=== PATIENT | female | born 1940 | race Caucasian/White ===

== ENCOUNTER → 2017-10-23 08:40 | Outpatient (CLI) | payer MEDICARE, MEDICAID, SELFPAY ==
--- NOTE | 2017-10-23 08:45 | XR_ITS ---
XR acute abdomen series Ordering Physician: AFTAB Montez Patient Age: 77 years: Female HISTORY: ITS.REASON: abdominal pain Patient is concern that a portion of the suppository device may be remaining within her TECHNIQUE: Upright chest with flat and upright views of abdomen as well as a lateral view of pelvis/rectum COMPARISON :CXR 2 view 01/31/2017 FINDINGS CHEST : the lungs are clear with no active disease. Mild hyperexpansion. Heart, thania and mediastinal structures appear satisfactory and unchanged since January 2017.. Mild levoscoliosis lower T-spine. Mildly ectatic ascending aorta. Incidental noted moderate Arthritic changes both shoulders specifically noted narrowing subacromial space which could reflect underlying rotator cuff demise with tear. ABDOMEN. No free air. No bowel dilatation or obstruction. Minimal stool seen throughout colon. 2-3 very small air-fluid levels RLQ on the upright image of either within distal small bowel are within the cecum.-Unimpressive but could reflect some developing liquids stool conceivably.If significant localized right lower quadrant pain should develop consider CT. . no bowel dilatation or obstruction. No significant constipation evident. No radiopaque foreign bodies. There is clip right upper quadrant from previous cholecystectomy. AP view the pelvis, no significant findings on plain film. No organomegaly small phleboliths pelvic basin the left no significant calcifications at kidneys evident. Mild dextroscoliosis lumbar spine with multilevel degenerative disc changes IMPRESSION: 1. Nonspecific bowel gas pattern. No significant acute findings No bowel dilatation or obstruction. Minimal stool throughout the colon no significant constipation evident radiographically. 2. Only note 2 or 3 small air-fluid levels RLQ either related liquid stool developed in the cecum or possibly small air-fluid levels nondilated distal small bowel loops... Unimpressive but noted. 3. No organomegaly.. Cholecystectomy noted. 4. Stable chest no active disease
[2017-10-23 09:39] LABS: Alanine Aminotransferase 32 U/L (12-78); Albumin Level 3.9 gm/dL (3.4-5.0); Albumin/Globulin Ratio 1.1 (1.1-1.8); Alkaline Phosphatase 176 U/L (46-116); Anion Gap 13.9 mEq/L (5-15); Aspartate Amino Transferase 34 U/L (15-37); Bilirubin,Total 0.8 mg/dL (0.2-1.0); Blood Urea Nitrogen 11 mg/dL (7-18); Calcium 9.1 mg/dL (8.5-10.1); Carbon Dioxide 26 mmol/L (21.0-32.0); Chloride 106 mmol/L (98-107); Creatinine,Serum 1.06 mg/dL (0.55-1.02); Estimated Glomerular Filt Rate 51 ml/min (>60); GFR (African American) 61 ML/MIN (>60); Globulin 3.5 gm/dl (1.3-3.2); Glucose 104 mg/dL (74-106); Potassium 3.9 mmoL/L (3.5-5.1); Sodium 142 mmol/L (136-145); Total Protein,Serum 7.4 gm/dL (6.4-8.2)
[2017-10-23 09:57] LABS: Appearance,Urine Slightly Cloudy (Clear); Color,Urine Yellow (Yellow); Microscopic, Urine URINE MICROSCOPIC (MICROSCOPIC); PH,Urine 5.5 (5.0-8.5)
[2017-10-23 09:58] LABS: Blood, Urine Negative (Negative); Glucose,Urine (UA) Negative (Negative); Ketones,Urine Trace (Negative); Leukocyte Esterase,Urine Negative (Negative); Nitrate,Urine Negative (Negative); Protein,Urine Negative (Negative); Specific Gravity, Urine > 1.030 (1.005-1.030); Urobilinogen,Urine 0.2 EU/dl (0.2)
[2017-10-23 09:59] LABS: Bilirubin,Urine Negative (Negative)
[2017-10-23 10:00] LABS: Basophils # 0.1 K/mm3 (0-0.2); Basophils % 0.6 % (0.1-2.0); Eosinophils # 0.1 K/mm3 (0.0-0.4); Eosinophils % 0.7 % (0.1-12.0); Hematocrit 42.7 % (37.0-47.0); Lymphocytes # 7.1 K/mm3 (0.7-4.5); Lymphocytes % 64.4 K/mm3 (10-50); Mean Corpuscular HGB Conc 32.9 g/dL (31.8-35.4); Mean Corpuscular Hemoglobin 30.4 pg (27.0-31.2); Mean Corpuscular Volume 92.6 fl (81-99); Mean Platelet Volume 8.7 fl (7.4-10.4); Monocytes # 0.4 K/mm3 (0.1-1.0); Monocytes % 3.9 % (1.7-9.3); Neutrophils # 3.3 K/mm3 (1.8-7.8); Neutrophils % 30.4 % (37.0-80.0); Platelet Count 170 K/mm3 (142-424); Red Blood Count 4.62 M/mm3 (4.20-5.40); Red Cell Distribution Width 13.4 % (11.5-17.5)
[2017-10-23 10:06] LABS: Bacteria,Urine 1+ /lpf; Squamous Epithelial Cell,Urine Occasional #/hpf (0-5)
[2017-10-23 10:07] LABS: Mucus,Urine Trace /lpf
[2017-10-23 11:03] LABS: MANUAL DIFFERENTIAL MANUAL DIFFERENTIAL (MANUAL DIFF)
[2017-10-23 11:17] LABS: Lymphocytes % 58 % (10-50); Monocytes % 4 % (2-9); Neutrophils % 34 % (42-76); Total Cells Counted 100
[2017-10-23 11:18] LABS: Platelet Estimate Normal
== END ==
PROVIDERS: PCP Physician Assistant; Visit Provider Physician Assistant
DX: R10.9 Unspecified abdominal pain (principal)
CPT/HCPCS: 36415; 74021; 80053; 81001; 85007; 85025

== ENCOUNTER → 2017-11-27 13:40 | Outpatient (CLI) | payer MEDICARE, MEDICAID, SELFPAY | PROVIDERS: Visit Provider Physician Assistant | DX: L29.0 Pruritus ani (principal) ==

== ENCOUNTER → 2017-11-28 09:22 | Outpatient (REF) | payer MEDICARE, MEDICAID, SELFPAY | LOC: LAB 09:22 | PROVIDERS: Visit Provider Physician Assistant ==

== ENCOUNTER 2017-11-29 18:18 | Emergency (ER) | payer MEDICARE, MEDICAID, SELFPAY ==
[2017-11-29 18:30] VITALS: BP 173/100; PULSE 79; RESP 20; TEMP 36.7; O2SAT 95; BMI 25.9
--- NOTE | 2017-11-29 19:06 | XR_ITS ---
XR chest 2V HISTORY: Hypertension pain ITS.REASON: epigastic pain ORDERING PHYSICIAN: James Moran MD PATIENT AGE: 77 years COMPARISON: 01/31/2017 FINDINGS: The cardiomediastinal silhouette and pulmonary vascularity are within normal limits. The lungs are clear without infiltrates, suspicious nodules, or pleural effusions. Degenerative change thoracic spine with exaggerated upper thoracic kyphosis unchanged. IMPRESSION: No change with no acute finding
[2017-11-29 19:35] LABS: Basophils # 0.1 K/mm3 (0-0.2); Basophils % 0.5 % (0.1-2.0); Eosinophils # 0.1 K/mm3 (0.0-0.4); Eosinophils % 1.3 % (0.1-12.0); Hematocrit 39.8 % (37.0-47.0); Hemoglobin 12.9 g/dL (12.2-16.2); Lymphocytes # 7.5 K/mm3 (0.7-4.5); Lymphocytes % 72.4 K/mm3 (10-50); Mean Corpuscular HGB Conc 32.4 g/dL (31.8-35.4); Mean Corpuscular Hemoglobin 30.1 pg (27.0-31.2); Mean Platelet Volume 8.9 fl (7.4-10.4); Monocytes # 0.4 K/mm3 (0.1-1.0); Monocytes % 3.9 % (1.7-9.3); Neutrophils # 2.3 K/mm3 (1.8-7.8); Neutrophils % 21.9 % (37.0-80.0); Platelet Count 159 K/mm3 (142-424); Red Blood Count 4.28 M/mm3 (4.20-5.40); Red Cell Distribution Width 13.5 % (11.5-17.5); White Blood Count 10.3 K/mm3 (4.8-10.8)
[2017-11-29 19:37] LABS: MANUAL DIFFERENTIAL MANUAL DIFFERENTIAL (MANUAL DIFF)
[2017-11-29 19:48] LABS: Alanine Aminotransferase 29 U/L (12-78); Albumin Level 3.8 gm/dL (3.4-5.0); Alkaline Phosphatase 156 U/L (46-116); Anion Gap 13.7 mEq/L (5-15); Aspartate Amino Transferase 23 U/L (15-37); Bilirubin,Total 0.7 mg/dL (0.2-1.0); Blood Urea Nitrogen 12 mg/dL (7-18); Carbon Dioxide 25 mmol/L (21.0-32.0); Chloride 108 mmol/L (98-107); Creatinine Clearance Estimated 53 mL/min (0-300); Creatinine,Serum 0.87 mg/dL (0.55-1.02); Estimated Glomerular Filt Rate 63 ml/min (>60); GFR (African American) 77 ML/MIN (>60); Globulin 3.8 gm/dl (1.3-3.2); Glucose 78 mg/dL (74-106); Potassium 3.7 mmoL/L (3.5-5.1); Sodium 143 mmol/L (136-145); Total Protein,Serum 7.6 gm/dL (6.4-8.2)
[2017-11-29 20:01] LABS: Creatine Kinase 124 U/L (26-192); Eosinophils % 1 % (0-3); Lymphocytes % 47 % (10-50); Monocytes % 4 % (2-9); Neutrophils % 45 % (42-76); Platelet Estimate Normal; RBC Morphology Normal; Total Cells Counted 100; Troponin I < 0.02 ng/ml (0.00-0.06)
[2017-11-29 20:03] LABS: CKMB Relative Index 0.4 U/L (0-4.0); Creatine Kinase MB < 0.5 mg/ml (0.0-3.6)
[2017-11-29 20:22] VITALS: BP 149/87; PULSE 75; RESP 18; TEMP 36.8; O2SAT 96
[2017-11-29 21:17] LABS: Amylase 63 U/L (25-125); Lipase 87 u/L (73-393)
[2017-11-29 21:23] VITALS: BP 166/85; PULSE 87; RESP 18; TEMP 36.8; O2SAT 97
[2017-11-29 21:40] VITALS: BP 166/85; PULSE 87; RESP 18; TEMP 36.8; O2SAT 97
--- NOTE | 2017-11-29 21:47 | HMH.EDNVD ---
ED Disposition Clinical Impression: Gastritis Qualifiers: Gastritis type: unspecified gastritis Chronicity: unspecified Gastritis bleeding: without bleeding Qualified Code(s): K29.70 - Gastritis, unspecified, without bleeding Disposition: Home, Self-Care Condition on Discharge: Good Instructions: DI for Gastritis Additional Instructions: call pcp for follow up Referrals: Soumya Mcrae PA [Primary Care Provider] - - Critical Care Critical Care Time: No Attestation: On 11/29/17, the high probability of a clinically significant, sudden or life threatening deterioration of the following system(s) required my full and direct attention, intervention and personal management. The time I documented below is in addition to time spent performing reported procedures but includes the following listed in this critical care notation. Medical Decision Making - Medical Records Medical records reviewed: Yes: I reviewed the patient's medical records. Vital Signs: 11/29/17 18:30 11/29/17 20:22 11/29/17 21:23 Temperature 98.1 F 98.2 F 98.2 F Temperature Source Oral Oral Oral Pulse Rate [Left Brachial] 79 75 87 Respiratory Rate 20 18 18 Blood Pressure [Left Arm] 173/100 149/87 166/85 Blood Pressure Mean [Left Arm] 124 107 112 Blood Pressure Source [Left Arm] Automatic Cuff Automatic Cuff Blood Pressure Position [Left Arm] Sitting Sitting 02 Sat by Pulse Oximetry 95 96 97 Oxygen Delivery Method Room Air 11/29/17 21:40 Temperature 98.2 F Temperature Source Oral Pulse Rate [Left Brachial] 87 Respiratory Rate 18 Blood Pressure [Left Arm] 166/85 Blood Pressure Mean [Left Arm] 112 Blood Pressure Source [Left Arm] Automatic Cuff Blood Pressure Position [Left Arm] Sitting 02 Sat by Pulse Oximetry 97 Oxygen Delivery Method Room Air - Lab Data Lab results reviewed: Yes: I reviewed the patient's lab results. Lab Results 11/29/17 19:10: WBC 10.3, RBC 4.28, Hgb 12.9, Hct 39.8, MCV 93.0, MCH 30.1, MCHC 32.4, RDW 13.5, Plt Count 159, MPV 8.9, Neut % (Auto) 21.9 L, Lymph % (Auto) 72.4 H, [place] % (Auto) 3.9, Eos % (Auto) 1.3, Baso % (Auto) 0.5, Neut # (Auto) 2.3, Lymph # (Auto) 7.5 H, [place] # (Auto) 0.4, Eos # (Auto) 0.1, Baso # (Auto) 0.1, Total Counted 100, Neutrophils % (Manual) 45, Band Neutrophils % 2.0, Lymphocytes % (Manual) 47, Monocytes % (Manual) 4, Eosinophils % (Manual) 1, Basophils % (Manual) 1.0, Platelet Estimate Normal, RBC Morphology Normal 11/29/17 19:10: Sodium 143, Potassium 3.7, Chloride 108 H, Carbon Dioxide 25, Anion Gap 13.7, BUN 12, Creatinine 0.87, Estimated Creat Clear 53, Estimated GFR 63, Est GFR ( Amer) 77, Glucose 78, Calcium 9.0, Total Bilirubin 0.7, AST 23, ALT 29, Alkaline Phosphatase 156 H, Total Protein 7.6, Albumin 3.8, Globulin 3.8 H, Albumin/Globulin Ratio 1.0 L 11/29/17 19:10: Total Creatine Kinase 124, CK-MB (CK-2) < 0.5, CK-MB (CK-2) Rel Index 0.4, Troponin I < 0.02 11/29/17 19:10: Amylase 63, Lipase 87 Result diagrams: 11/29/17 19:10 11/29/17 19:10 Orders (Tests/Meds): ED MEDICATIONS Discontinued Medications Generic Name Dose Route Start Last Admin Trade Name Freq PRN Reason Stop Dose Admin Famotidine 20 mg 11/29/17 21:05 11/29/17 21:18 Pepcid 20mg/2ml Vial IV 11/29/17 21:06 20 mg ONCE ONE Administration Metoclopramide HCl 10 mg 11/29/17 21:05 11/29/17 21:18 Reglan 10mg/2ml Vial IVP 11/29/17 21:06 10 mg ONCE ONE Administration - Radiology Data #1 Image(s): Chest Image Reviewed: Yes I reviewed the patient's radiology image Preliminary Findings: Normal/NAD - ECG Data Tracing #1 I reviewed this ECG and interpreted as documented below: Normal Sinus Rhythm: Yes Ischemic changes: non-specific ST-T wave changes - Baudilio Inquiry Pt receiving controlled substance: No Nausea/Vomiting/Diarrhea HPI - General Chief complaint: Abdominal Pain Stated complaint: abd&Back pain,nausa Time Seen by Provider: 11/29/17 21
--- NOTE | 2017-11-29 21:50 | ED_ITS ---
ED Disposition Clinical Impression: Gastritis Qualifiers: Gastritis type: unspecified gastritis Chronicity: unspecified Gastritis bleeding: without bleeding Qualified Code(s): K29.70 - Gastritis, unspecified, without bleeding Disposition: Home, Self-Care Condition on Discharge: Good Instructions: DI for Gastritis Additional Instructions: call pcp for follow up Referrals: Soumya Mcrae PA [Primary Care Provider] - - Critical Care Critical Care Time: No Attestation: On 11/29/17, the high probability of a clinically significant, sudden or life threatening deterioration of the following system(s) required my full and direct attention, intervention and personal management. The time I documented below is in addition to time spent performing reported procedures but includes the following listed in this critical care notation. Medical Decision Making - Medical Records Medical records reviewed: Yes: I reviewed the patient's medical records. Vital Signs: 11/29/17 18:30 11/29/17 20:22 11/29/17 21:23 Temperature 98.1 F 98.2 F 98.2 F Temperature Source Oral Oral Oral Pulse Rate [Left Brachial] 79 75 87 Respiratory Rate 20 18 18 Blood Pressure [Left Arm] 173/100 149/87 166/85 Blood Pressure Mean [Left Arm] 124 107 112 Blood Pressure Source [Left Arm] Automatic Cuff Automatic Cuff Blood Pressure Position [Left Arm] Sitting Sitting 02 Sat by Pulse Oximetry 95 96 97 Oxygen Delivery Method Room Air 11/29/17 21:40 Temperature 98.2 F Temperature Source Oral Pulse Rate [Left Brachial] 87 Respiratory Rate 18 Blood Pressure [Left Arm] 166/85 Blood Pressure Mean [Left Arm] 112 Blood Pressure Source [Left Arm] Automatic Cuff Blood Pressure Position [Left Arm] Sitting 02 Sat by Pulse Oximetry 97 Oxygen Delivery Method Room Air - Lab Data Lab results reviewed: Yes: I reviewed the patient's lab results. Lab Results 11/29/17 19:10: WBC 10.3, RBC 4.28, Hgb 12.9, Hct 39.8, MCV 93.0, MCH 30.1, MCHC 32.4, RDW 13.5, Plt Count 159, MPV 8.9, Neut % (Auto) 21.9 L, Lymph % (Auto ) 72.4 H, [place] % (Auto) 3.9, Eos % (Auto) 1.3, Baso % (Auto) 0.5, Neut # (Auto) 2.3, Lymph # (Auto) 7.5 H, [place] # (Auto) 0.4, Eos # (Auto) 0.1, Baso # (Auto) 0.1, Total Counted 100, Neutrophils % (Manual) 45, Band Neutrophils % 2.0, Lymphocytes % (Manual) 47, Monocytes % (Manual) 4, Eosinophils % (Manual) 1, Basophils % (Manual) 1.0, Platelet Estimate Normal, RBC Morphology Normal 11/29/17 19:10: Sodium 143, Potassium 3.7, Chloride 108 H, Carbon Dioxide 25, Anion Gap 13.7, BUN 12, Creatinine 0.87, Estimated Creat Clear 53, Estimated GFR 63, Est GFR ( Amer) 77, Glucose 78, Calcium 9.0, Total Bilirubin 0.7 , AST 23, ALT 29, Alkaline Phosphatase 156 H, Total Protein 7.6, Albumin 3.8, Globulin 3.8 H, Albumin/Globulin Ratio 1.0 L 11/29/17 19:10: Total Creatine Kinase 124, CK-MB (CK-2) < 0.5, CK-MB (CK-2) Rel Index 0.4, Troponin I < 0.02 11/29/17 19:10: Amylase 63, Lipase 87 Result diagrams: 11/29/17 19:10 11/29/17 19:10 Orders (Tests/Meds): ED MEDICATIONS Discontinued Medications Generic Name Dose Route Start Last Admin Trade Name Freq PRN Reason Stop Dose Admin Famotidine 20 mg 11/29/17 21:05 11/29/17 21:18 Pepcid 20mg/2ml Vial IV 11/29/17 21:06 20 mg ONCE ONE Administration Metoclo
[2017-11-29 22:03] VITALS: BP 166/85; PULSE 87; RESP 18; TEMP 36.8; O2SAT 97
== END 2017-11-29 22:05 | disposition home or self-care (01) ==
PROVIDERS: Emergency Medicine; Emergency Provider Emergency Medicine; PCP Physician Assistant
DX: K29.70 Gastritis, unspecified, without bleeding (principal); Z79.82 Long term (current) use of aspirin; Z88.8 Allergy status to other drugs, medicaments and biological substances; Z87.891 Personal history of nicotine dependence
CPT/HCPCS: 71046; 80053; 82150; 82550; 82553; 83690; 84484; 85007; 85025; 93005; 93041; 96374; 96375; 99283

== ENCOUNTER 2017-12-01 08:14 | Emergency (ER) | payer MEDICARE, MEDICAID, SELFPAY ==
[2017-12-01 08:22] VITALS: BP 124/85; PULSE 105; RESP 20; TEMP 36.6; O2SAT 98; BMI 26.0
--- NOTE | 2017-12-01 08:30 | CT_ITS ---
CT abdomen pelvis wo con CLINICAL INDICATION: Right-sided abdominal pain ITS.REASON: ABD PAIN ORDERING PHYSICIAN: Lucy Oates MD PATIENT AGE: 77 years COMPARISON: 08/23/2014 TECHNIQUE: Axial images obtained with sagittal and coronal reformats. PROCEDURE: Oral Contrast: None IV Contrast: None . FINDINGS: There are atelectatic or fibrotic changes in the lung bases. Prior cholecystectomy. No ductal dilatation. The liver, spleen, adrenal glands, and pancreas have an unremarkable unenhanced CT appearance aside from some mild motion artifact. No obstructing renal or ureteral calculi. There is a 7 cm left renal cyst laterally somewhat displacing the left kidney medially. No intestinal obstruction or free air. Reported prior appendectomy. There is diverticulosis coli no evidence of diverticulitis. Prior hysterectomy. No pelvic mass or abnormal fluid collection or focal inflammatory change. Degenerative changes lumbar spine. There is a 12 mm lucent lesion of the right ilium inferiorly nonspecific not significant changed probably benign. IMPRESSION: 1. No acute abdominal or pelvic findings. 2. 7 cm left renal cyst. 3. Colonic diverticulosis. No evidence of diverticulitis. 4. Other nonacute findings as described above
--- NOTE | 2017-12-01 08:43 | HMH.EDABDPAI ---
ED Disposition Clinical Impression: Diverticulosis Disposition: Home, Self-Care Condition on Discharge: Good Instructions: DI for Acute Abdomen Additional Instructions: See Soumya in 2-3 days for follow-up. Rx Bentyl and Zofran. Clear liquids overnight, advance as tolerated. Prescriptions: Ondansetron [Zofran 4mg ODT] 4 mg PO Q8HP PRN #10 tab.rapdis PRN Reason: nausea/vomiting Dicyclomine HCl [Bentyl 10mg capsule] 10 mg PO TIDP PRN #10 cap PRN Reason: Cramping pain Referrals: Soumya Mcrae PA [Primary Care Provider] - Time of Disposition: 09:47 - Critical Care Critical Care Time: No Attestation: On 12/01/17, the high probability of a clinically significant, sudden or life threatening deterioration of the following system(s) required my full and direct attention, intervention and personal management. The time I documented below is in addition to time spent performing reported procedures but includes the following listed in this critical care notation. Medical Decision Making - Medical Records Medical records reviewed: Yes: I reviewed the patient's medical records. MR Comment: Seen in the ER 2 days ago for similar complaints. Vital Signs: 12/01/17 08:22 12/01/17 09:14 Temperature 97.9 F 98.0 F Temperature Source Oral Oral Pulse Rate [Right Radial] 105 H 86 Respiratory Rate 20 18 Blood Pressure [Right Arm] 124/85 116/75 Blood Pressure Mean [Right Arm] 98 88 Blood Pressure Source [Right Arm] Manual Cuff/ Doppler Blood Pressure Position [Right Arm] Sitting 02 Sat by Pulse Oximetry 98 97 Oxygen Delivery Method Room Air Room Air - Lab Data Lab results reviewed: Yes: I reviewed the patient's lab results. Lab Results 12/01/17 08:35: WBC 14.1 H D, RBC 4.46, Hgb 13.3, Hct 41.3, MCV 92.6, MCH 29.7, MCHC 32.1, RDW 13.6, Plt Count 187, MPV 9.4, Neut % (Auto) 32.1 L, Lymph % (Auto) 64.4 H, [place] % (Auto) 2.7, Eos % (Auto) 0.5, Baso % (Auto) 0.4, Neut # (Auto) 4.5, Lymph # (Auto) 9.1 H, [place] # (Auto) 0.4, Eos # (Auto) 0.1, Baso # (Auto) 0.1, Total Counted 100, Neutrophils % (Manual) 51, Lymphocytes % (Manual) 47, Monocytes % (Manual) 1 L, Eosinophils % (Manual) 1, Differential Comment , Platelet Estimate Normal, Poikilocytosis 2+, Hase[place] Cells 2+ 12/01/17 08:35: Sodium 140, Potassium 3.8, Chloride 104, Carbon Dioxide 24, Anion Gap 15.8 H, BUN 15, Creatinine 1.08 H D, Estimated Creat Clear 49, Estimated GFR 49 L, Est GFR ( Amer) 60 D, Glucose 91, Calcium 9.1, Total Bilirubin 1.0, AST 26, ALT 27, Alkaline Phosphatase 156 H, Total Protein 7.7, Albumin 3.9, Globulin 3.8 H, Albumin/Globulin Ratio 1.0 L, Amylase 75 12/01/17 08:35: Urine Color Yellow, Urine Appearance Clear, Urine pH 6.0, Ur Specific [place] >= 1.030, Urine Protein Negative, Urine Glucose (UA) Negative, Urine Ketones 3+, Urine Blood Trace-i, Urine Nitrate Negative, Urine Bilirubin Negative, Urine Urobilinogen 0.2, Ur Leukocyte Esterase Negative, Urine RBC Occasional, Urine WBC None, Ur Squamous Epith Cells 5-10, Urine Bacteria 1+, Urine Mucus 2+ 12/01/17 08:35: Lipase 89 Result diagrams: 12/01/17 08:35 12/01/17 08:35 Orders (Tests/Meds): ED MEDICATIONS Generic Name Dose Route Start Last Admin Trade Name Freq PRN Reason Stop Dose Admin Sodium Chloride 1,000 mls @ 999 mls/hr 12/01/17 08:45 12/01/17 08:41 Sod Chlor 0.9% 1000ml Bag IV 12/01/17 09:45 999 mls/hr .Q1H1M SARA Administration Discontinued Medications Generic Name Dose Route Start Last Admin Trade Name Freq PRN Reason Stop Dose Admin Dicyclomine HCl 10 mg 12/01/17 09:14 12/01/17 09:27 Bentyl 10mg Capsule PO 12/01/17 09:15 10 mg ONCE ONE Administration Ondansetron HCl 4 mg 12/01/17 08:31 12/01/17 08:40 Zofran 4mg/2ml Vial IV 12/01/17 08:32 4 mg ONCE ONE Administration - Radiology Data #1 Image(s): Abdomen, Pelvis Image Reviewed: Yes I reviewed the patient's radiology results Preliminary Findings: Abnormal (Diverticulo
[2017-12-01 08:54] LABS: Microscopic, Urine URINE MICROSCOPIC (MICROSCOPIC)
[2017-12-01 08:59] LABS: Basophils # 0.1 K/mm3 (0-0.2); Basophils % 0.4 % (0.1-2.0); Eosinophils # 0.1 K/mm3 (0.0-0.4); Eosinophils % 0.5 % (0.1-12.0); Hematocrit 41.3 % (37.0-47.0); Hemoglobin 13.3 g/dL (12.2-16.2); Lymphocytes # 9.1 K/mm3 (0.7-4.5); Lymphocytes % 64.4 K/mm3 (10-50); Mean Corpuscular HGB Conc 32.1 g/dL (31.8-35.4); Mean Corpuscular Hemoglobin 29.7 pg (27.0-31.2); Mean Corpuscular Volume 92.6 fl (81-99); Mean Platelet Volume 9.4 fl (7.4-10.4); Monocytes # 0.4 K/mm3 (0.1-1.0); Monocytes % 2.7 % (1.7-9.3); Neutrophils # 4.5 K/mm3 (1.8-7.8); Neutrophils % 32.1 % (37.0-80.0); Platelet Count 187 K/mm3 (142-424); Red Blood Count 4.46 M/mm3 (4.20-5.40); Red Cell Distribution Width 13.6 % (11.5-17.5); White Blood Count 14.1 K/mm3 (4.8-10.8)
[2017-12-01 09:01] LABS: MANUAL DIFFERENTIAL MANUAL DIFFERENTIAL (MANUAL DIFF)
[2017-12-01 09:03] LABS: Appearance,Urine CLEAR (Clear); Blood, Urine TRACE-I (Negative); Color,Urine YELLOW (Yellow); Glucose,Urine (UA) Negative (Negative); Ketones,Urine 3+ (Negative); Leukocyte Esterase,Urine Negative (Negative); Nitrate,Urine Negative (Negative); Protein,Urine Negative (Negative); Specific Gravity, Urine >= 1.030 (1.005-1.030); Urobilinogen,Urine 0.2 EU/dl (0.2)
[2017-12-01 09:05] LABS: Lipase 89 u/L (73-393)
[2017-12-01 09:07] LABS: Alanine Aminotransferase 27 U/L (12-78); Albumin Level 3.9 gm/dL (3.4-5.0); Alkaline Phosphatase 156 U/L (46-116); Amylase 75 U/L (25-125); Anion Gap 15.8 mEq/L (5-15); Aspartate Amino Transferase 26 U/L (15-37); Blood Urea Nitrogen 15 mg/dL (7-18); Calcium 9.1 mg/dL (8.5-10.1); Carbon Dioxide 24 mmol/L (21.0-32.0); Chloride 104 mmol/L (98-107); Creatinine Clearance Estimated 49 mL/min (0-300); Creatinine,Serum 1.08 mg/dL (0.55-1.02); Estimated Glomerular Filt Rate 49 ml/min (>60); GFR (African American) 60 ML/MIN (>60); Globulin 3.8 gm/dl (1.3-3.2); Glucose 91 mg/dL (74-106); Potassium 3.8 mmoL/L (3.5-5.1); Sodium 140 mmol/L (136-145); Total Protein,Serum 7.7 gm/dL (6.4-8.2)
[2017-12-01 09:14] VITALS: BP 116/75; PULSE 86; RESP 18; TEMP 36.7; O2SAT 97
[2017-12-01 09:16] LABS: Bilirubin,Urine Negative (Negative)
[2017-12-01 09:24] LABS: Eosinophils % 1 % (0-3); Lymphocytes % 47 % (10-50); Monocytes % 1 % (2-9); Neutrophils % 51 % (42-76); Total Cells Counted 100
[2017-12-01 09:26] LABS: Burr Cells 2+; Platelet Estimate Normal; Poikilocytosis 2+
[2017-12-01 09:31] LABS: Bacteria,Urine 1+ /lpf; Mucus,Urine 2+ /lpf; RBC,Urine Occasional #/hpf (0-3)
[2017-12-01 09:55] VITALS: BP 113/76; PULSE 110; RESP 20; TEMP 36.6; O2SAT 99
== END 2017-12-01 09:55 | disposition home or self-care (01) ==
PROVIDERS: Emergency Provider Emergency Medicine; PCP Physician Assistant
DX: R10.9 Unspecified abdominal pain (principal); K57.90 Diverticulosis of intestine, part unspecified, without perforation or abscess without bleeding; K59.00 Constipation, unspecified; R10.84 Generalized abdominal pain; Z79.82 Long term (current) use of aspirin; Z88.8 Allergy status to other drugs, medicaments and biological substances; Z87.891 Personal history of nicotine dependence; Z96.651 Presence of right artificial knee joint
CPT/HCPCS: 74176; 80053; 81001; 82150; 83690; 85007; 85025; 96365; 96374; 99283; J2405

== ENCOUNTER → 2018-02-21 13:08 | Outpatient (REF) | payer MEDICARE, MEDICAID, SELFPAY ==
[2018-02-21 17:41] LABS: Basophils % 0.4 % (0.1-2.0); Eosinophils # 0.1 K/mm3 (0.0-0.4); Eosinophils % 0.9 % (0.1-12.0); Hemoglobin 11.6 g/dL (12.2-16.2); Lymphocytes % 63.2 K/mm3 (10-50); Mean Corpuscular HGB Conc 32.2 g/dL (31.8-35.4); Mean Corpuscular Volume 93.2 fl (81-99); Mean Platelet Volume 10.1 fl (7.4-10.4); Monocytes # 0.3 K/mm3 (0.1-1.0); Monocytes % 3.8 % (1.7-9.3); Neutrophils # 2.5 K/mm3 (1.8-7.8); Neutrophils % 31.6 % (37.0-80.0); Platelet Count 145 K/mm3 (142-424); Red Blood Count 3.87 M/mm3 (4.20-5.40); Red Cell Distribution Width 13.2 % (11.5-17.5); White Blood Count 7.9 K/mm3 (4.8-10.8)
[2018-02-21 18:09] LABS: MANUAL DIFFERENTIAL MANUAL DIFFERENTIAL (MANUAL DIFF)
[2018-02-21 18:15] LABS: Alanine Aminotransferase 18 U/L (12-78); Albumin Level 3.3 gm/dL (3.4-5.0); Alkaline Phosphatase 129 U/L (46-116); Anion Gap 12.2 mEq/L (5-15); Aspartate Amino Transferase 15 U/L (15-37); Bilirubin,Total 0.4 mg/dL (0.2-1.0); Blood Urea Nitrogen 12 mg/dL (7-18); Calcium 8.8 mg/dL (8.5-10.1); Carbon Dioxide 28 mmol/L (21.0-32.0); Chloride 110 mmol/L (98-107); Chol/HDL Ratio 1.8 (1-3.5); Cholesterol 104 mg/dL (140-200); Creatinine,Serum 0.83 mg/dL (0.55-1.02); Estimated Glomerular Filt Rate 67 ml/min (>60); GFR (African American) 81 ML/MIN (>60); Globulin 3.2 gm/dl (1.3-3.2); Glucose 84 mg/dL (74-106); HDL Cholesterol 58 mg/dL (29-89); LDL Cholesterol 33 mg/dL (0-130); Potassium 4.2 mmoL/L (3.5-5.1); Sodium 146 mmol/L (136-145); T4 (Thyroxine) 12.1 ug/dl (4.7-13.3); Thyroid Stimulating Hormone 0.26 uIU/ml (0.358-3.740); Total Protein,Serum 6.5 gm/dL (6.4-8.2); Triglycerides 67 mg/dL (30-200); VLDL Cholesterol 13 mg/dL (0-40)
[2018-02-21 19:10] LABS: Eosinophils % 1 % (0-3); Lymphocytes % 51 % (10-50); Monocytes % 5 % (2-9); Neutrophils % 42 % (42-76); Platelet Estimate Normal; RBC Morphology Normal; Total Cells Counted 100
== END ==
LOC: LAB 13:08
PROVIDERS: Visit Provider Physician Assistant
DX: E03.9 Hypothyroidism, unspecified (principal)
CPT/HCPCS: 80053; 80061; 84436; 84443; 85007; 85025

== ENCOUNTER → 2018-03-21 12:56 | Outpatient (CLI) | payer MEDICARE, MEDICAID, SELFPAY ==
[2018-03-21 14:51] LABS: Thyroid Stimulating Hormone 0.26 uIU/ml (0.358-3.740)
[2018-03-21 15:09] LABS: Basophils % 0.4 % (0.1-2.0); Eosinophils # 0.1 K/mm3 (0.0-0.4); Eosinophils % 0.7 % (0.1-12.0); Hematocrit 41.5 % (37.0-47.0); Hemoglobin 12.4 g/dL (12.2-16.2); Lymphocytes # 6.6 K/mm3 (0.7-4.5); Mean Corpuscular Hemoglobin 28.3 pg (27.0-31.2); Mean Corpuscular Volume 94.3 fl (81-99); Mean Platelet Volume 9.2 fl (7.4-10.4); Monocytes # 0.3 K/mm3 (0.1-1.0); Monocytes % 2.8 % (1.7-9.3); Neutrophils % 30.2 % (37.0-80.0); Platelet Count 163 K/mm3 (142-424); Red Cell Distribution Width 14.3 % (11.5-17.5)
[2018-03-21 15:13] LABS: MANUAL DIFFERENTIAL MANUAL DIFFERENTIAL (MANUAL DIFF)
[2018-03-21 16:03] LABS: Lymphocytes % 68 % (10-50); Monocytes % 3 % (2-9); Neutrophils % 25 % (42-76); Total Cells Counted 100
[2018-03-21 16:04] LABS: Platelet Estimate Normal
[2018-03-21 16:05] LABS: Hypochromasia 1+
== END ==
PROVIDERS: Visit Provider Physician Assistant
DX: Z13.0 Encounter for screening for diseases of the blood and blood-forming organs and certain disorders involving the immune mechanism (principal); E03.9 Hypothyroidism, unspecified
CPT/HCPCS: 36415; 84443; 85007; 85025

== ENCOUNTER → 2018-04-24 14:27 | Outpatient (CLI) | payer MEDICARE, MEDICAID, SELFPAY ==
--- NOTE | 2018-04-24 14:30 | XR_ITS ---
XR chest 2V HISTORY: ITS.REASON: Hemoptysis ORDERING PHYSICIAN: AFTAB Montez PATIENT AGE: 77 years COMPARISON: PA and lateral chest 11/29/2017 FINDINGS: The lung kee are well expanded and appear clear of infiltrate. There is mild aortic tortuosity but no cardiomegaly. There is multilevel degenerative changes of the resting spine. There is lateral downsloping acromium of the right shoulder suggesting predisposition to impingement syndrome. IMPRESSION: Negative chest, no acute finding
== END ==
PROVIDERS: PCP Physician Assistant; Visit Provider Physician Assistant
DX: R04.2 Hemoptysis (principal)
CPT/HCPCS: 71046

== ENCOUNTER → 2018-05-23 13:06 | Outpatient (REF) | payer MEDICARE, MEDICAID, SELFPAY ==
[2018-05-23 19:29] LABS: Hematocrit 42.5 % (37.0-47.0); Hemoglobin 13.5 g/dL (12.2-16.2); White Blood Count 9.9 K/mm3 (4.8-10.8)
[2018-05-23 19:30] LABS: Basophils % 0.4 % (0.1-2.0); Eosinophils # 0.1 K/mm3 (0.0-0.4); Lymphocytes # 7.3 K/mm3 (0.7-4.5); Lymphocytes % 73.6 K/mm3 (10-50); Mean Corpuscular HGB Conc 31.7 g/dL (31.8-35.4); Mean Corpuscular Volume 94.6 fl (81-99); Mean Platelet Volume 9.4 fl (7.4-10.4); Monocytes # 0.3 K/mm3 (0.1-1.0); Monocytes % 2.9 % (1.7-9.3); Neutrophils # 2.2 K/mm3 (1.8-7.8); Neutrophils % 22.1 % (37.0-80.0); Platelet Count 161 K/mm3 (142-424); Red Cell Distribution Width 14.5 % (11.5-17.5)
[2018-05-23 19:38] LABS: MANUAL DIFFERENTIAL MANUAL DIFFERENTIAL (MANUAL DIFF)
[2018-05-23 20:17] LABS: Amphetamine/Metha Screen,Urine Negative ng/mL (<1000); Barbiturates Screen,Urine Negative ng/mL (<200); Benzodiazepines Screen,Urine Positive ng/mL (<200); Cannabinoid Screen,Urine Negative ng/mL (<50); Cocaine Screen,Urine Negative ng/mL (<300); Methadone Screen,Urine Negative ng/mL (<300); Opiate Screen,Urine Negative ng/mL (<300); Phencyclidine Screen,Urine Negative ng/mL (<25)
[2018-05-23 20:19] LABS: Alanine Aminotransferase 27 U/L (12-78); Albumin/Globulin Ratio 1.1 (1.1-1.8); Alkaline Phosphatase 134 U/L (46-116); Aspartate Amino Transferase 21 U/L (15-37); Bilirubin,Total 0.8 mg/dL (0.2-1.0); Blood Urea Nitrogen 10 mg/dL (7-18); Calcium 9.3 mg/dL (8.5-10.1); Carbon Dioxide 27 mmol/L (21.0-32.0); Chloride 107 mmol/L (98-107); Chol/HDL Ratio 1.6 (1-3.5); Cholesterol 111 mg/dL (140-200); Creatinine,Serum 1.03 mg/dL (0.55-1.02); Estimated Glomerular Filt Rate 52 ml/min (>60); GFR (African American) 63 ML/MIN (>60); Globulin 3.7 gm/dl (1.3-3.2); Glucose 77 mg/dL (74-106); HDL Cholesterol 68 mg/dL (29-89); LDL Cholesterol 28 mg/dL (0-130); Sodium 146 mmol/L (136-145); T4 (Thyroxine) 13.5 ug/dl (4.7-13.3); Thyroid Stimulating Hormone 0.31 uIU/ml (0.358-3.740); Total Protein,Serum 7.7 gm/dL (6.4-8.2); Triglycerides 75 mg/dL (30-200); VLDL Cholesterol 15 mg/dL (0-40)
[2018-05-23 20:55] LABS: Lymphocytes % 53 % (10-50); Monocytes % 4 % (2-9); Neutrophils % 39 % (42-76); Platelet Estimate Normal; RBC Morphology Normal; Total Cells Counted 100
== END ==
LOC: LAB 13:06
PROVIDERS: Visit Provider Physician Assistant
DX: Z79.899 Other long term (current) drug therapy (principal); R11.2 Nausea with vomiting, unspecified; R53.83 Other fatigue
CPT/HCPCS: 80053; 80061; 80305; 84436; 84443; 85007; 85025

== ENCOUNTER → 2018-05-31 08:31 | Outpatient (CLI) | payer MEDICARE, MEDICAID, SELFPAY ==
--- NOTE | 2018-05-31 08:33 | CI_ITS ---
Cerebrovascular Exam Indications: 780.4 Dizziness and giddiness. IMPRESSIONS 1. The bilateral vertebral arteries are patent with normal antegrade flow. 2. Study suggests less than 20% stenosis involving the right internal carotid artery and the left internal carotid artery. No change from the study of 07-Apr-2014. 3. Tortuous carotid arteries seen bilaterally. History: Transient ischemic attack. Risk factors: Hypertension. Hyperlipidemia. Carotid duplex study. Complete study and Doppler flow study including spectral analysis, color and [place] scale imaging. Height: Height: 162.6cm. Height: 64in. Weight: Weight: 61.2kg. Weight: 134.7lb. Body mass index: BMI: 23.2kg/m^2. Body surface area: BSA: 1.67m^2. Location: Vascular laboratory. Patient status: Outpatient. Tables: Arterial flow: + +--------+--------+ Location V sys V ed + +--------+--------+ Right CCA - proximal 60.5cm/s 22cm/s + +--------+--------+ Right CCA - distal 58.9cm/s 21.2cm/s + +--------+--------+ Right ECA 68.3cm/s -------- + +--------+--------+ Right ICA - proximal 52cm/s 22.6cm/s + +--------+--------+ Right ICA - mid 54.1cm/s 19.1cm/s + +--------+--------+ Right ICA - distal 68.2cm/s 28.7cm/s + +--------+--------+ Right vertebral 46.4cm/s -------- + +--------+--------+ Left CCA - proximal 65.2cm/s 20.4cm/s + +--------+--------+ Left CCA - distal 67.6cm/s 22.8cm/s + +--------+--------+ Left ECA 45.6cm/s -------- + +--------+--------+ Left ICA - proximal 52.6cm/s 19.6cm/s + +--------+--------+ Left ICA - mid 91.1cm/s 32.2cm/s + +--------+--------+ Left ICA - distal 86.8cm/s 31.3cm/s + +--------+--------+ Left vertebral 54.2cm/s -------- + +--------+--------+ Velocity ratios: + + + + + + Right, V sys Right, V ed Left, V sys Left, V ed + + + + + + Max ICA/dist CCA 1.16 1.35 1.35 1.41 + + + + + + (Report amended ) Electronically signed by: Preet Otto [id number]
== END ==
PROVIDERS: PCP Physician Assistant; Visit Provider Physician Assistant
DX: R42 Dizziness and giddiness (principal)
CPT/HCPCS: 93880

== ENCOUNTER → 2018-06-25 14:16 | Outpatient (POV) | payer MEDICARE, MEDICAID, SELFPAY | PROVIDERS: PCP Physician Assistant; Visit Provider Nurse Practitioner Acute Care | DX: Z00.00 Encounter for general adult medical examination without abnormal findings (principal) ==

== ENCOUNTER → 2018-07-10 10:32 | Outpatient (POV) | payer MEDICARE, MEDICAID, SELFPAY | PROVIDERS: PCP Physician Assistant; Visit Provider Dermatology | DX: Z00.00 Encounter for general adult medical examination without abnormal findings (principal) ==

== ENCOUNTER → 2018-07-10 14:41 | Outpatient (CLI) | payer MEDICARE, MEDICAID, SELFPAY ==
--- NOTE | 2018-07-10 14:42 | MM_ITS ---
MM Dig screening mamm BI w/CAD ORDERING PHYSICIAN : AFTAB Montez PATIENT AGE: 78 years GENDER: Female COMPARISON: December INDICATION: ITS.REASON:. Screening mammogram. No hormones no new complaints. HISTORY patient notes she is lost 21 pounds since previous mammogram Previous benign surgical excisional biopsy right breast lateral scar approximately 9:00. TECHNIQUE: Standard CC and MLO images were obtained. R2 CAD reviewed. Additional axillary cc views both breast FINDINGS: Mild to moderate residual fibroglandular elements. Stable architecture with no dominant mass nor suspicious calcifications. . Overall stable mammogram CAD highlights no new areas of concern versus last year . IMPRESSION: ------- Stable mammogram. No new areas of significant concern Bilateral follow-up one year BI-RADS Category: 1 Negative RECOMMENDED FOLLOW-UP: 1YR 1 YEAR FOLLOW-UP (A letter has been sent to the patient regarding results of the study.)
== END ==
PROVIDERS: PCP Physician Assistant; Visit Provider Physician Assistant
DX: Z12.31 Encounter for screening mammogram for malignant neoplasm of breast (principal)
CPT/HCPCS: 77067

== ENCOUNTER → 2018-07-16 15:06 | Outpatient (CLI) | payer MEDICARE, MEDICAID, SELFPAY ==
[2018-07-16 18:56] LABS: Thyroid Stimulating Hormone 1.21 uIU/ml (0.358-3.740)
== END ==
PROVIDERS: PCP Physician Assistant; Visit Provider Otolaryngology
DX: E07.9 Disorder of thyroid, unspecified (principal)
CPT/HCPCS: 36415; 84439; 84443

== ENCOUNTER → 2018-07-24 14:29 | Outpatient (CLI) | payer MEDICARE, MEDICAID, SELFPAY ==
--- NOTE | 2018-07-24 14:31 | US_ITS ---
US thyroid HISTORY: Follow-up thyroid nodule ITS.REASON: Thyroid condition ORDERING PHYSICIAN: Ryan Steel MD PATIENT AGE: 78 years Comparison: 09/07/2016 FINDINGS: Right lobe: Surgically removed Left lobe: 4.2 x 1.1 x 1.4 cm Isoechoic nodule mid polar region at 8 x 5 mm. Previously this was slightly hypoechoic probably not significant changed in size. IMPRESSION: 1. Interval right thyroidectomy. 2. 8 x 5 mm isoechoic nodule lower pole. This nodule was previously hypoechoic. This is low suspicion for malignancy. Consider 6 month follow-up.
== END ==
PROVIDERS: PCP Physician Assistant; Visit Provider Otolaryngology
DX: E07.9 Disorder of thyroid, unspecified (principal)
CPT/HCPCS: 76536

== ENCOUNTER → 2018-08-22 18:23 | Outpatient (CLI) | payer MEDICARE, MEDICAID, SELFPAY ==
[2018-08-22 22:12] LABS: Amphetamine/Metha Screen,Urine Negative ng/mL (<1000); Barbiturates Screen,Urine Negative ng/mL (<200); Benzodiazepines Screen,Urine Positive ng/mL (<200); Cannabinoid Screen,Urine Negative ng/mL (<50); Cocaine Screen,Urine Negative ng/mL (<300); Methadone Screen,Urine Negative ng/mL (<300); Opiate Screen,Urine Negative ng/mL (<300); Phencyclidine Screen,Urine Negative ng/mL (<25)
== END ==
PROVIDERS: Visit Provider Physician Assistant
DX: Z79.899 Other long term (current) drug therapy (principal)
CPT/HCPCS: 80305

== ENCOUNTER → 2018-11-20 19:28 | Outpatient (CLI) | payer MEDICARE, MEDICAID, SELFPAY ==
[2018-11-20 19:46] LABS: Basophils # 0.1 K/mm3 (0-0.2); Basophils % 0.5 % (0.1-2.0); Eosinophils # 0.2 K/mm3 (0.0-0.4); Eosinophils % 1.9 % (0.1-12.0); Hematocrit 38.1 % (37.0-47.0); Lymphocytes # 6.1 K/mm3 (0.7-4.5); Lymphocytes % 63.7 % (10-50); Mean Corpuscular HGB Conc 31.6 g/dL (31.8-35.4); Mean Corpuscular Volume 94.9 fl (81-99); Monocytes # 0.4 K/mm3 (0.1-1.0); Monocytes % 4.1 % (1.7-9.3); Neutrophils # 2.9 K/mm3 (1.8-7.8); Neutrophils % 29.8 % (37.0-80.0); Platelet Count 190 K/mm3 (142-424); Red Blood Count 4.01 M/mm3 (4.20-5.40); Red Cell Distribution Width 14.2 % (11.5-17.5); White Blood Count 9.6 K/mm3 (4.8-10.8)
[2018-11-20 19:47] LABS: MANUAL DIFFERENTIAL MANUAL DIFFERENTIAL (MANUAL DIFF)
[2018-11-20 20:12] LABS: Alanine Aminotransferase 17 U/L (12-78); Albumin Level 3.3 gm/dL (3.4-5.0); Albumin/Globulin Ratio 0.8 (1.1-1.8); Anion Gap 10.1 mEq/L (5-15); Aspartate Amino Transferase 14 U/L (15-37); Bilirubin,Total 0.5 mg/dL (0.2-1.0); Blood Urea Nitrogen 14 mg/dL (7-18); Calcium 8.7 mg/dL (8.5-10.1); Carbon Dioxide 31 mmol/L (21.0-32.0); Chloride 106 mmol/L (98-107); Estimated Glomerular Filt Rate 61 ml/min (>60); GFR (African American) 74 ML/MIN (>60); Globulin 4.2 gm/dl (1.3-3.2); Potassium 4.1 mmoL/L (3.5-5.1); Sodium 143 mmol/L (136-145); Total Protein,Serum 7.5 gm/dL (6.4-8.2)
[2018-11-20 20:13] LABS: Alkaline Phosphatase 122 U/L (46-116); Cholesterol 121 mg/dL (140-200); HDL Cholesterol 61 mg/dL (29-89); LDL Cholesterol 40 mg/dL (0-130); T4 (Thyroxine) 10.9 ug/dl (4.7-13.3); Thyroid Stimulating Hormone 0.78 uIU/ml (0.358-3.740); Triglycerides 100 mg/dL (30-200); VLDL Cholesterol 20 mg/dL (0-40)
[2018-11-20 20:18] LABS: Anisocytosis 1+; Lymphocytes % 58 % (10-50); Monocytes % 1 % (2-9); Neutrophils % 41 % (42-76); Platelet Estimate Normal; Total Cells Counted 100
[2018-11-20 20:20] LABS: Glucose 37 mg/dL (74-106)
== END ==
PROVIDERS: Visit Provider Physician Assistant
DX: E03.9 Hypothyroidism, unspecified (principal); F41.9 Anxiety disorder, unspecified; I25.10 Atherosclerotic heart disease of native coronary artery without angina pectoris
CPT/HCPCS: 80053; 80061; 84436; 84443; 85007; 85025

== ENCOUNTER → 2018-11-29 13:33 | Outpatient (CLI) | payer MEDICARE, MEDICAID, SELFPAY ==
--- NOTE | 2018-11-29 13:37 | CT_ITS ---
CT lung screening EXAM: CT LUNG LOW DOSE WO CONTRAST HISTORY: 40 pack-year smoking history asymptomatic for lung cancer ITS.REASON: Lung cancer screening ORDERING PHYSICIAN: AFTAB Montez PATIENT AGE: 78 years COMPARISON: None TECHNIQUE: The exam was performed on a GE Light Speed [address] scanner using 2.90 mGy CTDI. A low dose helical CT CHEST was performed on a multi-detector scanner. All CT scans at the facility use one or more dose reduction, viz: automated exposure control, ma/kV adjustment per patient size (including targeted exams where dose is matched to indication, i.e. head), or iterative reconstruction technique. The LDCT was performed in a facility that meets the criteria for the screening program. Data regarding this exam was submitted to ACR which is an approved registry. The order for this exam indicates that it came as a result of a lung cancer screening counseling shard decision-making visit that included all the elements required of such a visit including smoking cessation. The radiologist interpreting this exam meets the [facility] criteria for the LDCT lung cancer screening program. The exam is reported using the Lung-RADS classification scale and reported to the ACR registry. NOTE: This study was performed for the specific purposes of lung cancer screening and is not an alternative to diagnostic chest CT. RADIATION DOSE: CTDI vol(CT dose Index-volume) = 2.90mG DLP (Dose Length Product) = 109.04 mGcm FINDINGS: Centrilobular emphysema with scattered areas of scarring. There is a 4.5 x 3.8 x 4.8 cm mass in the superior segment of the right lower lobe in the paraspinal region posterior to the right hilum consistent with neoplasm. There is some minimal spiculation of the margins. The mass does not appear to be eroding the adjacent T8 vertebral body. A 5 mm noncalcified nodule present anterior to this mass at the azygos esophageal recess. A 4 mm noncalcified nodule is present in the right lower lobe laterally and inferiorly axial image #69. Fibrotic changes are present in the lung bases. IMPRESSION: 1. Lung RADS Category: 4X, suspicious for malignancy. 2. Other findings: Centrilobular emphysema RECOMMENDATIONS: Pulmonary consult with bronchoscopy. The lesion should be readily accessible for biopsy with bronchoscopy.
== END ==
PROVIDERS: PCP Physician Assistant; Visit Provider Physician Assistant
DX: Z12.2 Encounter for screening for malignant neoplasm of respiratory organs (principal); Z80.1 Family history of malignant neoplasm of trachea, bronchus and lung; Z87.891 Personal history of nicotine dependence

== ENCOUNTER → 2019-02-11 14:13 | Outpatient (CLI) | payer MEDICARE, MEDICAID, SELFPAY ==
--- NOTE | 2019-02-11 14:32 | XR_ITS ---
XR chest 2V HISTORY: Known lung cancer ITS.REASON: known lung cancer - needs clearance for surgery ORDERING PHYSICIAN: AFTAB Oliva PATIENT AGE: 78 years COMPARISON: 04/24/2018 FINDINGS: Normal heart size. There is increased density in the right infrahilar region consistent with pulmonary mass as previously noted on the CT scan of 11/29/2018. The remaining lungs are clear. COPD findings. Degenerative changes are present in the thoracic spine. IMPRESSION: Right infrahilar mass consistent with known lung cancer with COPD
[2019-02-11 15:31] LABS: Basophils # 0.1 K/mm3 (0-0.2); Basophils % 0.5 % (0.1-2.0); Eosinophils # 0.2 K/mm3 (0.0-0.4); Eosinophils % 2.6 % (0.1-12.0); Hematocrit 34.8 % (37.0-47.0); Hemoglobin 11.2 g/dL (12.2-16.2); Lymphocytes # 5.4 K/mm3 (0.7-4.5); Lymphocytes % 59.2 % (10-50); Mean Corpuscular HGB Conc 32.1 g/dL (31.8-35.4); Mean Corpuscular Hemoglobin 29.2 pg (27.0-31.2); Mean Platelet Volume 8.4 fl (7.4-10.4); Monocytes # 0.4 K/mm3 (0.1-1.0); Monocytes % 4.4 % (1.7-9.3); Neutrophils % 33.3 % (37.0-80.0); Platelet Count 193 K/mm3 (142-424); Red Blood Count 3.82 M/mm3 (4.20-5.40); Red Cell Distribution Width 13.6 % (11.5-17.5)
[2019-02-11 15:33] LABS: MANUAL DIFFERENTIAL MANUAL DIFFERENTIAL (MANUAL DIFF)
[2019-02-11 16:38] LABS: Eosinophils % 2 % (0-3); Lymphocytes % 57 % (10-50); Monocytes % 5 % (2-9); Neutrophils % 36 % (42-76); Total Cells Counted 100
[2019-02-11 16:39] LABS: Platelet Estimate Normal; RBC Morphology Normal
[2019-02-11 16:43] LABS: Alanine Aminotransferase 18 U/L (12-78); Albumin/Globulin Ratio 0.6 (1.1-1.8); Alkaline Phosphatase 150 U/L (46-116); Anion Gap 11.3 mEq/L (5-15); Aspartate Amino Transferase 16 U/L (15-37); Bilirubin,Total 0.4 mg/dL (0.2-1.0); Blood Urea Nitrogen 12 mg/dL (7-18); Calcium 8.2 mg/dL (8.5-10.1); Carbon Dioxide 29 mmol/L (21.0-32.0); Chloride 104 mmol/L (98-107); Creatinine,Serum 0.94 mg/dL (0.55-1.02); Estimated Glomerular Filt Rate 58 ml/min (>60); GFR (African American) 70 ML/MIN (>60); Globulin 4.9 gm/dl (1.3-3.2); Glucose 89 mg/dL (74-106); Potassium 4.3 mmoL/L (3.5-5.1); Sodium 140 mmol/L (136-145); Total Protein,Serum 7.9 gm/dL (6.4-8.2)
== END ==
PROVIDERS: PCP Physician Assistant; Visit Provider Physician Assistant
DX: C34.90 Malignant neoplasm of unspecified part of unspecified bronchus or lung (principal); R05 Cough; L65.9 Nonscarring hair loss, unspecified; M54.5 Low back pain
CPT/HCPCS: 36415; 71046; 80053; 84443; 85007; 85025

== ENCOUNTER → 2019-08-19 12:40 | Outpatient (CLI) | payer MEDICARE, OTHER, SELFPAY ==
[2019-08-19 13:21] LABS: Basophils % 0.1 % (0.1-2.0); Eosinophils % 0.3 % (0.1-12.0); Hemoglobin 8.4 g/dL (12.2-16.2); Lymphocytes % 11.2 % (10-50); Mean Corpuscular HGB Conc 28.8 g/dL (31.8-35.4); Mean Corpuscular Hemoglobin 25.5 pg (27.0-31.2); Mean Corpuscular Volume 88.4 fl (81-99); Mean Platelet Volume 8.8 fl (7.4-10.4); Monocytes # 0.3 K/mm3 (0.1-1.0); Monocytes % 3.2 % (1.7-9.3); Neutrophils # 7.9 K/mm3 (1.8-7.8); Neutrophils % 85.1 % (37.0-80.0); Platelet Count 229 K/mm3 (142-424); Red Blood Count 3.28 M/mm3 (4.20-5.40); White Blood Count 9.2 K/mm3 (4.8-10.8)
[2019-08-19 13:31] LABS: MANUAL DIFFERENTIAL MANUAL DIFFERENTIAL (MANUAL DIFF)
[2019-08-19 15:02] LABS: Anion Gap 10.5 mEq/L (5-15); Blood Urea Nitrogen 19 mg/dL (7-18); Calcium 7.6 mg/dL (8.5-10.1); Carbon Dioxide 27 mmol/L (21.0-32.0); Chloride 103 mmol/L (98-107); Creatinine,Serum 0.87 mg/dL (0.55-1.02); Estimated Glomerular Filt Rate 63 ml/min (>60); GFR (African American) 76 ML/MIN (>60); Glucose 96 mg/dL (74-106); Potassium 3.5 mmoL/L (3.5-5.1); Sodium 137 mmol/L (136-145)
[2019-08-19 17:59] LABS: Hypochromasia 3+; Lymphocytes % 6 % (10-50); Monocytes % 2 % (2-9); Neutrophils % 92 % (42-76); Platelet Estimate Normal; Total Cells Counted 100
== END ==
PROVIDERS: Visit Provider Internal Medicine
DX: D64.9 Anemia, unspecified (principal); E87.6 Hypokalemia
CPT/HCPCS: 36415; 80048; 85007; 85025

== ENCOUNTER 2020-03-08 18:23 | Emergency (ER) | payer MEDICARE, OTHER, SELFPAY ==
[2020-03-08 18:30] VITALS: BP 159/82; PULSE 97; RESP 18; TEMP 36.6; O2SAT 99; BMI 26.5
--- NOTE | 2020-03-08 18:34 | XR_ITS ---
PROCEDURE: XR CHEST PORTABLE CLINICAL HISTORY: Lung cancer, lightheadedness COMPARISON: CXR2V XR chest 2V from 11/29/2017 CXR2V XR chest 2V from 04/24/2018 CXR2V XR chest 2V from 02/11/2019 CT ANGIO CHEST from 08/20/2019 FINDINGS: There is cardiomegaly without failure with mild prominence of the mediastinum. There is some shift of the mediastinum toward the right. The left lung is clear. There is increased density in the right lung base with obliteration of the right hemidiaphragm. Degenerative changes are present in the shoulders. No acute bony abnormalities. IMPRESSION: Mild mediastinal shift to the right with increased density in the right lower lobe suggesting right lower lobe collapse/volume loss. The mediastinum is also somewhat prominent. Consider chest CT with contrast for further evaluation in this patient with history of lung cancer. Dictated by: Preet Otto MD 03/09/2020 06:06 Electronically signed by Preet Otto MD in [place] 03/09/2020 06:06
--- NOTE | 2020-03-08 18:52 | HMH.EDGENADL ---
ED Disposition Clinical Impression: Lightheaded, Thyroid function test abnormal Anemia Qualifiers: Anemia type: unspecified type Qualified Code(s): D64.9 - Anemia, unspecified Disposition: Home, Self-Care Condition on Discharge: Good Instructions: DI for Syncope in Adults (Fainting) Referrals: Soumya Mcrae PA [Primary Care Provider] - 3 days - Critical Care Critical Care Time: No Attestation: On 03/08/20, the high probability of a clinically significant, sudden or life threatening deterioration of the following system(s) required my full and direct attention, intervention and personal management. The time I documented below is in addition to time spent performing reported procedures but includes the following listed in this critical care notation. Medical Decision Making - Medical Records Medical records reviewed: Yes: I reviewed the patient's medical records. - Baudilio Inquiry Pt receiving controlled substance: No Vital Signs: 03/08/20 18:30 03/08/20 19:24 Temperature 97.8 F Temperature Source Oral Pulse Rate [Orthostatic Lying Left Radial] 86 Pulse Rate [Orthostatic Sitting Left Radial] 84 Pulse Rate [Orthostatic Standing Left Radial] 94 H Pulse Rate [Right Radial] 97 H Respiratory Rate 18 Blood Pressure [Orthostatic Lying Right Arm] 136/73 Blood Pressure [Orthostatic Sitting Right Arm] 138/79 Blood Pressure [Orthostatic Standing Right Arm] 135/90 Blood Pressure [Right Arm] 159/82 H Blood Pressure Mean [Right Arm] 107 Blood Pressure Source [Right Arm] Automatic Cuff Blood Pressure Position [Right Arm] Sitting 02 Sat by Pulse Oximetry 99 Oxygen Delivery Method Room Air - Lab Data Lab Results 03/08/20 18:45: WBC 2.9 L, RBC 3.61 L, Hgb 9.6 L, Hct 31.2 L, MCV 86.4, MCH 26.7 L, MCHC 30.9 L, RDW 17.6 H, Plt Count 199, MPV 8.8, Neut % (Auto) 53.8, Lymph % (Auto) 31.3, [place] % (Auto) 10.3 H, Eos % (Auto) 4.0, Baso % (Auto) 0.6, Neut # (Auto) 1.6 L, Lymph # (Auto) 0.9, Waller # (Auto) 0.3, Eos # (Auto) 0.1, Baso # (Auto) 0.0 03/08/20 18:45: Sodium 139, Potassium 3.8, Chloride 107, Carbon Dioxide 28, Anion Gap 7.8, BUN 16, Creatinine 0.90, Estimated Creat Clear 49, Estimated GFR 61, Est GFR ( Amer) 73, Glucose 98, Calcium 8.8, Total Bilirubin 0.2, AST 40 H, ALT 17, Alkaline Phosphatase 169 H, Troponin I < 0.01, Total Protein 8.1, Albumin 3.9, Globulin 4.2 H, Albumin/Globulin Ratio 0.9 L, TSH 2.13, Thyroxine (T4) 12.0 H 03/08/20 19:41: Urine Color Yellow, Urine Appearance Clear, Urine pH 6.0, Ur Specific [place] 1.025, Urine Protein Negative, Urine Glucose (UA) Negative, Urine Ketones Negative, Urine Blood 1+, Urine Nitrate Negative, Urine Bilirubin Negative, Urine Urobilinogen 0.2, Ur Leukocyte Esterase Negative, Urine RBC 5-10, Urine WBC Occasional, Ur Squamous Epith Cells 3-5, Amorphous Sediment Trace Result diagrams: 03/08/20 18:45 03/08/20 18:45 Orders (Tests/Meds): ORDERS Category Date Time Status Chest XR -- portable [XR chest portable] Stat Exams 03/08/20 18:34 Taken Troponin I Q3H Lab 03/08/20 21:45 Ordered Troponin I Q3H Lab 03/09/20 00:45 Ordered EKG Request [ECG Request by /Esthela] Stat Y 03/08/20 18:32 Ordered - Radiology Data #1 Image(s): Chest Image Reviewed: Yes I reviewed the patient's radiology image Preliminary Findings: Normal/NAD Medical Decision Narrative: Patient has a non-ataxic gait here and a nonfocal neurologic exam. She just had a CT scan last week for similar symptoms that was negative per her report. Her episodes she describes are more lightheadedness rather than vertigo, low suspicion for posterior circulation CVA. She has no associated chest pain or shortness of breath. Chest x-ray clear with no signs of pneumonia. Troponin negative. She has a slightly lower white count which is consistent with her current use of immunotherapy for cancer. There is no UTI. Her T4 is slightly elevated, TSH within normal limits. I advised fol
[2020-03-08 19:03] LABS: Basophils % 0.6 % (0.1-2.0); Eosinophils # 0.1 K/mm3 (0.0-0.4); Hematocrit 31.2 % (37.0-47.0); Hemoglobin 9.6 g/dL (12.2-16.2); Lymphocytes # 0.9 K/mm3 (0.7-4.5); Lymphocytes % 31.3 % (10-50); Mean Corpuscular HGB Conc 30.9 g/dL (31.8-35.4); Mean Corpuscular Hemoglobin 26.7 pg (27.0-31.2); Mean Corpuscular Volume 86.4 fl (81-99); Mean Platelet Volume 8.8 fl (7.4-10.4); Monocytes # 0.3 K/mm3 (0.1-1.0); Monocytes % 10.3 % (1.7-9.3); Neutrophils # 1.6 K/mm3 (1.8-7.8); Neutrophils % 53.8 % (37.0-80.0); Platelet Count 199 K/mm3 (142-424); Red Blood Count 3.61 M/mm3 (4.20-5.40); Red Cell Distribution Width 17.6 % (11.5-17.5); White Blood Count 2.9 K/mm3 (4.8-10.8)
[2020-03-08 19:12] LABS: Alanine Aminotransferase 17 U/L (12-78); Albumin Level 3.9 g/dl (3.5-5.0); Albumin/Globulin Ratio 0.9 (1.1-1.8); Alkaline Phosphatase 169 U/L (38-126); Anion Gap 7.8 mEq/L (5-15); Aspartate Amino Transferase 40 U/L (14-36); Bilirubin,Total 0.2 mg/dl (0.2-1.3); Blood Urea Nitrogen 16 mg/dl (7-17); Calcium 8.8 mg/dl (8.4-10.2); Carbon Dioxide 28 mmol/L (22.0-30.0); Chloride 107 mmol/L (98-107); Creatinine Clearance Estimated 49 mL/min (50-200); Estimated Glomerular Filt Rate 61 ml/min (>60); GFR (African American) 73 ML/MIN (>60); Globulin 4.2 g/dL (1.3-3.2); Glucose 98 mg/dl (74-100); Potassium 3.8 mmoL/L (3.5-5.1); Sodium 139 mmol/L (136-145); Total Protein,Serum 8.1 g/dl (6.3-8.2)
[2020-03-08 19:24] VITALS: BP 135/90; BP 136/73; BP 138/79; PULSE 84; PULSE 86; PULSE 94
[2020-03-08 19:32] LABS: Troponin I < 0.01 ng/ml (0.00-0.034)
[2020-03-08 19:43] LABS: Thyroid Stimulating Hormone 2.13 uIU/mL (0.465-4.68)
[2020-03-08 19:47] LABS: Microscopic, Urine URINE MICROSCOPIC (MICROSCOPIC)
[2020-03-08 20:13] LABS: Appearance,Urine CLEAR (Clear); Bilirubin,Urine Negative (Negative); Blood, Urine 1+ (Negative); Color,Urine YELLOW (Yellow); Glucose,Urine (UA) Negative (Negative); Ketones,Urine Negative (Negative); Leukocyte Esterase,Urine Negative (Negative); Nitrate,Urine Negative (Negative); Protein,Urine Negative (Negative); Specific Gravity, Urine 1.025 (1.005-1.030); Urobilinogen,Urine 0.2 EU/dl (0.2)
[2020-03-08 20:15] LABS: Amorphous Sediment,Urine Trace /lpf; WBC,Urine Occasional #/hpf (0-3)
[2020-03-08 20:45] VITALS: BP 134/72; PULSE 82; RESP 16; TEMP 36.6; O2SAT 97
== END 2020-03-08 20:47 | disposition home or self-care (01) ==
PROVIDERS: Emergency Medicine; Emergency Provider Emergency Medicine; PCP Physician Assistant
DX: R42 Dizziness and giddiness (principal); R94.6 Abnormal results of thyroid function studies; C34.90 Malignant neoplasm of unspecified part of unspecified bronchus or lung; D64.9 Anemia, unspecified; E03.9 Hypothyroidism, unspecified; I10 Essential (primary) hypertension; F41.9 Anxiety disorder, unspecified; E78.5 Hyperlipidemia, unspecified; Z90.49 Acquired absence of other specified parts of digestive tract; Z88.2 Allergy status to sulfonamides; Z88.8 Allergy status to other drugs, medicaments and biological substances; Z79.899 Other long term (current) drug therapy
CPT/HCPCS: 71045; 80053; 81001; 84436; 84443; 84484; 85025; 93005; 99283

== ENCOUNTER → 2020-06-04 14:14 | Outpatient (POV) | payer MEDICARE, OTHER, SELFPAY ==
[2020-06-04 14:25] VITALS: BP 132/85; PULSE 85; RESP 18; O2SAT 94; BMI 30.4
--- NOTE | 2020-06-04 15:02 | HMH.PMCON ---
Assessment and Plan (1) Degenerative joint disease of low back Current visit: Yes Status: Chronic Category: Medical Code(s): M47.9 - Spondylosis, unspecified (2) Radiculopathy Current visit: Yes Status: Chronic Category: Medical Code(s): M54.10 - Radiculopathy, site unspecified (3) Low Back Pain Current visit: No Status: Chronic Qualifiers: Chronicity: chronic Back pain laterality: bilateral Sciatica presence: without sciatica Qualified Code(s): M54.5 - Low back pain; G89.29 - Other chronic pain Category: Medical Code(s): M54.5 - Low back pain - Assessment and plan all Dx Assessment and Plan for all problems:: We will schedule the patient for an L4-L5 lumbar epidural steroid injection. We will see if the patient can come off of her Eliquis prior to this. I will follow-up with her after this reassess her symptoms at that time she has been instructed to call the office if she has any issues prior to her next appointment. Once we get her back pain managed we will move forward with a MRI and a work-up on her knee pain. Dr. Prado has reviewed this note and agrees with this plan of care. This note was dictated using voice recognition software and may contain errors or omissions HPI - Data of Consult Consult date: 06/04/20 Requesting Physician: Annamarie Corea APRN Primary Care Provider: AFT[facility] Oliva - Consult Narrative Reason for consult: Back pain, knee pain History of present illness: Ms. Shah is a 79 year old female presents today for consultation regards to her back pain and knee pain. Patient states that she has had pain for quite some years however it is worsened recently. She is undergoing chemo and radiation for cancer. Patient was interested in injective therapy and was told that they could send her to however we are more accessible for the patient. Patient is interested in injective therapy. She is on Eliquis due to blood clots in her legs. Patient has back pain radiating down into her leg. She does not have any updated imaging. I do believe given her history of cancer an MRI will be appropriate. We will move forward with ordering 1. Patient also has bilateral knee pain she is had a complete replacement of her right knee and an arthroscopy of her left knee. Patient has pain medication that she takes sparingly from her oncologist. CC: Annamarie Corea APRN [facility] History I have reviewed the patient's past medical history: Yes Medical History: Reports:: Anxiety, Cancer (LUNG), Hyperlipidemia, Hypertension, Lung Disease Denies:: Diabetes Mellitus Type 1, Diabetes Mellitus Type 2, Internal Pacemaker, MRSA, Seizures *Have you ever received a pneumonia vaccine?: Yes *Have you received a flu vaccine this season?: Yes Other Medical History: Reports: Arthritis, Hypothyroidism, Sinus Problems, Thyroid Disease. Denies: Blood Transfusion Reaction Laterality Cases: Bilateral: Tonsillectomy Other Surgeries: Yes: Appendectomy, Cardiac Catheterization, Cholecystectomy, Colonoscopy, EGD, Thyroidectomy. No: Pacemaker Amputation: No Fractures: No - *Social History Smoking Status: Former smoker Tobacco Type: cigarettes Alcohol Intake: never Substance Use Type: denies use *Occupational Status:: retired Housing: house Household Members: other *Travel in the last 8 weeks: None - Psychiatric History Pschychiatric History:: Reports:: Anxiety Family Hx:: Unable to obtain Review of Systems - Review of Systems ROS General: no recent weight change, no fever, no sleep disturbances Respiratory: no cough, no shortness of air, no recurring pulmonary infections Cardiovascular/Peripheral Vascular: No chest pain, No palpitations, no edema, no shortness of breath. Gastrointestinal: no new onset incontinence, normal bowel movements reported Genitourinary: no new onset incontinence Musculoskeletal: Back pain, leg pain, knee pain Psychiatric: normal mood/ affect Ne
== END ==
PROVIDERS: PCP Physician Assistant; Visit Provider Clinical Nurse Specialist Family Health
DX: M47.9 Spondylosis, unspecified (principal); M54.5 Low back pain; M54.10 Radiculopathy, site unspecified
CPT/HCPCS: 99202

== ENCOUNTER 2020-06-12 11:41 | Day surgery (SDC) | payer MEDICARE, OTHER, SELFPAY ==
[2020-06-12 11:59] VITALS: BP 151/79; PULSE 87; RESP 18; TEMP 36.4; O2SAT 97; BMI 28.3
[2020-06-12 12:44] VITALS: BP 135/88; PULSE 85; RESP 18
[2020-06-12 12:45] VITALS: BP 138/88; PULSE 85; RESP 18; O2SAT 99
--- NOTE | 2020-06-12 13:02 | P.PCN_ITS ---
- Procedure Date: 06/12/20 Time: 13:02 Anesthesiologist:: Lizandro Prado MD Complications:: None Pre-procedure Diagnosis:: Bilateral knee pain with degenerative osteoarthritis Post-procedure Diagnosis:: Same Indications for Procedure:: This patient is a pleasant 79-year-old white female who we are seeing for low back pain with lumbar radiculopathy symptoms. She is currently on Eliquis. She also complains of bilateral knee pain. 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 She is in need of a replacement of her left knee. We will do intra-articular injections today to both knees since she is having pain in both knees. Procedure Details:: Bilateral knee injections Informed consent was obtained the risk and benefits of the procedure were ex plained the patient. Patient was taken to the procedure room. Both knees were prepped using ChloraPrep. A 25-gauge needle was inserted and advanced first medially then laterally to inject 10 mL bupivacaine 0.25% and Depo-Medrol 40 mg into each knee. We used a total of 80 mg Depo-Medrol for both knees. Patient tolerated the procedure well with no complications. Plan and Disposition:: We will follow-up with her in 2 weeks. Will reevaluate symptoms at that time.
[2020-06-12 13:09] VITALS: BP 155/85; PULSE 87; RESP 18; O2SAT 98
== END 2020-06-12 13:10 | disposition home or self-care (01) ==
LOC: SC.PAINP 11:44
PROVIDERS: PCP Physician Assistant; Visit Provider Anesthesiology
DX: M17.0 Bilateral primary osteoarthritis of knee (principal); D64.9 Anemia, unspecified; E03.9 Hypothyroidism, unspecified; F41.9 Anxiety disorder, unspecified; Z87.19 Personal history of other diseases of the digestive system; Z88.2 Allergy status to sulfonamides; Z88.8 Allergy status to other drugs, medicaments and biological substances; Z79.899 Other long term (current) drug therapy
CPT/HCPCS: 20610; 77002; J1030

== ENCOUNTER → 2020-06-29 12:00 | Outpatient (CLI) | payer MEDICARE, OTHER, SELFPAY ==
[2020-06-29 12:19] LABS: Basophils % 0.4 % (0.1-2.0); Eosinophils # 0.1 K/mm3 (0.0-0.4); Eosinophils % 2.4 % (0.1-12.0); Hematocrit 29.7 % (37.0-47.0); Lymphocytes % 26.9 % (10-50); Mean Corpuscular HGB Conc 30.2 g/dL (31.8-35.4); Mean Corpuscular Volume 82.8 fl (81-99); Mean Platelet Volume 9.3 fl (7.4-10.4); Monocytes # 0.3 K/mm3 (0.1-1.0); Monocytes % 8.6 % (1.7-9.3); Neutrophils # 2.3 K/mm3 (1.8-7.8); Neutrophils % 61.6 % (37.0-80.0); Platelet Count 179 K/mm3 (142-424); Red Blood Count 3.59 M/mm3 (4.20-5.40); Red Cell Distribution Width 18.5 % (11.5-17.5); White Blood Count 3.8 K/mm3 (4.8-10.8)
== END ==
PROVIDERS: Visit Provider Internal Medicine Hematology & Oncology
DX: C34.90 Malignant neoplasm of unspecified part of unspecified bronchus or lung (principal)
CPT/HCPCS: 36415; 85025

== ENCOUNTER → 2020-07-02 13:13 | Outpatient (POV) | payer MEDICARE, OTHER, SELFPAY ==
--- NOTE | 2020-07-02 13:46 | HMH.PAINSOAP ---
[facility] Pain Management SOAP Note Subjective:: Patient is a 80-year-old white female who presents today for follow-up after a left knee injection. Patient has been treated for bilateral knee pain with degenerative osteoarthritis. Patient is currently undergoing chemotherapy treatment at [facility]. She says she undergoes chemotherapy treatments on Mondays weekly. Patient has had a total knee replacement to her right knee, however, she is unable to have any surgical intervention at this time to her left knee due to receiving chemotherapy. Patient says that she did get about 60% relief with the injection, however, her pain has returned to her left knee. She does rate her pain an 8 out of 10 today. She says it is worse with any type of movement with her knee. She also says that she is having worsening pain with walking. Does report intermittent edema to her left knee. Review of Systems General: No recent weight changes, no fever, no sleep disturbances Respiratory: No cough, no shortness of air, no recurring pulmonary infections Cardiovascular/peripheral vascular: No chest pain, no palpitations, no edema, no shortness of breath Gastrointestinal: No new onset incontinence, normal bowel movements reported Genitourinary: No new onset incontinence Musculoskeletal: Left knee pain Psychiatric: Normal mood/affect Neurological: [Denies weakness in extremities], [denies balance issues] Objective:: Physical exam General: Alert and oriented x3, no acute distress, pleasant and cooperative, [on room air] Lungs: Respirations even and unlabored, symmetrical chest expansion Eyes: PERRL Musculoskeletal: Flexion and extension of lumbar spine somewhat guarded secondary to pain, deep tendon reflexes normal, strength in upper and lower extremities [5/5], [abnormal gait noted] Neurological: Speech clear, clay thrower equal, no gross sensory deficit Assessment:: Bilateral knee pain Plan:: Patient's pain is worse to her left knee. She did undergo bilateral intra-articular knee injections. She did get more relief to the right knee. She would like to undergo treatment to the left knee again. We will schedule the patient for a geniculate block to her left knee. She is on Eliquis at this time. We will plan to see her back in the clinic after her block to reassess her symptoms. She has been instructed to contact the clinic if she has any concerns before next appointment. The patient and I specifically discussed risk factors for COVID19. These risks include, but are not limited to age greater than 60, heart or lung disease, diabetes, immunosuppression, and travel. We also discussed NSAIDs may worsen COVID19 infection or symptoms. Patient should not use NSAIDs to treat COVID19 signs or symptoms. Patient was also informed that any type of corticosteroid of any form (oral or injection) will decrease the patient's immune system response and may increase the likelihood of COVID19 infection [address] symptoms[address] Prado has reviewed this note and agrees with this plan of care. This note was dictated using voice recognition software and make contain errors or omissions. [facility] History I have reviewed the patient's past medical history: Yes Medical History: Reports:: Anxiety, Cancer (lung), Hyperlipidemia, Hypertension, Lung Disease Denies:: Diabetes Mellitus Type 1, Diabetes Mellitus Type 2, Internal Pacemaker, MRSA, Seizures *Have you ever received a pneumonia vaccine?: No *Have you received a flu vaccine this season?: No Other Medical History: Reports: Anemia, Arthritis, Hypothyroidism, Sinus Problems, Thyroid Disease. Denies: Blood Transfusion Reaction Laterality Cases: Bilateral: Tonsillectomy Other Surgeries: Yes: Appendectomy, Cardiac Catheterization, Cholecystectomy, Colonoscopy, EGD, Thyroidectomy. No: Pacemaker Amputation: No Fractures: No - *Social History Smoking Status: Former smoker Tobacco Type: cigarettes Alcohol Intake: never Substance Us
[2020-07-02 13:54] VITALS: BP 125/77; PULSE 62; RESP 18; O2SAT 98; BMI 28.0
== END ==
PROVIDERS: PCP Physician Assistant; Visit Provider Clinical Nurse Specialist Family Health
DX: M25.561 Pain in right knee (principal); M25.562 Pain in left knee
CPT/HCPCS: 99212

== ENCOUNTER 2020-07-10 11:21 | Day surgery (SDC) | payer MEDICARE, OTHER, SELFPAY ==
[2020-07-10 11:45] VITALS: BP 125/71; PULSE 104; RESP 18; TEMP 36.7; O2SAT 100; BMI 27.6
[2020-07-10 12:06] VITALS: BP 132/85; PULSE 85; RESP 18; O2SAT 98
[2020-07-10 12:07] VITALS: BP 142/74; PULSE 84; RESP 18; O2SAT 98
--- NOTE | 2020-07-10 12:11 | P.PCN_ITS ---
- Procedure Date: 07/10/20 Time: 12:11 Anesthesiologist:: Lizandro Prado MD Complications:: None Pre-procedure Diagnosis:: Left knee pain with degenerative osteoarthritis Post-procedure Diagnosis:: Same Indications for Procedure:: This patient is a pleasant 80-year-old white female who we are treating for left knee pain with degenerative osteoarthritis. She did have left knee intra-artic ular injections at her last visit this did help about 60%. This was not long- lasting. She presents for left knee genicular nerve block, superior medial, superior lateral, inferior medial genicular nerve block today. Procedure Details:: Left knee genicular block Informed consent was obtained and the risk and benefits of the procedure was explained to the patient. The patient was taken to the procedure room. The left knee was prepped using ChloraPrep. I placed 22-gauge needles into the area of the left superior medial genicular nerve, left superior lateral genicular nerve and left inferior medial genicular nerve. Needle placement was confirmed in AP and lateral views with dye. We then injected bupivacaine 0.25% 3 mL's and Depo-Medrol 25 mg into each area of the left superior medial genicular nerve, left superior lateral genicular nerve and left inferior medial genicular nerve. Patient tolerated the procedure well with no complications. Plan and Disposition:: We will follow-up with this patient in 2 weeks. Will reevaluate symptoms at that time. Again if this does give her significant relief however is not long- lasting she may be a candidate for RF ablation to the genicular nerves.
[2020-07-10 12:18] VITALS: BP 120/66; PULSE 99; RESP 18; O2SAT 100
== END 2020-07-10 12:19 | disposition home or self-care (01) ==
LOC: SC.PAINP 11:23
PROVIDERS: PCP Physician Assistant; Visit Provider Anesthesiology
DX: M17.12 Unilateral primary osteoarthritis, left knee (principal); I10 Essential (primary) hypertension; K21.9 Gastro-esophageal reflux disease without esophagitis; Z85.118 Personal history of other malignant neoplasm of bronchus and lung; Z88.1 Allergy status to other antibiotic agents; E78.5 Hyperlipidemia, unspecified; Z87.19 Personal history of other diseases of the digestive system; F41.9 Anxiety disorder, unspecified; F32.9 Major depressive disorder, single episode, unspecified; Z90.89 Acquired absence of other organs; Z88.2 Allergy status to sulfonamides; Z88.8 Allergy status to other drugs, medicaments and biological substances
CPT/HCPCS: 64454; J1040; Q9966

== ENCOUNTER → 2020-07-30 13:33 | Outpatient (POV) | payer MEDICARE, OTHER, SELFPAY ==
[2020-07-30 13:48] VITALS: BP 128/78; PULSE 74; RESP 18; O2SAT 98; BMI 28.0
--- NOTE | 2020-07-30 14:01 | HMH.PAINSOAP ---
[facility] Pain Management SOAP Note Subjective:: Patient is a 80-year-old white female who presents today for follow-up after a left knee genicular block. Patient has been treated for left knee pain with degenerative osteoarthritis left knee. Patient says that she did get approximately 70% relief with her injection. She got relief for up to 2 weeks. Her pain has returned. She rates her pain a 3 out of 10 at this time. She did discuss options with Dr. Stoddard at her last visit. He did recommend the patient undergo an RFA to her genicular nerves of left knee. The patient has tried oral medications along with anti-inflammatories and a continued home stretching program. The patient would like to proceed with the RFA to her left knee. Review of Systems General: No recent weight changes, no fever, no sleep disturbances Respiratory: No cough, no shortness of air, no recurring pulmonary infections Cardiovascular/peripheral vascular: No chest pain, no palpitations, no edema, no shortness of breath Gastrointestinal: No new onset incontinence, normal bowel movements reported Genitourinary: No new onset incontinence Musculoskeletal: Left knee pain Psychiatric: Normal mood/affect Neurological: [Denies weakness in extremities], [denies balance issues] Objective:: Physical exam General: Alert and oriented x3, no acute distress, pleasant and cooperative, [on room air] Lungs: Respirations even and unlabored, symmetrical chest expansion Eyes: PERRL Musculoskeletal: Flexion and extension of left knee guarded secondary to pain, deep tendon reflexes normal, strength in upper and lower extremities [5/4], lightly antalgic gait noted, generalized edema noted to left knee Neurological: Speech clear, window framer equal, no gross sensory deficit Assessment:: Left knee pain with degenerative osteoarthritis left knee Plan:: Patient has had left intra-articular knee injections along with left knee genicular block. She did get short-term relief. We will proceed with an RFA to her left knee. She has tried and failed conservative therapies of ice and heat therapies and a continued home stretching program. She has also tried anti-inflammatories. We will plan to see her back after her RFA to her left knee to reassess her symptoms. She has been instructed to contact clinic if she has any concerns before next appointment. The patient and I specifically discussed risk factors for COVID19. These risks include, but are not limited to age greater than 60, heart or lung disease, diabetes, immunosuppression, and travel. We also discussed NSAIDs may worsen COVID19 infection or symptoms. Patient should not use NSAIDs to treat COVID19 signs or symptoms. Patient was also informed that any type of corticosteroid of any form (oral or injection) will decrease the patient's immune system response and may increase the likelihood of COVID19 [address] Prado has reviewed this note and agrees with this plan of care. This note was dictated using voice recognition software and make contain errors or omissions. [facility] History I have reviewed the patient's past medical history: Yes Medical History: Reports:: Anxiety, Cancer, Hyperlipidemia, Hypertension, Lung Disease Denies:: Diabetes Mellitus Type 1, Diabetes Mellitus Type 2, Internal Pacemaker, MRSA, Seizures *Have you ever received a pneumonia vaccine?: Yes *Have you received a flu vaccine this season?: Yes Other Medical History: Reports: Anemia, Arthritis, Hypothyroidism, Sinus Problems, Thyroid Disease. Denies: Blood Transfusion Reaction Laterality Cases: Bilateral: Tonsillectomy Other Surgeries: Yes: Appendectomy, Cancer Surgery, Cardiac Catheterization, Cholecystectomy, Colonoscopy, EGD, Thyroidectomy. No: Pacemaker Amputation: No Fractures: No - *Social History Smoking Status: Former smoker Tobacco Type: cigarettes Alcohol Intake: never Substance Use Type: denies use *Occupational Status:: other Housing: a
== END ==
PROVIDERS: PCP Physician Assistant; Visit Provider Clinical Nurse Specialist Family Health
DX: M17.12 Unilateral primary osteoarthritis, left knee
CPT/HCPCS: 99212

== ENCOUNTER 2020-08-19 08:00 | Outpatient (CLI) | payer MEDICARE, OTHER, SELFPAY ==
[2020-08-19] VITALS (18 sets, daily range): BP systolic 102–139; BP diastolic 64–79; PULSE 77–86; RESP 18–20; TEMP 36.3–36.6; O2SAT 99; BMI 27.8
[2020-08-19 09:27] LABS: Hematocrit 25.5 % (37.0-47.0)
[2020-08-19 09:34] LABS: Hemoglobin 7.1 g/dL (12.2-16.2)
--- NOTE | 2020-08-19 10:39 | PC.NURSE ---
1030-BLOOD TRANSFUSION STARTED AT 100 ML/HR AT THIS TIME.
--- NOTE | 2020-08-19 11:45 | PC.NURSE ---
1100-TRANSFUSION INCREASED TO 150 ML/HR AT THIS TIME.
--- NOTE | 2020-08-19 11:52 | PC.NURSE ---
1130-INCREASED RATE TO 200 ML/HR AT THIS TIME.
--- NOTE | 2020-08-19 12:30 | PC.NURSE ---
INCREASED RATE TO 250 ML/HR AT 1205.
--- NOTE | 2020-08-19 12:56 | PC.NURSE ---
1252-TRANSFUSION STARTED AT 100 ML/HR AT THIS TIME.
--- NOTE | 2020-08-19 14:29 | PC.NURSE ---
1322-INCREASED RATE TO 150 ML/HR AT THIS TIME.
--- NOTE | 2020-08-19 14:32 | PC.NURSE ---
1352-INCREASED RATE TO 200ML/HR AT THIS TIME.
--- NOTE | 2020-08-19 14:45 | PC.NURSE ---
RATE INCREASED TO 250 ML/HR AT 1422.
[2020-08-19 16:19] LABS: Hematocrit 30.1 % (37.0-47.0)
[2020-08-19 16:27] LABS: Hemoglobin 8.8 g/dL (12.2-16.2)
== END 2020-08-19 15:55 | disposition home or self-care (01) ==
LOC: INF 08:08
PROVIDERS: Visit Provider Physician Assistant
DX: D64.9 Anemia, unspecified (principal)
CPT/HCPCS: 36430; 85014; 85018; 86850; P9016

== ENCOUNTER 2020-08-21 10:41 | Day surgery (SDC) | payer MEDICARE, OTHER, SELFPAY ==
[2020-08-21 11:29] VITALS: PULSE 93; RESP 18; TEMP 36.1; O2SAT 98; BMI 27.8
[2020-08-21 11:42] VITALS: BP 125/77; PULSE 79; RESP 18; O2SAT 98
[2020-08-21 11:43] VITALS: BP 128/85; PULSE 85; RESP 18; O2SAT 98
--- NOTE | 2020-08-21 11:58 | HMH.PMPROC ---
- Procedure Date: 08/21/20 Time: 11:58 Anesthesiologist:: Lizandro Prado MD Complications:: None Pre-procedure Diagnosis:: Degenerative osteoarthritis left knee Post-procedure Diagnosis:: Same Indications for Procedure:: Patient is a pleasant 80-year-old white female who we are treating for left knee pain with degenerative osteoarthritis. She was 70 to 80% better after left genicular nerve block for several weeks. Her pain is now returned. She presents for left knee genicular RFA of the genicular nerves, superior medial, superior lateral and inferior medial. Procedure Details:: Left genicular RFA Informed consent was obtained risk and benefits of the procedure were explained the patient. Patient was taken the procedure room. Left knee was prepped using ChloraPrep. The skin and subcutaneous tissues were anesthetized using lidocaine. I placed 20-gauge RF needles into the areas of the left genicular nerve, superior medial, superior lateral and inferior medial nerves. We underwent sensory stimulation. There is good sensory stimulation at 1 V. We underwent motor stimulation. There is no motor stimulation at 3 V. We then anesthetize all 3 nerves with bupivacaine 0.25% and Depo-Medrol 40 mg. We then burned each nerve at 80 ?C for 4 minutes. We burned each nerve left genicular superior medial left genicular superior lateral and left genicular inferior medial nerves. Tolerated the procedure well with no complications. Plan and Disposition:: Follow-up with this patient in 2 weeks. Will reevaluate symptoms at that time.
[2020-08-21 12:07] VITALS: BP 167/89; PULSE 86; RESP 18; O2SAT 98
== END 2020-08-21 12:08 | disposition home or self-care (01) ==
LOC: SC.PAINP 10:43
PROVIDERS: PCP Physician Assistant; Visit Provider Anesthesiology
DX: M17.12 Unilateral primary osteoarthritis, left knee (principal); I10 Essential (primary) hypertension; K21.9 Gastro-esophageal reflux disease without esophagitis; F41.9 Anxiety disorder, unspecified; E78.5 Hyperlipidemia, unspecified; E07.9 Disorder of thyroid, unspecified; Z90.49 Acquired absence of other specified parts of digestive tract; Z90.89 Acquired absence of other organs; Z88.2 Allergy status to sulfonamides; Z88.8 Allergy status to other drugs, medicaments and biological substances; Z79.899 Other long term (current) drug therapy
CPT/HCPCS: 64624; J1040

== ENCOUNTER 2020-08-27 08:00 | Outpatient (CLI) | payer MEDICARE, OTHER, SELFPAY ==
[2020-08-27 08:09] VITALS: BMI 27.8
[2020-08-27 08:32] LABS: Hematocrit 32.3 % (37.0-47.0); Hemoglobin 9.6 g/dL (12.2-16.2)
== END 2020-08-27 09:15 | disposition home or self-care (01) ==
LOC: INF 08:08
PROVIDERS: Visit Provider Physician Assistant
DX: D64.9 Anemia, unspecified (principal)
CPT/HCPCS: 85014; 85018

== ENCOUNTER → 2020-08-28 10:14 | Outpatient (CLI) | payer MEDICARE, OTHER, SELFPAY ==
--- NOTE | 2020-08-28 10:14 | MM_ITS ---
PROCEDURE: MM DIG SCREENING MAMM BI W/CAD Digital Breast Tomosynthesis Included CLINICAL INDICATION: breast cancer screening There is a history of breast cancer in the patient's paternal. There has been a previous biopsy right breast for benign disease. Patient has been diagnosed with lung cancer for which she has had previous radiotherapy. COMPARISON: [facility] DIG MAMM-SCREEN CATHY from 01/05/2015 MG D[facility]B DIG MAMM-SCREEN CATHY from 01/15/2016 [facility] MM Dig screening mamm BI w/CAD from 07/10/2018 TECHNIQUE: Standard CC and MLO images and 3D Tomosynthesis was obtained. R2 CAD reviewed. FINDINGS: Scattered fibroglandular densities are seen throughout both breast and the findings are fairly symmetrical bilaterally. A CAD marking right breast was reviewed and this has benign appearance especially on donita images. There is no suspicious lesion and no suspicious microcalcifications. IMPRESSION: Fibrofatty parenchyma with no suspicious lesions seen BI-RAD Category: 1 Negative FOLLOW-UP: 1YR 1 Year Follow-up (A letter has been sent to the patient regarding results of the study.) Dictated by: Dr. Zeeshan Isaac MD 09/04/2020 11:46 Dr. Zeeshan Isaac MD in [place] 09/04/2020 11:46
== END ==
PROVIDERS: PCP Physician Assistant; Visit Provider Physician Assistant
DX: Z12.31 Encounter for screening mammogram for malignant neoplasm of breast (principal)
CPT/HCPCS: 77063; 77067

== ENCOUNTER → 2020-09-10 15:34 | Outpatient (CLI) | payer MEDICARE, OTHER, SELFPAY ==
[2020-09-10 16:23] LABS: Basophils % 0.6 % (0.1-2.0); Eosinophils # 0.1 K/mm3 (0.0-0.4); Eosinophils % 1.7 % (0.1-12.0); Hematocrit 32.5 % (37.0-47.0); Hemoglobin 9.8 g/dL (12.2-16.2); Lymphocytes # 1.1 K/mm3 (0.7-4.5); Lymphocytes % 27.2 % (10-50); Mean Corpuscular HGB Conc 30.3 g/dL (31.8-35.4); Mean Corpuscular Hemoglobin 25.4 pg (27.0-31.2); Mean Platelet Volume 8.9 fl (7.4-10.4); Monocytes # 0.4 K/mm3 (0.1-1.0); Monocytes % 8.8 % (1.7-9.3); Neutrophils # 2.5 K/mm3 (1.8-7.8); Neutrophils % 61.8 % (37.0-80.0); Platelet Count 167 K/mm3 (142-424); Red Blood Count 3.87 M/mm3 (4.20-5.40); Red Cell Distribution Width 19.9 % (11.5-17.5); White Blood Count 4.1 K/mm3 (4.8-10.8)
== END ==
PROVIDERS: Visit Provider Physician Assistant
DX: K92.2 Gastrointestinal hemorrhage, unspecified (principal)
CPT/HCPCS: 85025

== ENCOUNTER → 2020-09-17 13:01 | Outpatient (POV) | payer MEDICARE, OTHER, SELFPAY ==
--- NOTE | 2020-09-17 13:19 | P.CONS_ITS ---
[facility] Pain Management SOAP Note Subjective:: She is a pleasant 80-year-old white female who we are treating for left knee pain. Patient recently had a left genicular RFA which has been beneficial she rates her pain a 7 out of 10. She is continuing chemotherapy. She is recently had an esophageal bleed she is following up with the automotive leasing sales representative to continue to monitor this. At this time the patient does not believe there is anything else we can provide her she is awaiting a total knee replacement. ROS General: no recent weight change, no fever, no sleep disturbances Respiratory: no cough, no shortness of air, no recurring pulmonary infections Cardiovascular/Peripheral Vascular: No chest pain, No palpitations, no edema, no shortness of breath. Gastrointestinal: no new onset incontinence, normal bowel movements reported Genitourinary: no new onset incontinence Musculoskeletal: Left knee pain Psychiatric: normal mood/ affect Neurological: [denies new onset weakness in extremities], [denies new onset balance issues] Objective:: Physical Exam General: Alert and oriented x3, no acute distress, pleasant and cooperative, [on room air] Lungs: Resps E/U, Symmetrical chest expansion, Eyes: PERRL Musculoskeletal: Flexion and extension of lumbar spine somewhat guarded secondary to pain, deep tendon reflexes normal, strength in upper and lower extremities [5/5], [abnormal gait noted] Neurological: speech clear, internet manager equal, no gross sensory deficits Assessment:: Left knee pain, osteoarthritis Plan:: We will see the patient back on an as-needed basis she has been instructed to call the office if she has any issues. Dr. Prado has reviewed this note and agrees with this plan of care. This note was dictated using voice recognition software and may contain errors or omissions [facility] History I have reviewed the patient's past medical history: Yes Medical History: Reports:: Anxiety, Hyperlipidemia, Hypertension, Lung Disease Denies:: Cancer, Diabetes Mellitus Type 1, Diabetes Mellitus Type 2, Internal Pacemaker, MRSA, Seizures *Have you ever received a pneumonia vaccine?: Yes *Have you received a flu vaccine this season?: Yes Other Medical History: Reports: Anemia, Arthritis, Chemotherapy, Hypothyroidism, Radiation Therapy, Sinus Problems, Thyroid Disease. Denies: Blood Transfusion Reaction Laterality Cases: Bilateral: Tonsillectomy Other Surgeries: Yes: Appendectomy, Cancer Surgery, Cardiac Catheterization, Cholecystectomy, Colonoscopy, EGD, Hysterectomy-Partial, Thyroidectomy (RIGHT). No: Pacemaker Amputation: No Fractures: No - *Social History Smoking Status: Former smoker Tobacco Type: cigarettes Alcohol Intake: never Substance Use Type: denies use *Occupational Status:: retired Housing: house Household Members: none *Travel in the last 8 weeks: None - Psychiatric History Pschychiatric History:: Reports:: Anxiety Family Hx:: Unable to obtain
[2020-09-17 13:41] VITALS: BP 135/88; PULSE 84; RESP 18; TEMP 36.8; O2SAT 98; BMI 39.9
== END ==
PROVIDERS: PCP Physician Assistant; Visit Provider Clinical Nurse Specialist Family Health
DX: M17.12 Unilateral primary osteoarthritis, left knee (principal)
CPT/HCPCS: 99212

== ENCOUNTER → 2020-09-26 11:25 | Outpatient (CLI) | payer MEDICARE, OTHER, SELFPAY ==
[2020-09-26 13:00] LABS: Coronavirus 19 IgG Antibody Negative (Negative); Coronavirus 19 IgM Antibody Negative (Negative)
== END ==
PROVIDERS: Visit Provider Internal Medicine Gastroenterology
DX: Z01.818 Encounter for other preprocedural examination (principal); Z03.818 Encounter for observation for suspected exposure to other biological agents ruled out; Z12.11 Encounter for screening for malignant neoplasm of colon; D64.9 Anemia, unspecified
CPT/HCPCS: 36415; 86328

== ENCOUNTER 2020-09-28 09:30 | Day surgery (SDC) | payer MEDICARE, OTHER, SELFPAY ==
[2020-09-23 11:23] VITALS: BMI 27.6
[2020-09-28] VITALS (7 sets, daily range): BP systolic 89–136; BP diastolic 53–87; PULSE 81–96; RESP 18; TEMP 36.2–36.7; O2SAT 89–100
--- NOTE | 2020-09-28 10:31 | HMH.ANESCL ---
[facility] Anesthesia Checklist - Patient Identification Patient Identification: Arm Band - Structural Data Admitted From: Home Planned Operative Procedure/s: egd/colonoscopy Consent for Planned Operative Procedure(s) Verified: Yes Verified Documents: Surgical Consent, History and Physical - NPO Status Verified Time NPO: 00:00 - Additional verifications Anesthesia Reactions: No Hx Blood Transfusions: No Blood Transfusion Reaction: No - Airway Assessment C-Spine Mobility Assessed: Yes (mp2) TMJ Mobility Assessed: Yes Dentition: Dentures-good fit - Neurological Assessment Level of Consciousness: Awake, Alert - Anesthesia Plan Anesthesia Risk discussed: Yes Anesthesia Plan: Verified ASA Class: III Anesthesia Type: MAC [facility] History I have reviewed the patient's past medical history: Yes Medical History: Reports:: Anxiety, Cancer (lung), Hyperlipidemia, Hypertension, Lung Disease Denies:: Diabetes Mellitus Type 1, Diabetes Mellitus Type 2, Internal Pacemaker, MRSA, Seizures *Have you ever received a pneumonia vaccine?: Yes *Have you received a flu vaccine this season?: Yes Other Medical History: Reports: Anemia, Arthritis, Chemotherapy, Hypothyroidism, Radiation Therapy, Sinus Problems, Thyroid Disease. Denies: Blood Transfusion Reaction Anesthesia experience/problems:: nac Laterality Cases: Right: Arthroscopy Knee, Bilateral: Tonsillectomy Other Surgeries: Yes: Appendectomy, Cancer Surgery, Cardiac Catheterization, Cholecystectomy, Colonoscopy, EGD, Hysterectomy-Partial, Thyroidectomy (RIGHT). No: Pacemaker Amputation: No Fractures: No - *Social History Last grade of school completed: 7th or 8th Smoking Status: Former smoker Tobacco Type: cigarettes Alcohol Intake: never Substance Use Type: denies use *Occupational Status:: retired Housing: house Household Members: none *Travel in the last 8 weeks: None - Psychiatric History Pschychiatric History:: Reports:: Anxiety Family Hx:: Cancer, Diabetes
--- NOTE | 2020-09-28 11:12 | HMH.PROC ---
[facility] Procedure Note Procedure Note:: Upper Endoscopy Procedure Report: Esophagogastroduodenoscopy with cold biopsies Endoscopost: Won Zuniga II, MD Referring Physician: Soumya Mcrae PA-C/Hadley Mendoza MD Date of Procedure: September 28, 2020 Equipment: Olympus GIF 180 standard upper endoscope Sedation: MAC sedation Indications: Mrs. Shah is a 80-year-old female who is here for diagnostic panendoscopy. The patient had seen [facility] for upper endoscopy in June 2018. At that time she was having some abdominal pain and discomfort with dyspepsia. Presently, she primarily has anemia and has had 2 bouts of hematemesis with bright red blood. At that time, she also had some melanotic stools. This occurred 3 to 4 weeks ago. Since her last endoscopy, she was diagnosed with stage III lung cancer and has undergone chemoradiation. She was told that she has some radiation changes within the esophagus. She was also told that she had some ulcers. [facility] She has had some dysphagia and regurgitation. She does have more regular bowel function (and uses MiraLAX plus Citrucel when necessary). She reports some right upper quadrant abdominal discomfort. She reports no significant bloating or gassiness. Procedure: Prior to the procedure, a history and physical exam was performed, and patient's medications and allergies were reviewed. The risks, benefits and alternatives of the sedation and procedure were discussed with the patient. All questions were answered and informed consent was obtained. The patient was brought to the procedure room. Patient identification and proposed procedure were verified by the physician and the nurse. The patient was placed in a left lateral decubitus position and the scope was passed under direct vision. Throughout the procedure, the patient's blood pressure, pulse, and oxygen saturations were monitored continuously. The upper GI endoscopy was accomplished without difficulty. The patient tolerated the procedure well. Findings: The scope was passed directly into the upper esophagus and advanced to the third portion of the duodenum. The post bulbar duodenum and duodenal bulb were normal with normal mucosa and conniventes. The scope was withdrawn through a normal duodenal bulb and pylorus into the stomach. There was some linear reactive gastropathy of the antrum with bile reflux. The remainder of the antrum, body and fundus of the stomach were grossly normal. Upon retroflexion there was no hiatal hernia. 2 biopsies were taken in the antrum and along the lesser curvature for histology to rule out gastritis and/or H pylori. The scope was then withdrawn into the esophagus. There was no evidence of reflux esophagitis or Man's. There was no evidence of a Schatzki's ring or candidal esophagitis. Within the mid esophagus from 34 cm from the incisors to 24 cm from the incisors (10 cm segment) of telangiectasias of the esophagus and radiation change. There was no evidence of ulceration. There was no significant stricturing. The remainder of the proximal esophagus was normal. Impression: 1. 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 Mild linear reactive gastropathy with bile reflux Plan: I do feel that the patient's hematemesis and melena are related to the radiation esophagitis with telangiectasias. I do feel that APC coagulation/ablation may increase risk of further injury. I would favor doing radiofrequency ablation that does have a more defined depth of coagulation. I will discuss this with the patient and family. I will follow-up the biopsies and proceed with colonoscopy.
--- NOTE | 2020-09-28 11:36 | HMH.PROC ---
[facility] Procedure Note Procedure Note:: Colonoscopy Procedure Report: Colonoscopy with cold snare polypectomy Endoscopist: Won Zuniga II, MD Referring physician: Soumya Mcrae PA-C/Hadley Mendoza MD Date of Procedure: September 28, 2020 Equipment: Olympus 180 variable stiffness pediatric colonoscope Sedation: MAC sedation Indication: Mrs. Shah is a 80-year-old female who is here for diagnostic panendoscopy secondary to anemia. Her recent hemoglobin on August 17, 2020 was 7.3. The patient had complained of some hematemesis and melena. She does have a history of stage III squamous cell carcinoma of the lung and has had chemoradiation. Her EGD showed moderate radiation esophagitis with a 10 cm segment of telangiectasias and chronic radiation changes. The patient's last colonoscopy was in April 2018. At that time she had left-sided diverticulosis but no polyps. She does have some right upper quadrant abdominal discomfort. She reports no bloating. Her bowel function is regular and she does use the combine fiber bowel regimen when necessary (MiraLAX plus Citrucel). She reports no family history of colon cancer or weight loss. Procedure: Prior to the procedure, a history and physical exam was performed, and patient's medications and allergies were reviewed. The risks, benefits and alternatives of the sedation and procedure were discussed with the patient. All questions were answered and informed consent was obtained. The patient was brought to the procedure room. Patient identification and proposed procedure were verified by the physician and the nurse. The patient was placed in a left lateral decubitus position and the scope was passed under direct vision. Throughout the procedure, the patient's blood pressure, pulse, and oxygen saturations were monitored continuously. The colonoscopy was accomplished without difficulty. The patient tolerated the procedure well. Findings: On digital rectal examination there was normal rectal tone. There were no external hemorrhoids. The colonoscope was introduced through the anal canal to the rectum and advanced to the cecum. The ileocecal valve and appendiceal orifice were identified. The scope was advanced a short distance into the ileum which appeared grossly normal. The scope was then withdrawn into the colon. The cecum and ascending colon were grossly normal. There were 2 polyps in the transverse colon (4 and 6 mm) which were both removed via cold snare polypectomy. There were scattered diverticuli throughout the descending and sigmoid colon (LEFT colon). The rectum itself was normal. Upon retroflexion within the rectum there were grade 1-2 internal hemorrhoids. The preparation was excellent throughout with [place] Preparation Score of 9. The cecal time was 12 minutes. Impression: 1. Colonic polyps x2 2. Left-sided diverticulosis 3. Grade 1-2 internal hemorrhoids Plan: There was no source of the patient's anemia and this is very likely to be from the telangiectasias and radiation esophagitis. We will address this today and I would recommend radiofrequency ablation. I will follow up the polyp histology. Based upon her age, she will not require further preventive colonoscopy. I would continue the fiber bowel regimen.
== END 2020-09-28 12:26 | disposition home or self-care (01) ==
LOC: OUTP 09:32
PROVIDERS: PCP Physician Assistant; Visit Provider Internal Medicine Gastroenterology
PROC: 0DJD8ZZ Inspection of Lower Intestinal Tract, Via Natural or Artificial Opening Endoscopic (ICD-10-PCS; CPT 45378; principal; 2020-09-28 10:30)
DX: K63.5 Polyp of colon (principal); K57.30 Diverticulosis of large intestine without perforation or abscess without bleeding; K64.0 First degree hemorrhoids; K20.80 Other esophagitis without bleeding; K31.9 Disease of stomach and duodenum, unspecified; Z77.123 Contact with and (suspected) exposure to radon and other naturally occurring radiation; Z85.118 Personal history of other malignant neoplasm of bronchus and lung; E78.5 Hyperlipidemia, unspecified; I10 Essential (primary) hypertension; F41.9 Anxiety disorder, unspecified; D64.9 Anemia, unspecified; M19.90 Unspecified osteoarthritis, unspecified site
CPT/HCPCS: 43239; 45385; 88305

== ENCOUNTER → 2020-10-29 11:21 | Outpatient (CLI) | payer MEDICARE, OTHER, SELFPAY | PROVIDERS: Visit Provider Physician Assistant | DX: D64.9 Anemia, unspecified (principal) | CPT/HCPCS: 36415; 86850 ==

== ENCOUNTER → 2020-10-30 09:24 | Outpatient (CLI) | payer MEDICARE, OTHER, SELFPAY ==
[2020-10-30] VITALS (18 sets, daily range): BP systolic 138–173; BP diastolic 68–96; PULSE 83–95; RESP 18; TEMP 36.2–36.6; BMI 28.3
[2020-10-30 09:57] LABS: Hematocrit 27.1 % (37.0-47.0); Hemoglobin 8.2 g/dL (12.2-16.2)
[2020-10-30 15:21] LABS: Basophils % 0.9 % (0.1-2.0); Eosinophils # 0.1 K/mm3 (0.0-0.4); Eosinophils % 2.9 % (0.1-12.0); Hematocrit 33.4 % (37.0-47.0); Hemoglobin 10.6 g/dL (12.2-16.2); Lymphocytes # 1.1 K/mm3 (0.7-4.5); Lymphocytes % 33.4 % (10-50); Mean Corpuscular HGB Conc 31.7 g/dL (31.8-35.4); Mean Corpuscular Hemoglobin 26.3 pg (27.0-31.2); Mean Platelet Volume 8.8 fl (7.4-10.4); Monocytes # 0.3 K/mm3 (0.1-1.0); Monocytes % 9.4 % (1.7-9.3); Neutrophils # 1.8 K/mm3 (1.8-7.8); Neutrophils % 53.4 % (37.0-80.0); Platelet Count 197 K/mm3 (142-424); Red Blood Count 4.02 M/mm3 (4.20-5.40); Red Cell Distribution Width 17.9 % (11.5-17.5); White Blood Count 3.4 K/mm3 (4.8-10.8)
== END ==
PROVIDERS: Visit Provider Physician Assistant
DX: D64.9 Anemia, unspecified (principal)
CPT/HCPCS: 36430; 85014; 85018; 85025; P9016

== ENCOUNTER 2020-12-02 12:45 | Outpatient (CLI) | payer MEDICARE, OTHER, SELFPAY ==
[2020-12-02 13:25] VITALS: BP 114/68; PULSE 91; RESP 18; TEMP 36.1; O2SAT 97
[2020-12-02 13:50] VITALS: BP 91/47; PULSE 87; RESP 18
== END 2020-12-02 14:10 | disposition home or self-care (01) ==
LOC: INF 12:58
PROVIDERS: Visit Provider Internal Medicine Gastroenterology
DX: D64.9 Anemia, unspecified (principal); D50.8 Other iron deficiency anemias; K20.81 Other esophagitis with bleeding; C34.90 Malignant neoplasm of unspecified part of unspecified bronchus or lung; Z87.891 Personal history of nicotine dependence
CPT/HCPCS: 96365; Q0138

== ENCOUNTER 2020-12-09 10:50 | Outpatient (CLI) | payer MEDICARE, OTHER, SELFPAY ==
[2020-12-09 11:15] VITALS: BP 148/78; PULSE 100; RESP 18; TEMP 36.7; O2SAT 98
[2020-12-09 11:40] VITALS: BP 143/87; PULSE 98; RESP 18; O2SAT 99
[2020-12-09 14:45] LABS: Coronavirus 19 IgG Antibody Negative (Negative); Coronavirus 19 IgM Antibody Negative (Negative)
== END 2020-12-09 11:45 | disposition home or self-care (01) ==
LOC: INF 10:51
PROVIDERS: Visit Provider Internal Medicine Gastroenterology
DX: D64.9 Anemia, unspecified (principal); Z20.822 Contact with and (suspected) exposure to COVID-19; Z01.812 Encounter for preprocedural laboratory examination; Z13.810 Encounter for screening for upper gastrointestinal disorder; K20.81 Other esophagitis with bleeding; D50.8 Other iron deficiency anemias; C34.90 Malignant neoplasm of unspecified part of unspecified bronchus or lung; Z87.891 Personal history of nicotine dependence
CPT/HCPCS: 36415; 86328; 96374; Q0138

== ENCOUNTER 2020-12-11 12:35 | Day surgery (SDC) | payer MEDICARE, OTHER, SELFPAY ==
[2020-12-03 12:06] VITALS: BMI 28.3
[2020-12-11 12:59] VITALS: BP 126/76; PULSE 94; RESP 18; TEMP 36.6; O2SAT 97
--- NOTE | 2020-12-11 13:46 | HMH.PROC ---
[facility] Procedure Note Procedure Note:: Upper Endoscopy Procedure Report: Esophagogastroduodenoscopy with radiofrequency ablation Endoscopost: Won Zuniga II, MD Referring Physician: Soumya Mcrae PA-C/Hadley Mendoza MD Date of Procedure: December 11, 2020 Equipment: Olympus GIF 180 standard upper endoscope Sedation: MAC sedation Indications: Mrs. Shah is a 80-year-old female with anemia. She has had some hematemesis and melena. She did have stage III squamous cell carcinoma of the lung and underwent chemoradiation. She does have moderate radiation esophagitis with a 10 cm segment of telangiectasias and chronic radiation changes. This was initially identified in April 2018. Her more recent EGD was September 28, 2020. Once again there were esophageal telangiectasias/AVMs encompassing 10 cm length of the esophagus. The patient presently reports no further melena or hematemesis. However, she has received 4 units of PRBCs and 2 parenteral iron infusions at [facility]. She has received another 6 to 8 units of PRBCs at the [facility]. Upper endoscopy was performed for potential radiofrequency ablation due to ongoing obscure and occasionally overt GI blood loss from radiation esophagitis. Procedure: Prior to the procedure, a history and physical exam was performed, and patient's medications and allergies were reviewed. The risks, benefits and alternatives of the sedation and procedure were discussed with the patient. All questions were answered and informed consent was obtained. The patient was brought to the procedure room. Patient identification and proposed procedure were verified by the physician and the nurse. The patient was placed in a left lateral decubitus position and the scope was passed under direct vision. Throughout the procedure, the patient's blood pressure, pulse, and oxygen saturations were monitored continuously. The upper GI endoscopy was accomplished without difficulty. The patient tolerated the procedure well. Findings: The scope was passed directly into the upper esophagus and advanced to the third portion of the duodenum. The post bulbar duodenum and duodenal bulb were normal with normal mucosa and conniventes. The scope was withdrawn through a normal duodenal bulb and pylorus into the stomach. There was very mild reactive gastropathy of the antrum. The remainder of the antrum, body and fundus of the stomach were grossly normal. Upon retroflexion there was no hiatal hernia. The scope was then withdrawn into the esophagus. Within the middle esophagus from 34 cm from the incisors to 24 cm from the incisors (10 cm segment) there were multiple telangiectasias circumferentially within the esophageal mucosa with friability and spontaneous heme identified. This was deemed to be the source of her chronic GI blood loss. Next, the [employer] radioablation catheter was attached to the endoscope (the ultra 40 mm length/13 mm width) and this was advanced directly into the esophagus. Under direct vision ablation was performed from distal to proximal around the circumference. A total of 10 ablations were performed to cover all of the identified areas of telangiectasias within the esophagus (the entire length of radiation esophagitis with AVMs). Coagulative debris was not removed and a second ablation was not performed because of the location. The procedure was then ended. Impression: 1. Radiation esophagitis with multiple AVM/telangiectasias status post radiofrequency ablation (RFA) Plan: I would consider repeating EGD with possible RFA in 3 to 6 months. I would continue to monitor hemogram, iron studies and Hemoccult for ongoing occult GI bleeding. If she were to remain iron deficient or Hemoccult positive, I would repeat RFA sooner.
--- NOTE | 2020-12-11 13:47 | P.PN_ITS ---
[facility] Anesthesia Checklist - Patient Identification Patient Identification: Verbal (Name & ) - Structural Data Admitted From: Home Planned Operative Procedure/s: egd/barrx Consent for Planned Operative Procedure(s) Verified: Yes Verified Documents: Surgical Consent - NPO Status Verified Time NPO: 00:00 - Additional verifications Anesthesia Reactions: No Hx Blood Transfusions: No Blood Transfusion Reaction: No - Cardiovascular Assessment Heart Sounds: S1 & S2 Pulse Rhythm: Regular - Airway Assessment C-Spine Mobility Assessed: Yes TMJ Mobility Assessed: Yes Dentition: Good Dentition - Neurological Assessment Level of Consciousness: Awake - Anesthesia Plan Anesthesia Risk discussed: Yes ASA Class: III Anesthesia Type: MAC [facility] History I have reviewed the patient's past medical history: Yes Medical History: Reports:: Anxiety, Cancer (lung), Hyperlipidemia, Hypertension, Lung Disease Denies:: Diabetes Mellitus Type 1, Diabetes Mellitus Type 2, Internal Pacemaker, MRSA, Seizures *Have you ever received a pneumonia vaccine?: Yes *Have you received a flu vaccine this season?: Yes Other Medical History: Reports: Anemia, Arthritis, Chemotherapy, Hypothyroidism, Radiation Therapy, Sinus Problems, Thyroid Disease. Denies: Blood Transfusion Reaction Anesthesia experience/problems:: none Laterality Cases: Right: Arthroscopy Knee, Breast Biopsy, Total Knee Replacement, Bilateral: Cataract, Tonsillectomy Other Surgeries: Yes: Appendectomy, Cancer Surgery, Cardiac Catheterization, Cholecystectomy, Colonoscopy, EGD, Hysterectomy-Partial, Thyroidectomy (RIGHT). No: Pacemaker Amputation: No Fractures: No - *Social History Last grade of school completed: 7th or 8th Smoking Status: Former smoker Tobacco Type: cigarettes #Yrs smoked (if former smoker): 30 Alcohol Intake: never Substance Use Type: denies use *Occupational Status:: retired Housing: house Household Members: none *Travel in the last 8 weeks: None - Psychiatric History Pschychiatric History:: Reports:: Anxiety Family Hx:: Cancer, Diabetes
[2020-12-11 13:54] VITALS: O2SAT 97
[2020-12-11 14:13] VITALS: BP 118/70; PULSE 91; RESP 18; TEMP 36.6; O2SAT 93
[2020-12-11 14:23] VITALS: BP 128/72; PULSE 86; RESP 18; O2SAT 96
[2020-12-11 14:33] VITALS: BP 152/88; PULSE 82; RESP 18; O2SAT 100
[2020-12-11 15:00] VITALS: BP 160/93; PULSE 85; RESP 18; O2SAT 97
--- NOTE | 2020-12-11 15:04 | SUR.PHASEII ---
DR CONNOLLY WANTS PT TO HOLD APIXIBAN FOR 2 DAYS AND ONLY TAKE HEART MEDICATION AND THYROID MEDICATION FOR NEXT 2 DAYS. PT VERBALIZED UNDERSTANDING, ABLE TO REPEAT BACK .
== END 2020-12-11 15:03 | disposition home or self-care (01) ==
LOC: OUTP 12:37
PROVIDERS: PCP Physician Assistant; Visit Provider Internal Medicine Gastroenterology
PROC: 0DJ08ZZ Inspection of Upper Intestinal Tract, Via Natural or Artificial Opening Endoscopic (ICD-10-PCS; CPT 43235; principal; 2020-12-11 13:30)
DX: K20.80 Other esophagitis without bleeding (principal); Z92.3 Personal history of irradiation; I78.1 Nevus, non-neoplastic; K55.20 Angiodysplasia of colon without hemorrhage; Z85.110 Personal history of malignant carcinoid tumor of bronchus and lung; Z87.19 Personal history of other diseases of the digestive system; I10 Essential (primary) hypertension; E78.5 Hyperlipidemia, unspecified; F41.9 Anxiety disorder, unspecified; M19.90 Unspecified osteoarthritis, unspecified site; E03.9 Hypothyroidism, unspecified; Z87.39 Personal history of other diseases of the musculoskeletal system and connective tissue
CPT/HCPCS: 43270

== ENCOUNTER → 2020-12-28 13:09 | Outpatient (CLI) | payer MEDICARE, OTHER, SELFPAY ==
[2020-12-28 14:29] LABS: Hematocrit 35.4 % (37.0-47.0)
[2020-12-28 15:05] LABS: Iron 100 ug/dL (37-170)
[2020-12-28 15:14] LABS: Total Iron Binding Capacity 298 ug/dL (265-497)
[2020-12-28 16:19] LABS: Hemoglobin 11.4 g/dL (12.2-16.2)
== END ==
PROVIDERS: Visit Provider Internal Medicine Gastroenterology
DX: D64.9 Anemia, unspecified (principal)
CPT/HCPCS: 36415; 83540; 83550; 85014; 85018

== ENCOUNTER → 2020-12-29 09:05 | Outpatient (CLI) | payer MEDICARE, OTHER, SELFPAY ==
[2020-12-31 09:23] LABS: Occult Blood,Stool Positive (Negative)
== END ==
PROVIDERS: Visit Provider Internal Medicine Gastroenterology
DX: D64.9 Anemia, unspecified (principal)
CPT/HCPCS: 82272; G0328

== ENCOUNTER → 2020-12-30 09:01 | Outpatient (CLI) | payer MEDICARE, OTHER, SELFPAY ==
[2020-12-31 09:23] LABS: Occult Blood,Stool Negative (Negative)
== END ==
PROVIDERS: Visit Provider Internal Medicine Gastroenterology
DX: D64.9 Anemia, unspecified (principal)
CPT/HCPCS: 82272; G0328

== ENCOUNTER → 2020-12-31 08:51 | Outpatient (CLI) | payer MEDICARE, OTHER, SELFPAY ==
[2020-12-31 09:23] LABS: Occult Blood,Stool Negative (Negative)
== END ==
PROVIDERS: Visit Provider Internal Medicine Gastroenterology
DX: D64.9 Anemia, unspecified (principal)
CPT/HCPCS: 82272; G0328

== ENCOUNTER → 2021-02-16 16:47 | Outpatient (CLI) | payer MEDICARE, OTHER, SELFPAY ==
[2021-02-16 17:00] LABS: Basophils % 0.6 % (0.1-2.0); Eosinophils # 0.1 K/mm3 (0.0-0.4); Eosinophils % 1.9 % (0.1-12.0); Hemoglobin 10.4 g/dL (12.2-16.2); Lymphocytes # 1.3 K/mm3 (0.7-4.5); Lymphocytes % 39.8 % (10-50); Mean Corpuscular HGB Conc 31.6 g/dL (31.8-35.4); Mean Corpuscular Hemoglobin 31.2 pg (27.0-31.2); Mean Corpuscular Volume 98.7 fl (81-99); Mean Platelet Volume 8.8 fl (7.4-10.4); Monocytes # 0.2 K/mm3 (0.1-1.0); Monocytes % 6.8 % (1.7-9.3); Neutrophils # 1.7 K/mm3 (1.8-7.8); Neutrophils % 50.9 % (37.0-80.0); Platelet Count 158 K/mm3 (142-424); Red Blood Count 3.34 M/mm3 (4.20-5.40); Red Cell Distribution Width 16.6 % (11.5-17.5); White Blood Count 3.3 K/mm3 (4.8-10.8)
[2021-02-16 17:19] LABS: Chloride 106 mmol/L (98-107); Sodium 139 mmol/L (136-145)
[2021-02-16 17:20] LABS: Potassium 4.2 mmoL/L (3.5-5.1)
[2021-02-16 17:22] LABS: Alanine Aminotransferase 11 U/L (12-78); Albumin Level 3.8 g/dl (3.5-5.0); Albumin/Globulin Ratio 0.9 (1.1-1.8); Alkaline Phosphatase 156 U/L (38-126); Anion Gap 9.2 mEq/L (5-15); Aspartate Amino Transferase 26 U/L (14-36); Bilirubin,Total 0.5 mg/dl (0.2-1.3); Blood Urea Nitrogen 14 mg/dl (7-17); Calcium 9.1 mg/dl (8.4-10.2); Carbon Dioxide 28 mmol/L (22.0-30.0); Chol/HDL Ratio 2.3 (1-3.5); Cholesterol 115 mg/dl (140-200); Estimated Glomerular Filt Rate 61 ml/min (>60); GFR (African American) 73 ML/MIN (>60); Globulin 4.3 g/dL (1.3-3.2); Glucose 91 mg/dl (74-100); HDL Cholesterol 49 mg/dl (40-60); Iron 64 ug/dL (37-170); Total Protein,Serum 8.1 g/dl (6.3-8.2); Triglycerides 96 mg/dl (30-150); VLDL Cholesterol 19 mg/dL (0-40)
[2021-02-16 17:33] LABS: Direct LDL Cholesterol 39.93 mg/dL (100-129); Total Iron Binding Capacity 298 ug/dL (265-497)
[2021-02-16 17:37] LABS: 25-OH Vitamin D, Total < 12.8 ng/mL (30-100)
[2021-02-16 17:38] LABS: Free T4 (Free Thyroxine) 1.34 ng/dl (0.78-2.19)
[2021-02-16 17:55] LABS: Thyroid Stimulating Hormone 1.79 uIU/mL (0.465-4.68)
[2021-02-16 17:59] LABS: Ferritin 43.3 ng/ml (11.1-264)
== END ==
PROVIDERS: Visit Provider Family Medicine
DX: D64.9 Anemia, unspecified (principal); E03.9 Hypothyroidism, unspecified; E55.9 Vitamin D deficiency, unspecified; F41.9 Anxiety disorder, unspecified
CPT/HCPCS: 80053; 80061; 82306; 82728; 83540; 83550; 84439; 84443; 85025

== ENCOUNTER → 2021-05-04 20:09 | Outpatient (CLI) | payer MEDICARE, OTHER, SELFPAY | PROVIDERS: PCP Physician Assistant; Visit Provider Nurse Practitioner Family | DX: G47.33 Obstructive sleep apnea (adult) (pediatric) (principal); G47.61 Periodic limb movement disorder; R40.0 Somnolence; R06.83 Snoring | CPT/HCPCS: 95810 ==

== ENCOUNTER → 2021-05-07 10:42 | Outpatient (CLI) | payer MEDICARE, OTHER, SELFPAY ==
[2021-05-07 12:11] LABS: Coronavirus 19 IgG Antibody Negative (Negative); Coronavirus 19 IgM Antibody Negative (Negative)
== END ==
PROVIDERS: PCP Physician Assistant; Visit Provider Physician Assistant
DX: Z20.822 Contact with and (suspected) exposure to COVID-19 (principal)
CPT/HCPCS: 86328

== ENCOUNTER → 2021-05-19 15:05 | Outpatient (CLI) | payer MEDICARE, OTHER, SELFPAY ==
--- NOTE | 2021-05-19 15:15 | XR_ITS ---
PROCEDURE: XR CHEST 2V CLINICAL HISTORY: LUNG CANCER COMPARISON: CR CXR2V XR chest 2V from 04/24/2018 CR CXR2V XR chest 2V from 02/11/[address] ANGIO CHEST from 08/20/2019 CR XR CHEST PORTABLE from 03/08/2020 FINDINGS: Normal heart size. Surgical clips are present in the right hilar region with radiating opacities extending from the right hilum superiorly and horizontally and could be related to post radiation fibrotic changes. There is mild right-sided lung volume loss with mild shift of the mediastinum toward the right. There are degenerative changes in the thoracic spine with mild thoracic kyphosis IMPRESSION: Right perihilar fibrotic changes which may be due to radiation fibrosis with postsurgical changes in the right hilum. Dictated by: Preet Otto MD 05/19/2021 16:03 Preet Otto MD in [place] 05/19/2021 16:03
== END ==
PROVIDERS: PCP Physician Assistant; Visit Provider Specialist
DX: C34.90 Malignant neoplasm of unspecified part of unspecified bronchus or lung (principal); G32.81 Cerebellar ataxia in diseases classified elsewhere
CPT/HCPCS: 71046

== ENCOUNTER → 2021-05-21 15:20 | Outpatient (CLI) | payer MEDICARE, OTHER, SELFPAY | PROVIDERS: PCP Physician Assistant; Visit Provider Physician Assistant | DX: Z20.822 Contact with and (suspected) exposure to COVID-19 (principal) | CPT/HCPCS: U0003 ==

== ENCOUNTER → 2021-06-07 12:51 | Outpatient (CLI) | payer MEDICARE, OTHER, SELFPAY | PROVIDERS: PCP Physician Assistant; Visit Provider Specialist | DX: R06.09 Other forms of dyspnea (principal) | CPT/HCPCS: 94762 ==

== ENCOUNTER → 2021-06-16 12:44 | Outpatient (CLI) | payer MEDICARE, OTHER, SELFPAY | PROVIDERS: Visit Provider Internal Medicine Gastroenterology | DX: Z01.812 Encounter for preprocedural laboratory examination (principal); Z20.822 Contact with and (suspected) exposure to COVID-19; Z13.810 Encounter for screening for upper gastrointestinal disorder | CPT/HCPCS: U0003 ==

== ENCOUNTER 2021-06-18 11:12 | Day surgery (SDC) | payer MEDICARE, OTHER, SELFPAY ==
[2021-06-10 10:20] VITALS: BMI 28.0
[2021-06-18 11:29] VITALS: BP 125/74; PULSE 81; RESP 18; TEMP 36.7; O2SAT 98
--- NOTE | 2021-06-18 12:12 | HMH.ANESCL ---
[facility] Anesthesia Checklist - Patient Identification Patient Identification: Arm Band - Structural Data Admitted From: Home Planned Operative Procedure/s: EGD with radiofrequency ablation Consent for Planned Operative Procedure(s) Verified: Yes - NPO Status Verified Time NPO: 00:00 - Additional verifications Anesthesia Reactions: No Hx Blood Transfusions: No Blood Transfusion Reaction: No - Airway Assessment C-Spine Mobility Assessed: Yes TMJ Mobility Assessed: Yes Dentition: Edentulous - Neurological Assessment Level of Consciousness: Awake Hx Seizures: No Numbness or tingling in extremities: No - Anesthesia Plan Anesthesia Risk discussed: Yes Anesthesia Plan: Verified ASA Class: III Anesthesia Type: MAC [facility] History I have reviewed the patient's past medical history: Yes Medical History: Reports:: Anxiety, Cancer, Depression, Gastroesophageal Reflux Disease(GERD), Gastrointestinal Bleed, Hyperlipidemia, Hypertension, Lung Disease, Transient Ischemic Attacks (TIA) Denies:: Diabetes Mellitus Type 1, Diabetes Mellitus Type 2, Internal Pacemaker, MRSA, Seizures *Have you ever received a pneumonia vaccine?: Yes *Have you received a flu vaccine this season?: Yes Other Medical History: Reports: Anemia, Arthritis, Chemotherapy, Hypothyroidism, Radiation Therapy, Sinus Problems, Thyroid Disease. Denies: Blood Transfusion Reaction Anesthesia experience/problems:: None Laterality Cases: Right: Arthroscopy Knee, Breast Biopsy, Total Knee Replacement, Bilateral: Tonsillectomy Other Surgeries: Yes: Appendectomy, Cancer Surgery, Cardiac Catheterization, Cholecystectomy, Colonoscopy, EGD, Hysterectomy-Partial, Thyroidectomy (RIGHT). No: Pacemaker Amputation: No Fractures: No - *Social History Last grade of school completed: 7th or 8th Smoking Status: Former smoker Tobacco Type: cigarettes #Yrs smoked (if former smoker): 30 Alcohol Intake: never Substance Use Type: denies use *Occupational Status:: retired Housing: house Household Members: none *Travel in the last 8 weeks: None - Psychiatric History Pschychiatric History:: Reports:: Anxiety, Depression Family Hx:: Cancer, Diabetes
[2021-06-18 12:28] VITALS: O2SAT 97
--- NOTE | 2021-06-18 12:29 | P.PCN_ITS ---
[facility] Procedure Note Procedure Note:: Upper Endoscopy Procedure Report: Esophagogastroduodenoscopy with RFA (radiofrequency ablation) ablation/coagulation Endoscopost: Won Zuniga II, MD Referring Physician: Soumya Mcrae PA-C/Hadley Mendoza MD Date of Procedure: June 18, 2021 Equipment: Olympus GIF 190 standard upper endoscope Sedation: MAC sedation Indications: Mrs. Shah is a 80-year-old female with iron deficiency anemia. The patient did have melena and hematemesis and some chronic GI blood loss from radiation esophagitis. The patient did have stage III squamous cell carcinoma of the lung and had chemoradiation. Her radiation esophagitis was identified initially in April 2018. The patient has had blood transfusions. She did have an EGD with radiofrequency ablation on December 11, 2020. She has had no recurrent melena or hematemesis. Her most recent hemoglobin and hematocrit were 10.4 and 33 in February 2021. Procedure: Prior to the procedure, a history and physical exam was performed, and patient's medications and allergies were reviewed. The risks, benefits and alternatives of the sedation and procedure were discussed with the patient. All questions were answered and informed consent was obtained. The patient was brought to the procedure room. Patient identification and proposed procedure were verified by the physician and the nurse. The patient was placed in a left lateral decubitus position and the scope was passed under direct vision. Throughout the procedure, the patient's blood pressure, pulse, and oxygen saturations were monitored continuously. The upper GI endoscopy was accomplished without difficulty. The patient tolerated the procedure well. Findings: The scope was passed directly into the upper esophagus and advanced to the third portion of the duodenum. The post bulbar duodenum and duodenal bulb were normal with normal mucosa and conniventes. The scope was withdrawn through a normal duodenal bulb and pylorus into the stomach. There was minimal reactive gastropathy. The remainder of the body and fundus of the stomach was normal. Upon retroflexion there was no hiatal hernia. The scope was then withdrawn into the esophagus. Once again, there were telangiectasias identified and a 8 to 10 cm segment within the middle esophagus. There was less friability this time. T he 90 degree RFA catheter was then placed on the endoscope and in a circumferential fashion, the areas of telangiectasias were ablated/coagulated in a distal to proximal fashion. Every segment was coagulated twice. The coagulative debris was not removed. The procedure was then ended. Impression: 1. Radiation esophagitis with scattered esophageal telangiectasias status post radiofrequency ablation Plan: I will discussed the findings with the patient and family. I would consider repeat RFA in 6 to 12 months.
[2021-06-18 12:32] VITALS: BP 126/75; PULSE 89; RESP 18; TEMP 36.1; O2SAT 93
[2021-06-18 12:42] VITALS: BP 126/73; PULSE 81; RESP 18; O2SAT 99
[2021-06-18 12:52] VITALS: BP 121/78; PULSE 84; RESP 18; O2SAT 98
== END 2021-06-18 13:00 | disposition home or self-care (01) ==
LOC: OUTP 11:14
PROVIDERS: PCP Physician Assistant; Visit Provider Internal Medicine Gastroenterology
PROC: 0DJ08ZZ Inspection of Upper Intestinal Tract, Via Natural or Artificial Opening Endoscopic (ICD-10-PCS; CPT 43235; principal; 2021-06-18 12:30)
DX: K20.80 Other esophagitis without bleeding (principal); K31.9 Disease of stomach and duodenum, unspecified; D50.9 Iron deficiency anemia, unspecified; Z85.110 Personal history of malignant carcinoid tumor of bronchus and lung; Z92.3 Personal history of irradiation
CPT/HCPCS: 43270

== ENCOUNTER → 2021-06-29 12:43 | Outpatient (CLI) | payer MEDICARE, OTHER, SELFPAY ==
[2021-06-29 13:40] VITALS: PULSE 78; PULSE 82
== END ==
PROVIDERS: PCP Physician Assistant; Visit Provider Internal Medicine Pulmonary Disease
DX: R06.09 Other forms of dyspnea (principal)
CPT/HCPCS: 94060; 94640; 94726; 94729

== ENCOUNTER 2021-07-19 13:09 | Emergency (ER) | payer MEDICARE, OTHER, SELFPAY ==
[2021-07-19] VITALS (16 sets, daily range): BP systolic 100–163; BP diastolic 63–79; PULSE 82–102; RESP 16–20; TEMP 36.6–36.9; O2SAT 95–99; BMI 28.3
--- NOTE | 2021-07-19 13:44 | CT_ITS ---
PROCEDURE: CT LUMBAR SPINE WO CON CLINICAL HISTORY: pain COMPARISON: CT CT ABDOMEN PELVIS W CON from 08/20/2019 TECHNIQUE: Axial images obtained with sagittal and coronal reformats. All CT scans at the facility use one or more dose reduction, viz: automated exposure control, ma/kV adjustment per patient size (including targeted exams where dose is matched to indication, i.e. head), or iterative reconstruction technique. FINDINGS: T11-T12: Degenerative disc disease with subchondral cystic changes along the inferior endplate of T11. T12-L1: Anterior osteophytes. L1-L2: Degenerative disc disease with bulging disc and small endplate osteophytes with chronic concave deformities along the inferior endplate of L1 and superior endplate of L2. Facet hypertrophic change on the left with left-sided lateral recess and foraminal narrowing. L2-L3: Degenerative disc disease with bulging disc eccentric toward the left and in the left foraminal and lateral region causing mild left-sided foraminal narrowing with endplate osteophytes on the left. Facet hypertrophic changes are present with bilateral lateral recess narrowing and left-sided foraminal narrowing. L3-L4: Degenerative disc disease with bulging disc with 2 mm retrolisthesis of L3 along with facet and ligamentum hypertrophic change. The bulging disc is eccentric toward the right with right lateral recess and foraminal narrowing. L4-5: Degenerative disc disease with concentric bulging disc along with facet and ligamentum hypertrophic change with bilateral lateral recess narrowing and foraminal narrowing and borderline canal stenosis. 2 mm anterolisthesis of L4. L5-S1: Degenerative disc disease with mild bulging disc. Diffuse osteopenia. Mild thoracolumbar scoliosis convex right. No fracture or dislocation. Incidental colonic diverticulosis. Left renal cyst at 6 cm. Loculated fluid in the right lung base along the hemidiaphragm. Prior cholecystectomy. IMPRESSION: Degenerative changes as described above. Please see above for detailed description at each level. Dictated by: Preet Otto MD 07/19/2021 15:02 Preet Otto MD in [place] 07/19/2021 15:02
[2021-07-19 13:48] LABS: Microscopic, Urine URINE MICROSCOPIC (MICROSCOPIC)
[2021-07-19 13:50] LABS: Appearance,Urine CLEAR (Clear); Bilirubin,Urine Negative (Negative); Blood, Urine TRACE-I (Negative); Color,Urine YELLOW (Yellow); Glucose,Urine (UA) Negative (Negative); Ketones,Urine TRACE (Negative); Leukocyte Esterase,Urine Negative (Negative); Nitrate,Urine Negative (Negative); Protein,Urine Negative (Negative); Specific Gravity, Urine >= 1.030 (1.005-1.030); Urobilinogen,Urine 0.2 EU/dl (0.2)
[2021-07-19 14:11] LABS: Basophils % 0.6 % (0.1-2.0); Eosinophils # 0.1 K/mm3 (0.0-0.4); Eosinophils % 2.5 % (0.1-12.0); Hematocrit 23.9 % (37.0-47.0); Hemoglobin 7.1 g/dL (12.2-16.2); Lymphocytes # 0.9 K/mm3 (0.7-4.5); Lymphocytes % 32.4 % (10-50); Mean Corpuscular HGB Conc 29.5 g/dL (31.8-35.4); Mean Corpuscular Hemoglobin 24.9 pg (27.0-31.2); Mean Corpuscular Volume 84.3 fl (81-99); Mean Platelet Volume 10.5 fl (7.4-10.4); Monocytes # 0.2 K/mm3 (0.1-1.0); Monocytes % 6.7 % (1.7-9.3); Neutrophils # 1.7 K/mm3 (1.8-7.8); Neutrophils % 57.7 % (37.0-80.0); Platelet Count 223 K/mm3 (142-424); Red Blood Count 2.83 M/mm3 (4.20-5.40); Red Cell Distribution Width 16.5 % (11.5-17.5); White Blood Count 2.9 K/mm3 (4.8-10.8)
[2021-07-19 14:20] LABS: Alanine Aminotransferase 11 U/L (12-78); Albumin Level 3.4 g/dl (3.5-5.0); Albumin/Globulin Ratio 0.7 (1.1-1.8); Alkaline Phosphatase 113 U/L (38-126); Anion Gap 11.3 mEq/L (5-15); Aspartate Amino Transferase 25 U/L (14-36); Bilirubin,Total 0.4 mg/dl (0.2-1.3); Blood Urea Nitrogen 13 mg/dl (7-17); Calcium 8.5 mg/dl (8.4-10.2); Carbon Dioxide 23 mmol/L (22.0-30.0); Chloride 110 mmol/L (98-107); Creatinine Clearance Estimated 44 mL/min (50-200); Estimated Glomerular Filt Rate 43 ml/min (>60); GFR (African American) 52 ML/MIN (>60); Globulin 4.8 g/dL (1.3-3.2); Glucose 98 mg/dl (74-100); Potassium 4.3 mmoL/L (3.5-5.1); Sodium 140 mmol/L (136-145); Total Protein,Serum 8.2 g/dl (6.3-8.2)
[2021-07-19 14:20] LABS: Bacteria,Urine 2+ /lpf; Mucus,Urine 2+ /lpf; RBC,Urine Occasional #/hpf (0-3); Squamous Epithelial Cell,Urine Occasional #/hpf (0-5)
--- NOTE | 2021-07-19 15:04 | HMH.EDGENADL ---
ED Disposition Clinical Impression: Acute on chronic anemia Lumbar strain Qualifiers: Encounter type: initial encounter Qualified Code(s): S39.012A - Strain of muscle, fascia and tendon of lower back, initial encounter Disposition: Home, Self-Care Condition on Discharge: Good Instructions: Iron-Deficiency Anemia Referrals: Soumya Mcrae PA [Primary Care Provider] - - Critical Care Critical Care Time: No Attestation: On 07/19/21, the high probability of a clinically significant, sudden or life threatening deterioration of the following system(s) required my full and direct attention, intervention and personal management. The time I documented below is in addition to time spent performing reported procedures but includes the following listed in this critical care notation. Medical Decision Making - Medical Records Medical records reviewed: Yes: I reviewed the patient's medical records. - Baudilio Inquiry Pt receiving controlled substance: No Vital Signs: 07/19/21 13:09 07/19/21 16:25 07/19/21 16:40 Temperature 98 F 97.9 F 97.9 F Temperature Source Oral Oral Pulse Rate 87 85 Pulse Rate [Radial] 102 H Respiratory Rate 16 19 16 TAR Vitals Timing Pre-Blood Vitals Start Vitals Blood Pressure 110/76 122/65 Blood Pressure [Right Arm] 100/63 L Blood Pressure Mean 87 84 Blood Pressure Mean [Right Arm] 75 Blood Pressure Source Blood Pressure Position Sitting Blood Pressure Position [Right Arm] Sitting 02 Sat by Pulse Oximetry 98 97 98 Oxygen Delivery Method Room Air 07/19/21 16:45 07/19/21 16:50 07/19/21 16:55 Temperature 98.0 F 98.0 F 97.9 F Temperature Source Oral Oral Pulse Rate 90 86 82 Pulse Rate [Radial] Respiratory Rate 18 20 19 TAR Vitals Timing 5 Minute 10 Minute 15 Minute Blood Pressure 131/70 135/70 135/70 Blood Pressure [Right Arm] Blood Pressure Mean 90 91 91 Blood Pressure Mean [Right Arm] Blood Pressure Source Automatic Cuff Blood Pressure Position Sitting Blood Pressure Position [Right Arm] 02 Sat by Pulse Oximetry 97 99 99 Oxygen Delivery Method 07/19/21 17:10 07/19/21 17:25 07/19/21 17:40 Temperature Temperature Source Pulse Rate 86 83 84 Pulse Rate [Radial] Respiratory Rate 18 18 20 TAR Vitals Timing 30 Minute 45 Minute 60 Minute Blood Pressure 110/76 122/65 131/70 Blood Pressure [Right Arm] Blood Pressure Mean 87 84 90 Blood Pressure Mean [Right Arm] Blood Pressure Source Blood Pressure Position Blood Pressure Position [Right Arm] 02 Sat by Pulse Oximetry 97 96 96 Oxygen Delivery Method 07/19/21 18:14 07/19/21 18:18 Temperature 98.4 F Temperature Source Oral Pulse Rate 84 83 Pulse Rate [Radial] Respiratory Rate 20 16 TAR Vitals Timing Completion Vitals Blood Pressure 135/70 136/73 Blood Pressure [Right Arm] Blood Pressure Mean 91 94 Blood Pressure Mean [Right Arm] Blood Pressure Source Blood Pressure Position Blood Pressure Position [Right Arm] 02 Sat by Pulse Oximetry 99 98 Oxygen Delivery Method - Lab Data Lab Results 07/19/21 13:20: Urine Color Yellow, Urine Appearance Clear, Urine pH 6.0, Ur Specific [place] >= 1.030, Urine Protein Negative, Urine Glucose (UA) Negative, Urine Ketones Trace, Urine Blood Trace-i, Urine Nitrate Negative, Urine Bilirubin Negative, Urine Urobilinogen 0.2, Ur Leukocyte Esterase Negative, Urine RBC Occasional, Urine WBC 3-5, Ur Squamous Epith Cells Occasional, Urine Bacteria 2+, Urine Mucus 2+ 07/19/21 14:03: WBC 2.9 L, RBC 2.83 L, Hgb 7.1 L, Hct 23.9 L, MCV 84.3, MCH 24.9 L, MCHC 29.5 L, RDW 16.5, Plt Count 223, MPV 10.5 H, Neut % (Auto) 57.7, Lymph % (Auto) 32.4, Carver % (Auto) 6.7, Eos % (Auto) 2.5, Baso % (Auto) 0.6, Neut # (Auto) 1.7 L, Lymph # (Auto) 0.9, Carver # (Auto) 0.2, Eos # (Auto) 0.1, Baso # (Auto) 0.0 07/19/21 14:03: Sodium 140, Potassium 4.3, Chloride 110 H, Carbon Dioxide 23, Anion Gap 11.3, BUN 13, Creatinine 1.20 H, Estimated
[2021-07-19 15:38] LABS: Coronavirus 19, PCR Not Detected (NotDetected); Influenza A, PCR Not Detected (NotDetected); Influenza B, PCR Not Detected (NotDetected)
--- NOTE | 2021-07-19 16:11 | PC.NURSE ---
Trent from lab called and stated 2 units of blood were ready.
--- NOTE | 2021-07-19 18:19 | PC.NURSE ---
Pt and MD agreed that one pint of blood was ok to be given and then she can fu with her doctor
== END 2021-07-19 18:37 | disposition home or self-care (01) ==
PROVIDERS: Emergency Provider Emergency Medicine; PCP Physician Assistant
DX: S39.012A Strain of muscle, fascia and tendon of lower back, initial encounter (principal); D64.9 Anemia, unspecified; Z85.118 Personal history of other malignant neoplasm of bronchus and lung; Z87.891 Personal history of nicotine dependence; F41.8 Other specified anxiety disorders; I10 Essential (primary) hypertension; E78.5 Hyperlipidemia, unspecified; K21.9 Gastro-esophageal reflux disease without esophagitis; Z79.899 Other long term (current) drug therapy
CPT/HCPCS: 36415; 36430; 72131; 80053; 81001; 85025; 86850; 87086; 96365; 96375; 99283; C9803; J2405; P9016; U0003; U0005

== ENCOUNTER 2021-07-27 12:01 | Outpatient (CLI) | payer MEDICARE, OTHER, SELFPAY ==
[2021-07-27 12:30] VITALS: BP 132/75; PULSE 86; RESP 18; TEMP 36.4
[2021-07-27 12:57] VITALS: BP 145/78; PULSE 90; RESP 18
== END 2021-07-27 12:57 | disposition home or self-care (01) ==
LOC: INF 12:04
PROVIDERS: PCP Family Medicine; Visit Provider Internal Medicine Gastroenterology
DX: D64.9 Anemia, unspecified (principal)
CPT/HCPCS: 96374; 96375; Q0138

== ENCOUNTER 2021-07-30 11:51 | Outpatient (CLI) | payer MEDICARE, OTHER, SELFPAY ==
[2021-07-30 12:22] VITALS: BP 146/82; PULSE 98; RESP 17; TEMP 36.6; O2SAT 99
[2021-07-30 12:41] VITALS: BP 114/68; PULSE 93; RESP 17; TEMP 36.7; O2SAT 99
== END 2021-07-30 13:00 | disposition home or self-care (01) ==
LOC: INF 11:52
PROVIDERS: PCP Family Medicine; Visit Provider Internal Medicine Gastroenterology
DX: D64.9 Anemia, unspecified (principal)
CPT/HCPCS: 96374; Q0138

== ENCOUNTER → 2021-09-01 13:46 | Outpatient (CLI) | payer MEDICARE, OTHER, SELFPAY ==
--- NOTE | 2021-09-01 13:54 | MM_ITS ---
PROCEDURE INFORMATION: Exam: MG Bilateral Screening 3D Mammography Exam date and time: 09/01/2021 1:54 PM Age: 81 years old Clinical indication: Screening mammogram TECHNIQUE: Imaging protocol: Bilateral screening tomosynthesis and 2D mammography including computer-aided detection (CAD) when performed. COMPARISON: 1. MG MM DIG SCREENING MAMM BI W/CAD 08/28/2020 10:19 AM 2. MG SCBI MM Dig screening mamm BI w/CAD 07/10/2018 2:58 PM 3. MG DMSB DIG MAMM-SCREEN CATHY 01/15/2016 3:56 PM 4. MG DMSB DIG MAMM-SCREEN CATHY 01/05/2015 1:10 PM FINDINGS: MAMMOGRAPHY: Breast composition: There are scattered areas of fibroglandular density. Mass: None. Architectural distortion: No new or suspicious architectural distortion. Calcifications: No new or suspicious calcifications are present Asymmetric density: No new or suspicious asymmetric density is present Skin thickening: None. Axillary adenopathy: None. IMPRESSION: No mammographic evidence of malignancy. Recommend annual screening mammography unless otherwise clinically indicated. ASSESSMENT: BI-RADS category 1: Negative
== END ==
PROVIDERS: PCP Family Medicine; Visit Provider Family Medicine
DX: Z12.31 Encounter for screening mammogram for malignant neoplasm of breast (principal)
CPT/HCPCS: 77063; 77067

== ENCOUNTER → 2021-10-28 09:17 | Outpatient (CLI) | payer MEDICARE, OTHER, SELFPAY ==
--- NOTE | 2021-10-28 09:26 | XR_ITS ---
FINAL REPORT CLINICAL HISTORY: left hip pain FINDINGS: 2 views of the left hip with an AP pelvis were obtained. There is no acute fracture or dislocation. There is mild degenerative change of both hips. There is moderate degenerative change in the lower lumbar spine. There are no soft tissue abnormalities. IMPRESSION: Mild degenerative changes of the bilateral hips. Reviewed, Interpreted and Dictated by Maicol Garcia III, MD Transcribed by Ramos Valentino Authenticated by Maicol Garcia III, MD on 10/28/2021 11:00:49 AM [facility]
--- NOTE | 2021-10-28 09:26 | XR_ITS ---
FINAL REPORT CLINICAL HISTORY: left knee pain FINDINGS: 4 views of the left knee were obtained. There is no acute fracture or dislocation. There are moderate and severe degenerative changes greatest in the medial compartment. The soft tissues are unremarkable. IMPRESSION: Moderate and severe degenerative change. Reviewed, Interpreted and Dictated by Maicol Garcia III, MD Transcribed by Ramos Valentino Authenticated by Maicol Garcia III, MD on 10/28/2021 11:00:43 AM [facility]
== END ==
PROVIDERS: PCP Family Medicine; Visit Provider Orthopaedic Surgery
DX: M25.562 Pain in left knee (principal); M25.552 Pain in left hip
CPT/HCPCS: 73502; 73564

== ENCOUNTER → 2021-11-18 13:35 | Outpatient (CLI) | payer MEDICARE, OTHER, SELFPAY ==
[2021-11-18 15:01] LABS: Basophils % 0.7 % (0.1-2.0); Eosinophils # 0.1 K/mm3 (0.0-0.4); Eosinophils % 3.2 % (0.1-12.0); Hematocrit 35.9 % (37.0-47.0); Hemoglobin 11.1 g/dL (12.2-16.2); Lymphocytes # 1.2 K/mm3 (0.7-4.5); Lymphocytes % 38.8 % (10-50); Mean Corpuscular Hemoglobin 32.2 pg (27.0-31.2); Mean Platelet Volume 8.8 fl (7.4-10.4); Monocytes # 0.3 K/mm3 (0.1-1.0); Monocytes % 7.9 % (1.7-9.3); Neutrophils # 1.6 K/mm3 (1.8-7.8); Neutrophils % 49.4 % (37.0-80.0); Platelet Count 177 K/mm3 (142-424); Red Blood Count 3.45 M/mm3 (4.20-5.40); White Blood Count 3.1 K/mm3 (4.8-10.8)
[2021-11-18 15:08] LABS: D-Dimer 0.85 ug/mL (0.0-0.5)
[2021-11-18 15:17] LABS: Alanine Aminotransferase 15 U/L (12-78); Albumin Level 4.1 g/dl (3.5-5.0); Alkaline Phosphatase 138 U/L (38-126); Aspartate Amino Transferase 32 U/L (14-36); Bilirubin,Total 0.6 mg/dl (0.2-1.3); Blood Urea Nitrogen 13 mg/dl (7-17); Calcium 9.1 mg/dl (8.4-10.2); Carbon Dioxide 27 mmol/L (22.0-30.0); Chloride 108 mmol/L (98-107); Estimated Glomerular Filt Rate 60 ml/min (>60); GFR (African American) 73 ML/MIN (>60); Globulin 4.2 g/dL (1.3-3.2); Glucose 81 mg/dl (74-100); Iron 79 ug/dL (37-170); Sodium 140 mmol/L (136-145); Total Protein,Serum 8.3 g/dl (6.3-8.2)
[2021-11-18 16:07] LABS: Vitamin B12 417 pg/mL (239-931)
[2021-11-18 22:09] LABS: Total Iron Binding Capacity 350 ug/dL (265-497)
[2021-11-18 22:24] LABS: Ferritin 21.9 ng/ml (11.1-264)
[2021-11-20 10:12] LABS: Haptoglobin 179 mg/dL (42-346)
== END ==
PROVIDERS: PCP Family Medicine; Visit Provider Internal Medicine Medical Oncology
DX: D50.9 Iron deficiency anemia, unspecified (principal)
CPT/HCPCS: 36415; 80053; 82607; 82728; 83010; 83540; 83550; 85025; 85378

== ENCOUNTER → 2021-11-24 12:46 | Outpatient (CLI) | payer MEDICARE, OTHER, SELFPAY ==
--- NOTE | 2021-11-24 | CA_ITS ---
FINAL REPORT CLINICAL HISTORY: .Bilateral knee pain, Hx DVT 2019 with lung CA FINDINGS: Color Doppler, duplex Doppler and compression sonography of the bilateral lower extremities was performed. There is no evidence of deep venous thrombosis from the level of the groin to the calf. The deep veins are patent and compressible. IMPRESSION: No evidence of deep venous thrombosis bilateral lower extremities. Reviewed, Interpreted and Dictated by Maicol Garcia III, MD Transcribed by Bria Delong Authenticated by Maicol Garcia III, MD on 11/24/2021 02:36:28 PM [facility]
== END ==
PROVIDERS: PCP Family Medicine; Visit Provider Internal Medicine Medical Oncology
DX: M79.605 Pain in left leg (principal); M79.604 Pain in right leg; R60.0 Localized edema; Z86.718 Personal history of other venous thrombosis and embolism
CPT/HCPCS: 93970

== ENCOUNTER → 2021-12-01 12:37 | Outpatient (CLI) | payer MEDICARE, OTHER, SELFPAY ==
[2021-12-01 13:13] LABS: Basophils % 0.8 % (0.1-2.0); Eosinophils # 0.1 K/mm3 (0.0-0.4); Eosinophils % 2.3 % (0.1-12.0); Hematocrit 33.5 % (37.0-47.0); Hemoglobin 10.6 g/dL (12.2-16.2); Lymphocytes # 1.5 K/mm3 (0.7-4.5); Lymphocytes % 35.1 % (10-50); Mean Corpuscular HGB Conc 31.5 g/dL (31.8-35.4); Mean Corpuscular Hemoglobin 32.5 pg (27.0-31.2); Mean Corpuscular Volume 103.3 fl (81-99); Mean Platelet Volume 9.4 fl (7.4-10.4); Monocytes # 0.3 K/mm3 (0.1-1.0); Monocytes % 6.3 % (1.7-9.3); Neutrophils # 2.3 K/mm3 (1.8-7.8); Neutrophils % 55.6 % (37.0-80.0); Platelet Count 192 K/mm3 (142-424); Red Blood Count 3.25 M/mm3 (4.20-5.40); Red Cell Distribution Width 14.7 % (11.5-17.5); White Blood Count 4.2 K/mm3 (4.8-10.8)
[2021-12-01 14:28] LABS: Alanine Aminotransferase 14 U/L (12-78); Albumin Level 4.2 g/dl (3.5-5.0); Alkaline Phosphatase 144 U/L (38-126); Anion Gap 8.1 mEq/L (5-15); Aspartate Amino Transferase 29 U/L (14-36); Bilirubin,Direct 0.1 mg/dl (0.0-0.4); Bilirubin,Indirect 0.4 mg/dL (0.0-0.9); Bilirubin,Total 0.5 mg/dl (0.2-1.3); Bilirubin,Unconjugated 0.3 mg/dL (0.0-1.1); Blood Urea Nitrogen 14 mg/dl (7-17); Calcium 9.1 mg/dl (8.4-10.2); Carbon Dioxide 28 mmol/L (22.0-30.0); Chloride 107 mmol/L (98-107); Chol/HDL Ratio 2.4 (1-3.5); Cholesterol 115 mg/dl (140-200); Estimated Glomerular Filt Rate 60 ml/min (>60); GFR (African American) 73 ML/MIN (>60); Glucose 88 mg/dl (74-100); HDL Cholesterol 48 mg/dl (40-60); Potassium 4.1 mmoL/L (3.5-5.1); Sodium 139 mmol/L (136-145); Triglycerides 203 mg/dl (30-150); VLDL Cholesterol 41 mg/dL (0-40)
[2021-12-01 14:35] LABS: Free T4 (Free Thyroxine) 1.25 ng/dl (0.78-2.19)
[2021-12-01 14:39] LABS: Direct LDL Cholesterol 36.95 mg/dL (100-129)
[2021-12-01 14:59] LABS: Thyroid Stimulating Hormone 2.32 uIU/mL (0.465-4.68)
[2021-12-01 15:34] LABS: Vitamin B12 418 pg/mL (239-931)
[2021-12-01 16:16] LABS: Folate > 20.00 ng/mL
== END ==
PROVIDERS: Visit Provider Internal Medicine
DX: R06.00 Dyspnea, unspecified (principal); R07.9 Chest pain, unspecified; R60.0 Localized edema; R20.0 Anesthesia of skin
CPT/HCPCS: 36415; 80048; 80061; 80076; 82607; 82746; 84439; 84443; 85025

== ENCOUNTER → 2021-12-02 12:13 | Outpatient (CLI) | payer MEDICARE, OTHER, SELFPAY ==
--- NOTE | 2021-12-02 | CA_ITS ---
APPROVED REPORT Exam: Pharmacologic Technologist: Sharri Gtz, Ht: 5 ft 3 in Wt: 159 lbs BSA: 1.75 m2 HR: 68 bpm BP: 140/66 mmHg Rhythm: NSR, NORMAL Indications: Dyspnea, CP Medical History Medical History: HTN, , Hyperlipidemia, Diabetes Medications: Levothyroxine,,,,, Diazepam,,,,, Pantoprazole,,,,, Atorvastatin,,,,, Albuterol,,,,, Famotidine,,,,, BisOPROLOL,,,,, Apixaban,,,,, CHOLECALCIFEROL,,,,, Multivitamin,,,,, Ergocalciferol,,,,, Coenzyme Q10,,,,, Allergies: METOCLOPRAMIDE, BARBITURATES, SULFAMETHOXAZOLE, TRIMETHOPRIM Cardiac Risk Factors: HTN, Hyperlipidemia, Smoking, Diabetes Stress Test Details Test: LEXISCAN HR Resting HR: 71 bpm Max Heart Rate (APMHR): 141.050476 bpm Max HR Achieved: 84 bpm Target HR (85% APMHR): 119.815055 bpm % of APMHR: 59.57 Recovery HR: 81 bpm BP Resting BP: 140/66 mmHg Max BP: 141/60 mmHg Recovery BP: 125.0/67.0 mmHg ECG Resting ECG: NSR, NORMAL Clinical Exercise duration: 04:05 min Highest Stage Achieved: Exercise capacity: 1.0 METs Stress ECG Conclusion PT HAD SOA, MILD STOCK. NO CP. NO SIGNIFICANT CHANGES. MYOVIEW IMAGES REPORTED SEPARATELY. Test Summary REST 04:38 . . 71 . 140/ 66 . . Stage 1 01:00 . . 82 . . . . Stage 2 01:00 . . 83 . 141/ 60 . . Stage 3 01:00 . . 82 . 123/ 64 . . Stage 4 01:00 . . 81 . 120/ 65 . . Stage 4 01:05 . . 82 . 120/ 65 . Stop exercise at 04:05 RECOVERY 01:00 . . 80 . . . . RECOVERY 02:00 . . 79 . 123/ 64 . . RECOVERY 03:00 . . 81 . 123/ 62 . . RECOVERY 04:00 . . 81 . 123/ 62 . . RECOVERY 04:41 . . 80 . 125/ 67 . . Electronically signed by : Milton Murphy MD 12/03/2021 09:43:53
--- NOTE | 2021-12-02 12:13 | NM_ITS ---
APPROVED REPORT Exam: Nuclear Stress Test Indication: Chest pain, SOB, Palpitations, HTN, High cholesterol, Former tobacco use Patient Location: Outpatient Stress Tech: Sharri Gtz [place] Tech:Demi Girard SHENACosme RT(R)(N) Ht: 5 ft 3 in Wt: 159 lbs Bra Size: 38C HR: 68 bpm BP: 140/66 mmHg BSA: 1.75 m2 BMI: 28.1 History: Chest pain, SOB, Palpitations, HTN, High cholesterol, Former tobacco use Procedure: Patient received a 0.4 mg of intravenous Lexiscan, resting heart rate 68 bpm, resting blood pressure 140/66 mmHg, with Lexiscan maximum heart rate achived was 83 bpm which is Less than 85 % of the maximum predicted heart rate and blood pressure was 141/60 mmHg. With Lexiscan, patient denied any complaint of chest pain. Electrocardiogram Resting electrocardiogram shows sinus rhythm, with Lexiscan there is less than 1.[address] segment depression noted from the baseline EKG. The EKG portion of the Lexiscan is nondiagnostic. Cardiac Stress and Resting SPECT Images: Cardiac Stress and Resting SPECT images were obtained using technetium 99m Myoview 32.0 mCi stress and 10.17 mCi at rest. Gated SPECT analysis of segmental wall motion and calculation of the ejection fraction also done. Cardiac stress and resting SPECT images show uniform myocardial activity without segmental perfusion abnormality, computer derived ejection fraction is 53% with no regional wall motion abnormality, right ventricle is normal size and contractility. Conclusion: 1. The EKG portion of the Lexiscan is nondiagnostic. 2. No scintigraphic evidence of reversible ischemia seen, compared to ejection fraction is 53% with no regional wall motion abnormality, right ventricle is normal size and contractility. 3. Normal Lexiscan Myoview study. Electronically signed by : Milton Murphy MD 12/03/2021 09:46:24
--- NOTE | 2021-12-02 12:52 | CA_ITS ---
APPROVED REPORT EXAM: Comprehensive 2D, Doppler, and color-flow Echocardiogram [employer]namental [employer] Installer: Tess José RVT Ht: 5 ft 3 in Wt: 154lbs BSA: 1.73 BP: 108/69 mmHg Indications: CP,EDEMA,FATIGUE,EX SMOKER,DM,HTN,HLD,HX LUNG CA 2D Dimensions LVOT 2.08 cm (M/F) 1.5-2.5 LA Volume 36.00 mL LA Volume Index 20.80 mL/m2 (M/F) 16-34 M-Mode Dimensions RVDd 2.17 cm (0.9-2.6) LA Diam 2.84 cm (1.9-4.0) LVDd 5.06 cm (3.5-5.7) Ao Diam 3.14 cm (2.0-3.7) LVDs 3.46 cm (3.5-5.7) IVSd 0.91 cm (0.6-1.1) PWd 0.61 cm (0.6-1.1) EF (Teich) 59.30% FS 31.60% EDV (Teich) 121.60 mL TAPSE 2.30 (<1.7) ESV (Teich) 49.50 mL LV Diastology E Decel Time 210.00 (160-240 msec) E/A Ratio 0.7 MED E' 9.60 (< 7 cm/sec) E'/MED E' Ratio 6.56 (>14) LAT E' 8.70 (<10 cm/sec) E/LAT E' Ratio 7.24 (>14) Aortic Valve AI PHT 1179.00 ms AO Peak GR. 7.70 mmHg Mitral Valve MV E Max Raj. 63.00 (40-130 cm/s) MV A Velocity 88.00 (40-130 cm/s) E/A Ratio 0.71 MV Decel. Time 210.00 (160-240 ms) MV PHT 62.00 ms Pulmonary Valve PV Peak Velocity 83.00 (50-150 cm/s) Tricuspid Valve TR P. Velocity 251.00 cm/s RAP Estimate 10.00 mmHg RVSP 35.20 mmHg Left Ventricle Left atrium is mildly enlarged, left ventricle is normal size, mild concentric left ventricular hypertrophy, visually estimated ejection fraction 50% with no regional wall motion abnormality, grade 1 diastolic dysfunction seen without tissue Doppler evidence of raise left atrial pressure. Right Ventricle Right atrium and right ventricle are normal size and contractility. Aortic Valve Aortic valve is minimally thickened and fibrosed, there is no aortic stenosis, there is mild aortic insufficiency. Mitral Valve Mitral valve is grossly normal, there is trace mitral regurgitation. Tricuspid Valve Tricuspid grossly normal, there is trace tricuspid regurgitation, calculated right ventricular systolic pressure 34 mmHg. Pulmonic Valve Pulmonic valve is poorly visualized. Great Vessels Aortic root is normal size. Inferior vena cava is normal size with normal inspiratory collapse. Pericardium Trivial pericardial effusion noted. Conclusion 1. Mildly enlarged left atrium, normal left ventricular size, mild concentric left ventricular hypertrophy, visually estimated ejection fraction 50% with no regional wall motion abnormality, grade 1 diastolic dysfunction seen without tissue Doppler evidence of raise left atrial pressure. 2. Thickened and calcified aortic valve without aortic stenosis, there is mild aortic insufficiency. 3. Trace mitral and tricuspid regurgitation, calculated right ventricular systolic pressure 34 mmHg. 4. Trivial pericardial effusion. 5. Inferior vena cava is normal size with normal inspiratory collapse. Electronically signed by : Milton Murphy MD 12/03/2021 15:15:23
--- NOTE | 2021-12-02 15:14 | HMH.ITSHM ---
Current Home Medications as stated by this patient Araceli Shah or administrative representative. []TIOTROPIUM PANTOPRAZOLE MULTVITAMIN LEVOTHYROXINE FAMOTIDINE VITAMIN D2 DIAZEPAM COQ10 VITAMIN D3 BISOPROLOL ATORVASTATIN APIXABAN ALBUTEROL
== END ==
PROVIDERS: PCP Family Medicine; Visit Provider Internal Medicine
DX: R06.00 Dyspnea, unspecified (principal); R07.9 Chest pain, unspecified; R60.0 Localized edema
CPT/HCPCS: 78452; 93017; 93306; A9502; J2785

== ENCOUNTER → 2021-12-09 09:52 | Outpatient (CLI) | payer MEDICARE, OTHER, SELFPAY ==
--- NOTE | 2021-12-09 09:52 | CA_ITS ---
FINAL REPORT TECHNIQUE: Color Doppler, duplex Doppler and angeles scale sonography of the bilateral neck arterial vasculature was performed. Velocities were measured in the carotid arteries. Stenosis evaluation based on the validated velocity criteria. CLINICAL HISTORY: SANDY,DIZZINESS,HTN,HX SMOKING,HX LUNG CA FINDINGS: The peak systolic velocity of the right common carotid artery is 95 cm/s. The peak systolic velocity of the right internal carotid artery is 83 cm/s and end diastolic velocity 23 cm/s. A small amount of plaque is present. The right external carotid artery is patent. The right vertebral artery is patent with antegrade flow. ICA/CCA ratio: 1.2 The peak systolic velocity of the left common carotid artery is 90 cm/s. The peak systolic velocity of the left internal carotid artery is 88 cm/s and end diastolic velocity 24 cm/s. A small amount of plaque is present. The left external carotid artery is patent.The left vertebral artery is patent with antegrade flow. ICA/CCA ratio: 1.3 IMPRESSION: Less than 50% bilateral carotid stenoses. Bilateral patent vertebral arteries with antegrade flow. If indicated, CTA or MRA could further evaluate. Reviewed, Interpreted and Dictated by Maicol Garcia III, MD Transcribed by Ramos Valentino Authenticated by Maicol Garcia III, MD on 12/09/2021 02:03:15 PM [facility]
== END ==
PROVIDERS: PCP Family Medicine; Visit Provider Internal Medicine
DX: R42 Dizziness and giddiness; I65.23 Occlusion and stenosis of bilateral carotid arteries
CPT/HCPCS: 93880

== ENCOUNTER → 2022-04-26 10:55 | Outpatient (CLI) | payer MEDICARE, OTHER, SELFPAY ==
--- NOTE | 2022-04-26 11:05 | XR_ITS ---
FINAL REPORT CLINICAL HISTORY: knee pain FINDINGS: LEFT KNEE 4 views of the left knee were obtained. There is no acute fracture or dislocation. Visualized joint spaces are normally aligned. There is moderate and severe degenerative change which is worse at the medial compartment. Soft tissues are unremarkable. IMPRESSION: Moderate and severe degenerative change, worst at the medial compartment. Reviewed, Interpreted and Dictated by Maicol Garcia III, MD Transcribed by Bria Delong Authenticated and [facility]
== END ==
PROVIDERS: PCP Family Medicine; Visit Provider Orthopaedic Surgery
DX: M25.562 Pain in left knee (principal)
CPT/HCPCS: 73564

== ENCOUNTER → 2022-05-09 14:38 | Outpatient (CLI) | payer MEDICARE, OTHER, SELFPAY ==
--- NOTE | 2022-05-09 14:43 | XR_ITS ---
FINAL REPORT CLINICAL HISTORY: pre op- // hx-right lung cancer 2019 no surgery but had radiation COMPARISON: 05/19/2021 FINDINGS: Two views of the chest were obtained. The heart size and pulmonary vascularity are within normal limits. The mediastinum is normal. No acute pulmonary abnormality is identified. There is presumed scarring in the right thorax which is visually stable. There is no pneumothorax. The bony thorax is intact. IMPRESSION: No active cardiopulmonary disease. Reviewed, Interpreted and Dictated by Maicol Garcia III, MD Transcribed by Abby Shen Authenticated and [facility]
[2022-05-09 15:09] LABS: Microscopic, Urine URINE MICROSCOPIC (MICROSCOPIC)
[2022-05-09 15:56] LABS: Appearance,Urine CLEAR (Clear); Bilirubin,Urine Negative (Negative); Blood, Urine TRACE-I (Negative); Color,Urine YELLOW (Yellow); Glucose,Urine (UA) Negative (Negative); Ketones,Urine Negative (Negative); Leukocyte Esterase,Urine Negative (Negative); Nitrate,Urine Negative (Negative); PH,Urine 6.5 (5.0-8.5); Protein,Urine Negative (Negative); Specific Gravity, Urine <= 1.005 (1.005-1.030); Urobilinogen,Urine 0.2 EU/dl (0.2)
[2022-05-09 15:58] LABS: Basophils % 0.9 % (0.1-2.0); Eosinophils # 0.4 K/mm3 (0.0-0.4); Eosinophils % 9.6 % (0.1-12.0); Hematocrit 34.1 % (37.0-47.0); Hemoglobin 10.8 g/dL (12.2-16.2); Lymphocytes # 1.5 K/mm3 (0.7-4.5); Lymphocytes % 37.9 % (10-50); Mean Corpuscular HGB Conc 31.7 g/dL (31.8-35.4); Mean Corpuscular Hemoglobin 31.8 pg (27.0-31.2); Mean Corpuscular Volume 100.3 fl (81-99); Mean Platelet Volume 8.9 fl (7.4-10.4); Monocytes # 0.3 K/mm3 (0.1-1.0); Monocytes % 7.3 % (1.7-9.3); Neutrophils # 1.7 K/mm3 (1.8-7.8); Neutrophils % 44.4 % (37.0-80.0); Platelet Count 156 K/mm3 (142-424); Red Cell Distribution Width 15.5 % (11.5-17.5); White Blood Count 3.9 K/mm3 (4.8-10.8)
[2022-05-09 17:23] LABS: Alanine Aminotransferase 16 U/L (12-78); Albumin Level 3.5 g/dl (3.5-5.0); Albumin/Globulin Ratio 0.9 (1.1-1.8); Alkaline Phosphatase 154 U/L (38-126); Anion Gap 8.8 mEq/L (5-15); Aspartate Amino Transferase 31 U/L (14-36); Bilirubin,Total 0.3 mg/dl (0.2-1.3); Blood Urea Nitrogen 14 mg/dl (7-17); Calcium 9.2 mg/dl (8.4-10.2); Carbon Dioxide 28 mmol/L (22.0-30.0); Chloride 107 mmol/L (98-107); Estimated Glomerular Filt Rate 60 ml/min (>60); GFR (African American) 73 ML/MIN (>60); Globulin 3.9 g/dL (1.3-3.2); Glucose 85 mg/dl (74-100); Potassium 3.8 mmoL/L (3.5-5.1); Sodium 140 mmol/L (136-145); Total Protein,Serum 7.4 g/dl (6.3-8.2)
[2022-05-09 19:13] LABS: Bacteria,Urine Trace /lpf; RBC,Urine Occasional #/hpf (0-3); WBC,Urine Occasional #/hpf (0-3)
== END ==
PROVIDERS: PCP Family Medicine; Visit Provider Orthopaedic Surgery
DX: M17.12 Unilateral primary osteoarthritis, left knee (principal); D64.9 Anemia, unspecified
CPT/HCPCS: 36415; 71046; 80053; 81001; 85025

== ENCOUNTER → 2022-05-13 14:26 | Outpatient (CLI) | payer MEDICARE, OTHER, SELFPAY | PROVIDERS: PCP Family Medicine; Visit Provider Orthopaedic Surgery | DX: M17.12 Unilateral primary osteoarthritis, left knee (principal); U07.1 COVID-19 | CPT/HCPCS: C9803; U0003; U0005 ==

== ENCOUNTER → 2022-06-20 12:44 | Outpatient (CLI) | payer MEDICARE, OTHER, SELFPAY ==
--- NOTE | 2022-06-20 12:48 | CT_ITS ---
FINAL REPORT TECHNIQUE: Axial imaging of the right wrist was obtained without contrast . Reformatted images were also obtained and reviewed. This study was performed with techniques to keep radiation doses as low as reasonably achievable (ALARA). Individualized dose reduction techniques using automated exposure control or adjustment of mA and/or kV according to the patient's size were employed. CLINICAL HISTORY: RT WRIST PAIN. Patient states she has had pain since she received and IV in the posterior portion of her wrist. Lateral side.. FINDINGS: No fracture is identified. There are mild degenerative changes of the wrist joint. Musculature is intact. There is no soft tissue mass. No fluid collection is seen to suggest abscess. IMPRESSION: No acute process Reviewed, Interpreted and Dictated by Maicol Garcia III, MD Transcribed by Tana Power Authenticated and [facility]
== END ==
PROVIDERS: PCP Family Medicine; Visit Provider Family Medicine
DX: M25.531 Pain in right wrist (principal)
CPT/HCPCS: 73200

== ENCOUNTER → 2022-08-31 12:50 | Outpatient (CLI) | payer MEDICARE, OTHER, SELFPAY ==
--- NOTE | 2022-08-31 12:53 | MM_ITS ---
PROCEDURE INFORMATION: Exam: MG Bilateral Screening 3D Mammography Exam date and time: 08/31/2022 12:54 PM Age: 82 years old Clinical indication: Screening examination TECHNIQUE: Imaging protocol: Bilateral Screening tomosynthesis and 2D mammography including computer-aided detection (CAD) when performed. COMPARISON: 1. MG MM DIG SCREENING MAMM BI W/CAD 09/01/2021 1:50 PM 2. MG MM DIG SCREENING MAMM BI W/CAD 08/28/2020 10:19 AM FINDINGS: MAMMOGRAPHY: Breast composition: There are scattered areas of fibroglandular density. Mass: None. Architectural distortion: None. Calcifications: No suspicious calcifications. Asymmetric density: None. Skin thickening: None. Axillary adenopathy: None. IMPRESSION: No mammographic evidence of malignancy. Annual screening is recommended unless otherwise clinically indicated. ASSESSMENT: BI-RADS Category 1: Negative
== END ==
PROVIDERS: PCP Family Medicine; Visit Provider Family Medicine
DX: Z12.31 Encounter for screening mammogram for malignant neoplasm of breast (principal)
CPT/HCPCS: 77063; 77067

== ENCOUNTER → 2022-09-20 13:48 | Outpatient (POV) | payer MEDICARE, OTHER, SELFPAY ==
[2022-09-20 14:03] VITALS: BP 118/68; PULSE 77; RESP 20; BMI 28.7
--- NOTE | 2022-09-20 15:58 | EXP.PAIN.OV ---
HPI Data of Consult Patient: known to practice within the last 3 years Consult date: 09/20/22 Requesting Physician: Morena Akins APRN Primary Care Provider: Nikki Brown MD Consult Narrative Reason for consult: Low back pain, left knee pain History of present illness: Ms. Shah is a 82 year old female who presents today as a new patient. She is a referral from Kalee Simpson's office. Today she rates her pain a 7 out of 10. Patient states she previously was a patient of ours and had multiple injections for her left knee pain. Patient does state that she continues to experience significant pain in this knee as well as her low back. Patient denies any new trauma or injury. Patient denies any change location or type of pain she experiences. Patient states her left knee she was scheduled to have a total knee replacement on May 16 of this year with Dr. Kent however it was canceled due to a positive COVID test. Patient states that she did end up going to her primary care doctor who swabbed her and stated her test was incorrect and that she was negative. Patient states that she never received additional phone calls from Dr. Kent's office to reschedule this procedure and now that he is no longer in office she has not been back. Patient states she does have a significant history of lung cancer where she was treated with chemo and radiation as well as surgery at . Patient states she has chronic issues now related to this and has had multiple blood infusions as well. Patient states that she has been to see a chiropractor in the past however they did not want to do anything to her back because she was so inflamed. Patient has been to massage therapy which provided some improvement however minimal. Patient does use [id number] Tylenol as needed along with heat and ice however this only provides minimal to no relief. Patient has tried IcyHot as well as lidocaine patches and positioning with multiple pillows however this frequently does not provide any additional improvement. Patient states that she did have multiple injections from Dr. Kent's office and our office for her left knee however these did not seem to help. Patient also states in the past that she has had an anesthesia related issue where she was given too much medication and had trouble waking up. Patient states that she was put on a Narcan drip and had to remain in ICU for 3 days following this procedure. Patient is currently prescribed diazepam 5 mg twice a day from Dr. Brown's office. Patient denies any side effects from this medication. Her Baudilio is [id number]. It is been reviewed and appropriate. CC: Morena Akins APRN [facility] Disclaimer: The information contained in this section may have been updated after the patient was seen, as this information can be updated by other users. Medical History (Updated 09/20/22 @ 16:05 by Morena Akins APRN) Anxiety Carotid artery stenosis Chest pain Dyspnea Edema of both lower extremities Fatigue Hx of deep venous thrombosis Hx-TIA (transient ischemic attack) Hyperlipidemia Hypertension Hypothyroidism Loss of hair Nausea and vomiting LURDES on CPAP Family History (Updated 09/20/22 @ 14:05 by Stephanie Centeno, RN) Other No significant family history Social History (Updated 09/20/22 @ 14:05 by Stephanie Centeno RN) Smoking Status: Former smoker pack-years: 30 second hand exposure: No alcohol intake: never substance use type: denies use current occupational status: other Travel in the last 8 weeks: None household members: none housing: house current occupational exposures/hazards: No caffeine: Yes Review of Systems Review of Systems Review of systems:: pertinent systems reviewed and negative unless documented below Review of systems (narrative): Review of Systems: General: No recent weight changes, no fever, no sleep disturbances Respiratory: No cough, no shortness of air, no recurring
== END | disposition home or self-care (01) ==
PROVIDERS: PCP Family Medicine; Visit Provider Nurse Practitioner Family
DX: M51.16 Intervertebral disc disorders with radiculopathy, lumbar region (principal); M47.26 Other spondylosis with radiculopathy, lumbar region; M25.562 Pain in left knee
CPT/HCPCS: 99202; G0463

== ENCOUNTER 2022-09-27 11:28 | Day surgery (SDC) | payer MEDICARE, OTHER, SELFPAY ==
[2022-09-27 11:47] VITALS: BP 137/72; PULSE 89; RESP 18; TEMP 36.6; O2SAT 96; BMI 28.3
[2022-09-27 11:51] VITALS: BP 117/70; PULSE 88; RESP 18; O2SAT 97
[2022-09-27 11:52] VITALS: BP 117/70; PULSE 88; RESP 18; O2SAT 97
[2022-09-27 11:57] VITALS: BP 117/58; PULSE 83; RESP 18; O2SAT 96
--- NOTE | 2022-09-27 12:54 | EXP.PAIN.PRO ---
Procedure Date: 09/27/22 Time: 12:15 Anesthesiologist:: Chris Andrade CRNA Complications:: None Pre-procedure Diagnosis:: Degenerative disease lumbar spine multilevels. Lumbar radiculopathy Post-procedure Diagnosis:: Same. Indications for Procedure:: This patient is a pleasant 82-year-old female comes our clinic today for her initial lumbar epidural steroid injection at L4-5 level. Patient describes low back pain as constant, dull, aching. Also bilateral hip and leg radicular symptoms. She rates her pain 8/10. Procedure Details:: Procedure: Lumbar epidural steroid injection under fluoroscopy Informed consent was obtained and the risks and benefits of the procedure were explained to the patient. The patient was taken to the procedure room and noninvasive monitors placed, including noninvasive blood pressure cuff and pulse oximeter. The back was viewed using C-arm Fluoroscopy and prepped using Chloraprep as a cleansing solution and the L3-4 interspace was palpated. Skin and subcutaneous tissues were anesthetized using lidocaine 1.5% and a 25-gauge needle. After this, an 18-gauge Touhy epidural needle was placed into the L3-4 interspace and advanced using fluoroscopic guidance and loss of resistance to air until the epidural space was encountered. After confirmation of needle placement in the epidural space, with dye, a solution containing normal saline, 3 mL and Depo-Medrol 80 mg were incrementally injected into the lumbar epidural space. The patient tolerated the procedure well with no complications. The patient was observed in the Pain Clinic and then discharged home neurologically intact. Plan and Disposition:: After further review under fluoroscopy L4-5 is not accessible with the Touhy needle. The injection was given at the L3-4 level without difficulty. Patient was discharged without incident.
== END 2022-09-27 11:57 | disposition home or self-care (01) ==
LOC: SC.PAINP 11:29
PROVIDERS: PCP Family Medicine; Visit Provider Nurse Anesthetist, Certified Registered
DX: M51.16 Intervertebral disc disorders with radiculopathy, lumbar region (principal)
CPT/HCPCS: 62323; J1040

== ENCOUNTER → 2022-10-12 14:09 | Outpatient (POV) | payer MEDICARE, OTHER, SELFPAY ==
[2022-10-12 15:36] VITALS: BP 105/68; PULSE 82; RESP 18; O2SAT 98; BMI 27.4
--- NOTE | 2022-10-12 15:53 | EXP.PAIN.SOA ---
[facility] Pain Management SOAP Note Subjective:: Patient is a pleasant 82-year-old female who presents today for follow-up of lumbar epidural steroid injection at L3-L4 on 09/27/2022. We are currently treating the patient for degenerative disc disease of lumbar and thoracic spine with lumbar radiculopathy symptoms, osteoarthritis left knee, low back pain, left knee pain, ligamentum flavum hypertrophy multilevel. Today the patient states that she only had a couple days worth of relief estimating it at around 40%. Patient states she does feel like she is back at her baseline during her visit and rates her pain an 8 out of 10. Patient denies any new trauma or injury. Patient is complaining of severe neck pain. Patient describes this as a aching, throbbing sensation that is worse with increased activity or range of motion. Patient states it is difficult to even lift her head up and down due to the worsening pain symptoms. Patient does have a significant health history including lung cancer. Patient states she is scheduled to see her cancer doctor on the of this month. At our last visit I did send a referral to Dr. Maurilio Akins's office however she states she has not heard yet from them. She previously was scheduled for a left knee replacement by Dr. Kent however this was canceled and she was told that this would be rescheduled however never received a phone call. Recently she was prescribed compounding cream and baclofen 5 mg at bedtime. Patient states she did not notice significant difference with the baclofen. Patient states that the cream does help some. Her Baudilio is [id number]. Its been reviewed and appropriate. Review of Systems: General: No recent weight changes, no fever, no sleep disturbances Respiratory: No cough, no shortness of air, no recurring pulmonary infections Cardiovascular/peripheral vascular: No chest pain, no palpitations, no edema, no shortness of breath Gastrointestinal: No new onset incontinence, normal bowel movements reported Genitourinary: No new onset incontinence Musculoskeletal: Neck/upper back pain Psychiatric: [Normal mood/affect] Neurological: [Denies weakness in extremities], [denies balance issues] Objective:: Physical Exam: General: Alert and oriented x3, no acute distress, pleasant and cooperative Lungs: Respirations even and unlabored, symmetrical chest expansion Eyes: PERRL Musculoskeletal: Flexion and extension of cervical [spine] somewhat guarded secondary to pain, [antalgic gait noted] Neurological: Speech clear, no gross sensory deficit Assessment:: Degenerative disc disease of lumbar and thoracic spine with lumbar radiculopathy symptoms, osteoarthritis of left knee, low back pain, left knee pain, ligamentum flavum hypertrophy multilevel, neck pain Plan:: Patient is experiencing significant pain in her neck/upper back during today's visit. Patient did have limited range of motion of her cervical spine during today's visit. I have discussed with the patient that she may benefit from a diagnostic cervical epidural steroid injection. Risk and benefits were discussed with the patient. She would like to proceed forward with this plan of care. Patient is not on any blood thinners. I have counseled the patient that I will order her a stronger muscle relaxer. I will send in a prescription for cyclobenzaprine 5 mg at bedtime and provide a 14-day supply of this medication. We will schedule the patient for a diagnostic THAO C6-C7. Patient has been instructed to contact the clinic with any concerns before the next appointment. Dr. Prado has reviewed this note and agrees with this plan of care. This note was dictated using voice recognition software and make contain errors or omissions. [facility] Disclaimer: The information contained in this section may have been updated after the patient was seen, as this information can be updated by other users. 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
== END | disposition home or self-care (01) ==
PROVIDERS: PCP Family Medicine; Visit Provider Nurse Practitioner Family
DX: M51.16 Intervertebral disc disorders with radiculopathy, lumbar region (principal); M51.34 Other intervertebral disc degeneration, thoracic region; M17.12 Unilateral primary osteoarthritis, left knee
CPT/HCPCS: 99212; G0463

== ENCOUNTER → 2023-01-18 14:21 | Outpatient (POV) | payer MEDICARE, OTHER, SELFPAY ==
--- NOTE | 2023-01-18 14:41 | EXP.PAIN.SOA ---
[facility] Pain Management SOAP Note Subjective:: Patient is a pleasant 82-year-old female who presents today for follow-up. We are currently treating the patient for degenerative disc disease of lumbar and thoracic spine with lumbar radiculopathy symptoms, osteoarthritis left knee, chronic low back pain, chronic left knee pain, ligamentum flavum hypertrophy multilevel. Today she rates her pain an 8 out of 10. Patient denies any new trauma or injury. Patient denies any change location or type of pain she experiences. Patient continues to states she has significant pain in her left knee as well as her low back into her upper thighs. Patient states that she cannot do any activities such as cooking or cleaning or even gardening due to her pain. She states she feels like she has no life and is in constant unbearable pain. She does describe this as an aching, throbbing sensation that is worse with increased activity. Patient was previously scheduled for a left knee replacement however it was canceled by Dr. Kent and was never rescheduled and he is no longer a provider here at the hospital. Patient does have a history of lung cancer and did see her oncologist back in October who did updated imaging and stated there was no evidence of new growth or spread. She does states she is scheduled for a follow-up CT scan in February. Patient has been prescribed compounding cream and Flexeril in the past however she states she did not notice any improvement with this medication. Patient has also tried baclofen with no change. Patient has had multiple injections including lumbar epidurals and knee injections as well as genicular nerve blocks and ablation. She is interested in possibly doing a spinal cord stimulator implant. She is currently managed with diazepam 5 mg twice a day from Dr. Brown's office. Patient denies any side effects from this medication. Her Baudilio is [id number]. Its been reviewed and appropriate. Review of Systems: General: No recent weight changes, no fever, no sleep disturbances Respiratory: No cough, no shortness of air, no recurring pulmonary infections Cardiovascular/peripheral vascular: No chest pain, no palpitations, no edema, no shortness of breath Gastrointestinal: No new onset incontinence, normal bowel movements reported Genitourinary: No new onset incontinence Musculoskeletal: Low back pain, knee pain Psychiatric: [Normal mood/affect] Neurological: [Denies weakness in extremities], [denies balance issues] Objective:: Physical Exam: General: Alert and oriented x3, no acute distress, pleasant and cooperative Lungs: Respirations even and unlabored, symmetrical chest expansion Eyes: PERRL Musculoskeletal: Flexion and extension of lumbar [spine] somewhat guarded secondary to pain, [antalgic gait noted] Neurological: Speech clear, no gross sensory deficit Assessment:: Degenerative disc disease of thoracic and lumbar spine with lumbar radiculopathy symptoms, osteoarthritis left knee, chronic low back pain, chronic left knee pain, ligamentum flavum hypertrophy multilevel Plan:: Patient continues to experience severe pain in her low back with radiating symptoms into her lower extremities and chronic pain at her left knee. I have discussed with the patient that she may benefit from a spinal cord stimulator trial. Risk and benefits and educational handouts were given during today's visit. She would like to proceed forward with this plan of care. I will order her a psychiatric evaluation today and if she is deemed an appropriate candidate we will proceed forward with the trial in the future. Patient will follow-up in clinic following this evaluation. Patient has been instructed to contact the clinic with any concerns before the next appointment. Dr. Prado has reviewed this note and agrees with this plan of care. This note was dictated using voice recognition software and make contain errors or omissions. [facility] Disclaimer: The information contained
[2023-01-18 15:20] VITALS: BP 102/68; PULSE 105; RESP 18; O2SAT 96; BMI 28.8
== END ==
PROVIDERS: PCP Family Medicine; Visit Provider Nurse Practitioner Family
DX: M51.16 Intervertebral disc disorders with radiculopathy, lumbar region (principal); M51.14 Intervertebral disc disorders with radiculopathy, thoracic region; M25.562 Pain in left knee; G89.29 Other chronic pain
CPT/HCPCS: 99212; G0463

== ENCOUNTER → 2023-08-29 15:01 | Outpatient (CLI) | payer MEDICARE, OTHER, SELFPAY ==
--- NOTE | 2023-08-29 15:08 | MM_ITS ---
PROCEDURE INFORMATION: Exam: MG Bilateral Screening 3D Mammography Exam date and time: 08/29/2023 3:18 PM Age: 83 years old Clinical indication: Screening examination TECHNIQUE: Imaging protocol: Bilateral Screening tomosynthesis and 2D mammography including computer-aided detection (CAD) when performed. COMPARISON: 1. MG MM DIG SCREENING MAMM BI W/CAD 08/31/2022 12:54 PM 2. MG MM DIG SCREENING MAMM BI W/CAD 09/01/2021 1:50 PM FINDINGS: MAMMOGRAPHY: Breast composition: There are scattered areas of fibroglandular density. Mass: None. Architectural distortion: None. Calcifications: No suspicious calcifications. Asymmetric density: None. Skin thickening: None. Axillary adenopathy: None. IMPRESSION: No mammographic evidence of malignancy. Annual screening is recommended unless otherwise clinically indicated. ASSESSMENT: BI-RADS Category 1: Negative
[2023-08-29 16:29] LABS: Basophils % 0.2 % (0.1-2.0); Eosinophils # 0.2 K/mm3 (0.0-0.4); Eosinophils % 4.8 % (0.1-12.0); Hematocrit 28.3 % (37.0-47.0); Hemoglobin 8.9 g/dL (12.2-16.2); Lymphocytes # 1.5 K/mm3 (0.7-4.5); Lymphocytes % 32.9 % (10-50); Mean Corpuscular HGB Conc 31.4 g/dL (31.8-35.4); Mean Corpuscular Hemoglobin 30.2 pg (27.0-31.2); Mean Corpuscular Volume 96.2 fl (81-99); Mean Platelet Volume 9.5 fl (7.4-10.4); Monocytes # 0.3 K/mm3 (0.1-1.0); Monocytes % 6.2 % (1.7-9.3); Neutrophils # 2.6 K/mm3 (1.8-7.8); Platelet Count 172 K/mm3 (142-424); Red Blood Count 2.94 M/mm3 (4.20-5.40); Red Cell Distribution Width 16.8 % (11.5-17.5); White Blood Count 4.6 K/mm3 (4.8-10.8)
[2023-08-29 18:02] LABS: Chol/HDL Ratio 2.5 (1-3.5); Cholesterol 70 mg/dl (140-200); HDL Cholesterol 28 mg/dl (40-60); Triglycerides 98 mg/dl (30-150); VLDL Cholesterol 20 mg/dL (0-40)
[2023-08-29 18:09] LABS: Alanine Aminotransferase 23 U/L (12-78); Albumin Level 3.3 g/dl (3.5-5.0); Albumin/Globulin Ratio 0.8 (1.1-1.8); Alkaline Phosphatase 154 U/L (38-126); Anion Gap 12.1 mEq/L (5-15); Aspartate Amino Transferase 39 U/L (14-36); Bilirubin,Total 0.5 mg/dl (0.2-1.3); Blood Urea Nitrogen 18 mg/dl (7-17); Calcium 8.5 mg/dl (8.4-10.2); Carbon Dioxide 25 mmol/L (22.0-30.0); Chloride 102 mmol/L (98-107); Estimated Glomerular Filt Rate 43 ml/min (>60); GFR (African American) 52 ML/MIN (>60); Globulin 4.1 g/dL (1.3-3.2); Glucose 83 mg/dl (74-100); Potassium 4.1 mmoL/L (3.5-5.1); Sodium 135 mmol/L (136-145); Total Protein,Serum 7.4 g/dl (6.3-8.2)
[2023-08-29 18:13] LABS: Direct LDL Cholesterol 35.32 mg/dL (100-129)
[2023-08-29 18:35] LABS: Thyroid Stimulating Hormone 2.18 uIU/mL (0.465-4.68)
[2023-08-29 20:40] LABS: Iron 47 ug/dL (37-170)
[2023-08-29 20:57] LABS: Total Iron Binding Capacity 319 ug/dL (265-497)
[2023-08-29 21:20] LABS: Ferritin 29.5 ng/ml (11.1-264)
== END ==
PROVIDERS: Internal Medicine Gastroenterology; PCP Family Medicine; Visit Provider Family Medicine
DX: Z12.31 Encounter for screening mammogram for malignant neoplasm of breast (principal); D64.9 Anemia, unspecified; K20.80 Other esophagitis without bleeding; Z79.899 Other long term (current) drug therapy
CPT/HCPCS: 36415; 77063; 77067; 80053; 80061; 82728; 83540; 83550; 84443; 85025

== ENCOUNTER → 2023-09-05 08:34 | Outpatient (CLI) | payer MEDICARE, OTHER, SELFPAY ==
--- NOTE | 2023-09-05 08:40 | CT_ITS ---
FINAL REPORT TECHNIQUE: Postcontrast images of the abdomen were performed by computed tomography. A CTA was performed. This study was performed with techniques to keep radiation doses as low as reasonably achievable (ALARA). Individualized dose reduction techniques using automated exposure control or adjustment of mA and/or kV according to the patient''s size were employed. CLINICAL HISTORY: . ABD PAIN COMPARISON: 08/20/2019 FINDINGS: ABDOMEN: There is a moderate size right pleural effusion. There is no hydronephrosis or nephrolithiasis. There is a stable left renal cyst. Patient is status postcholecystectomy. No adrenal masses are identified. The liver, spleen and pancreas are unremarkable. There is no evidence of bowel obstruction. CTA: The abdominal aorta is proper caliber. The SMA, celiac axis, and CHELSI are patent. There is no significant stenosis or calcification. The renal arteries are patent bilaterally. IMPRESSION: Moderate right pleural effusion. Consider chest CT for further evaluation. No acute findings of the abdomen. Reviewed, Interpreted and Dictated by Devora Alamo MD Transcribed by Tana Power Authenticated and [facility]
== END ==
PROVIDERS: PCP Family Medicine; Visit Provider Internal Medicine Gastroenterology
DX: K55.9 Vascular disorder of intestine, unspecified (principal); D64.9 Anemia, unspecified; K20.80 Other esophagitis without bleeding
CPT/HCPCS: 74175; Q9967

== ENCOUNTER 2023-09-15 12:36 | Inpatient (IN) | payer MEDICARE, OTHER, SELFPAY ==
[2023-09-15] VITALS (9 sets, daily range): BP systolic 97–114; BP diastolic 54–67; PULSE 99–106; RESP 16–22; TEMP 36.6–36.7; O2SAT 86–96; BMI 26.4; BMI 25.8
--- NOTE | 2023-09-15 12:58 | ECG_ITS ---
APPROVED REPORT Exam: Resting ECG HR:100 bpm ECG Measurements Heart Rate 100 AXES IL 146 P 58 QRSd 103 QRS 62 QT 377 T 74 QTc 434 Conclusion SINUS TACHYCARDIA NONSPECIFIC T-WAVE ABNORMALITY O.w NORMAL RHYTHM ECG UNCONFIRMED REPORT Electronically signed by : Heriberto Villalobos MD 09/16/2023 09:57:22
--- NOTE | 2023-09-15 13:23 | XR_ITS ---
FINAL REPORT CLINICAL HISTORY: JAIRO MOCTEZUMA COMPARISON: 05/09/2022 FINDINGS: Two views of the chest were obtained. The heart size and pulmonary vascularity are within normal limits. The mediastinum is normal. There are worsening right lung opacities, consistent with worsening atelectasis or pneumonia. A moderate-sized right pleural effusion is present. There is no pneumothorax. The bony thorax is intact. IMPRESSION: Worsening right lung opacities, consistent with worsening atelectasis or pneumonia. A moderate-sized right pleural effusion is now present. Reviewed, Interpreted and Dictated by Maicol Garcia III, MD Transcribed by Luisa Arteaga Authenticated and [facility]
--- NOTE | 2023-09-15 14:12 | PC.NURSE ---
urine sent to lab
--- NOTE | 2023-09-15 14:15 | PC.NURSE ---
Assumed patient care at this time
[2023-09-15 14:39] LABS: Basophils % 0.3 % (0.1-2.0); Eosinophils # 0.2 K/mm3 (0.0-0.4); Eosinophils % 5.5 % (0.1-12.0); Hematocrit 30.3 % (37.0-47.0); Lymphocytes # 1.5 K/mm3 (0.7-4.5); Lymphocytes % 34.5 % (10-50); Mean Corpuscular Hemoglobin 31.5 pg (27.0-31.2); Mean Corpuscular Volume 95.4 fl (81-99); Mean Platelet Volume 9.5 fl (7.4-10.4); Monocytes # 0.2 K/mm3 (0.1-1.0); Monocytes % 5.3 % (1.7-9.3); Neutrophils # 2.3 K/mm3 (1.8-7.8); Neutrophils % 54.4 % (37.0-80.0); Platelet Count 177 K/mm3 (142-424); Red Blood Count 3.18 M/mm3 (4.20-5.40); Red Cell Distribution Width 17.2 % (11.5-17.5); White Blood Count 4.3 K/mm3 (4.8-10.8)
[2023-09-15 14:40] LABS: VBG Base Excess -4.2 mmol/L (-2.4-2.3); VBG HCO3 20.7 mmol/L (23-30); VBG Oxygen Saturation 80.8 % (50-70); VBG PCO2 34.6 mmol/L (35-51); VBG PO2 49.3 mmol/L (28-40); VBG Total CO2 21.8 mmol/L (23-27)
[2023-09-15 14:41] LABS: Coronavirus 19, PCR Not Detected (NotDetected); Influenza A, PCR Not Detected (NotDetected); Influenza B, PCR Not Detected (NotDetected)
--- NOTE | 2023-09-15 14:41 | HMH.EDCP ---
Discharge Plan Disposition Patient Disposition: Admitted Prescriptions Prescriptions: No Action atorvastatin 40 mg tablet See Rx Instructions .Route .COMPLEX Qty: 90 1RF Rx Instructions: TAKE 1 TABLET BY MOUTH EVERY DAY AT BEDTIME levothyroxine 50 mcg tablet 50 mcg PO DAILY Qty: 90 3RF polyethylene glycol 3350 17 gram powder in packet 17 g PO DAILY Qty: 100 0RF One Daily Women's 27-0.4 mg tablet 1 tab PO DAILY albuterol sulfate 90 mcg/actuation HFA aerosol inhaler 1 inh inhalation Q6H PRN (Reason: shortness of breath or wheezing) 90 Days Qty: 8.5 3RF buspirone 10 mg tablet 10 mg PO BID cholecalciferol (vitamin D3) 25 mcg (1,000 unit) capsule 25 mcg PO DAILY Qty: 90 2RF hydrochlorothiazide 12.5 mg capsule See Rx Instructions .ROUTE .COMPLEX Qty: 90 1RF Dose Instruction: TAKE 1 CAPSULE BY MOUTH ONCE DAILY FOR FLUID Rx Instructions: TAKE 1 CAPSULE BY MOUTH ONCE DAILY FOR FLUID Stiolto Respimat 2.5-2.5 mcg/actuation mist 2 puff inhalation DAILY 90 Days Qty: 4 2RF famotidine 40 MG tablet See Rx Instructions .Route .COMPLEX Rx Instructions: TAKE 1 TABLET BY MOUTH ONCE DAILY FOR STOMACH pantoprazole 40 MG tablet,delayed release (DR/EC) 40 mg PO BID ergocalciferol (vitamin D2) 1,250 MCG capsule See Rx Instructions .Route .COMPLEX Rx Instructions: Take 1 capsule by mouth once a week diazepam 5 MG tablet 5 mg PO BID lisinopril 10 mg tablet 10 mg PO DAILY cyclobenzaprine 5 mg tablet 5 mg PO Referrals Follow up/Referrals: Nikki Brown MD [Primary Care Provider] - See instructions Clinical Impressions Clinical Impression: Acute hypoxemic respiratory failure, Elevated troponin, Acute exacerbation of chronic obstructive pulmonary disease, Hypokalemia, Pleural effusion on right Discharge ED Provider: Morena Sun HPI General Chief Complaint: Shortness of Breath/Dyspnea Stated Complaint: soa back pain weakness fluid on lung Time Seen by Provider: 09/15/23 13:01 Mode of Arrival: Wheelchair Source of Information: Patient and Medical Record Limitations: No Limitations Description of Symptoms (Recalled from ER Triage Doc. by RN): c/o lower back pain, getting short winded with walking. History of Present Illness HPI narrative: This patient is a 83-year-old female with a history of COPD, LURDES on CPAP, hypertension, hyperlipidemia, TIA, anemia, hypothyroidism, anxiety, and chronic back pain due to degenerative disc disease as well as a history of lung cancer status post radiation in the past presenting to the emergency department for evaluation with concern for atraumatic mid to low back pain, dyspnea on exertion, and cough. She notes that she has been feeling bad for months now and has been seen for this but nothing seems to be getting any better. Today, she was feeling much more short of breath than her baseline. No other concerns noted, such as fevers, chills, abdominal pain, nausea, vomiting, changes in bowel movements, dysuria, polyuria, rashes, or swelling. She notes her back pain is chronic and has had no new traumas, neurologic symptoms, or other concerns. The shortness of breath is her major concern today. Related Data Home Medications Medication Instructions Recorded Confirmed [id number] 27 1 tab PO DAILY Supplement 12/01/21 04/04/23 mg-0.4 mg tablet (One Daily Women's) diazepam 5 mg tablet 5 mg PO BID Anxiety 05/12/22 04/04/23 ergocalciferol (vitamin D2) 1,250 See Rx Instructions .Route 05/12/22 04/04/23 mcg (50,000 unit) capsule .COMPLEX Supplement famotidine 40 mg tablet See Rx Instructions .Route 05/12/22 04/04/23 .COMPLEX acid reflux pantoprazole 40 mg tablet,delayed 40 mg PO BID acid reflux 05/12/22 04/04/23 release buspirone 10 mg tablet 10 mg PO BID mood 08/31/22 04/04/23 cyclobenzaprine 5 mg tablet 5 mg PO HS Pain 01/18/23 04/04/23 lisinopril 10 mg tabl
[2023-09-15 14:46] LABS: Alanine Aminotransferase 24 U/L (12-78); Albumin Level 3.3 g/dl (3.5-5.0); Albumin/Globulin Ratio 0.8 (1.1-1.8); Alkaline Phosphatase 113 U/L (38-126); Anion Gap 7.8 mEq/L (5-15); Aspartate Amino Transferase 41 U/L (14-36); Bilirubin,Total 0.4 mg/dl (0.2-1.3); Blood Urea Nitrogen 16 mg/dl (7-17); Calcium 8.3 mg/dl (8.4-10.2); Carbon Dioxide 25 mmol/L (22.0-30.0); Chloride 103 mmol/L (98-107); Creatinine Clearance Estimated 43 mL/min (50-200); Estimated Glomerular Filt Rate 48 ml/min (>60); GFR (African American) 58 ML/MIN (>60); Globulin 4.1 g/dL (1.3-3.2); Glucose 94 mg/dl (74-100); Sodium 133 mmol/L (136-145); Total Protein,Serum 7.4 g/dl (6.3-8.2)
[2023-09-15 14:48] LABS: Potassium 2.8 mmoL/L (3.5-5.1)
--- NOTE | 2023-09-15 14:48 | PC.NURSE ---
CRITICAL K+ 2.8 RECEIVED FROM JOSTIN IN LAB. PT NAME AND R/V DR CLAUDIO NOTIFIED
[2023-09-15 14:51] LABS: D-Dimer 1.54 ug/mL (0.0-0.5)
[2023-09-15 15:01] LABS: NT Pro Brain Natriuretic Pep. 2450 pg/mL (0-450); Troponin I 0.05 ng/ml (0.00-0.034)
[2023-09-15 15:05] LABS: T4 (Thyroxine) 11.6 ug/dl (5.53-11.0)
--- NOTE | 2023-09-15 15:13 | PC.NURSE ---
Warm blanket provided to patient; call light within reach of patient
--- NOTE | 2023-09-15 15:15 | CT_ITS ---
PROCEDURE INFORMATION: Exam: CTA Chest With Contrast Exam date and time: 09/15/2023 4:19 PM Age: 83 years old Clinical indication: Shortness of breath and other: Cp, d dimer; Additional info: Cp, SOA, d-dimer TECHNIQUE: Imaging protocol: Computed tomographic angiography of the chest with contrast. Exam focused on the arteries. 3D rendering (Not supervised by radiologist): MIP and/or 3D reconstructed images were created by the technologist. Radiation optimization: All CT scans at this facility use at least one of these dose optimization techniques: automated exposure control; mA and/or kV adjustment per patient size (includes targeted exams where dose is matched to clinical indication); or iterative reconstruction. Contrast material: ISOVUE 370; Contrast volume: 70 ml; Contrast route: INTRAVENOUS (IV); REPORTING DATA: Count of CT and Cardiac NM exams in prior 12 months: This patient has received [address] and 0 known cardiac nuclear medicine studies in the 12 months prior to the current study. COMPARISON: 1. CT ANGIO CHEST 08/20/2019 4:23 PM 2. CR XR CHEST 2V 09/15/2023 1:[address] lung screening 11/29/2018 1:51 PM FINDINGS: Pulmonary arteries: There is no evidence for clinically relevant pulmonary arterial filling defect. Tiny distal filling defects may be present but are of dubious clinical significance. Aorta: Unremarkable. No aortic aneurysm. No aortic dissection. Lungs: Evaluation for small pulmonary nodules is precluded by patient condition. Fleischner Society guidelines are n/a. Parenchymal consolidation of the right lower lobe could reflect underlying infection. Pleural spaces: There is a large right pleural effusion. There is a trace left pleural effusion Heart: There is a small pericardial effusion. Coronary arteries: There is moderate coronary atherosclerotic disease/calcification although evaluation is limited secondary to the non gated nature of the study. Lymph nodes: Unremarkable. No enlarged lymph nodes. Gallbladder and bile ducts: The patient is status post cholecystectomy. Spleen: There are multiple calcifications in the spleen most likely reflects small granulomas. Kidneys and ureters: Large left renal cyst is partially imaged. Bones/joints: Unremarkable. No acute fracture. Soft tissues: Unremarkable. IMPRESSION: 1. There is a large right pleural effusion. 2. Parenchymal consolidation of the right lower lobe could reflect underlying infection. 3. No evidence for clinically relevant pulmonary arterial filling defect. COMMENTS: Consistent with the [employer]'s Incidental Findings Committee white paper (J Am Chele Radiol 2018): Any incidental renal lesion less than 1 cm or classified as too small to characterize, or any incidental cystic renal lesion characterized as simple-appearing, is likely benign. No follow-up imaging is recommended for these lesions per consensus recommendations based on imaging criteria.
[2023-09-15 15:19] LABS: Thyroid Stimulating Hormone 2.62 uIU/mL (0.465-4.68)
[2023-09-15 15:43] LABS: Lactic Acid 1.8 mmol/L (0.7-2.1)
--- NOTE | 2023-09-15 16:07 | PC.NURSE ---
Rounded on patient call light within reach
--- NOTE | 2023-09-15 16:38 | PC.NURSE ---
Rounded on patient; patient requesting dinner tray. notified; Md saleh for PO. Yun called for tray for patient. Call light within reach of patient
--- NOTE | 2023-09-15 16:51 | PC.NURSE ---
Dr Barreto speaking with Dr Morrow
--- NOTE | 2023-09-15 17:02 | PC.NURSE ---
Notified housetrailer servicer of admission
[2023-09-15 17:11] LABS: Magnesium 1.3 mg/dl (1.6-2.3)
--- NOTE | 2023-09-15 17:14 | PC.NURSE ---
Patient has meal tray @ BS
[2023-09-15 17:19] LABS: Troponin I 0.05 ng/ml (0.00-0.034)
--- NOTE | 2023-09-15 17:40 | PC.NURSE ---
CAlled report to Keiko WALKER
--- NOTE | 2023-09-15 18:22 | PC.NURSE ---
PT ARRIVED TO SECOND FLOOR BY STRETCHER AT 1805
[2023-09-15 19:17] LABS: Microscopic, Urine URINE MICROSCOPIC (MICROSCOPIC)
[2023-09-15 19:25] LABS: Appearance,Urine CLEAR (Clear); Bilirubin,Urine Negative (Negative); Blood, Urine Negative (Negative); Color,Urine YELLOW (Yellow); Glucose,Urine (UA) Negative (Negative); Ketones,Urine Negative (Negative); Leukocyte Esterase,Urine 1+ (Negative); Nitrate,Urine POSITIVE (Negative); PH,Urine 5.5 (5.0-8.5); Protein,Urine Negative (Negative); Urobilinogen,Urine 0.2 EU/dl (0.2)
[2023-09-15 19:49] LABS: Bacteria,Urine 3+ /lpf
[2023-09-15 20:08] LABS: Troponin I 0.04 ng/ml (0.00-0.034)
--- NOTE | 2023-09-15 20:18 | EXP.HP ---
History of Present Illness *Admission Date: 09/15/23 *Reason for visit:: Shortness of breath *History of present illness: This is a very pleasant 83-year-old female with past medical history of COPD, LURDES on CPAP, HTN, HLD, prior TIA, JENNIFER, hypothyroidism, chronic back pain and history of lung cancer postradiation and chemo who presents to the emergency department today with complaints of dyspnea on exertion and cough. She reports she has been feeling bad for approximately 6 weeks now but has developed worsening shortness of breath of the last several days. She denies any home oxygen use but states that she has felt winded. She reports shortness of breath is worse with exertion. She denies any fever, chills or any sick contacts. She does endorse nausea vomiting several weeks ago but has not had anything acutely. She denies any dysuria. She reports chronic back pain but no new neurological symptoms or trauma. Emergency Department workup significant for large pleural effusion of the right lung field noted on CTA. Negative for PE. Also notable for right lower lobe opacity that could represent infection. Laboratory evaluation notable for potassium of 2.8, creatinine of 1.1, elevated troponin of 0.05, proBNP of 2400 COVID and flu negative. Urinalysis with positive nitrite, +1 leuk esterase and +3 bacteria. Upon arrival to emergency department she was noted to be wheezing on exam and hypoxic requiring 2 L nasal cannula. She was medicated in the emergency department with nebulizer treatments, steroids, azithromycin and Rocephin and admitted to the hospitalist service for further evaluation [facility] Disclaimer: The information contained in this section may have been updated after the patient was seen, as this information can be updated by other users. Medical History Anxiety Carotid artery stenosis Chest pain COPD (chronic obstructive pulmonary disease) Dyspnea Dyspnea on exertion Edema of both lower extremities Fatigue History of lung cancer Hx of deep venous thrombosis Hx-TIA (transient ischemic attack) Hyperlipidemia Hypertension Hypothyroidism Loss of hair Nausea and vomiting LURDES on CPAP Stopped smoking with greater than 30 pack year history Surgical History H/O arthroscopy of knee History of breast biopsy History of tonsillectomy Hx of appendectomy Hx of cholecystectomy Family History Other Cancer Diabetes No significant family history Social History (Updated 09/15/23 @ 17:44 by Jacklyn Jose RN) Smoking Status: Former smoker tobacco type: cigarettes second hand exposure: No alcohol intake: never substance use type: denies use current occupational status: retired Travel in the last 8 weeks: None household members: none housing: house current occupational exposures/hazards: No caffeine: Yes Review of Systems Constitutional Constitutional: Reports system reviewed and no additional complaints, except as documented Eyes Eyes: Reports system reviewed and no additional complaints, except as documented ENT Ears, Nose, Mouth, and Throat: Reports system reviewed and no additional complaints, except as documented *Cardiovascular Cardiovascular: Reports system reviewed and no additional complaints, except as documented *Respiratory Respiratory: Reports system reviewed and no additional complaints, except as documented *Gastrointestinal Gastrointestinal: Reports system reviewed and no additional complaints, except as documented *Genitourinary Genitourinary: Reports system reviewed and no additional complaints, except as documented *Musculoskeletal Musculoskeletal: Reports system reviewed and no additional complaints, except as documented Integumentary/Breasts Skin/Breast: Reports system reviewed and no additional complaints, except as documented *Neurologic Neurologic: Reports system reviewed and
[2023-09-15 20:44] LABS: Procalcitonin 0.047 ng/mL (0.0-2.0)
[2023-09-16] VITALS (11 sets, daily range): BP systolic 90–131; BP diastolic 56–83; PULSE 95–114; RESP 16–22; TEMP 36.6–37; O2SAT 90–100; BMI 25.8
[2023-09-16 07:22] LABS: Basophils % 0.1 % (0.1-2.0); Eosinophils % 0.2 % (0.1-12.0); Hematocrit 28.6 % (37.0-47.0); Lymphocytes # 1.7 K/mm3 (0.7-4.5); Lymphocytes % 25.9 % (10-50); Mean Corpuscular HGB Conc 31.4 g/dL (31.8-35.4); Mean Corpuscular Hemoglobin 30.2 pg (27.0-31.2); Mean Corpuscular Volume 96.3 fl (81-99); Mean Platelet Volume 10.3 fl (7.4-10.4); Monocytes # 0.2 K/mm3 (0.1-1.0); Monocytes % 3.6 % (1.7-9.3); Neutrophils # 4.6 K/mm3 (1.8-7.8); Neutrophils % 70.3 % (37.0-80.0); Platelet Count 204 K/mm3 (142-424); Red Blood Count 2.97 M/mm3 (4.20-5.40); Red Cell Distribution Width 17.3 % (11.5-17.5); White Blood Count 6.5 K/mm3 (4.8-10.8)
[2023-09-16 07:23] LABS: Chloride 106 mmol/L (98-107); Potassium 4.4 mmoL/L (3.5-5.1); Sodium 134 mmol/L (136-145)
[2023-09-16 07:25] LABS: Alanine Aminotransferase 37 U/L (12-78); Aspartate Amino Transferase 47 U/L (14-36); Blood Urea Nitrogen 16 mg/dl (7-17); Creatinine Clearance Estimated 42 mL/min (50-200); Estimated Glomerular Filt Rate 48 ml/min (>60); GFR (African American) 58 ML/MIN (>60)
[2023-09-16 07:26] LABS: Albumin Level 3.4 g/dl (3.5-5.0); Albumin/Globulin Ratio 0.9 (1.1-1.8); Alkaline Phosphatase 113 U/L (38-126); Anion Gap 13.4 mEq/L (5-15); Bilirubin,Total 0.3 mg/dl (0.2-1.3); Calcium 8.8 mg/dl (8.4-10.2); Carbon Dioxide 19 mmol/L (22.0-30.0); Glucose 142 mg/dl (74-100); Magnesium 1.8 mg/dl (1.6-2.3); Total Protein,Serum 7.4 g/dl (6.3-8.2)
--- NOTE | 2023-09-16 09:51 | XR_ITS ---
PROCEDURE INFORMATION: Exam: XR Abdomen Exam date and time: 09/16/2023 10:26 AM Age: 83 years old Clinical indication: Abdominal pain TECHNIQUE: Imaging protocol: Radiologic exam of the abdomen. Views: Frontal supine view of the abdomen. 1 View. COMPARISON: CT ANGIO ABDOMEN 09/05/2023 8:53 AM FINDINGS: Lungs: Opacity in the right base may represent atelectasis or pneumonia.. Pleural spaces: Right pleural effusion Gastrointestinal tract: Air in the left colon. Fecal material in the right colon Organs: Contrast in the bladder Bones/joints: Degenerative changes in the lumbar spine and both hips IMPRESSION: Opacity in the right base may represent atelectasis or pneumonia..
--- NOTE | 2023-09-16 15:22 | PC.NURSE ---
Pt up to chair at this time, Pt is currently room air 90% at rest.
--- NOTE | 2023-09-16 16:31 | EXP.PN ---
Subjective *Date: 09/16/23 *Time: 16:31 Interval history: patient was seen and evaluated at the bedside. denies chest pain, shortness of breath, nausea, vomiting, abdominal pain. Patient does not have any complaints at this time. feels better overall Exam Data for Last 24 hours Vital signs and Labs for Last 24 Hours: Temp Pulse Resp BP Pulse Ox O2 Del Method O2 Flow Rate 98.1 F 110 H 22 107/61 L 93 L Room Air 2 09/16/23 16:00 09/16/23 16:00 09/16/23 16:00 09/16/23 16:00 09/16/23 16:00 09/16/23 16:00 09/16/23 13:00 Laboratory Results - last 24 hr 09/15/23 14:29: Magnesium 1.3 L 09/15/23 16:45: Troponin I 0.05 H, Procalcitonin 0.047 09/15/23 17:08: Urine Color Yellow, Urine Appearance Clear, Urine pH 5.5, Ur Specific [place] 1.010, Urine Protein Negative, Urine Glucose (UA) Negative, Urine Ketones Negative, Urine Blood Negative, Urine Nitrate Positive, Urine Bilirubin Negative, Urine Urobilinogen 0.2, Ur Leukocyte Esterase 1+ A, Urine RBC None, Urine WBC 3-5, Ur Squamous Epith Cells None, Urine Bacteria 3+ 09/15/23 19:35: Troponin I 0.04 H 09/16/23 07:08: WBC 6.5 D, RBC 2.97 L, Hgb 9.0 L, Hct 28.6 L, MCV 96.3, MCH 30.2, MCHC 31.4 L, RDW 17.3, Plt Count 204, MPV 10.3, Neut % (Auto) 70.3, Lymph % (Auto) 25.9, [place] % (Auto) 3.6, Eos % (Auto) 0.2, Baso % (Auto) 0.1, Neut # (Auto) 4.6, Lymph # (Auto) 1.7, [place] # (Auto) 0.2, Eos # (Auto) 0.0, Baso # (Auto) 0.0, Sodium 134 L, Potassium 4.4 D, Chloride 106, Carbon Dioxide 19 L, Anion Gap 13.4, BUN 16, Creatinine 1.10 H, Estimated Creat Clear 42, Estimated GFR 48 L, Est GFR ( Amer) 58 L, Glucose 142 H D, Calcium 8.8, Magnesium 1.8 D, Total Bilirubin 0.3, AST 47 H, ALT 37 D, Alkaline Phosphatase 113, Total Protein 7.4, Albumin 3.4 L, Globulin 4.0 H, Albumin/Globulin Ratio 0.9 L I & O for Last 24 hours: Intake & Output 09/13/23 09/14/23 09/15/23 09/16/23 23:59 23:59 23:59 23:59 Intake Total 240 / 240 585 / 585 Output Total 400 / 650 650 / 650 Balance -160 / -410 -65 / -65 Weight 66.224 kg 66.224 kg Constitutional Constitutional: no acute distress *Routine HEENT Exam Head: Present normocephalic Eye: Present EOMI and PERRL ENT: Present mucous membranes moist *Routine Neck Exam Neck: Present supple; Absent lymphadenopathy *Routine Respiratory Exam Respiratory: Present CTA bilaterally *Routine Cardiovascular Exam Cardiovascular: Present RRR *Routine Abdominal Exam Abdominal: Present soft and normoactive bowel sounds; Absent tenderness *Routine Extremities Exam Extremities: Absent cyanosis, clubbing or edema *Routine Skin Exam Skin: Present warm; Absent rash *Routine Neurological Exam Neurological: Present alert and oriented X3 Assessment and Plan *Assessment and plan (1) Shortness of breath: Status: Acute Category: Medical Code(s): R06.02 - Shortness of breath (2) Pleural effusion: Status: Acute Category: Medical Code(s): J90 - Pleural effusion, not elsewhere classified (3) NSTEMI (non-ST elevated myocardial infarction): Status: Acute Category: Medical Code(s): I21.4 - Non-ST elevation (NSTEMI) myocardial infarction (4) Acute cystitis: Status: Acute Qualifiers: Hematuria presence: without hematuria Qualified Code(s): N30.00 - Acute cystitis without hematuria Category: Medical Code(s): N30.00 - Acute cystitis without hematuria (5) Hypomagnesemia: Status: Acute Category: Medical Code(s): E83.42 - Hypomagnesemia (6) Hypokalemia: Status: Acute Category: Medical Code(s): E87.6 - Hypokalemia Plan Patient is a 83-year-old female with past medical history of hypertension hyperlipidemia COPD presented to hospital with shortness of breath Assessment Dyspnea likely COPD exacerbation Pleural effusion Acute cystitis NSTEMI type II [place] Iron deficiency anemia Plan Continue inhaler therapy, p.o. prednisone Wean
--- NOTE | 2023-09-16 17:40 | PC.NURSE ---
Pt alert and oriented x4. Pt lung sounds diminished throughout. Pt abdomen tender, upper abdomen distended. Pt has required 2L NC throughout most of the shift to maintain O2 sat >90%. Pt did remain on room air while sitting in a chair at rest for 1 hour, maintained O2 sat >90%. Pt ambulates to the restroom with standby assist, pt has ambulated several times to bathroom. Pt complained of pain one time this shift, treated per dec. Pt has concern about bowel movement, spoke with MD, new orders carried out. No other complaints from pt at this time. Pt call light in reach.
[2023-09-17] VITALS (7 sets, daily range): BP systolic 100–110; BP diastolic 59–73; PULSE 79–110; RESP 17–20; TEMP 36.6–36.9; O2SAT 90–96; BMI 25.8
[2023-09-17 08:42] LABS: Chloride 105 mmol/L (98-107); Potassium 5.3 mmoL/L (3.5-5.1); Sodium 132 mmol/L (136-145)
[2023-09-17 08:44] LABS: Alanine Aminotransferase 27 U/L (12-78); Aspartate Amino Transferase 41 U/L (14-36); Basophils % 0.1 % (0.1-2.0); Blood Urea Nitrogen 29 mg/dl (7-17); Creatinine Clearance Estimated 38 mL/min (50-200); Eosinophils % 0.2 % (0.1-12.0); Estimated Glomerular Filt Rate 43 ml/min (>60); GFR (African American) 52 ML/MIN (>60); Hematocrit 26.6 % (37.0-47.0); Hemoglobin 8.6 g/dL (12.2-16.2); Lymphocytes # 1.2 K/mm3 (0.7-4.5); Mean Corpuscular HGB Conc 32.4 g/dL (31.8-35.4); Mean Corpuscular Hemoglobin 30.8 pg (27.0-31.2); Mean Corpuscular Volume 94.8 fl (81-99); Mean Platelet Volume 9.2 fl (7.4-10.4); Monocytes # 0.4 K/mm3 (0.1-1.0); Monocytes % 7.9 % (1.7-9.3); Neutrophils # 3.6 K/mm3 (1.8-7.8); Neutrophils % 68.7 % (37.0-80.0); Platelet Count 165 K/mm3 (142-424); Red Cell Distribution Width 17.3 % (11.5-17.5); White Blood Count 5.3 K/mm3 (4.8-10.8)
[2023-09-17 08:45] LABS: Albumin Level 3.2 g/dl (3.5-5.0); Albumin/Globulin Ratio 0.8 (1.1-1.8); Alkaline Phosphatase 98 U/L (38-126); Anion Gap 10.3 mEq/L (5-15); Bilirubin,Total 0.3 mg/dl (0.2-1.3); Carbon Dioxide 22 mmol/L (22.0-30.0); Glucose 93 mg/dl (74-100); Total Protein,Serum 7.2 g/dl (6.3-8.2)
--- NOTE | 2023-09-17 10:30 | XR_ITS ---
PROCEDURE INFORMATION: Exam: XR Chest Exam date and time: 09/17/2023 10:53 AM Age: 83 years old Clinical indication: Shortness of breath; Additional info: SOA TECHNIQUE: Imaging protocol: Radiologic exam of the chest. Views: 1 view. COMPARISON: CT ANGIO CHEST PE PROTOCOL 09/15/2023 4:19 PM FINDINGS: Lungs: Partial collapse of right lower lobe/pneumonia are better characterized on preceding chest CT. Pleural spaces: Large right pleural effusion is re-identified. Heart/Mediastinum: Cardiomegaly noted. Bones/joints: Unremarkable. IMPRESSION: 1. Large right pleural effusion is re-identified. 2. Partial collapse of right lower lobe/pneumonia are better characterized on preceding chest CT.
--- NOTE | 2023-09-17 12:50 | HMH.PTEV ---
Physical Therapy Evaluation Rehab PT IP Evaluation Start: 09/17/23 10:32 Freq: ONCE Status: Active Protocol: Document 09/17/23 12:40 JACKSON (Rec: 09/17/23 12:50 JACKSON [id number]) Subjective/History History History Pt is a 83 y/o female who presented to [facility] ED on 09/15/23 with complaint of cough and dyspnea on exertion. Per history & physical note, she reports she has been feeling bad for approximately 6 weeks now but has developed worsening shortness of breath of the last several days. She denies any home oxygen use but states that she has felt winded. She reports shortness of breath is worse with exertion. She denies any fever, chills or any sick contacts. She does endorse nausea vomiting several weeks ago but has not had anything acutely. She denies any dysuria. She reports chronic back pain but no new neurological symptoms or trauma. Emergency Department workup significant for large pleural effusion of the right lung field noted on CTA. Negative for PE. Also notable for right lower lobe opacity that could represent infection. Laboratory evaluation notable for potassium of 2.8, creatinine of 1.1, elevated troponin of 0.05, proBNP of 2400 COVID and flu negative. Urinalysis with positive nitrite, +1 leuk esterase and +3 bacteria. Upon arrival to emergency department she was noted to be wheezing on exam and hypoxic requiring 2 L nasal cannula. She was medicated in the emergency department with nebulizer treatments, steroids, azit
--- NOTE | 2023-09-17 14:58 | EXP.PN ---
Subjective *Date: 09/17/23 *Time: 14:58 Interval history: patient was seen and evaluated at the bedside. denies chest pain, shortness of breath, nausea, vomiting, abdominal pain. Patient does not have any complaints at this time. feels better overall Exam Data for Last 24 hours Vital signs and Labs for Last 24 Hours: Temp Pulse Resp BP Pulse Ox O2 Del Method O2 Flow Rate 98.4 F 79 18 109/73 L 90 L Nasal Cannula 2 09/17/23 07:53 09/17/23 12:34 09/17/23 07:53 09/17/23 07:53 09/17/23 12:34 09/17/23 13:00 09/17/23 13:00 Laboratory Results - last 24 hr 09/17/23 08:00: WBC 5.3, RBC 2.80 L, Hgb 8.6 L, Hct 26.6 L, MCV 94.8, MCH 30.8, MCHC 32.4, RDW 17.3, Plt Count 165, MPV 9.2, Neut % (Auto) 68.7, Lymph % (Auto) 23.0, [place] % (Auto) 7.9, Eos % (Auto) 0.2, Baso % (Auto) 0.1, Neut # (Auto) 3.6, Lymph # (Auto) 1.2, [place] # (Auto) 0.4, Eos # (Auto) 0.0, Baso # (Auto) 0.0, Sodium 132 L, Potassium 5.3 H D, Chloride 105, Carbon Dioxide 22, Anion Gap 10.3, BUN 29 H D, Creatinine 1.20 H, Estimated Creat Clear 38, Estimated GFR 43 L, Est GFR ( Amer) 52 L, Glucose 93, Calcium 9.0, Total Bilirubin 0.3, AST 41 H, ALT 27 D, Alkaline Phosphatase 98, Total Protein 7.2, Albumin 3.2 L, Globulin 4.0 H, Albumin/Globulin Ratio 0.8 L I & O for Last 24 hours: Intake & Output 09/14/23 09/15/23 09/16/23 09/17/23 23:59 23:59 23:59 23:59 Intake Total 240 / 240 1175 / 1775 1110 / 1110 Output Total 400 / 650 650 / 650 0 / 0 Balance -160 / -410 525 / 1125 1110 / 1110 Weight 66.224 kg 66.224 kg 66.22 kg *Routine Respiratory Exam Comments: decreased breathing sounds b/l Assessment and Plan *Assessment and plan (1) Shortness of breath: Status: Acute Category: Medical Code(s): R06.02 - Shortness of breath (2) Pleural effusion: Status: Acute Category: Medical Code(s): J90 - Pleural effusion, not elsewhere classified (3) NSTEMI (non-ST elevated myocardial infarction): Status: Acute Category: Medical Code(s): I21.4 - Non-ST elevation (NSTEMI) myocardial infarction (4) Acute cystitis: Status: Acute Qualifiers: Hematuria presence: without hematuria Qualified Code(s): N30.00 - Acute cystitis without hematuria Category: Medical Code(s): N30.00 - Acute cystitis without hematuria (5) Hypomagnesemia: Status: Acute Category: Medical Code(s): E83.42 - Hypomagnesemia (6) Hypokalemia: Status: Acute Category: Medical Code(s): E87.6 - Hypokalemia Plan Patient is a 83-year-old female with past medical history of hypertension hyperlipidemia COPD presented to hospital with shortness of breath Assessment Dyspnea likely COPD exacerbation Pleural effusion Acute cystitis NSTEMI type II [place] Iron deficiency anemia Plan Continue inhaler therapy, p.o. prednisone Wean down oxygen as tolerated CXR today - 1. Large right pleural effusion is re-identified. 2. Partial collapse of right lower lobe/pneumonia consult pulmonary Continue azithromycin, Rocephin Monitor and replace electrolytes Continue home HCTZ, lisinopril DVT prophylaxis-heparin DC 1-2 days
--- NOTE | 2023-09-17 18:34 | PC.NURSE ---
Pt is alert and oriented x4. Pt ambulated to the restroom this am, became short of breathe, pt had taken O2 off to go to restroom, got pt back to bed, check O2 sat, 98% on room air. Pt still felt short of breathe, added 2L NC and pt stated she felt better and was getting her air back . This rn educated pt on calling out for help to use the restroom and using an extension on her O2 to use to get to the restroom and back, pt verbalized understanding. Pt has had no other issues of SOB. Pt stated she threw up in the restroom and covered it with paper towels, on observing, look to be a scant amount of phlegm. Pt states she was not nauseous, just needed to spit up what was in her throat. Pt has had no other instances of throwing up. Pt remains on 2L NC with O2 sat >90%. Pt abdomen soft and nontender. Pt has had no bowel movement this shift. Lung sounds diminished bilaterally. Call light in reach. Bed in lowest position.
[2023-09-18] VITALS (8 sets, daily range): BP systolic 102–114; BP diastolic 59–68; PULSE 78–109; RESP 16–18; TEMP 36.6–36.9; O2SAT 90–97; BMI 26.2
--- NOTE | 2023-09-18 05:32 | PC.NURSE ---
New order for 0.9% NaCl @75mL/hr continuous.
--- NOTE | 2023-09-18 09:41 | HMH.OTEV ---
OT Inpatient Evaluation Rehab OT IP Evaluation Start: 09/17/23 10:32 Freq: ONCE Status: Active Protocol: Document 09/18/23 09:35 RMSEYMOUR (Rec: 09/18/23 09:41 [facility] [id number]) Rehab OT IP Assessment Subjective History Oriented x 4 on arrival. Pt agreeable to engage in therapy evaluation. Pt is a 83 y/o female who presented to [facility] ED on 09/15/23 with complaint of cough and dyspnea on exertion. Per history & physical note, she reports she has been feeling bad for approximately 6 weeks now but has developed worsening shortness of breath of the last several days. She denies any home oxygen use but states that she has felt winded. She reports shortness of breath is worse with exertion. She denies any fever, chills or any sick contacts. She does endorse nausea vomiting several weeks ago but has not had anything acutely. She denies any dysuria. She reports chronic back pain but no new neurological symptoms or trauma. Emergency Department workup significant for large pleural effusion of the right lung field noted on CTA. Negative for PE. Also notable for right lower lobe opacity that could represent infection. Laboratory evaluation notable for potassium of 2.8, creatinine of 1.1, elevated troponin of 0.05, proBNP of 2400 COVID and flu negative. Urinalysis with positive nitrite, +1 leuk esterase and +3 bacteria. Upon arrival to emergency department she was noted to be wheezing on exam and hypoxic requiring 2 L nasal cannula. She was medicated in the emergency
--- NOTE | 2023-09-18 09:53 | EXP.PULM.CON ---
History of Present Illness History of present illness: Ms. Shah is a 83-year-old female history of squamous cell lung cancer status post right lower lobectomy with concurrent chemoradiation, history of DVT on Eliquis, sleep apnea on NIV, COPD baseline on room air, using Stiolto inhaler presented with worsening respiratory distress. Patient admits worsening respiratory status for the last 6 weeks progressively getting worse. Denies any worsening productive phlegm. Denies any subjective fevers. [facility] Disclaimer: The information contained in this section may have been updated after the patient was seen, as this information can be updated by other users. Medical History Acute respiratory failure with hypoxia Anxiety Carotid artery stenosis Chest pain COPD (chronic obstructive pulmonary disease) Dyspnea Dyspnea on exertion Edema of both lower extremities Fatigue History of lung cancer Hx of deep venous thrombosis Hx-TIA (transient ischemic attack) Hyperlipidemia Hypertension Hypothyroidism Loss of hair Nausea and vomiting LURDES on CPAP Pneumonia with cavity of lung Stopped smoking with greater than 30 pack year history Surgical History H/O arthroscopy of knee History of breast biopsy History of tonsillectomy Hx of appendectomy Hx of cholecystectomy Family History Other Cancer Diabetes No significant family history Social History (Updated 09/15/23 @ 17:44 by Jacklyn Jose RN) Smoking Status: Former smoker tobacco type: cigarettes second hand exposure: No alcohol intake: never substance use type: denies use current occupational status: retired Travel in the last 8 weeks: None household members: none housing: house current occupational exposures/hazards: No caffeine: Yes Review of Systems Constitutional Constitutional: Reports anorexia, Reports body ache(s) and Reports fatigue Eyes Eyes: Denies eye discharge, Denies dry eyes, Denies irritation and Denies itchy eyes ENT Ears, Nose, Mouth, and Throat: Denies epistaxis, Denies facial pain, Denies lip swelling and Denies throat swelling *Cardiovascular Cardiovascular: Reports dyspnea and Reports dyspnea on exertion *Respiratory Respiratory: Reports chest congestion, Reports cough, Reports dyspnea, Reports dyspnea on exertion, Denies excessive phlegm production, Denies hemoptysis, Denies pain on inspiration, Denies pain with cough and Reports wheezing *Gastrointestinal Gastrointestinal: Denies abdominal pain, Denies belching and Denies cramping *Musculoskeletal Musculoskeletal: Reports back pain, Reports myalgias and Reports other (No small joint swelling or Pain) *Neurologic Neurologic: Reports system reviewed and no additional complaints, except as documented Psychiatric Psychiatric: Denies homicidal ideation and Denies suicidal ideation Endocrine Endocrine: Reports fatigue and Denies heat intolerance Hematologic/Lymphatic Hematologic/Lymphatic: Denies easy bleeding and Denies lymphadenopathy Allergic/Immunologic Allergic/Immunologic: Denies itchy eyes, Denies lip swelling, Denies throat swelling and Reports wheezing Pulmonology Exam Inpatient Vital signs and Labs for Last 24 Hours: Temp Pulse Resp BP Pulse Ox O2 Del Method O2 Flow Rate 98.0 F 109 H 17 106/68 L 93 L Nasal Cannula 2 09/18/23 08:00 09/18/23 08:00 09/18/23 08:00 09/18/23 08:00 09/18/23 08:00 09/18/23 08:00 09/18/23 08:00 Laboratory Results - last 24 hr 09/15/23 23:20: RSV Nasal Swab Negative I & O for Labs for Last 24 Hours: Intake & Output 09/15/23 09/16/23 09/17/23 09/18/23 23:59 23:59 23:59 23:59 Intake Total 240 / 240 1175 / 1775 1880 / 2360 973 / 973 Output Total 400 / 650 650 / 650 0 / 0 0 / 0 Balance -160 / -410 525 / 1125 1880 / 2360 973 / 973 Weight 146 lb 145 lb 15.983 oz 145 lb 15.842 oz 147 lb 12.8 oz Constitutional:
--- NOTE | 2023-09-18 10:07 | SW/DCPLANNER ---
Addendum entered by Daily Reed 09/19/23 08:36: Patient expressed this AM that she is no longer interested in home health services. Original Note: I spoke w/ this patient regarding plans once medically stable for discharge. PT/OT evaluated patient and recommended home health services at time of discharge. Patient is agreeable to home health services and is agreeable to use [facility]. Discharge date is unknown at this time. Once patient is medically stable for discharge I will fax information/order to [facility].
--- NOTE | 2023-09-18 10:54 | US_ITS ---
FINAL REPORT CLINICAL HISTORY: soa -- DR. CHPORA -- RIGHT SIDE -- 1690 ML REMOVED FINDINGS: ULTRASOUND GUIDANCE FOR THORACENTESIS HISTORY: Shortness of breath, pleural effusion. FINDINGS: Ultrasound guidance was provided by radiology to the clinical service for performance of thoracentesis. Single image demonstrates a right pleural effusion. Reportedly, 1690 mL were removed. Radiologist was not present for this procedure. IMPRESSION: Ultrasound guidance provided for thoracentesis. Please see the performing physician's report/notes for details of the findings. Reviewed, Interpreted and Dictated by Manuel Gordillo MD Transcribed by Eloisa Ramírez PA-C Authenticated and [facility]
--- NOTE | 2023-09-18 11:52 | CA_ITS ---
APPROVED REPORT EXAM: Comprehensive 2D, Doppler, and color-flow Echocardiogram [place] [employer]: Anna Herbert, RT(R) Ht: 5 ft 3 in Wt: 146lbs BSA: 1.69 BP: 114/68 mmHg Indications: resp failure, NSTEMI, COPD, ex smoker, palpitations, fatigue, edema, HTN, DM, SOB, lung CA, post thoracentesis, chemo, radiation, hx DVT, LURDES, TIA, DNR. 2D Dimensions LA Volume 51.10 mL LA Volume Index 30.24 mL/m2 (M/F) 16-34 EF AP4 59.30 % GL Strain -13.8 % M-Mode Dimensions RVDd 2.90 cm (0.9-2.6) LA Diam 3.91 cm (1.9-4.0) LVDd 4.40 cm (3.5-5.7) LVDs 3.76 cm (3.5-5.7) IVSd 1.25 cm (0.6-1.1) PWd 0.93 cm (0.6-1.1) EF (Teich) 31.10% FS 14.50% EDV (Teich) 87.70 mL ESV (Teich) 60.40 mL LV Diastology E Decel Time 150 (160-240 msec) E/A Ratio 1.1 Mitral Valve MV E Max Raj. 82.0 (40-130 cm/s) MV A Velocity 72.0 (40-130 cm/s) E/A Ratio 1.14 MV PHT 44.0 ms Tricuspid Valve TR P. Velocity 264.00 cm/s RAP Estimate 10.00 mmHg RVSP 38.00 mmHg Left Ventricle The left ventricle is normal size. The left ventricular systolic function is normal. The left ventricular ejection fraction is within the normal range. There is marked increased LV wall thickness (IVSd 1.5 cm). The septum appears asynchronous. Diastolic function is indeterminate. LVEF is 55%. Right Ventricle The right ventricle is mildly dilated. The right ventricular systolic function is normal. Atria Left atrium is moderately dilated. Right atrium is moderately dilated. There is no Doppler evidence of interatrial shunt. Aortic Valve The aortic valve is mildly thickened. There is no aortic valvular stenosis. Mild aortic regurgitation. Mitral Valve The mitral valve leaflets are mildly thickened. No evidence of mitral valve stenosis. Moderate mitral regurgitation. Tricuspid Valve The tricuspid valve leaflets are thin and pliable. Moderate to severe tricuspid regurgitation. RVSP is 30-35 mmHg. Pulmonic Valve The pulmonary valve is normal in structure. Trace pulmonic regurgitation. Great Vessels The aortic root is normal in size. The ascending aorta is normal in size. IVC is normal in size and collapses >50% with inspiration. Pericardium Small, circumferential pericardial effusion. The largest pocket measures 0.4 cm in diastole. No echo indications of tamponade. Other Information Study Quality: Fair Conclusion Normal biventricular systolic function. Marked increase in LV wall thickness (IVSd 1.5 cm). Mild RV dilation Biatrial dilatation. Moderate MR. Moderate to severe TR. Mild AI. Elevated RVSP 30-35 mmHg. Small, circumferential pericardial effusion. Due to marked increased LV wall thickness and biatrial dilatation, further evaluation for amyloidosis is recommended (PYP scan, cardiac MRI [amyloidosis protocol], and lab testing). Electronically signed by : Maggie Herrera MD 09/19/2023 23:50:57
--- NOTE | 2023-09-18 12:14 | HMH.PROCNOTE ---
[facility] Procedure Note Date: 09/18/23 Time: 11:00 Procedure Note:: Procedure: Right Thoracentesis Referring Physician: Satish Nolasco MD Indication for procedure: Pleural Effusion, Hypoxic Respiratory failure A time out was performed, and the chest x-ray was reviewed, the appropriate side was confirmed and marked. My hands were washed immediately prior to the procedure. I wore a surgical cap, mask with protective eyewear, sterile gown, and sterile gloves throughout the procedure. The patient was prepped and draped in a sterile manner using chlorhexidine scrub after the appropriate level was percussed and confirmed by ultrasound. 1% lidocaine was used to anesthetize the skin, subcutaneous tissue, superior aspect of the rib periosteum and parietal pleura.? A finder needle was then introduced at the seventh intercoastal space posteriorly?to locate the pleural fluid; cloudy blood-tinged fluid was aspirated. A 10-blade scalpel was used to merlyn the skin at the insertion site. The Rpbe-a-Iudybnvw needle was then introduced through the skin incision into the pleural space using negative aspiration pressure and the red colorimetric indicator to confirm appropriate positioning of the needle. The thoracentesis catheter was then threaded without 1690 ml of ?fluid was removed without difficulty. The catheter was then removed. No immediate complications were noted during the procedure. A post-procedure chest X-ray is pending at the time of this note. The fluid will be sent for routine pleural studies, cultures along with cytopathology.? Patient tolerated the procedure well? Estimated blood loss is 2cc.
--- NOTE | 2023-09-18 12:44 | EXP.CARD.CON ---
History of Present Illness History of Present Illness Consult date: 09/18/23 Requesting physician: Satish Nolasco Consult reason: shortness of breath Chief complaint: SOA Additional Medical History:: 1. History of Lung Cancer stage IIIa SCC, treated at in 2019 A. History of chest radiation, immunotherapy and chemotherapy after RLL lobectomy B. Remote history of 60-fqdf-exrh tobacco use 2. Hypertension A. Echo, 12/06/2021, mild LAE, normal LV size with EF 50%, no regional WMA. Mild conc LVH. Grade I DD. Thickened and calcified aortic valve without . Mild AI/MR/TR. RVSP 34 mm Hg B. Hair loss related to beta kermit 3. Moderate coronary artery calcification noted on chest CTA, 09/15/2023 A. Jeffrey myoview, 11/2021, No ischemia, EF 53% 4. History of TIA, 2016 5. History of remote DVT and PE, 2018, A. no longer on A/C as of 2021 due to GI bleed 6. Carotid artery stenosis A. Less than 50% bilateral ICA stenosis. 7. Hyperlipidemia A. Statin therapy 8. History of GI bleed A. Colonoscopy, Dr. Zuniga, 09/2020, colonic polyps x 2, left-sided diverticulosis, grade 1-2 internal hemorrhoids B. EGD, 09/2010, Dr. Zuniga, esophageal telangiectasias/AVMs (mid esophagus encompassing 10 cm in length) consistent with radiation esophagitis. Mild linear reactive gastropathy with bile reflux. C. 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 Patient was on anticoagulation due to history of PE and DVT but this was stopped in 2021. 9. 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 Zuniga, 06/2021 and 12/2020 A. History of esophageal dilatation, 2018 with nonerosive GERD and mild esophageal dysmotility and bile reflux with linear reactive gastropathy 10. Hypothyroidism A. On replacement 11. Mild obstructive sleep apnea, 05/2021, with severe LURDES during REM with evidence of nocturnal hypoxemia A. Followed by Dr. Simpson 12. COPD related to remote tobacco use A. PFTs, 06/2021, V1 VC ratio of 76 with V1 at 89% predicted and VC at 87% predicted. TLC within normal limits at 84% predicted. Air trapping noted with a ratio at 45 and significant decrease in DLCO at 54% predicted. 13. Lumbar spondylosis A. Lumbar epidural steroid injection, 09/2022 History of present illness: 83-year-old white female came to the emergency department for evaluation of GILL and chronic low back pain. Patient known to have prior lung cancer status post lobectomy, chemotherapy, radiation therapy and immunotherapy. Initially treated with DuoNebs and IV methylprednisolone. Mild improvement with CT of the chest to rule out PE ordered. No evidence of pulmonary embolus was noted however she did have a large right pleural effusion. Pulmonology was consulted and patient underwent a thoracentesis today with some improvement in her symptoms. Due to mildly elevated troponins and elevated BNP during her workup cardiology has been consulted for evaluation. Hypokalemia has been treated and has resolved. 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 Hemoglobin today is noted to be 8.6 (down from 10.0 on admission). [facility] Disclaimer: The information contained in this section may have been updated after the patient was seen, as this information can be updated by other users. Medical History Acute respiratory failure with hypoxia Anxiety Carotid artery stenosis Chest pain COPD (chronic obstructive pulmonary disease) Dyspnea Dyspnea on exertion Edema of both lower extremities Fatigue History of lung cancer Hx of deep venous thrombosis Hx-TIA (transient ischemic attack) Hyperlipidemia Hypertension Hypothyroidism Loss of hair Nausea and vomiting LURDES on CPAP Pneumonia with cavity of lung Stopped smoking with greater than 30 pack year history Surgical History (Reviewed 1
[2023-09-18 13:38] LABS: Source, Body Fld. Thoracentesis Fluid
[2023-09-18 13:39] LABS: Appearance,Body Fld. Cloudy; Mononuclear WBCs,Body Fluid 61 %; Polynuclear WBC,Body Fluid 39 %; RBC,Body Fluid 11 cells/uL (< 10 X 10^3); TNC,Body Fluid 214 cells/uL (< 1000); Volume,Body Fld. 1635.5 mL
--- NOTE | 2023-09-18 14:28 | ECG_ITS ---
APPROVED REPORT Exam: Resting ECG HR:93 bpm ECG Measurements Heart Rate 93 AXES ME 128 P 40 QRSd 96 QRS 20 QT 365 T 32 QTc 416 Conclusion SINUS RHYTHM WITH MARKED SINUS ARRHYTHMIA LOW QRS VOLTAGE [QRS DEFLECTION < 0.5/1.0 mV IN LIMB/CHEST LEADS] ABNORMAL ECG UNCONFIRMED REPORT Electronically signed by : Heriberto Villalobos MD 09/18/2023 19:14:16
[2023-09-18 16:14] LABS: Lactate Dehydrogenase 177 U/L (313-618)
--- NOTE | 2023-09-18 16:17 | PC.NURSE ---
US guided Thoracentesis Performed by Froylan this AM. Pt tolerated well. She states she has less soa since procedure. She remains on 2L NC. Has ambulated to BR with standby assist. States she is a little sore around ribs on (R). No other complaints stated. Call light within reach. Family at bedside.
--- NOTE | 2023-09-18 16:53 | EXP.PN ---
Subjective *Date: 09/18/23 *Time: 16:53 Interval history: patient was seen and evaluated at the bedside. denies chest pain,she has SOB,. denied nausea, vomiting, abdominal pain. Exam Data for Last 24 hours Vital signs and Labs for Last 24 Hours: Temp Pulse Resp BP Pulse Ox O2 Del Method O2 Flow Rate 98.5 F 108 H 18 102/59 L 93 L Nasal Cannula 2 09/18/23 15:57 09/18/23 15:57 09/18/23 15:57 09/18/23 15:57 09/18/23 15:57 09/18/23 15:57 09/18/23 15:57 Laboratory Results - last 24 hr 09/18/23 11:30: Fluid Source Thoracentesis fluid, Fluid Volume 1635.5, Fluid Appearance Cloudy, Fluid RBC (Auto) 11, Fld Tot Nucleated Cell 214, Fld Polynuclear WBCs % 39, Fld Mononuclear WBCs % 61 09/18/23 12:50: Lactate Dehydrogenase 177 L I & O for Last 24 hours: Intake & Output 09/15/23 09/16/23 09/17/23 09/18/23 23:59 23:59 23:59 23:59 Intake Total 240 / 240 1175 / 1775 1880 / 2360 973 / 973 Output Total 400 / 650 650 / 650 0 / 0 0 / 0 Balance -160 / -410 525 / 1125 1880 / 2360 973 / 973 Weight 66.224 kg 66.224 kg 66.22 kg 67.041 kg Constitutional Constitutional: no acute distress *Routine HEENT Exam Head: Present normocephalic Eye: Present EOMI and PERRL ENT: Present mucous membranes moist *Routine Neck Exam Neck: Present supple; Absent lymphadenopathy *Routine Respiratory Exam Respiratory: Present distant breath sounds (on R side) *Routine Cardiovascular Exam Cardiovascular: Present RRR *Routine Abdominal Exam Abdominal: Present soft and normoactive bowel sounds; Absent tenderness *Routine Extremities Exam Extremities: Absent cyanosis, clubbing or edema *Routine Skin Exam Skin: Present warm; Absent rash *Routine Neurological Exam Neurological: Present alert and oriented X3 Assessment and Plan *Assessment and plan (1) Shortness of breath: Status: Acute Category: Medical Code(s): R06.02 - Shortness of breath (2) Pleural effusion: Status: Acute Category: Medical Code(s): J90 - Pleural effusion, not elsewhere classified (3) NSTEMI (non-ST elevated myocardial infarction): Status: Acute Category: Medical Code(s): I21.4 - Non-ST elevation (NSTEMI) myocardial infarction (4) Acute cystitis: Status: Acute Qualifiers: Hematuria presence: without hematuria Qualified Code(s): N30.00 - Acute cystitis without hematuria Category: Medical Code(s): N30.00 - Acute cystitis without hematuria (5) Hypomagnesemia: Status: Acute Category: Medical Code(s): E83.42 - Hypomagnesemia (6) Hypokalemia: Status: Acute Category: Medical Code(s): E87.6 - Hypokalemia Plan Patient is a 83-year-old female with past medical history of hypertension hyperlipidemia COPD presented to hospital with shortness of breath Assessment Dyspnea likely COPD exacerbation R sided Pleural effusion suspected Pneumonia Acute hypoxic respiratory failure Acute cystitis NSTEMI type II NM Iron deficiency anemia Plan Continue inhaler therapy, p.o. prednisone Wean down oxygen as tolerated CXR today - 1. Large right pleural effusion is re-identified. 2. Partial collapse of right lower lobe/pneumonia consult pulmonary - plan for thoracentesis Continue azithromycin, Rocephin Monitor and replace electrolytes Consulted cardiology for pericardial effusion and possible CHF - Echo cardiogram ordered, continue lasix hold HCTZ, lisinopril due to low BP DVT prophylaxis-heparin DC pending clinical improvement
[2023-09-19] VITALS (10 sets, daily range): BP systolic 104–113; BP diastolic 54–70; PULSE 80–105; RESP 18–20; TEMP 36.4–36.8; O2SAT 92–99; BMI 26.6
[2023-09-19 06:20] LABS: Basophils % 0.4 % (0.1-2.0); Eosinophils % 0.3 % (0.1-12.0); Hematocrit 26.2 % (37.0-47.0); Hemoglobin 8.5 g/dL (12.2-16.2); Lymphocytes # 1.1 K/mm3 (0.7-4.5); Lymphocytes % 23.4 % (10-50); Mean Corpuscular HGB Conc 32.4 g/dL (31.8-35.4); Mean Corpuscular Hemoglobin 30.5 pg (27.0-31.2); Mean Corpuscular Volume 93.9 fl (81-99); Mean Platelet Volume 9.3 fl (7.4-10.4); Monocytes # 0.3 K/mm3 (0.1-1.0); Monocytes % 7.1 % (1.7-9.3); Neutrophils # 3.3 K/mm3 (1.8-7.8); Neutrophils % 68.9 % (37.0-80.0); Platelet Count 171 K/mm3 (142-424); Red Blood Count 2.79 M/mm3 (4.20-5.40); Red Cell Distribution Width 17.3 % (11.5-17.5); White Blood Count 4.8 K/mm3 (4.8-10.8)
[2023-09-19 06:25] LABS: Chloride 106 mmol/L (98-107); Potassium 4.7 mmoL/L (3.5-5.1); Sodium 134 mmol/L (136-145)
[2023-09-19 06:27] LABS: Blood Urea Nitrogen 23 mg/dl (7-17); Creatinine Clearance Estimated 47 mL/min (50-200); Estimated Glomerular Filt Rate 53 ml/min (>60); GFR (African American) 64 ML/MIN (>60)
[2023-09-19 06:28] LABS: Alanine Aminotransferase 26 U/L (12-78); Albumin Level 2.9 g/dl (3.5-5.0); Albumin/Globulin Ratio 0.8 (1.1-1.8); Alkaline Phosphatase 113 U/L (38-126); Anion Gap 4.7 mEq/L (5-15); Aspartate Amino Transferase 36 U/L (14-36); Bilirubin,Total 0.3 mg/dl (0.2-1.3); Carbon Dioxide 28 mmol/L (22.0-30.0); Globulin 3.8 g/dL (1.3-3.2); Glucose 98 mg/dl (74-100); Total Protein,Serum 6.7 g/dl (6.3-8.2)
--- NOTE | 2023-09-19 08:16 | EXP.PHA.PN ---
Subjective *Date: 09/19/23 *Time: 08:16 Medical Exam Vital signs and Labs for Last 24 Hours: Vital Signs Temp Pulse Pulse Resp BP Pulse Ox O2 Del Method 09/19/23 07:00 Nasal Cannula 09/19/23 06:14 104 H 09/19/23 06:14 102 H 09/19/23 06:14 92 L Nasal Cannula 09/19/23 05:00 Nasal Cannula 09/19/23 04:00 98.2 F 100 H 18 104/54 L 96 Nasal Cannula 09/19/23 03:00 Nasal Cannula 09/19/23 01:00 Nasal Cannula 09/18/23 23:00 Nasal Cannula 09/18/23 21:00 Nasal Cannula 09/18/23 22:41 104 H 09/18/23 22:41 104 H 09/18/23 20:00 98.3 F 107 H 18 114/68 97 Nasal Cannula 09/18/23 21:07 Nasal Cannula 09/18/23 18:40 Nasal Cannula 09/18/23 18:32 107 H 09/18/23 18:32 107 H 09/18/23 18:32 90 L Nasal Cannula 09/18/23 17:00 Nasal Cannula 09/18/23 15:57 98.5 F 108 H 18 102/59 L 93 L Nasal Cannula 09/18/23 15:00 Nasal Cannula 09/18/23 13:00 Nasal Cannula 09/18/23 11:00 Nasal Cannula 09/18/23 09:00 Nasal Cannula 09/18/23 12:09 80 09/18/23 12:09 78 O2 Flow Rate 09/19/23 07:00 2 09/19/23 06:14 09/19/23 06:14 09/19/23 06:14 2 09/19/23 05:00 2 09/19/23 04:00 2 09/19/23 03:00 2 09/19/23 01:00 2 09/18/23 23:00 2 09/18/23 21:00 2 09/18/23 22:41 09/18/23 22:41 09/18/23 20:00 2 09/18/23 21:07 2 09/18/23 18:40 2 09/18/23 18:32 09/18/23 18:32 09/18/23 18:32 2 09/18/23 17:00 2 09/18/23 15:57 2 09/18/23 15:00 2 09/18/23 13:00 2 09/18/23 11:00 2 09/18/23 09:00 2 09/18/23 12:09 09/18/23 12:09 Intake and Output 09/18/23 09/19/23 09/19/23 23:59 07:59 15:59 Intake Total 988 / 1961 343 / 343 Output Total 0 / 0 0 / 0 Balance 988 / 1961 343 / 343 Intake: Intake, Oral Amount 240 / 840 Intake, Total IV Amount 748 / 1121 343 / 343 0.9 % Sodium Chloride 1000ML 1, 448 / 821 343 / 343 000 ml @ 75 mls/hr IV .[id number] [facility] Rx#:[id number] Azithromycin 500 mg In 0.9 % 250 / 250 Sodium Chloride 250 ml @ 250 mls/hr IV Q24H [facility] Rx#:[id number] Ceftriaxone Sodium 1 gm In 0.9 50 / 50 % Sodium Chloride 50 ml @ 100 mls/hr IV Q24H [facility] Rx#:[id number] Output: Output, Urine Amount 0 / 0 0 / 0 Other: Number of Unmeasured Voids 1 1 Weight 68.041 kg Patient Weight 09/19/23 23:59 Weight 68.041 kg Laboratory Results - last 24 hr 09/18/23 11:30: Fluid Source Thoracentesis fluid, Fluid Volume 1635.5, Fluid Appearance Cloudy, Fluid RBC (Auto) 11, Fld Tot Nucleated Cell 214, Fld Polynuclear WBCs % 39, Fld Mononuclear WBCs % 61 09/18/23 12:50: Lactate Dehydrogenase 177 L 09/19/23 05:55: WBC 4.8, RBC 2.79 L, Hgb 8.5 L, Hct 26.2 L, MCV 93.9, MCH 30.5, MCHC 32.4, RDW 17.3, Plt Count 171, MPV 9.3, Neut % (Auto) 68.9, Lymph % (Auto) 23.4, Atkinson % (Auto) 7.1, Eos % (Auto) 0.3, Baso % (Auto) 0.4, Neut # (Auto) 3.3, Lymph # (Auto) 1.1, Atkinson # (Auto) 0.3, Eos # (Auto) 0.0, Baso # (Auto) 0.0, Sodium 134 L, Potassium 4.7, Chloride 106, Carbon Dioxide 28, Anion Gap 4.7 L, BUN 23 H, Creatinine 1.00, Estimated Creat Clear 47, Estimated GFR 53 L, Est GFR ( Amer) 64 D, Glucose 98, Calcium 9.0, Magnesium 2.0 D, Total Bilirubin 0.3, AST 36, ALT 26, Alkaline Phosphatase 113, Total Protein 6.7, Albumin 2.9 L, Globulin 3.8 H, Albumin/Globulin Ratio 0.8 L I & O for Labs for Last 24 Hours: Intake & Output 09/16/23 09/17/23 09/18/23 09/19/23 23:59 23:59 23:59 23:59 Intake Total 1175 / 1775 1879 / 0 1960 343 / 343 Output Total 650 / 650 0 / 0 0 / 0 0 / 0 Balance 525 / 1125 1879 / 2359 343 / 343 Weight 66.224 kg 66.22 kg 67.041 kg 68.041 kg Microbiology Reports for the Last 24 Hours: Microbiology 09/15/23 15:30 Blood Blood Culture - Preliminary 09/15/23 15:23 Blood Blood Culture - Preliminary The patient's infection will respon
--- NOTE | 2023-09-19 08:17 | PC.NURSE ---
COURTESY NOTE: morning round completed on pt. pt denies needing assistance at this time. call janie within reach. Raiza SRNA
--- NOTE | 2023-09-19 08:52 | EXP.CARD.PN ---
Subjective Subjective Date: 09/19/23 Time: 08:53 Principal diagnosis: Pleural effusion Interval history: 83-year-old white female sitting at bedside in no acute distress. Still relates some exertional shortness of breath and mild chest discomfort yesterday after thoracentesis. Preliminary echocardiogram shows reduced ejection fraction. Official report is pending and will discuss with Dr. Serrano. Exam Data for Last 24 hours Vital signs and Labs for Last 24 Hours: Temp Pulse Resp BP Pulse Ox O2 Del Method O2 Flow Rate 97.6 F 97 H 18 113/70 99 Nasal Cannula 2 09/19/23 08:00 09/19/23 08:00 09/19/23 08:00 09/19/23 08:00 09/19/23 08:00 09/19/23 08:00 09/19/23 08:00 Laboratory Results - last 24 hr 09/18/23 11:30: Fluid Source Thoracentesis fluid, Fluid Volume 1635.5, Fluid Appearance Cloudy, Fluid RBC (Auto) 11, Fld Tot Nucleated Cell 214, Fld Polynuclear WBCs % 39, Fld Mononuclear WBCs % 61 09/18/23 12:50: Lactate Dehydrogenase 177 L 09/19/23 05:55: WBC 4.8, RBC 2.79 L, Hgb 8.5 L, Hct 26.2 L, MCV 93.9, MCH 30.5, MCHC 32.4, RDW 17.3, Plt Count 171, MPV 9.3, Neut % (Auto) 68.9, Lymph % (Auto) 23.4, [place] % (Auto) 7.1, Eos % (Auto) 0.3, Baso % (Auto) 0.4, Neut # (Auto) 3.3, Lymph # (Auto) 1.1, [place] # (Auto) 0.3, Eos # (Auto) 0.0, Baso # (Auto) 0.0, Sodium 134 L, Potassium 4.7, Chloride 106, Carbon Dioxide 28, Anion Gap 4.7 L, BUN 23 H, Creatinine 1.00, Estimated Creat Clear 47, Estimated GFR 53 L, Est GFR ( Amer) 64 D, Glucose 98, Calcium 9.0, Magnesium 2.0 D, Total Bilirubin 0.3, AST 36, ALT 26, Alkaline Phosphatase 113, Total Protein 6.7, Albumin 2.9 L, Globulin 3.8 H, Albumin/Globulin Ratio 0.8 L I & O for Last 24 hours: Intake & Output 09/16/23 09/17/23 09/18/23 09/19/23 11:59 11:59 11:59 11:59 Intake Total 450 / 450 1834 1571 / 1571 Output Total 1050 / 1050 0 / 0 0 / 0 0 / 0 Balance -600 / -600 1834 157 / 1571 Weight 145 lb 15.983 oz 145 lb 15.842 oz 147 lb 12.8 oz 150 lb 0.076 oz Microbiology Reports for the Last 24 Hours: Microbiology 09/15/23 15:30 Blood Blood Culture - Preliminary 09/15/23 15:23 Blood Blood Culture - Preliminary Constitutional Constitutional: no acute distress *Routine Respiratory Exam Respiratory: Present decreased breath sounds *Routine Cardiovascular Exam Cardiovascular: Present tachycardia Progress Note: A&P Assessment and plan (1) Shortness of breath: Status: Acute (2) Pleural effusion: Status: Acute (3) NSTEMI (non-ST elevated myocardial infarction): Status: Acute (4) Acute cystitis: Status: Acute (5) Hypomagnesemia: Status: Acute (6) Hypokalemia: Status: Acute Assessment and Plan Assessment and Plan for All Diagnoses:: 1. Right pleural effusion, s/p thoracentesis -fluid analysis pending 2. Elevated troponin/non-STEMI likely related to #1 -Echo pending -RV size increased with increased RVSP -Will diurese more with lasix and aldactone 3. History of lung cancer/tobacco use/COPD -Defer to pulmonary -On ceftriaxone and azithromycin pending cultures 4. Hypertension -Low blood pressure has slightly improved with discontinuation of lisinopril 5. Chronic anemia with history of esophageal AVMs related to radiation for lung cancer -consider transfusion if Hgb <8 6. Mild hyponatremia at 134 7. YUSRA, resolved 8. Tachycardia - start diltiazem for rate control. Monitor BP.
--- NOTE | 2023-09-19 09:37 | EXP.PULM.PN ---
Subjective *Date: 09/19/23 *Time: 10:51 Interval history: No acute respiratory vents overnight. Pulmonology Exam Inpatient Vital signs and Labs for Last 24 Hours: Temp Pulse Resp BP Pulse Ox O2 Del Method O2 Flow Rate 97.6 F 97 H 18 113/70 99 Nasal Cannula 2 09/19/23 08:00 09/19/23 08:00 09/19/23 08:00 09/19/23 08:00 09/19/23 08:00 09/19/23 09:00 09/19/23 09:00 Laboratory Results - last 24 hr 09/18/23 11:30: Fluid Source Thoracentesis fluid, Fluid Volume 1635.5, Fluid Appearance Cloudy, Fluid RBC (Auto) 11, Fld Tot Nucleated Cell 214, Fld Polynuclear WBCs % 39, Fld Mononuclear WBCs % 61 09/18/23 12:50: Lactate Dehydrogenase 177 L 09/19/23 05:55: WBC 4.8, RBC 2.79 L, Hgb 8.5 L, Hct 26.2 L, MCV 93.9, MCH 30.5, MCHC 32.4, RDW 17.3, Plt Count 171, MPV 9.3, Neut % (Auto) 68.9, Lymph % (Auto) 23.4, [place] % (Auto) 7.1, Eos % (Auto) 0.3, Baso % (Auto) 0.4, Neut # (Auto) 3.3, Lymph # (Auto) 1.1, [place] # (Auto) 0.3, Eos # (Auto) 0.0, Baso # (Auto) 0.0, Sodium 134 L, Potassium 4.7, Chloride 106, Carbon Dioxide 28, Anion Gap 4.7 L, BUN 23 H, Creatinine 1.00, Estimated Creat Clear 47, Estimated GFR 53 L, Est GFR ( Amer) 64 D, Glucose 98, Calcium 9.0, Magnesium 2.0 D, Total Bilirubin 0.3, AST 36, ALT 26, Alkaline Phosphatase 113, Total Protein 6.7, Albumin 2.9 L, Globulin 3.8 H, Albumin/Globulin Ratio 0.8 L I & O for Labs for Last 24 Hours: Intake & Output 09/16/23 09/17/23 09/18/23 09/19/23 23:59 23:59 23:59 23:59 Intake Total 1175 / 1775 1879 583 / 583 Output Total 650 / 650 0 / 0 0 / 0 0 / 0 Balance 525 / 1125 1879 583 / 583 Weight 145 lb 15.983 oz 145 lb 15.842 oz 147 lb 12.8 oz 150 lb 0.076 oz Microbiology Reports for the Last 24 Hours: Microbiology 09/15/23 15:30 Blood Blood Culture - Preliminary 09/15/23 15:23 Blood Blood Culture - Preliminary Constitutional: Present moderate distress Head: Present normocephalic and atraumatic ENT: Present normal exam, normal oropharynx and mucous membranes moist Neck: Present normal inspection and full ROM Respiratory: Present respiratory distress and able to speak in complete sentences; Absent wheezes or crackles Comment:: Improved aeration in right lower lung kee Cardiac: Present S1/S2, Tachycardia and radial pulses present GI: Present soft and distention; Absent tenderness or guarding Rectal (female): Present deferred (female): Present deferred Skin: Present intact; Absent cyanosis or jaundice Neuro: Present alert, awake and oriented x 3 Extremities: Present normal inspection; Absent clubbing or cyanosis Psychiatric: Present normal affect and cooperative Assessment and Plan *Assessment and plan (1) Acute respiratory failure with hypoxia: Status: Acute Category: Medical Code(s): J96.01 - Acute respiratory failure with hypoxia (2) Pleural effusion on right: Status: Acute Category: Medical Code(s): J90 - Pleural effusion, not elsewhere classified Plan Ms. 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 Adjacent atelectasis on the right lower lung eke noted. No significant airspace disease appreciated. Mild leukopenia upon admission improving. YUSRA. Patient on admission was initiated on ceftriaxone azithromycin along with home inhaler therapy nebulization therapies. On initial examination patient needing new oxygen garments. In respiratory distress. Decreased breath sounds right lung field. No significant wheezing noted. Interval update: No acute respiratory vents overnight. Status post thoracentesis with removal of 1690ml Fluid. Cardiology c
--- NOTE | 2023-09-19 09:38 | XR_ITS ---
FINAL REPORT CLINICAL HISTORY: Hypoxia COMPARISON: 09/17/2023 FINDINGS: The heart is mildly enlarged. The mediastinum is within normal limits. There is abnormal opacity in the right perihilar region and right lower lobe probably due to scarring. The previous moderate right pleural effusion has resolved. There is no pneumothorax. The bony thorax is intact. IMPRESSION: Interval resolution of previous right pleural effusion. Reviewed, Interpreted and Dictated by Manuel Gordillo MD Transcribed by Ramos Valentino Authenticated and [facility]
--- NOTE | 2023-09-19 12:04 | PC.NURSE ---
COURTESY NOTE: afternoon round completed on pt. pt denies needing assistance at this time. call janie within reach. Samantha SRNA
[2023-09-19 12:05] LABS: NT Pro Brain Natriuretic Pep. 3880 pg/mL (0-450)
--- NOTE | 2023-09-19 12:56 | EXP.ACUTE.PN ---
Subjective *Date: 09/19/23 *Time: 13:07 Interval history: Patient still dyspneic this morning. On 2 L nasal cannula however. Breathing treatment while examining patient today. Crackles in right lung field that are diffuse. Tolerating p.o. intake. Afebrile. No chest pain, nausea, vomiting. Medical Exam Vital signs and Labs for Last 24 Hours: Vital Signs Temp Pulse Pulse Resp BP Pulse Ox O2 Del Method 09/19/23 11:20 89 09/19/23 11:20 88 09/19/23 11:00 Nasal Cannula 09/19/23 08:00 Nasal Cannula 09/19/23 09:00 Nasal Cannula 09/19/23 08:00 97.6 F 97 H 18 113/70 99 Nasal Cannula 09/19/23 07:00 Nasal Cannula 09/19/23 06:14 104 H 09/19/23 06:14 102 H 09/19/23 06:14 92 L Nasal Cannula 09/19/23 05:00 Nasal Cannula 09/19/23 04:00 98.2 F 100 H 18 104/54 L 96 Nasal Cannula 09/19/23 03:00 Nasal Cannula 09/19/23 01:00 Nasal Cannula 09/18/23 23:00 Nasal Cannula 09/18/23 21:00 Nasal Cannula 09/18/23 22:41 104 H 09/18/23 22:41 104 H 09/18/23 20:00 98.3 F 107 H 18 114/68 97 Nasal Cannula 09/18/23 21:07 Nasal Cannula 09/18/23 18:40 Nasal Cannula 09/18/23 18:32 107 H 09/18/23 18:32 107 H 09/18/23 18:32 90 L Nasal Cannula 09/18/23 17:00 Nasal Cannula 09/18/23 15:57 98.5 F 108 H 18 102/59 L 93 L Nasal Cannula 09/18/23 15:00 Nasal Cannula 09/18/23 13:00 Nasal Cannula O2 Flow Rate 09/19/23 11:20 09/19/23 11:20 09/19/23 11:00 2 09/19/23 08:00 2 09/19/23 09:00 2 09/19/23 08:00 2 09/19/23 07:00 2 09/19/23 06:14 09/19/23 06:14 09/19/23 06:14 2 09/19/23 05:00 2 09/19/23 04:00 2 09/19/23 03:00 2 09/19/23 01:00 2 09/18/23 23:00 2 09/18/23 21:00 2 09/18/23 22:41 09/18/23 22:41 09/18/23 20:00 2 09/18/23 21:07 2 09/18/23 18:40 2 09/18/23 18:32 09/18/23 18:32 09/18/23 18:32 2 09/18/23 17:00 2 09/18/23 15:57 2 09/18/23 15:00 2 09/18/23 13:00 2 Intake and Output 09/18/23 09/19/23 09/19/23 23:59 07:59 15:59 Intake Total 988 / 1961 343 / 583 240 / 583 Output Total 0 / 0 0 / 0 0 / 0 Balance 988 / 1961 343 / 583 240 / 583 Intake: Intake, Oral Amount 240 / 840 240 / 240 Intake, Total IV Amount 748 / 1121 343 / 343 0.9 % Sodium Chloride 1000ML 1, 448 / 821 343 / 343 000 ml @ 75 mls/hr IV .[id number] [facility] Rx#:[id number] Azithromycin 500 mg In 0.9 % 250 / 250 Sodium Chloride 250 ml @ 250 mls/hr IV Q24H [facility] Rx#:[id number] Ceftriaxone Sodium 1 gm In 0.9 50 / 50 % Sodium Chloride 50 ml @ 100 mls/hr IV Q24H [facility] Rx#:[id number] Output: Output, Urine Amount 0 / 0 0 / 0 0 / 0 Other: Number of Unmeasured Voids 1 1 1 Weight 68.041 kg Patient Weight 09/19/23 23:59 Weight 68.041 kg Laboratory Results - last 24 hr 09/18/23 11:30: Fluid Source Thoracentesis fluid, Fluid Volume 1635.5, Fluid Appearance Cloudy, Fluid RBC (Auto) 11, Fld Tot Nucleated Cell 214, Fld Polynuclear WBCs % 39, Fld Mononuclear WBCs % 61 09/18/23 12:50: Lactate Dehydrogenase 177 L 09/19/23 05:55: WBC 4.8, RBC 2.79 L, Hgb 8.5 L, Hct 26.2 L, MCV 93.9, MCH 30.5, MCHC 32.4, RDW 17.3, Plt Count 171, MPV 9.3, Neut % (Auto) 68.9, Lymph % (Auto) 23.4, [place] % (Auto) 7.1, Eos % (Auto) 0.3, Baso % (Auto) 0.4, Neut # (Auto) 3.3, Lymph # (Auto) 1.1, [place] # (Auto) 0.3, Eos # (Auto) 0.0, Baso # (Auto) 0.0, Sodium 134 L, Potassium 4.7, Chloride 106, Carbon Dioxide 28, Anion Gap 4.7 L, BUN 23 H, Creatinine 1.00, Estimated Creat Clear 47, Estimated GFR 53 L, Est GFR ( Amer) 64 D, Glucose 98, Calcium 9.0, Magnesium 2.0 D, Total Bilirubin 0.3, AST 36, ALT 26, Alkaline Phosphatase 113, NT-Pro-B Natriuret Pep 3880 H, Total Protein 6.7, Albumin 2.9 L, Globulin 3.8 H, Albumin/Globulin Ratio 0.8 L I & O for Labs for Last 24 Hours: Intake & Output 09/16/2309/17
[2023-09-19 14:13] LABS: Albumin, Body Fluid 1.7 g/dL (Not Estab.); Glucose, Body Fluid 94 mg/dL (.); LD, Body Fluid 103 IU/L (.); Protein, Body Fluid 3.6 g/dL (.)
--- NOTE | 2023-09-19 17:06 | PC.NURSE ---
Pt alert and oriented x4. Pt ambulates to the restroom independently. Pt remains on 2L NC, O2 sat >90%. Pt lung sounds clear, fine crackles heard in right lower lobe. Abdomen soft and nontender, bowel sounds active. Pt has had no complaints throughout shift. Call light in reach.
[2023-09-20] VITALS: PULSE 80
[2023-09-20 04:00] VITALS: BP 93/55; PULSE 95; RESP 18; TEMP 36.5; O2SAT 94; BMI 27.8
[2023-09-20 06:16] VITALS: PULSE 86; PULSE 87; O2SAT 90
[2023-09-20 06:30] LABS: Chloride 102 mmol/L (98-107); Potassium 4.8 mmoL/L (3.5-5.1); Sodium 133 mmol/L (136-145)
[2023-09-20 06:33] LABS: Alanine Aminotransferase 27 U/L (12-78); Albumin Level 3.1 g/dl (3.5-5.0); Albumin/Globulin Ratio 0.8 (1.1-1.8); Alkaline Phosphatase 116 U/L (38-126); Anion Gap 7.8 mEq/L (5-15); Aspartate Amino Transferase 34 U/L (14-36); Bilirubin,Total 0.3 mg/dl (0.2-1.3); Blood Urea Nitrogen 24 mg/dl (7-17); Calcium 9.1 mg/dl (8.4-10.2); Carbon Dioxide 28 mmol/L (22.0-30.0); Creatinine Clearance Estimated 45 mL/min (50-200); Estimated Glomerular Filt Rate 48 ml/min (>60); GFR (African American) 58 ML/MIN (>60); Globulin 3.7 g/dL (1.3-3.2); Glucose 96 mg/dl (74-100); Total Protein,Serum 6.8 g/dl (6.3-8.2)
[2023-09-20 07:41] LABS: Basophils % 0.1 % (0.1-2.0); Eosinophils % 0.4 % (0.1-12.0); Hematocrit 26.3 % (37.0-47.0); Hemoglobin 8.5 g/dL (12.2-16.2); Lymphocytes # 1.1 K/mm3 (0.7-4.5); Lymphocytes % 23.3 % (10-50); Mean Corpuscular HGB Conc 32.4 g/dL (31.8-35.4); Mean Corpuscular Hemoglobin 30.5 pg (27.0-31.2); Mean Corpuscular Volume 94.1 fl (81-99); Mean Platelet Volume 9.3 fl (7.4-10.4); Monocytes # 0.4 K/mm3 (0.1-1.0); Neutrophils # 3.3 K/mm3 (1.8-7.8); Neutrophils % 68.2 % (37.0-80.0); Platelet Count 179 K/mm3 (142-424); Red Cell Distribution Width 17.2 % (11.5-17.5); White Blood Count 4.9 K/mm3 (4.8-10.8)
--- NOTE | 2023-09-20 07:44 | EXP.DC.SUM ---
General Admission date:: 09/15/23 Discharge date: 09/20/23 HPI HPI HPI: This is a very pleasant 83-year-old female with past medical history of COPD, LURDES on CPAP, HTN, HLD, prior TIA, JENNIFER, hypothyroidism, chronic back pain and history of lung cancer postradiation and chemo who presents to the emergency department today with complaints of dyspnea on exertion and cough. She reports she has been feeling bad for approximately 6 weeks now but has developed worsening shortness of breath of the last several days. She denies any home oxygen use but states that she has felt winded. She reports shortness of breath is worse with exertion. She denies any fever, chills or any sick contacts. She does endorse nausea vomiting several weeks ago but has not had anything acutely. She denies any dysuria. She reports chronic back pain but no new neurological symptoms or trauma. Emergency Department workup significant for large pleural effusion of the right lung field noted on CTA. Negative for PE. Also notable for right lower lobe opacity that could represent infection. Laboratory evaluation notable for potassium of 2.8, creatinine of 1.1, elevated troponin of 0.05, proBNP of 2400 COVID and flu negative. Urinalysis with positive nitrite, +1 leuk esterase and +3 bacteria. Upon arrival to emergency department she was noted to be wheezing on exam and hypoxic requiring 2 L nasal cannula. She was medicated in the emergency department with nebulizer treatments, steroids, azithromycin and Rocephin and admitted to the hospitalist service for further evaluation Hospital Course Hospital Course Hospital Course: Patient is a 83-year-old female with past medical history of hypertension hyperlipidemia COPD presented to hospital with shortness of breath. Found to have effusion on chest imaging. Admitted to medicine for further management. Status post thoracentesis with removal of 1.7 L performed 09/18/2023. Pulmonology and cardiology were consulted. Has been requiring supplemental oxygen during admission. Weaned to room air on day of discharge. Stable for discharge home with close follow-up. Plan to follow with cardiology and pulmonology. Cytology still pending. Continue antibiotics orally. Problems addressed during hospitalization as follows: Acute hypoxemic respiratory failure Pneumonia causing COPD exacerbation Right-sided pleural effusion -Presented with large right-sided pleural effusion and respiratory failure. Pulmonology and cardiology were consulted. Patient was treated with thoracentesis on 09/18 with removal of 1.7 L. Cytology still pending at time of discharge. Patient initiated on azithromycin and ceftriaxone during admission. Transition to Augmentin at time of discharge to complete 7 more days of therapy. Treated with DuoNebs and Stiolto during admission. Able to wean to room air by day of discharge. No indication for further steroids. Close follow-up with subspecialists in the coming weeks. Pleural effusion consistent with exudative on fluid studies. Suspect secondary to her lung cancer. Fluid culture was negative at time of discharge. Pericardial effusion Heart failure with preserved ejection fraction Tachycardia Type II NSTEMI related to pleural effusion and respiratory failure -Elevated RVSP, BNP elevated at 3880 on admission. Patient was treated with diuresis. Continue diuretics at time of discharge. Started on diltiazem for tachycardia. Will discontinue lisinopril. 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 Hemoglobin 8.5 on day of discharge. Acute cystitis: UA positive for leuk esterase, nitrate, bacteria. Urine culture showing E. coli. No sensitivities by day of discharge. Has completed 5 days of ceftriaxone. Will complete 7 of Augmentin. Follow culture in case of need for adjustment of regimen. Given clinical improvement h
[2023-09-20 07:46] VITALS: BP 100/54; PULSE 102; RESP 17; TEMP 36.9; O2SAT 95
[2023-09-20 08:12] LABS: Magnesium 1.8 mg/dl (1.6-2.3)
--- NOTE | 2023-09-20 08:34 | EXP.CARD.PN ---
Subjective Subjective Date: 09/20/23 Time: 08:34 Principal diagnosis: Pleural effusion Interval history: 83-year-old white female at bedside in no acute distress. Still no bowel movement which is likely the cause of her abdominal discomfort. Breathing has improved some since the thoracentesis. Chest x-ray shows resolution of the right pleural effusion after thoracentesis. Patient still concerned with heart rate variability when she is up moving around noting that her heart rate gets up to 110 bpm after going to the bathroom. It has improved since starting diltiazem yesterday Echo report: Normal biventricular systolic function. Marked increase in LV wall thickness (IVSd 1.5 cm). Mild RV dilation Biatrial dilatation. Moderate MR. Moderate to severe TR. Mild AI. Elevated RVSP 30-35 mmHg. Small, circumferential pericardial effusion. Due to marked increased LV wall thickness and biatrial dilatation, further evaluation for amyloidosis is recommended (PYP scan, cardiac MRI [amyloidosis protocol], and lab testing). Electronically signed by : Maggie Herrera MD 09/19/2023 23:50:57 Exam Data for Last 24 hours Vital signs and Labs for Last 24 Hours: Temp Pulse Resp BP Pulse Ox O2 Del Method O2 Flow Rate 98.4 F 102 H 17 100/54 L 95 Nasal Cannula 2 09/20/23 07:46 09/20/23 07:46 09/20/23 07:46 09/20/23 07:46 09/20/23 07:46 09/20/23 07:46 09/20/23 07:46 FiO2 28 09/19/23 18:33 Laboratory Results - last 24 hr 09/18/23 11:30: Fluid Glucose 94, Fluid Total Protein 3.6, Fluid Albumin 1.7, Fluid LDH 103 09/19/23 05:55: NT-Pro-B Natriuret Pep 3880 H 09/20/23 05:43: WBC 4.9, RBC 2.80 L, Hgb 8.5 L, Hct 26.3 L, MCV 94.1, MCH 30.5, MCHC 32.4, RDW 17.2, Plt Count 179, MPV 9.3, Neut % (Auto) 68.2, Lymph % (Auto) 23.3, [place] % (Auto) 8.0, Eos % (Auto) 0.4, Baso % (Auto) 0.1, Neut # (Auto) 3.3, Lymph # (Auto) 1.1, [place] # (Auto) 0.4, Eos # (Auto) 0.0, Baso # (Auto) 0.0, Sodium 133 L, Potassium 4.8, Chloride 102, Carbon Dioxide 28, Anion Gap 7.8, BUN 24 H, Creatinine 1.10 H, Estimated Creat Clear 45, Estimated GFR 48 L, Est GFR ( Amer) 58 L, Glucose 96, Calcium 9.1, Magnesium 1.8, Total Bilirubin 0.3, AST 34, ALT 27, Alkaline Phosphatase 116, Total Protein 6.8, Albumin 3.1 L, Globulin 3.7 H, Albumin/Globulin Ratio 0.8 L I & O for Last 24 hours: Intake & Output 09/17/23 09/18/23 09/19/23 09/20/23 11:59 11:59 11:59 11:59 Intake Total 1834 / 5 1982 1571 / 1571 880 / 880 Output Total 0 / 0 0 / 0 0 / 0 0 / 0 Balance 1835 / 1835 1982 1571 / 1571 880 / 880 Weight 145 lb 15.842 oz 147 lb 12.8 oz 150 lb 0.076 oz 156 lb 14.4 oz Microbiology Reports for the Last 24 Hours: Microbiology 09/18/23 11:30 Thoracic Fluid Gram Stain - Final 09/18/23 11:30 Thoracic Fluid Body Fluid Culture - Preliminary 09/15/23 15:30 Blood Blood Culture - Preliminary 09/15/23 15:23 Blood Blood Culture - Preliminary Constitutional Constitutional: no acute distress *Routine Respiratory Exam Respiratory: Present crackles *Routine Cardiovascular Exam Cardiovascular: Present RRR Progress Note: A&P Assessment and plan (1) Acute respiratory failure with hypoxia: Status: Acute (2) Pleural effusion: Status: Acute (3) NSTEMI (non-ST elevated myocardial infarction): Status: Acute (4) Acute cystitis: Status: Acute (5) Hypomagnesemia: Status: Acute (6) Hypokalemia: Status: Acute Assessment and Plan Assessment and Plan for All Diagnoses:: 1. Right pleural effusion, s/p thoracentesis -fluid analysis pending 2. Elevated troponin/non-STEMI likely related to #1 -Echo report noted above with normal EF. -RV size increased with increased RVSP -Continue lasix and aldactone 3. History of lung cancer/tobacco use/COPD -Defer to pulmonary -On ceftriaxone and azithromycin with final blood, urine and respiratory cultures negative. 4. Hypertension -Low blood pressure has slightly
[2023-09-20 09:05] VITALS: O2SAT 91
--- NOTE | 2023-09-20 09:26 | PC.NURSE ---
Pt is room air at this time, O2 sat 91%.
--- NOTE | 2023-09-20 09:36 | EXP.PULM.PN ---
Subjective *Date: 09/20/23 *Time: 11:54 Interval history: No acute respiratory vents overnight. Patient admits continued improvement in her respiratory symptoms. Pulmonology Exam Inpatient Vital signs and Labs for Last 24 Hours: Temp Pulse Resp BP Pulse Ox O2 Del Method O2 Flow Rate 98.4 F 102 H 17 100/54 L 91 L Room Air 2 09/20/23 07:46 09/20/23 07:46 09/20/23 07:46 09/20/23 07:46 09/20/23 09:05 09/20/23 09:05 09/20/23 08:00 FiO2 28 09/19/23 18:33 Laboratory Results - last 24 hr 09/18/23 11:30: Fluid Glucose 94, Fluid Total Protein 3.6, Fluid Albumin 1.7, Fluid LDH 103 09/19/23 05:55: NT-Pro-B Natriuret Pep 3880 H 09/20/23 05:43: WBC 4.9, RBC 2.80 L, Hgb 8.5 L, Hct 26.3 L, MCV 94.1, MCH 30.5, MCHC 32.4, RDW 17.2, Plt Count 179, MPV 9.3, Neut % (Auto) 68.2, Lymph % (Auto) 23.3, [place] % (Auto) 8.0, Eos % (Auto) 0.4, Baso % (Auto) 0.1, Neut # (Auto) 3.3, Lymph # (Auto) 1.1, [place] # (Auto) 0.4, Eos # (Auto) 0.0, Baso # (Auto) 0.0, Sodium 133 L, Potassium 4.8, Chloride 102, Carbon Dioxide 28, Anion Gap 7.8, BUN 24 H, Creatinine 1.10 H, Estimated Creat Clear 45, Estimated GFR 48 L, Est GFR ( Amer) 58 L, Glucose 96, Calcium 9.1, Magnesium 1.8, Total Bilirubin 0.3, AST 34, ALT 27, Alkaline Phosphatase 116, Total Protein 6.8, Albumin 3.1 L, Globulin 3.7 H, Albumin/Globulin Ratio 0.8 L I & O for Labs for Last 24 Hours: Intake & Output 09/17/23 09/18/23 09/19/23 09/20/23 23:59 23:59 23:59 23:59 Intake Total 1879 993 / 993 470 / 470 Output Total 0 / 0 0 / 0 0 / 0 0 / 0 Balance 1879 993 / 993 470 / 470 Weight 145 lb 15.842 oz 147 lb 12.8 oz 150 lb 0.076 oz 156 lb 14.4 oz Microbiology Reports for the Last 24 Hours: Microbiology 09/18/23 11:30 Thoracic Fluid Gram Stain - Final 09/18/23 11:30 Thoracic Fluid Body Fluid Culture - Preliminary 09/15/23 15:30 Blood Blood Culture - Preliminary 09/15/23 15:23 Blood Blood Culture - Preliminary Constitutional: Present moderate distress Head: Present normocephalic and atraumatic ENT: Present normal exam, normal oropharynx and mucous membranes moist Neck: Present normal inspection and full ROM Respiratory: Present respiratory distress and able to speak in complete sentences; Absent wheezes or crackles Comment:: Improved aeration in right lower lung kee Cardiac: Present S1/S2, Tachycardia and radial pulses present GI: Present soft and distention; Absent tenderness or guarding Rectal (female): Present deferred (female): Present deferred Skin: Present intact; Absent cyanosis or jaundice Neuro: Present alert, awake and oriented x 3 Extremities: Present normal inspection; Absent clubbing or cyanosis Psychiatric: Present normal affect and cooperative Assessment and Plan *Assessment and plan (1) Acute respiratory failure with hypoxia: Status: Acute Category: Medical Code(s): J96.01 - Acute respiratory failure with hypoxia (2) Pleural effusion on right: Status: Acute Category: Medical Code(s): J90 - Pleural effusion, not elsewhere classified Plan Ms. 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 Adjacent atelectasis on the right lower lung kee noted. No significant airspace disease appreciated. Mild leukopenia upon admission improving. YUSRA. Patient on admission was initiated on ceftriaxone azithromycin along with home inhaler therapy nebulization therapies. On initial examination patient needing new oxygen garments. In respiratory distress. Decreased breath sounds right lung field. No significant wheezing noted. Interval update: No acute r
[2023-09-20 12:50] VITALS: PULSE 87
--- NOTE | 2023-09-21 13:10 | CARE MANAGER ---
Contacted patient related to hospital discharge. She states she is still getting yellow stuff up when she coughs, but is taking her antibiotic. She picked up her other medications as well. She thought she was getting nebulizer at home, but didn't. Reviewed notes and looks like pulmonology considered nebulizers. Patient says she doesn't think she needs them, but if she is worse tomorrow she will call pulmonology. AARON Leone
== END 2023-09-20 14:00 | disposition home or self-care (01) | DRG 193 ==
LOC: ER 17:02 → 2ND 17:14
PROVIDERS: Internal Medicine; Internal Medicine Pulmonary Disease; Nurse Practitioner Acute Care; Physician Assistant; Admitting Provider Internal Medicine Adolescent Medicine; Emergency Provider Emergency Medicine; PCP Family Medicine; Visit Provider Internal Medicine Adolescent Medicine
DX: J18.9 Pneumonia, unspecified organism (principal); I21.A1 Myocardial infarction type 2; J96.01 Acute respiratory failure with hypoxia; J90 Pleural effusion, not elsewhere classified; N30.00 Acute cystitis without hematuria; J44.0 Chronic obstructive pulmonary disease with (acute) lower respiratory infection; I31.39 Other pericardial effusion (noninflammatory); E83.42 Hypomagnesemia; E87.6 Hypokalemia; J98.4 Other disorders of lung; G47.33 Obstructive sleep apnea (adult) (pediatric); I10 Essential (primary) hypertension; E78.5 Hyperlipidemia, unspecified; Z86.73 Personal history of transient ischemic attack (TIA), and cerebral infarction without residual deficits; E03.9 Hypothyroidism, unspecified; F41.9 Anxiety disorder, unspecified; G89.29 Other chronic pain; Z86.718 Personal history of other venous thrombosis and embolism; Z87.891 Personal history of nicotine dependence; Z85.118 Personal history of other malignant neoplasm of bronchus and lung; D50.9 Iron deficiency anemia, unspecified; Z79.01 Long term (current) use of anticoagulants
CPT/HCPCS: 32555; 36415; 71045; 71046; 71275; 74018; 80053; 81001; 82042; 82803; 82945; 83605; 83615; 83735; 83880; 84145; 84155; 84436; 84443; 84484; 85025; 85378; 87040; 87070; 87086; 87205; 87636; 87807; 88112; 88305; 89051; 93005; 93306; 94640; 94761; 97162; 97165; 99291; J0456; J0696; J3475; Q9967

== ENCOUNTER 2023-09-25 11:10 | Outpatient (CLI) | payer MEDICARE, OTHER, SELFPAY ==
[2023-09-25 11:32] VITALS: BP 128/68; PULSE 94; RESP 18; O2SAT 95
[2023-09-25 12:00] VITALS: BP 119/67; PULSE 96; RESP 19; O2SAT 95
== END 2023-09-25 12:00 | disposition home or self-care (01) ==
LOC: INF 11:12
PROVIDERS: PCP Family Medicine; Visit Provider Internal Medicine Gastroenterology
DX: D50.8 Other iron deficiency anemias (principal); K90.9 Intestinal malabsorption, unspecified
CPT/HCPCS: 96374; Q0138

== ENCOUNTER → 2023-09-27 15:44 | Outpatient (CLI) | payer MEDICARE, OTHER, SELFPAY ==
--- NOTE | 2023-09-27 15:52 | XR_ITS ---
FINAL REPORT CLINICAL HISTORY: SOB COMPARISON: 09/19/2023 FINDINGS: TWO-VIEW CHEST The heart size is normal. The mediastinum is normal. There is volume loss in the right hemithorax. There is scarring in the right perihilar region. The left lung is clear. There is no pneumothorax. IMPRESSION: No acute cardiopulmonary process. Reviewed, Interpreted and Dictated by Manuel Gordillo MD Transcribed by Mireya Hale Authenticated and [facility]
[2023-09-27 17:13] LABS: Basophils % 0.6 % (0.1-2.0); Eosinophils % 0.6 % (0.1-12.0); Hematocrit 31.6 % (37.0-47.0); Lymphocytes # 1.3 K/mm3 (0.7-4.5); Lymphocytes % 43.6 % (10-50); Mean Corpuscular HGB Conc 31.8 g/dL (31.8-35.4); Mean Corpuscular Hemoglobin 30.4 pg (27.0-31.2); Mean Corpuscular Volume 95.7 fl (81-99); Mean Platelet Volume 9.2 fl (7.4-10.4); Monocytes # 0.3 K/mm3 (0.1-1.0); Monocytes % 8.6 % (1.7-9.3); Neutrophils # 1.3 K/mm3 (1.8-7.8); Neutrophils % 46.5 % (37.0-80.0); Platelet Count 173 K/mm3 (142-424); Red Cell Distribution Width 17.4 % (11.5-17.5); White Blood Count 2.9 K/mm3 (4.8-10.8)
[2023-09-27 17:41] LABS: Alanine Aminotransferase 28 U/L (12-78); Albumin Level 3.6 g/dl (3.5-5.0); Alkaline Phosphatase 114 U/L (38-126); Aspartate Amino Transferase 42 U/L (14-36); Bilirubin,Direct 0.1 mg/dl (0.0-0.4); Bilirubin,Indirect 0.6 mg/dL (0.0-0.9); Bilirubin,Total 0.7 mg/dl (0.2-1.3); Bilirubin,Unconjugated 0.6 mg/dL (0.0-1.1); Chol/HDL Ratio 2.5 (1-3.5); Cholesterol 82 mg/dl (140-200); HDL Cholesterol 33 mg/dl (40-60); Magnesium 1.5 mg/dl (1.6-2.3); Total Protein,Serum 7.9 g/dl (6.3-8.2); Triglycerides 136 mg/dl (30-150); VLDL Cholesterol 27 mg/dL (0-40)
[2023-09-27 17:53] LABS: Direct LDL Cholesterol 31.81 mg/dL (100-129)
[2023-09-27 17:58] LABS: Free T4 (Free Thyroxine) 1.51 ng/dl (0.78-2.19)
[2023-09-27 18:12] LABS: Thyroid Stimulating Hormone 5.33 uIU/mL (0.465-4.68)
[2023-09-29 14:11] LABS: Albumin 3.1 g/dL (2.9-4.4); Alpha-1-Globulin 0.3 g/dL (0.0-0.4); Alpha-2-Globulin 0.7 g/dL (0.4-1.0); Gamma Globulin 2.5 g/dL (0.4-1.8); Protein, Total 7.4 g/dL (6.0-8.5)
[2023-09-30 16:01] LABS: Immunoglobulin A, Qn 10 mg/dL (64-422); Immunoglobulin G, Qn 2998 mg/dL (586-1602); Immunoglobulin M, Qn 6 mg/dL (26-217)
[2023-10-03 15:15] LABS: PDF SCANNED IMAGE
[2023-10-03 15:16] LABS: Free Kappa Lt Chains 191.6; Free Lambda Lt Chains 9.5
== END ==
LOC: LAB 15:46
PROVIDERS: PCP Family Medicine; Visit Provider Internal Medicine
DX: E78.5 Hyperlipidemia, unspecified (principal); I10 Essential (primary) hypertension; I21.4 Non-ST elevation (NSTEMI) myocardial infarction; I65.29 Occlusion and stenosis of unspecified carotid artery; J90 Pleural effusion, not elsewhere classified; R00.2 Palpitations; R06.00 Dyspnea, unspecified; R93.1 Abnormal findings on diagnostic imaging of heart and coronary circulation; R06.02 Shortness of breath; Z87.891 Personal history of nicotine dependence
CPT/HCPCS: 36415; 71046; 80061; 80076; 82784; 83735; 83883; 84155; 84165; 84439; 84443; 85025; 86334; 93270

== ENCOUNTER 2023-09-29 14:04 | Outpatient (CLI) | payer MEDICARE, OTHER, SELFPAY ==
[2023-09-29 14:48] VITALS: BP 93/52; PULSE 96; RESP 18; O2SAT 94
[2023-09-29] MEDS: SODIUM CHLORIDE 0.9% 50ML BAG 50 ML IV (14:48)
[2023-09-29] MEDS: ferumoxytoL 510 MG in 0.9 % SODIUM CHLORIDE 50 ML 268 MG IV (14:48)
[2023-09-29 15:10] VITALS: BP 100/56; PULSE 98; RESP 18; O2SAT 95
[2023-09-29 15:10] LABS: Total Protein,Serum 8.5 g/dl (6.3-8.2)
[2023-09-29 15:11] LABS: Blood Urea Nitrogen 21 mg/dl (7-17); Carbon Dioxide 22 mmol/L (22.0-30.0); Chloride 98 mmol/L (98-107); Estimated Glomerular Filt Rate 39 ml/min (>60); GFR (African American) 48 ML/MIN (>60)
[2023-09-29 15:12] LABS: Anion Gap 12.9 mEq/L (5-15); Calcium 8.2 mg/dl (8.4-10.2); Glucose 101 mg/dl (74-100); Potassium 3.9 mmoL/L (3.5-5.1); Sodium 129 mmol/L (136-145)
[2023-10-04 13:09] LABS: Albumin, U 43.2 % (.); Alpha-1-Globulin, U 4.9 % (.); Alpha-2-Globulin, U 4.6 % (.); Beta Globulin, U 20.5 % (.); Gamma Globulin, U 26.9 % (.); M-Spike, % 16.1 % (Not Observed); Protein,Total,Urine 4.4 mg/dL (Not Estab.)
[2023-10-04 13:09] LABS: Albumin, U 39.6 % (.); Alpha-1-Globulin, U 7.1 % (.); Alpha-2-Globulin, U 13.9 % (.); Beta Globulin, U 17.7 % (.); Gamma Globulin, U 21.7 % (.); M-Spike, % 10.1 % (Not Observed); M-Spike, mg/24 hr 6.3 mg/24 hr (Not Observed); Prot,24hr calculated 62 mg/24 hr (30-150); Protein,Total,Urine 4.8 mg/dL (Not Estab.)
[2023-10-08 08:29] LABS: PDF: SCANNED IMAGE
[2023-10-08 08:29] LABS: PDF: SCANNED IMAGE
== END 2023-09-29 15:10 | disposition home or self-care (01) ==
LOC: INF 14:06
PROVIDERS: Internal Medicine; Physician Assistant; PCP Family Medicine; Visit Provider Internal Medicine Gastroenterology
DX: E78.5 Hyperlipidemia, unspecified (principal); I10 Essential (primary) hypertension; I21.4 Non-ST elevation (NSTEMI) myocardial infarction; I65.29 Occlusion and stenosis of unspecified carotid artery; J90 Pleural effusion, not elsewhere classified; R00.2 Palpitations; R93.1 Abnormal findings on diagnostic imaging of heart and coronary circulation; R06.02 Shortness of breath; R80.9 Proteinuria, unspecified; R06.09 Other forms of dyspnea; Z79.899 Other long term (current) drug therapy
CPT/HCPCS: 80048; 84155; 84156; 84166; 86335; 96374; Q0138

== ENCOUNTER 2023-10-24 06:38 | Outpatient (CLI) | payer MEDICARE, OTHER, SELFPAY ==
--- NOTE | 2023-10-24 06:57 | CT_ITS ---
FINAL REPORT CLINICAL HISTORY: multiple myeloma ct guided bone marrow biopsy FINDINGS: CT GUIDED BONE MARROW BIOPSY. HISTORY: Multiple myeloma. ATTENDING PHYSICIAN: Dr. Garcia PHYSICIAN [employer] MANAGER: Vikas Villagran PA-C PROCEDURE: After informed consent was obtained and a timeout was performed, the patient was prepped and draped in usual sterile fashion over the left posterior iliac crest. Utilizing local anesthesia and sterile technique with a bone marrow biopsy system, access to the marrow was obtained. And marrow aspirate and core samples were obtained. The patient received no procedural sedation. The patient tolerated the procedure well and left the department in good condition. IMPRESSION: Status post CT guided biopsy of the bone marrow without immediate complication. Films reviewed , interpreted and dictated by Dr. Garcia Transcribed by Vikas Villagran PA-C. Reviewed, Interpreted and Dictated by Maicol Garcia III, MD Transcribed by AFTAB Crespo Authenticated and [facility]
[2023-10-24 08:00] VITALS: BMI 25.7
[2023-10-24 08:13] VITALS: BP 114/63; PULSE 90; RESP 20; TEMP 36.4; O2SAT 95
[2023-10-24 08:14] LABS: Basophils % 0.2 % (0.1-2.0); Eosinophils # 0.1 K/mm3 (0.0-0.4); Eosinophils % 1.8 % (0.1-12.0); Hematocrit 37.2 % (37.0-47.0); Hemoglobin 11.4 g/dL (12.2-16.2); Lymphocytes # 1.5 K/mm3 (0.7-4.5); Lymphocytes % 35.6 % (10-50); Mean Corpuscular HGB Conc 30.6 g/dL (31.8-35.4); Mean Corpuscular Hemoglobin 31.1 pg (27.0-31.2); Mean Corpuscular Volume 101.6 fl (81-99); Mean Platelet Volume 11.3 fl (7.4-10.4); Monocytes # 0.3 K/mm3 (0.1-1.0); Monocytes % 6.4 % (1.7-9.3); Neutrophils # 2.4 K/mm3 (1.8-7.8); Neutrophils % 56.1 % (37.0-80.0); Platelet Count 144 K/mm3 (142-424); Red Blood Count 3.66 M/mm3 (4.20-5.40); Red Cell Distribution Width 17.8 % (11.5-17.5); White Blood Count 4.3 K/mm3 (4.8-10.8)
[2023-10-24 08:27] LABS: Activated Partial Thrombo Time 24.6 seconds (22.8-30.6); INR 1.11 (0.9-1.1); Prothrombin Time 11.9 seconds (10.1-12.5)
[2023-10-24 09:20] VITALS: BP 114/67; PULSE 96; RESP 18; TEMP 36.3; O2SAT 93
[2023-10-24] MEDS: LIDOCAINE 1% 10ML MDV 10 ML IJ (09:28)
--- NOTE | 2023-10-24 09:29 | PC.NURSE ---
Pt transported to post op via stretcher by RT Iveth. Report received at 0920, per v/o from PA pt may sit up, eat/drink and leave in 45 min as long as pt's VS are stable. 0930 - Pt currently sitting up drinking coffee w/o issues. Dietary contacted for tray for pt as well.
[2023-10-24 09:35] VITALS: BP 116/68; PULSE 93; RESP 16; O2SAT 93
[2023-10-24 09:50] VITALS: BP 118/70; PULSE 89; RESP 16; O2SAT 92
== END 2023-10-24 10:05 | disposition home or self-care (01) ==
PROVIDERS: PCP Family Medicine; Visit Provider Internal Medicine Medical Oncology
DX: Z85.118 Personal history of other malignant neoplasm of bronchus and lung (principal); D47.2 Monoclonal gammopathy
CPT/HCPCS: 38221; 77012; 85025; 85097; 85610; 85730; 88184; 88185; 88305; 88311; 88341; 88342; 88360; J1642

== ENCOUNTER 2023-10-30 10:58 | Outpatient (CLI) | payer MEDICARE, OTHER, SELFPAY ==
[2023-10-30] VITALS (7 sets, daily range): BP systolic 96–137; BP diastolic 58–71; PULSE 90–95; RESP 18; TEMP 36.3–36.4; O2SAT 92–94; BMI 25.1
--- NOTE | 2023-10-30 | XR_ITS ---
FINAL REPORT TECHNIQUE: Chest PA & Lateral CLINICAL HISTORY: .post rt thora COMPARISON: None FINDINGS: 2 views of the chest were performed. The heart size is normal. The mediastinum is within normal limits. There is no acute cardiopulmonary process. There is a small right pleural effusion. No evidence of a pneumothorax is seen. There is right perihilar scarring present. The bony thorax appears intact. IMPRESSION: No acute cardiopulmonary process. Digital right pleural effusion. No definite pneumothorax is identified. Reviewed, Interpreted and Dictated by Manuel Gordillo MD Transcribed by Luisa Arteaga Authenticated and [facility]
--- NOTE | 2023-10-30 11:04 | US_ITS ---
FINAL REPORT CLINICAL HISTORY: MYELOMA-- 1660 ml thora--- eloisa pardo--- FINDINGS: ULTRASOUND GUIDED RIGHT THORACENTESIS HISTORY: Right pleural effusion. TECHNIQUE: Informed consent was obtained from the patient. A timeout procedure was performed prior to beginning. Appropriate pocket was localized for drainage. The right posterior chest was prepped in a routine sterile fashion. Local anesthesia was achieved with 1% lidocaine. Using imaging guidance with images acquired, an 18-gauge sheath needle was directed into the pleural fluid. Approximately 1,660 mL of val fluid was aspirated. 60 mL of fluid was sent for laboratory analysis. Ultrasound guidance was utilized for the procedure. IMPRESSION: Successful ultrasound guided right thoracentesis. Reviewed, Interpreted and Dictated by Manuel Gordillo MD Transcribed by Eloisa Ramírez PA-C Authenticated and [facility]
[2023-10-31 14:24] LABS: Albumin, Body Fluid 2.4 g/dL (Not Estab.); LD, Body Fluid 109 IU/L (.); Protein, Body Fluid 4.6 g/dL (.)
== END 2023-10-30 14:30 | disposition home or self-care (01) ==
PROVIDERS: PCP Family Medicine; Visit Provider Internal Medicine Medical Oncology
DX: C90.00 Multiple myeloma not having achieved remission (principal); J90 Pleural effusion, not elsewhere classified
CPT/HCPCS: 32555; 71046; 82042; 83615; 84155; 88112; 88305

== ENCOUNTER 2023-11-03 12:39 | Outpatient (CLI) | payer MEDICARE, OTHER, SELFPAY ==
[2023-11-03 13:29] LABS: Basophils % 0.6 % (0.1-2.0); Eosinophils # 0.1 K/mm3 (0.0-0.4); Eosinophils % 2.8 % (0.1-12.0); Hematocrit 37.1 % (37.0-47.0); Lymphocytes # 1.4 K/mm3 (0.7-4.5); Lymphocytes % 35.9 % (10-50); Mean Corpuscular HGB Conc 32.3 g/dL (31.8-35.4); Mean Corpuscular Hemoglobin 31.8 pg (27.0-31.2); Mean Corpuscular Volume 98.4 fl (81-99); Mean Platelet Volume 9.5 fl (7.4-10.4); Monocytes # 0.3 K/mm3 (0.1-1.0); Monocytes % 6.2 % (1.7-9.3); Neutrophils # 2.2 K/mm3 (1.8-7.8); Neutrophils % 54.5 % (37.0-80.0); Platelet Count 150 K/mm3 (142-424); Red Blood Count 3.77 M/mm3 (4.20-5.40); Red Cell Distribution Width 17.6 % (11.5-17.5)
[2023-11-03 14:04] LABS: Chloride 99 mmol/L (98-107); Sodium 135 mmol/L (136-145)
[2023-11-03 14:07] LABS: Alanine Aminotransferase 23 U/L (12-78); Albumin Level 3.4 g/dl (3.5-5.0); Albumin/Globulin Ratio 0.8 (1.1-1.8); Alkaline Phosphatase 124 U/L (38-126); Aspartate Amino Transferase 41 U/L (14-36); Bilirubin,Total 0.7 mg/dl (0.2-1.3); Blood Urea Nitrogen 14 mg/dl (7-17); Carbon Dioxide 32 mmol/L (22.0-30.0); Estimated Glomerular Filt Rate 48 ml/min (>60); GFR (African American) 58 ML/MIN (>60); Globulin 4.3 g/dL (1.3-3.2); Total Protein,Serum 7.7 g/dl (6.3-8.2)
[2023-11-03 14:08] LABS: Calcium 9.1 mg/dl (8.4-10.2); Glucose 105 mg/dl (74-100)
[2023-11-03 14:17] LABS: Anion Gap 6.9 mEq/L (5-15)
[2023-11-03 14:21] LABS: Potassium 2.9 mmoL/L (3.5-5.1)
[2023-11-04 09:24] LABS: Immunoglobulin M, Qn 6 mg/dL (26-217)
[2023-11-06 15:10] LABS: Albumin 3.1 g/dL (2.9-4.4); Alpha-1-Globulin 0.3 g/dL (0.0-0.4); Alpha-2-Globulin 0.7 g/dL (0.4-1.0); Gamma Globulin 2.6 g/dL (0.4-1.8); Protein, Total 7.4 g/dL (6.0-8.5)
[2023-11-08 12:19] LABS: PDF SCANNED IMAGE
[2023-11-08 12:20] LABS: Free Kappa Lt Chains 325.5; Free Lambda Lt Chains 8.3
== END 2023-11-03 23:59 ==
LOC: LAB 12:41
PROVIDERS: PCP Family Medicine; Visit Provider Internal Medicine Medical Oncology
DX: D47.2 Monoclonal gammopathy (principal)
CPT/HCPCS: 80053; 82784; 83883; 84155; 84165; 85025

== ENCOUNTER 2023-11-04 11:50 | Outpatient (CLI) | payer MEDICARE, OTHER, SELFPAY ==
[2023-11-04 12:57] LABS: Anion Gap 11.2 mEq/L (5-15); Blood Urea Nitrogen 15 mg/dl (7-17); Calcium 9.1 mg/dl (8.4-10.2); Carbon Dioxide 31 mmol/L (22.0-30.0); Chloride 96 mmol/L (98-107); Estimated Glomerular Filt Rate 53 ml/min (>60); GFR (African American) 64 ML/MIN (>60); Glucose 88 mg/dl (74-100); Potassium 3.2 mmoL/L (3.5-5.1); Sodium 135 mmol/L (136-145)
== END 2023-11-04 23:59 ==
LOC: LAB 11:51
PROVIDERS: Physician Assistant; PCP Family Medicine; Visit Provider Family Medicine
DX: E87.1 Hypo-osmolality and hyponatremia (principal)
CPT/HCPCS: 36415; 80048

== ENCOUNTER 2023-11-06 12:52 | Outpatient (CLI) | payer MEDICARE, OTHER, SELFPAY ==
--- NOTE | 2023-11-06 12:52 | MR_ITS ---
APPROVED REPORT Top Bottom Attaching Machine Operator: CLINICAL INDICATION Dyspnea, thickened LV wall. 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 Software platform sequences were performed using the Siemens Soulstice Endeavorso MR B19 platform. A set of three-plane, low-resolution, large [id number]-sm-ljme localizers were initially acquired. Then axial, coronal, sagittal TrueFISP, as well as axial HASTE images, were obtained. These were followed by gated TrueFISP breathold cinematic sequences obtained in the short axis with 8 mm slices and 2 mm gaps, 2-chamber (vertical long axis), 3-chamber, 4-chamber (horizontal long axis). A bolus of contrast was injected intravenously with first-pass sequences obtained in the short axis and four-chamber planes. After approximately 10 minutes, a TI interface analyst sequence was performed to determine the optimal TI time. Using the optimized TI time, delayed contrast enhancement segmented inversion???recovery TurboFLASH sequences were obtained in the short axis, 2-chamber, 3-chamber, and 4-chamber projections. 2D-velocity phase mapping was performed. Functional parameters were calculated by offline analysis on an independent workstation (F[employer]pex Imaging Platform, [employer]). Contrast: ProHance??? (Gadoteridol) FINDINGS MORPHOLOGY AND FUNCTION Left ventricle: The left ventricle is normal in size. The indexed left ventricular end-diastolic volume (LVEDVi) is 67 ml/m2 (reference range 57-105 ml/m2 in males, 56-96 ml/m2 in females). Normal left ventricular systolic function is present. There is increased left ventricular wall thickness, up to 11.5 mm in basal septal LV wall. There are no regional wall motion abnormalities noted. LVEF is calculated at 63.3 % (reference range 57-77%). Right ventricle: The right ventricle is normal in size. The indexed right ventricular end-diastolic volume (RVEDVi) is 66 ml/m2 (reference range 61-121 ml/m2 in males, 48-112 ml/m2 in females). Normal right ventricular systolic function is present. RVEF is calculated at 59.1% (reference range 52-72% in males, 51-71% in females). Atria: The left atrium is normal in size. The maximum indexed left atrial volume is 38 ml/m2 (reference range 26-52 ml/m2 in males, 27-53 ml/m2 in females). The right atrium is normal in size. The maximum indexed right atrial volume is 49 ml/m2 (reference range 18-90 ml/m2). Aorta: The diameter of the aortic annulus is normal, measuring 23 mm (coronal view reference range 21-30 mm in males, 19-27 mm in females). The diameter of the aortic sinus is normal, measuring 27 mm (coronal view reference range 25-42 mm in males, 24-36 mm in females). The diameter of the sinotubular junction is normal, measuring 25 mm (coronal view reference range 18-32 mm in males, 18-28 mm in females). The diameters of the ascending and descending thoracic aorta are normal. Main pulmonary artery: The main pulmonary artery diameter is normal. Pericardium: The pericardial thickness is normal. The pericardial thickness measures 1.3 cm (normal < 4.0 cm). There is a small-sized, circumferential pericardial effusion present. VALVES The valvular morphologies in the visualized sequences appear normal. There is no significant valvular stenosis or regurgitation of the mitral, aortic, tricuspid, or pulmonic valve noted visually. Systolic anterior motion of the mitral valve is not visualized. Ratio of pulmonary to systemic flow, Qp:Qs ratio = 1.1 (normal < or = 1.2), demonstrating no evidence of hemodynamically significant shunt. TISSUE CHARACTERIZATION Resting Perfusion: Normal myocardial blood flow at rest. No evidence of resting hypoperfusion. Myocardial Fibrosis and/or edema: Abnormal gadolinium kinetics are present. There is diffuse patchy late gadolinium enhancement throughout the myocardial LV wall, along with difficulty nulling the myocardium. The findings are concerning for amyloidosis in the appropriate clinical setting. There is also a focus of subendocardial LGE noted towards the distal and apical anterolateral LV wall. This subendocardial LGE may be product support sales representative of scar tissue from prior infarct in the region, but may also be visualized in the setting of amyloidosis. OTHER No other significant findings are noted. However, this exam is focused on the cardiac structure and function. IMPRESSION Normal LV size with normal LV systolic function. LVEDVi= 67 ml/m2 and LVEF= 63.3%. Increased LV wall thickness (maximum 11.5 mm in the basal septum). Normal RV size with normal RV systolic function. RVEDVi= 66 ml/m2 and RVEF= 59.1%. No atrial enlargement. Small-sized, circumferential pericardial effusion Diffuse patchy late gadolinium enhancement (LGE) throughout the myocardial LV wall, along with difficulty nulling the myocardium. The findings are concerning for amyloidosis in the appropriate clinical setting. There is also a small focus of subendocardial LGE noted in the distal anterolateral LV wall towards the apex. This subendocardial LGE occupies approximately 70% of total myocardial thickness (suggestive of non-viable tissue) and may be product support sales representative of scar tissue from prior infarct in the region, but may also be visualized in the setting of amyloidosis. Perfusion analysis demonstrates normal blood flow at rest with no evidence of resting hypoperfusion. Ratio of pulmonary to systemic flow, Qp:Qs ratio = 1.1 (normal < or = 1.2), demonstrating no evidence of hemodynamically significant shunt. with card Overall, this CMR demonstrates normal biventricular systolic size and function, along with diffuse LGE pattern concerning for underlying amyloidosis with cardiac involvement (in the setting of recent diagnosis of [place] light chain multiple myeloma) and possibly with concomitant presence of a prior small infarct (non-viable tissue) in the distal anterolateral LV wall towards the apex. Small-sized, circumferential pericardial effusion is also present. COMPARISON None CRITICAL RESULT None COMMUNICATION Per this written report The findings of this cardiac MR were reviewed, reported, and signed by Michael Herrera MD (Etl Analyst). Conclusion Electronically signed by : Maggie Herrera MD 11/11/2023 20:02:00
[2023-11-06] MEDS: SODIUM CHLORIDE 0.9% 50ML BAG 25 ML IV (14:48)
[2023-11-06] MEDS: GADOTERIDOL INJ 17ML SYRINGE 13 ML IV (14:48)
[2023-11-06] MEDS: SODIUM CHLORIDE 0.9% 10ML SYR (RAD ONLY) 10 ML IV (14:48)
--- NOTE | 2023-11-06 14:49 | CA_ITS ---
FINAL REPORT CLINICAL HISTORY: SANDY, previous carotid ultrasound 12/2021 (bilateral ICA's < 50% stenosis), hx of smoking, hx lung cancer, HTN, dizziness. COMPARISON: 12/09/2021 FINDINGS: RIGHT CAROTID: CCA PSV -91 cm/sec ICA PSV -75 cm/sec ICA/CCA PSV ratio -0.82. Comments: Mild plaque disease is noted. LEFTCAROTID: CCA PSV -89. cm/sec ICA PSV -85. cm/sec ICA/CCA PSV ratio -1.07. Comments: Mild plaque disease is noted. Antegrade flow is seen within the vertebral arteries. IMPRESSION: Carotid stenosis classified less than 50% Antegrade flow present in the vertebral arteries bilaterally. Reviewed, Interpreted and Dictated by Devora Alamo MD Transcribed by Luisa Arteaga Authenticated and [facility]
== END 2023-11-06 23:59 ==
LOC: RAD 12:52
PROVIDERS: PCP Family Medicine; Visit Provider Internal Medicine
DX: E78.5 Hyperlipidemia, unspecified (principal); I10 Essential (primary) hypertension; I21.4 Non-ST elevation (NSTEMI) myocardial infarction; J90 Pleural effusion, not elsewhere classified; R00.2 Palpitations; R06.00 Dyspnea, unspecified; R93.1 Abnormal findings on diagnostic imaging of heart and coronary circulation; I65.23 Occlusion and stenosis of bilateral carotid arteries
CPT/HCPCS: 75561; 93880; A9576

== ENCOUNTER 2023-11-08 12:32 | Outpatient (CLI) | payer MEDICARE, OTHER, SELFPAY ==
--- NOTE | 2023-11-08 12:38 | XR_ITS ---
FINAL REPORT CLINICAL HISTORY: Hx Pulmonary Effusion hx of lung ca COMPARISON: 10/30/2023 FINDINGS: TWO-VIEW CHEST The heart size is normal. The mediastinum is normal. There is a large right pleural effusion. The left lung is clear. Postoperative changes are seen in the right hilum. There is no pneumothorax. IMPRESSION: Large right pleural effusion, significantly increased since prior. Reviewed, Interpreted and Dictated by Devora Alamo MD Transcribed by Mireya Hale Authenticated and [facility]
== END 2023-11-08 23:59 ==
PROVIDERS: PCP Family Medicine; Visit Provider Internal Medicine Medical Oncology
DX: J90 Pleural effusion, not elsewhere classified (principal); R06.02 Shortness of breath
CPT/HCPCS: 71046

== ENCOUNTER 2023-11-10 10:32 | Outpatient (CLI) | payer MEDICARE, OTHER, SELFPAY ==
--- NOTE | 2023-11-10 | XR_ITS ---
FINAL REPORT CLINICAL HISTORY: . Postthoracentesis COMPARISON: 11/08/2023 FINDINGS: 2 views of the chest were obtained . The heart is normal in size. The mediastinum is within normal limits. There is a small right pleural effusion has significantly improved. There is persistent right hilar enlargement with surgical change. There is no pneumothorax. Osseous structures are unremarkable. IMPRESSION: Improved right pleural effusion without pneumothorax. Reviewed, Interpreted and Dictated by Devora Alamo MD Transcribed by Tana Power Authenticated and [facility]
--- NOTE | 2023-11-10 10:36 | US_ITS ---
FINAL REPORT CLINICAL HISTORY: MULTIPLE MYELOMA FINDINGS: ULTRASOUND-GUIDED THORACENTESIS HISTORY: Pleural effusion. ATTENDING PHYSICIAN: Dr. Alamo PHYSICIAN ACQUISITION CONSULTANT: Vikas Villagran PA-C TECHNIQUE: Informed consent was obtained from the patient. The indications and complications were discussed with the patient prior to beginning the procedure. This included, but was not limited to pain, bleeding, infection, and pneumothorax requiring chest tube placement. The right back was then prepped and draped in sterile fashion. 1% Lidocaine was used for local anesthesia. Utilizing sonographic guidance, a standard thoracentesis needle and sheath were inserted into the pleural space and approximately 2 L of clear pleural fluid was successfully removed without complication. The patient tolerated the procedure well. IMPRESSION: Technically successful sonographic guided right-sided thoracentesis as above. Films reviewed , interpreted and dictated by Dr. Alamo. Transcribed by Vikas Villagran PA-C. Reviewed, Interpreted and Dictated by Devora Alamo MD Transcribed by AFTAB Crespo Authenticated and [facility]
[2023-11-10 10:48] VITALS: BMI 25.1
[2023-11-10 10:55] VITALS: BP 122/78; PULSE 106; RESP 17; TEMP 36.3; O2SAT 96
[2023-11-10 11:55] VITALS: BP 107/65; PULSE 107; RESP 18; TEMP 36.4; O2SAT 95
[2023-11-10 12:10] VITALS: BP 112/69; PULSE 101; RESP 18; O2SAT 94
--- NOTE | 2023-11-10 12:18 | PC.NURSE ---
Pt provided w/ lunch tray. Currently sitting up eating and drinking w/o difficulty. Call lima w/in reach. No complaints voiced.
[2023-11-10 12:25] VITALS: BP 119/71; PULSE 98; RESP 18; O2SAT 95
[2023-11-10 12:40] VITALS: BP 118/75; PULSE 102; RESP 16; O2SAT 95
== END 2023-11-10 12:55 | disposition home or self-care (01) ==
PROVIDERS: PCP Family Medicine; Visit Provider Internal Medicine Medical Oncology
DX: R06.02 Shortness of breath (principal)
CPT/HCPCS: 32555; 71046

== ENCOUNTER 2023-11-10 13:08 | Emergency (ER) | payer MEDICARE, OTHER, SELFPAY ==
[2023-11-10 13:20] VITALS: BP 112/62; PULSE 101; RESP 25; TEMP 36.7; O2SAT 95; BMI 23.6
--- NOTE | 2023-11-10 13:47 | ED_ITS ---
Discharge Plan Disposition Patient Disposition: Home, Self-Care Condition: Good Prescriptions Prescriptions: New amoxicillin-pot clavulanate 500-125 mg Tablet 1 tab PO TID 7 Days Qty: 21 0RF No Action polyethylene glycol 3350 17 gram powder in packet 17 g PO DAILY Qty: 100 0RF albuterol sulfate 90 mcg/actuation HFA aerosol inhaler 1 inh inhalation Q6H PRN (Reason: shortness of breath or wheezing) 90 Days Qty: 8.5 3RF buspirone 10 mg tablet 10 mg PO BID furosemide 40 mg tablet 40 mg PO BID Qty: 180 3RF meloxicam 7.5 mg tablet 7.5 mg PO DAILY spironolactone 25 mg tablet 25 mg PO DAILY 90 Days Qty: 90 3RF diazepam 10 mg tablet 10 mg PO DAILY Patient Comments: TAKE 1 TABLET BY MOUTH ONCE DAILY NEEDED Stiolto Respimat 2.5-2.5 mcg/actuation mist 2 puff inhalation DAILY 90 Days Qty: 4 2RF famotidine 40 MG tablet 40 mg PO DAILY diazepam 5 MG tablet 5 mg PO BID atorvastatin 40 mg tablet 40 mg PO DAILY Patient Comments: TAKE 1 TABLET BY MOUTH ONCE DAILY ergocalciferol (vitamin D2) 1,250 mcg (50,000 unit) capsule 50,000 unit PO WEEKLY Patient Comments: TAKE 1 CAPSULE BY MOUTH ONCE A WEEK multivitamin Tablet 1 tab PO DAILY levothyroxine 50 mcg tablet 50 mcg PO DAILYDM Referrals Follow up/Referrals: Nikki Brown MD [Primary Care Provider] - See instructions Activity Restrictions/Add. Instructions Additional Instructions/Restrictions: Follow up with your Doctor as you are suppose to on the results from your Thoracentesis Straight to ER if you have any life threatening symptoms or shortness of breath Follow up with your Family Doctor if no improvement Take medication as prescribed Clinical Impressions Clinical Impression: Sinusitis Qualifiers: Sinusitis location: unspecified location Chronicity: unspecified Qualified Code(s): J32.9 - Chronic sinusitis, unspecified Instructions Patient Instructions: DI for Sinusitis, Sinusitis Discharge ED Provider: Julisa Kate [facility] General Stated complaint: congestion Mode of Arrival: Ambulatory Source of Information: Patient Limitations: No Limitations Time Seen by Provider: 11/10/23 13:47 Description of Symptoms (Recalled from Triage Doc. by RN): PATIENT C/O COUGHING UP YELLOW SPUTUM FOR A WHILE. RECENTLY EXPOSED TO COVID. S/P THORACENTESIS THIS MORNING HEENT Symptoms (Recalled from RN notes): No Resp Symptoms (Recalled from RN notes): Yes Skin Symptoms (Recalled from RN notes): No MS Symptoms (Recalled from RN notes): No Functional Status (Recalled from RN notes): WNL History of Present Illness Provider Complaint: Patient states that she has had pneumonia and had been coughing up yellowish mucous for awhile and today she had to have a Thoracentesis and they took fluid off to check for infection, States that she has been having sinus congestion and pressure with drainage in her throat for several weeks and she was around a family member that tested positive for COVID but she is not having the same symptoms so she wanted to get checked for sinus infection and swabbed to get tested for COVID Related Data Home Medications Medication Instructions Recorded Confirmed diazepam 5 mg tablet 5 mg PO BID Anxiety 05/12/22 11/10/23 famotidine 40 mg tablet 40 mg PO DAILY acid reflux 05/12/22 11/10/23 buspirone 10 mg tablet 10 mg PO BID mood 08/31/22 11/10/23 atorvastatin 40 mg tablet 40 mg PO DAILY Cholesterol 09/16/23 11/10/23 ergocalciferol (vitamin D2) 1,250 50,000 unit PO WEEKLY Supplement 09/16/23 11/10/23 mcg (50,000 unit) capsule levothyroxine 50 mcg tablet 50 mcg PO DAILYDM Thyroid 09/16/23 11/10/23 multivitamin 1 tab PO DAILY 09/16/23 11/10/23 diazepam 10 mg tablet 10 mg PO DAILY 10/10/23 11/10/23 meloxicam 7.5 mg tablet 7.5 mg PO DAILY 11/08/23 11/10/23 Previous Rx's Medication Instructions Recorded polyethylene glycol 3350 17 gram 17 g PO DAILY bowels #100 ea 02/16/21 oral powder packet albuterol sulfate 90 mcg/actuation 1 inh inhalation Q6H PRN shortness 10/06/22 aerosol inhaler of breath or wheezing 90 days #8.5 grams tiotropium 2.5 mcg-olodaterol 2.5 2 puff inhalation DAILY 90 days #4 07/26/23 mcg/actuation mist for inhalation grams (Stiolto Respimat) furosemide 40 mg tablet 40 mg PO BID #180 tabs 09/27/23 spironolactone 25 mg tablet 25 mg PO DAILY 90 days #90 tabs 11/08/23 amoxicillin 500 mg-potassium 1 tab PO TID 7 days #21 tabs 11/10/23 clavulanate 125 mg tablet Allergies Allergy/AdvReac Type Severity Reaction Status Date / Time metoclopramide [From Reglan] Allergy Intermediate Unknown Verified 11/10/23 10:46 allergy reaction Barbiturates [BARBITURATES] Allergy Unknown Unknown Verified 11/10/23 10:46 allergy reaction sulfamethoxazole Allergy Unknown Verified 11/10/23 10:46 [From Bactrim] allergy reaction trimethoprim [From Bactrim] Allergy Unknown Verified 11/10/23 10:46 allergy reaction bisoprolol AdvReac Mild HAIR LOSS Verified 11/10/23 10:46 diltiazem AdvReac Mild Dizziness Verified 11/10/23 10:46 Worker's Comp Is this a Worker's Comp case?: No [facility] Disclaimer: The information contained in this section may have been updated after the patient was seen, as this information can be updated by other users. Medical History Abnormal echocardiogram Acute respiratory failure with hypoxia Anxiety Carotid artery stenosis Chest pain COPD (chronic obstructive pulmonary disease) Dyspnea Dyspnea on exertion Edema of both lower extremities Fatigue Heart palpitations History of lung cancer Hx of deep venous thrombosis Hx-TIA (transient ischemic attack) Hyperlipidemia Hypertension Hypothyroidism Loss of hair Nausea and vomiting LURDES on CPAP Pneumonia with cavity of lung Stopped smoking with greater than 30 pack year history Surgical History H/O arthroscopy of knee History of breast biopsy History of tonsillectomy Hx of appendectomy Hx of cholecystectomy Family History Other Cancer Diabetes No significant family history Social History Smoking Status: Former smoker tobacco type: cigarettes second hand exposure: No alcohol intake: never substance use type: denies use current occupational status: retired Travel in the last 8 weeks: None household members: none housing: house current occupational exposures/hazards: No caffeine: Yes ROS Obtained: Yes All systems reviewed & no additional complaints except as documented and Yes Systems reviewed as appropriate & no additional complaints except as documented Constitutional Constitutional: Reports system reviewed and no additional complaints, except as documented and Reports as per HPI ENT Ears, Nose, Mouth, and Throat: Reports system reviewed and no additional complaints, except as documented, Reports as per HPI, Reports sinus pain and Reports sinus pressure Cardiovascular Cardiovascular: Reports system reviewed and no additional complaints, except as documented and Reports as per HPI Respiratory Respiratory: Reports system reviewed and no additional complaints, except as documented and Reports as per HPI Comments: reports no worse than she has been having Gastrointestinal Gastrointestingal: Reports system reviewed and no additional complaints, except as documented and as per HPI Physical Exam General General appearance: alert and in no apparent distress ENT ENT exam: Present mucous membranes moist Expanded ENT Exam Nose exam: Present sinus tenderness (reports tenderness with palpation) Respiratory Respiratory exam: Absent respiratory distress, wheezes or stridor Cardiovascular Cardiovascular exam: Present regular rate, normal rhythm and tachycardia Neurological Exam Neurological exam: Present alert, oriented X3 and normal gait Medical Decision Making Baudilio Inquiry Pt receiving controlled substance: No Baudilio was queried for this patient: No Vital Signs: 11/10/23 13:20 Temperature 98.1 F Temperature Source Oral Pulse Rate [Left Brachial] 101 H Respiratory Rate 25 H Blood Pressure [Left Arm] 112/62 Blood Pressure Mean [Left Arm] 78 Blood Pressure Source [Left Arm] Automatic Cuff Blood Pressure Position [Left Arm] Sitting 02 Sat by Pulse Oximetry 95 Oxygen Delivery Method Room Air Medical Decision Narrative: Medication discussed and dosed per pharmacy
[2023-11-10 13:57] VITALS: BP 112/62; PULSE 101; RESP 25; TEMP 36.7; O2SAT 95
[2023-11-10 14:09] LABS: Influenza A, PCR Not Detected (NotDetected); Influenza B, PCR Not Detected (NotDetected)
[2023-11-10 15:13] LABS: Coronavirus 19, PCR Detected (NotDetected)
== END 2023-11-10 14:04 | disposition home or self-care (01) ==
PROVIDERS: Emergency Provider Nurse Practitioner; PCP Family Medicine
DX: U07.1 COVID-19 (principal); J01.90 Acute sinusitis, unspecified; R09.81 Nasal congestion; R09.82 Postnasal drip
CPT/HCPCS: 32555; 71046; 87636; 88112; 88305; 99204; 99212; G0463

== ENCOUNTER 2023-11-15 12:19 | Outpatient (CLI) | payer MEDICARE, OTHER, SELFPAY ==
[2023-11-15 13:00] LABS: Anion Gap 9.3 mEq/L (5-15); Blood Urea Nitrogen 15 mg/dl (7-17); Calcium 8.4 mg/dl (8.4-10.2); Carbon Dioxide 31 mmol/L (22.0-30.0); Chloride 98 mmol/L (98-107); Estimated Glomerular Filt Rate 48 ml/min (>60); GFR (African American) 58 ML/MIN (>60); Glucose 98 mg/dl (74-100); Potassium 3.3 mmoL/L (3.5-5.1); Sodium 135 mmol/L (136-145)
== END 2023-11-15 23:59 ==
PROVIDERS: PCP Family Medicine; Visit Provider Internal Medicine
DX: E85.81 Light chain (AL) amyloidosis (principal); I65.29 Occlusion and stenosis of unspecified carotid artery; R06.00 Dyspnea, unspecified; R93.1 Abnormal findings on diagnostic imaging of heart and coronary circulation
CPT/HCPCS: 36415; 80048

== ENCOUNTER 2023-11-21 11:59 | Outpatient (CLI) | payer MEDICARE, OTHER, SELFPAY ==
[2023-11-21 12:07] VITALS: BMI 23.9
--- NOTE | 2023-11-21 12:12 | PC.NURSE ---
1212-COLLECTED LABS VIA VENIPUNCTURE STICK WITH BUTTERFLY NEEDLE IN LEFT AC;PT TO WAIT ON LABS FOR VELCADE INJECTION.
[2023-11-21 12:21] LABS: Basophils % 0.2 % (0.1-2.0); Eosinophils % 0.4 % (0.1-12.0); Hematocrit 36.5 % (37.0-47.0); Hemoglobin 11.9 g/dL (12.2-16.2); Lymphocytes % 19.9 % (10-50); Mean Corpuscular HGB Conc 32.5 g/dL (31.8-35.4); Mean Corpuscular Hemoglobin 32.1 pg (27.0-31.2); Mean Corpuscular Volume 98.6 fl (81-99); Mean Platelet Volume 11.8 fl (7.4-10.4); Monocytes # 0.1 K/mm3 (0.1-1.0); Monocytes % 1.5 % (1.7-9.3); Neutrophils % 77.9 % (37.0-80.0); Platelet Count 140 K/mm3 (142-424); Red Cell Distribution Width 16.9 % (11.5-17.5); White Blood Count 5.1 K/mm3 (4.8-10.8)
[2023-11-21] MEDS: PROCHLORPERAZINE 10MG TABLET 10 MG PO (12:30)
[2023-11-21 12:45] LABS: Alanine Aminotransferase 22 U/L (12-78); Albumin Level 3.2 g/dl (3.5-5.0); Albumin/Globulin Ratio 0.7 (1.1-1.8); Alkaline Phosphatase 142 U/L (38-126); Anion Gap 10.1 mEq/L (5-15); Aspartate Amino Transferase 35 U/L (14-36); Bilirubin,Total 0.7 mg/dl (0.2-1.3); Blood Urea Nitrogen 15 mg/dl (7-17); Calcium 9.4 mg/dl (8.4-10.2); Carbon Dioxide 28 mmol/L (22.0-30.0); Chloride 100 mmol/L (98-107); Creatinine Clearance Estimated 33 mL/min (50-200); Estimated Glomerular Filt Rate 39 ml/min (>60); GFR (African American) 48 ML/MIN (>60); Globulin 4.6 g/dL (1.3-3.2); Glucose 100 mg/dl (74-100); Potassium 4.1 mmoL/L (3.5-5.1); Sodium 134 mmol/L (136-145); Total Protein,Serum 7.8 g/dl (6.3-8.2)
[2023-11-21] MEDS: BORTEZOMIB 3.5MG VIAL 2 MG SQ (13:04)
[2023-11-21 13:22] VITALS: BP 107/55; PULSE 94; RESP 19; TEMP 36.6; O2SAT 93
== END 2023-11-21 13:22 | disposition home or self-care (01) ==
LOC: INF 12:02
PROVIDERS: PCP Family Medicine; Visit Provider Internal Medicine Medical Oncology
DX: C90.00 Multiple myeloma not having achieved remission (principal)
CPT/HCPCS: 36415; 80053; 85025; 96401; J9041

== ENCOUNTER 2023-11-24 11:15 | Outpatient (CLI) | payer MEDICARE, OTHER, SELFPAY ==
[2023-11-24] MEDS: PROCHLORPERAZINE 10MG TABLET 10 MG PO (11:25)
[2023-11-24] MEDS: BORTEZOMIB 3.5MG VIAL 2 MG SQ (11:50)
[2023-11-24 11:55] VITALS: BP 101/65; PULSE 100; RESP 17; O2SAT 96
== END 2023-11-24 12:10 | disposition home or self-care (01) ==
LOC: INF 11:16
PROVIDERS: PCP Family Medicine; Visit Provider Internal Medicine Medical Oncology
DX: C90.00 Multiple myeloma not having achieved remission (principal)
CPT/HCPCS: 96401; J9041

== ENCOUNTER 2023-11-28 11:16 | Outpatient (CLI) | payer MEDICARE, OTHER, SELFPAY ==
[2023-11-28] MEDS: PROCHLORPERAZINE 10MG TABLET 10 MG PO (11:25)
[2023-11-28 11:55] VITALS: BP 101/61; PULSE 67; RESP 18; TEMP 36.8; O2SAT 99
[2023-11-28] MEDS: BORTEZOMIB 3.5MG VIAL 2 MG SQ (11:55)
== END 2023-11-28 12:10 | disposition home or self-care (01) ==
LOC: INF 11:17
PROVIDERS: PCP Family Medicine; Visit Provider Internal Medicine Medical Oncology
DX: C90.00 Multiple myeloma not having achieved remission (principal)
CPT/HCPCS: 96401; J9041

== ENCOUNTER 2023-12-01 12:04 | Inpatient (IN) | payer MEDICARE, OTHER, SELFPAY ==
[2023-12-01] VITALS (19 sets, daily range): BP systolic 90–130; BP diastolic 49–84; PULSE 90–103; RESP 15–26; TEMP 36.1–36.4; O2SAT 95–100; BMI 21.4
--- NOTE | 2023-12-01 08:54 | XR_ITS ---
FINAL REPORT TECHNIQUE: Chest PA & Lateral CLINICAL HISTORY: H/O LUNG CANCER FINDINGS: 2 views of the chest were performed. The heart size is normal. The mediastinum is within normal limits. There is no acute cardiopulmonary process. There is a small to moderate right pleural effusion. Fluid tracks into the minor fissure. There is scarring in the right perihilar region. The left lung is clear. There is no pneumothorax. The bony thorax appears intact. IMPRESSION: Small to moderate right pleural effusion with fluid tracking into the minor fissure. Reviewed, Interpreted and Dictated by Manuel Gordillo MD Transcribed by Abby Shen Authenticated and [facility]
--- NOTE | 2023-12-01 08:55 | US_ITS ---
FINAL REPORT CLINICAL HISTORY: MULTIPLE MYELOMA,H/O LUNG CANCER-- rt thoracentesis -- lina pardo-- 1400 ml FINDINGS: ULTRASOUND GUIDED THORACENTESIS HISTORY: Right pleural effusion. ATTENDING PHYSICIAN: Dr. Gordillo PHYSICIAN PARACHUTE OFFICER: Eloisa Owens TECHNIQUE: Informed consent was obtained from the patient. A time out procedure was performed prior to beginning. Appropriate pocket was localized for drainage. The right posterior chest was prepped in a routine sterile fashion. Local anesthesia was achieved with 1% lidocaine. Using imaging guidance with images acquired, an 18-gauge sheath needle was directed into the pleural fluid. Approximately 1.4 liters of val fluid was aspirated. The patient tolerated the procedure well without immediate complication. Post thoracentesis chest x-ray revealed a questionable small right pneumothorax. CT of the chest was obtained. This revealed a moderate right pneumothorax. The on-call surgeon was contacted regarding chest tube placement and agreed to place the chest tube. IMPRESSION: Successful ultrasound guided right thoracentesis. Reviewed, Interpreted and Dictated by Manuel Gordillo MD Transcribed by Eloisa Ramírez PA-C Authenticated and [facility]
--- NOTE | 2023-12-01 09:45 | XR_ITS ---
FINAL REPORT CLINICAL HISTORY: POST THORACENTESIS FINDINGS: A two-view chest examination status post thoracentesis demonstrates near complete resolution of the pleural fluid. There is a lobular density in the medial right costophrenic angle. In addition, there is a linear line which is indeterminate. A small loculated anterior this could be due to trapped lung. Pneumothorax is not excluded. Again identified is the right perihilar opacity and adjacent airspace disease. There are clips in the right hilum. IMPRESSION: Status post thoracentesis with linear line in the medial right lung base. A loculated pneumothorax cannot be excluded. There is near complete resolution of the effusion. Authenticated and [facility]
--- NOTE | 2023-12-01 10:31 | CT_ITS ---
FINAL REPORT TECHNIQUE: Axial imaging of the chest was obtained without contrast. Reformatted images were also obtained and reviewed.This study was performed with techniques to keep radiation doses as low as reasonably achievable, (ALARA). Individualized dose reduction technique using automated exposure control or adjustment of mA and/or kV according to the patient's size were employed. CLINICAL HISTORY: post thoracentesis FINDINGS: There is no axillary adenopathy. There is no hilar or mediastinal mass or adenopathy. Heart size is normal. There is no pericardial or pleural effusion. There is a moderate right pneumothorax, particularly at the lung base. Consolidation is seen in the medial right lower lobe. There is scarring in the anterior left upper lobe. Limited imaging of the upper abdomen demonstrates a benign-appearing left renal cyst measuring 5.7 cm which is incompletely visualized. IMPRESSION: Moderate right pneumothorax. Medial right lower lobe consolidation. Reviewed, Interpreted and Dictated by Manuel Gordillo MD Transcribed by Tana Power Authenticated and [facility]
--- NOTE | 2023-12-01 12:20 | PC.NURSE ---
arrived by stretcher from surgery
--- NOTE | 2023-12-01 12:22 | PC.NURSE ---
pt admitted to 219 from OR, pt has 20G PIV in left fa, pt has band aid on back cdi bc pt had thoracentesis today and needs observation in case needs chest tube placed for pneumothorax, MD Morrow at bedside assessing pt and stated would re-evaluate in a few hours if pt needs chest tube placed, call light within reach
--- NOTE | 2023-12-01 12:34 | PC.NURSE ---
1225- Called report to AARON Robbins at this time
--- NOTE | 2023-12-01 12:59 | HMH.PHAINT1 ---
Pharmacy Intervention Comments: MEDICATION RECONCILIATION COMPLETED ON PATIENT USING EXTERNAL FILL HISTORY FROM PHARMACY AND LIST FROM CARDIOLOGY OFFICE. -JUSTIN TRISTAN, JOSED
--- NOTE | 2023-12-01 13:05 | PC.NURSE ---
pt asked for lunch, asked MD Morrow if pt could have diet, stated pt can have minimal clear liquids but no solids in case needs a procedure, obtained gingerale per pt request
--- NOTE | 2023-12-01 13:49 | EXP.HP ---
History of Present Illness *Admission Date: 12/01/23 *Reason for visit:: pneumothorax *History of present illness: 83-year-old female with history of lung cancer, multiple myeloma, pleural effusion on right. Previous thoracotomy and radiation to right hemithorax. Presented as an outpatient for thoracentesis for recurrent pleural effusion. During procedure, was noted to have pneumothorax on postprocedure chest x-ray. Interventional radiology consulted medicine for admission and further management. Patient presented to the floor from radiology currently on nonrebreather and in no acute respiratory distress. Complaining of thoracentesis. Otherwise states she feels well. Tolerating nonrebreather. Denies significant dyspnea. Discussed case with radiology, request admission for further monitoring and treatment and possible chest tube placement. Contacted surgery and discussed case with them. Would like to observe patient before placing chest tube given complex findings on CT of chest with adhesions of lung to pleural wall. Patient afebrile, no nausea or vomiting, alert and oriented x 4. [facility] Disclaimer: The information contained in this section may have been updated after the patient was seen, as this information can be updated by other users. Medical History Abnormal echocardiogram Acute respiratory failure with hypoxia Anxiety Carotid artery stenosis Chest pain COPD (chronic obstructive pulmonary disease) Dyspnea Dyspnea on exertion Edema of both lower extremities Fatigue Heart palpitations History of lung cancer Hx of deep venous thrombosis Hx-TIA (transient ischemic attack) Hyperlipidemia Hypertension Hypothyroidism Loss of hair Nausea and vomiting LURDES on CPAP Pneumonia with cavity of lung Stopped smoking with greater than 30 pack year history Surgical History H/O arthroscopy of knee History of breast biopsy History of tonsillectomy Hx of appendectomy Hx of cholecystectomy Family History No significant family history Diabetes Cancer Social History Smoking Status: Former smoker tobacco type: cigarettes second hand exposure: No alcohol intake: never substance use type: denies use current occupational status: retired Travel in the last 8 weeks: None household members: none housing: house current occupational exposures/hazards: No caffeine: Yes Review of Systems Review of Systems Review of systems (narrative): 14 point review of systems performed, pertinent positives and negatives as per HPI Meds Home Medications and Allergies Home Medications Medication Instructions Recorded Confirmed Type diazepam 5 mg tablet 5 mg PO HSP PRN Insomnia 05/12/22 12/01/23 History famotidine 40 mg tablet 40 mg PO DAILY acid reflux 05/12/22 12/01/23 History atorvastatin 40 mg tablet 40 mg PO DAILY Cholesterol 09/16/23 12/01/23 History ergocalciferol (vitamin D2) 1,250 50,000 unit PO WEEKLY Supplement 09/16/23 12/01/23 History mcg (50,000 unit) capsule levothyroxine 50 mcg tablet 50 mcg PO DAILY Thyroid 09/16/23 12/01/23 History multivitamin 1 tab PO DAILY Supplement 09/16/23 12/01/23 History meloxicam 7.5 mg tablet 7.5 mg PO DAILY Pain 11/08/23 12/01/23 History albuterol sulfate 90 mcg/actuation 1 inh inhalation Q6HP PRN 12/01/23 12/01/23 History aerosol inhaler shortness of breath or wheezing dexamethasone 4 mg tablet 40 mg PO TU 12/01/23 12/01/23 History furosemide 40 mg tablet 40 mg PO BID Fluid 12/01/23 12/01/23 History omeprazole 20 mg capsule,delayed 20 mg PO DAILY Acid Reflux 12/01/23 12/01/23 History release potassium chloride 10 mEq 10 meq PO BID Supplement 12/01/23 12/01/23 History tablet,extended release prochlorperazine maleate 10 mg 10 mg PO Q6HP PRN Nausea And 12/01/23 12/01/23 History tablet Vomiting spironolactone 25 mg tablet 25 mg PO BID Fluid 12/01/23 12/01/23 History tiotropium 2.5 mcg-olodaterol 2.5 2 puff inhalation DAILY Breathing 12/01/23 12/01/23 History mcg/actuation mist for inhalation Problems (Stiolto Respimat) New Prescriptions to Start Prescriptions: Allergies Allergy/AdvReac Type Severity Reaction Status Date / Time metoclopramide [From Reglan] Allergy Intermediate Unknown Verified 12/01/23 09:19 allergy reaction Barbiturates [BARBITURATES] Allergy Unknown Unknown Verified 12/01/23 09:19 allergy reaction sulfamethoxazole Allergy Unknown Verified 12/01/23 09:19 [From Bactrim] allergy reaction trimethoprim [From Bactrim] Allergy Unknown Verified 12/01/23 09:19 allergy reaction bisoprolol AdvReac Mild HAIR LOSS Verified 12/01/23 09:19 diltiazem AdvReac Mild Dizziness Verified 12/01/23 09:19 Exam Data for Last 24 hours Vital signs and Labs for Last 24 Hours: Temp Pulse Resp BP Pulse Ox O2 Del Method O2 Flow Rate 97.0 F L 95 H 21 101/63 L 100 Non-Rebreather 15 12/01/23 10:05 12/01/23 12:54 12/01/23 12:54 12/01/23 12:54 12/01/23 12:54 12/01/23 13:00 12/01/23 13:00 I & O for Last 24 hours: Intake & Output 11/28/23 11/29/23 11/30/23 12/01/23 23:59 23:59 23:59 23:59 Weight 54.885 kg Constitutional Constitutional: no acute distress, thin, chronically ill appearing and cooperative *Routine HEENT Exam Head: Present normocephalic Eye: Present EOMI, PERRL and normal accommodation ENT: Present mucous membranes moist *Routine Neck Exam Neck: Present supple and full ROM *Routine Respiratory Exam Respiratory: Present distant breath sounds, normal respiratory effort and symmetric chest movement; Absent rhonchi or wheezes Comments: On nonrebreather, bronchovesicular sounds bilaterally *Routine Cardiovascular Exam Cardiovascular: Present Normal S1, Normal S2 and tachycardia Comments: +1 edema to BLE *Routine Abdominal Exam Abdominal: Present soft and normoactive bowel sounds *Routine Rectal Exam Rectal:: deferred *Routine Genitalia Exam Genitalia:: deferred *Routine Extremities Exam Extremities: Present full ROM, pulses intact and normal capillary refill *Routine Skin Exam Skin: Present intact *Routine Neurological Exam Neurological: Present alert, oriented X3, CN II-XII intact and moving all extremities; Absent altered mental status Assessment and Plan *Assessment and plan (1) Pneumothorax on right: Status: Acute Category: Medical Code(s): J93.9 - Pneumothorax, unspecified (2) Multiple myeloma: Status: Acute Category: Medical Code(s): C90.00 - Multiple myeloma not having achieved remission (3) Pleural effusion: Status: Acute Category: Medical Code(s): J90 - Pleural effusion, not elsewhere classified (4) COPD (chronic obstructive pulmonary disease): Status: Chronic Qualifiers: COPD type: emphysema Emphysema type: unspecified Qualified Code(s): J43.9 - Emphysema, unspecified Category: Medical Code(s): J44.9 - Chronic obstructive pulmonary disease, unspecified (5) History of lung cancer: Status: Chronic Category: Medical Code(s): Z85.118 - Personal history of other malignant neoplasm of bronchus and lung (6) Hyperlipidemia: Status: Acute Qualifiers: Hyperlipidemia type: mixed hyperlipidemia Qualified Code(s): E78.2 - Mixed hyperlipidemia Category: Medical Code(s): E78.5 - Hyperlipidemia, unspecified (7) Hypertension: Status: Acute Qualifiers: Hypertension type: primary hypertension Qualified Code(s): I10 - Essential (primary) hypertension Category: Medical Code(s): I10 - Essential (primary) hypertension (8) Anemia: Status: Acute Qualifiers: Anemia type: unspecified type Qualified Code(s): D64.9 - Anemia, unspecified Category: Medical Code(s): D64.9 - Anemia, unspecified Plan 83-year-old female with history of lung cancer, multiple myeloma, pleural effusion on right. Previous thoracotomy and radiation to right hemithorax. Presented for direct admission from interventional radiology after developing pneumothorax post Thoracentesis. Patient complaining of some mild right-sided chest pain. Tolerating nonrebreather. Denies significant dyspnea. Discussed case with radiology, request admission for further monitoring and treatment and possible chest tube placement. Medicine agreed to admit. Surgery consulted to assist with care. Chest imaging personally reviewed showing moderate pneumothorax on right side. He does not have collapse of lungs however and appears to have adhesions of the lung to pleura. Problems addressed as follows: Recurrent pleural effusion Malignancy of right lung Pneumothorax -Status post thoracentesis, development of pneumothorax on right side. Continue nonrebreather with 100% O2. -Surgery consulted, discussed case, will monitor with conservative treatment. Repeat imaging chest imaging with x-ray [address] Pneumothorax appears stable. No mediastinal shift. In the setting of stable pneumothorax, continue conservative management with nonrebreather. Would be difficult to place chest tube given adhesions of lung to the chest wall. May necessitate transfer for cardiothoracic surgery. -CBC, CMP, magnesium ordered for the morning. Will obtain a repeat CT tomorrow. Continue Stiolto for COPD. Continue spironolactone, Lasix, Lipitor for hypertension and hyperlipidemia Continue omeprazole for GERD Continue levothyroxine 50 mcg daily for hypothyroid Admitted to stepdown unit due to risk for decompensation and close monitoring of vital signs Full code Full liquid diet Holding anticoagulation in the setting of possible chest tube placement
--- NOTE | 2023-12-01 14:49 | XR_ITS ---
FINAL REPORT CLINICAL HISTORY: re-evaluate pneumothorax FINDINGS: 2 views of the chest were obtained. The heart size is normal. There is a small right upper lobe pneumothorax with 1.5 cm of pleural separation. There is a fluid level in the right lung base. The left lung is clear. IMPRESSION: Small right upper lobe pneumothorax with 1.5 cm of pleural separation. Fluid level in the right lung base. Reviewed, Interpreted and Dictated by Manuel Gordillo MD Transcribed by Abby Shen Authenticated and [facility]
--- NOTE | 2023-12-01 16:00 | EXP.SURG.CON ---
History of Present Illness *Reason for visit:: Pneumothorax *History of present illness: Patient is a 83-year-old female with prior history of squamous cell lung carcinoma, stage IIIa, diagnosed in 2019 for which she underwent right thoracotomy with chemotherapy and radiation. She states that she did not have a resection. She also had been diagnosed with multiple myeloma in September 2023. She is followed by oncology at this facility. She has required several thoracenteses performed by radiology. She had developed progressive shortness of air with recurrent right-sided effusion when last seen by oncology and arrangements were made for outpatient thoracentesis to be done by radiology today. She reportedly had uneventful thoracentesis performed. Following her thoracentesis postprocedure chest x-ray was performed which revealed linear line in the medial right lung base and loculated pneumothorax could not be excluded. Radiology recommended CT scan which was performed. CT scan revealed moderate right pneumothorax. Surgery was then asked by radiology to place a chest tube. Patient is in no acute distress. She actually has better pulmonary/respiratory status than prior to the procedure. No complaints of chest pain or shortness of air. [facility] Disclaimer: The information contained in this section may have been updated after the patient was seen, as this information can be updated by other users. Medical History Abnormal echocardiogram Acute respiratory failure with hypoxia Anxiety Carotid artery stenosis Chest pain COPD (chronic obstructive pulmonary disease) Dyspnea Dyspnea on exertion Edema of both lower extremities Fatigue Heart palpitations History of lung cancer Hx of deep venous thrombosis Hx-TIA (transient ischemic attack) Hyperlipidemia Hypertension Hypothyroidism Loss of hair Nausea and vomiting LURDES on CPAP Pneumonia with cavity of lung Stopped smoking with greater than 30 pack year history Surgical History H/O arthroscopy of knee History of breast biopsy History of tonsillectomy Hx of appendectomy Hx of cholecystectomy Family History Other Cancer Diabetes No significant family history Social History (Updated 12/01/23 @ 14:24 by MAGGI Roman) Smoking Status: Former smoker tobacco type: cigarettes second hand exposure: No alcohol intake: never substance use type: denies use current occupational status: retired Travel in the last 8 weeks: None household members: none housing: house current occupational exposures/hazards: No caffeine: Yes Meds Home Medications and Allergies Home Medications Medication Instructions Recorded Confirmed Type diazepam 5 mg tablet 5 mg PO HSP PRN Insomnia 05/12/22 12/01/23 History famotidine 40 mg tablet 40 mg PO DAILY acid reflux 05/12/22 12/01/23 History atorvastatin 40 mg tablet 40 mg PO DAILY Cholesterol 09/16/23 12/01/23 History ergocalciferol (vitamin D2) 1,250 50,000 unit PO WEEKLY Supplement 09/16/23 12/01/23 History mcg (50,000 unit) capsule levothyroxine 50 mcg tablet 50 mcg PO DAILY Thyroid 09/16/23 12/01/23 History multivitamin 1 tab PO DAILY Supplement 09/16/23 12/01/23 History meloxicam 7.5 mg tablet 7.5 mg PO DAILY Pain 11/08/23 12/01/23 History albuterol sulfate 90 mcg/actuation 1 inh inhalation Q6HP PRN 12/01/23 12/01/23 History aerosol inhaler shortness of breath or wheezing dexamethasone 4 mg tablet 40 mg PO TU 12/01/23 12/01/23 History furosemide 40 mg tablet 40 mg PO BID Fluid 12/01/23 12/01/23 History omeprazole 20 mg capsule,delayed 20 mg PO DAILY Acid Reflux 12/01/23 12/01/23 History release potassium chloride 10 mEq 10 meq PO BID Supplement 12/01/23 12/01/23 History tablet,extended release prochlorperazine maleate 10 mg 10 mg PO Q6HP PRN Nausea And 12/01/23 12/01/23 History tablet Vomiting spironolactone 25 mg tablet 25 mg PO BID Fluid 12/01/23 12/01/23 History tiotropium 2.5 mcg-olodaterol 2.5 2 puff inhalation DAILY Breathing 12/01/23 12/01/23 History mcg/actuation mist for inhalation Problems (Stiolto Respimat) New Prescriptions to Start Prescriptions: Allergies Allergy/AdvReac Type Severity Reaction Status Date / Time metoclopramide [From Reglan] Allergy Intermediate Unknown Verified 12/01/23 09:19 allergy reaction Barbiturates [BARBITURATES] Allergy Unknown Unknown Verified 12/01/23 09:19 allergy reaction sulfamethoxazole Allergy Unknown Verified 12/01/23 09:19 [From Bactrim] allergy reaction trimethoprim [From Bactrim] Allergy Unknown Verified 12/01/23 09:19 allergy reaction bisoprolol AdvReac Mild HAIR LOSS Verified 12/01/23 09:19 diltiazem AdvReac Mild Dizziness Verified 12/01/23 09:19 Exam (Inpt) Vital signs and Labs for Last 24 Hours: Temp Pulse Resp BP Pulse Ox O2 Del Method O2 Flow Rate 97.0 F L 94 H 15 99/64 L 99 Non-Rebreather 15 12/01/23 10:05 12/01/23 14:00 12/01/23 14:00 12/01/23 14:00 12/01/23 14:00 12/01/23 15:00 12/01/23 15:00 I & O for Labs for Last 24 Hours: Intake & Output 11/29/23 11/30/23 12/01/23 12/02/23 11:59 11:59 11:59 11:59 Intake Total 180 / 180 Output Total 0 / 0 Balance 180 / 180 Weight 121 lb Constitutional: no acute distress Respiratory: Present able to speak in complete sentences Comment:: Good air movement, slightly diminished breath sounds. Assessment and Plan *Assessment and plan (1) Pneumothorax on right: Status: Acute Category: Medical Code(s): J93.9 - Pneumothorax, unspecified Plan I reviewed all of her imaging. The loculated pneumothorax is rather subtle on plain imaging. It is seen on CT imaging. Patient currently in no acute distress. Given her prior thoracotomy and radiation to the chest likely has extensive adhesions in the pleural space. Chest tube placement would be rather difficult and carry some risk of suboptimal placement and also exacerbation of small pneumothorax. Discussed the case with hospitalist service. Plan is for admission with close observation and serial imaging. If she shows signs of increasing pneumothorax or increasing respiratory symptomatology may require some sort of pleural space catheter/chest tube..
[2023-12-01] MEDS: FUROSEMIDE 40 MG TABLET PO (16:13)
--- NOTE | 2023-12-01 17:06 | PC.NURSE ---
pt wants to set up a password, 1941, family in room made aware of password by pt
[2023-12-01] MEDS: SPIRONOLACTONE 25MG TABLET 25 MG PO (21:11)
[2023-12-01] MEDS: POTASSIUM CHLORIDE 10MEQ TABLET.ER 10 MEQ PO (21:11)
[2023-12-01] MEDS: PANTOPRAZOLE 40MG TABLET 40 MG PO (21:11)
[2023-12-01] MEDS: diazePAM 5MG TABLET 5 MG PO (21:17)
[2023-12-02] VITALS (26 sets, daily range): BP systolic 91–120; BP diastolic 50–68; PULSE 75–104; RESP 13–33; TEMP 36.6–37.1; O2SAT 94–100; BMI 22.0; BMI 21.9
--- NOTE | 2023-12-02 08:07 | CT_ITS ---
PROCEDURE INFORMATION: Exam: CT Chest Without Contrast; Diagnostic Exam date and time: 12/02/2023 8:46 AM Age: 83 years old Clinical indication: Shortness of breath; Additional info: Eval pneumothorax TECHNIQUE: Imaging protocol: Diagnostic computed tomography of the chest without contrast. Radiation optimization: All CT scans at this facility use at least one of these dose optimization techniques: automated exposure control; mA and/or kV adjustment per patient size (includes targeted exams where dose is matched to clinical indication); or iterative reconstruction. COMPARISON: CT CHEST WO CON 12/01/2023 10:37 AM FINDINGS: Lungs: There is atelectasis noted in the right lung with tubular bronchiectasis noted. Chronic interstitial changes noted in the anterior aspect of the left upper lobe. Pleural spaces: Right hydropneumothorax is slightly larger than on the prior examination. Heart: There is a small pericardial effusion. Lymph nodes: Unremarkable. No enlarged lymph nodes. Vasculature: Unremarkable. No aortic aneurysm. Bones/joints: The bones are osteopenic with degenerative change and an exaggerated kyphoscoliosis of the thoracic spine. Soft tissues: Unremarkable. IMPRESSION: Slight increase in the size of the right hydropneumothorax. Small pericardial effusion. Unchanged atelectasis in the lungs, interstitial disease and tubular bronchiectasis. Unchanged small pericardial effusion. Please correlate with echocardiogram.
[2023-12-02] MEDS: FUROSEMIDE 40 MG TABLET PO ×2 (08:08→17:22)
[2023-12-02] MEDS: LEVOTHYROXINE 50MCG (0.05MG) TAB 50 MCG PO (08:08)
[2023-12-02] MEDS: POTASSIUM CHLORIDE 10MEQ TABLET.ER 10 MEQ PO ×2 (08:08→20:01)
[2023-12-02] MEDS: ATORVASTATIN 40MG TABLET 40 MG PO (08:08)
[2023-12-02] MEDS: SPIRONOLACTONE 25MG TABLET 25 MG PO ×2 (08:09→20:01)
[2023-12-02 08:19] LABS: Chloride 104 mmol/L (98-107); Sodium 131 mmol/L (136-145)
[2023-12-02 08:20] LABS: Potassium 4.4 mmoL/L (3.5-5.1)
[2023-12-02 08:22] LABS: Alanine Aminotransferase 26 U/L (12-78); Alkaline Phosphatase 127 U/L (38-126); Anion Gap 5.4 mEq/L (5-15); Aspartate Amino Transferase 33 U/L (14-36); Bilirubin,Total 0.5 mg/dl (0.2-1.3); Blood Urea Nitrogen 28 mg/dl (7-17); Calcium 8.3 mg/dl (8.4-10.2); Carbon Dioxide 26 mmol/L (22.0-30.0); Creatinine Clearance Estimated 33 mL/min (50-200); Estimated Glomerular Filt Rate 43 ml/min (>60); GFR (African American) 52 ML/MIN (>60); Glucose 142 mg/dl (74-100)
[2023-12-02 08:23] LABS: Albumin Level 3.1 g/dl (3.5-5.0); Albumin/Globulin Ratio 0.9 (1.1-1.8); Globulin 3.4 g/dL (1.3-3.2); Magnesium 1.9 mg/dl (1.6-2.3); Total Protein,Serum 6.5 g/dl (6.3-8.2)
--- NOTE | 2023-12-02 09:53 | EXP.SURG.PN ---
Subjective Narrative: Patient clinically unchanged. CT scan this morning reveals increasing size of effusion and pneumothorax however. Exam Data for Last 24 hours Vital signs and Labs for Last 24 Hours: Temp Pulse Resp BP Pulse Ox O2 Del Method O2 Flow Rate 97.8 F 92 H 15 101/63 L 100 Non-Rebreather 15 12/02/23 08:00 12/02/23 06:00 12/02/23 06:00 12/02/23 06:00 12/02/23 04:00 12/02/23 09:00 12/02/23 09:00 Laboratory Results - last 24 hr 12/02/23 07:51: Sodium 131 L, Potassium 4.4, Chloride 104, Carbon Dioxide 26, Anion Gap 5.4, BUN 28 H, Creatinine 1.20 H, Estimated Creat Clear 33, Estimated GFR 43 L, Est GFR ( Amer) 52 L, Glucose 142 H, Calcium 8.3 L, Magnesium 1.9, Total Bilirubin 0.5, AST 33, ALT 26, Alkaline Phosphatase 127 H, Total Protein 6.5, Albumin 3.1 L, Globulin 3.4 H, Albumin/Globulin Ratio 0.9 L I & O for Last 24 hours: Intake & Output 11/29/23 11/30/23 12/01/23 12/02/23 11:59 11:59 11:59 11:59 Intake Total 1260 / 1260 Output Total 0 / 0 Balance 1260 / 1260 Weight 121 lb 124 lb 9 oz Progress Note: A&P Assessment and plan (1) Pneumothorax on right: Status: Acute Assessment and plan: Plan for chest tube placement. Given the significant increase in effusion over the past 24 hours may attempt placement of traditional thoracostomy tube. (2) Multiple myeloma: Status: Acute (3) Pleural effusion: Status: Acute (4) COPD (chronic obstructive pulmonary disease): Status: Chronic (5) History of lung cancer: Status: Chronic (6) Hyperlipidemia: Status: Acute (7) Hypertension: Status: Acute (8) Anemia: Status: Acute
[2023-12-02] MEDS: MIDAZOLAM 2MG/2ML VIAL 1 MG IV (10:00)
[2023-12-02] MEDS: FENTANYL 100MCG/2ML VIAL 50 MCG IV (10:00)
--- NOTE | 2023-12-02 10:56 | EXP.OP.NOTE ---
Date of procedure: 12/02/23 Pre-op Diagnosis:: Right hydropneumothorax Post-op Diagnosis:: Same Procedure performed:: Placement of 20 Mongolian right thoracostomy tube Surgeon:: Maicol Fountain MD Anesthesia: local and other Estimated blood loss (mL): 3 Clinical Note:: Patient patient is AN 83-year-old female with history of squamous cell carcinoma of the right lung for which he underwent chemoradiation. She has recently been diagnosed with multiple myeloma. She has had recurrent symptomatic right pleural effusions and has had multiple radiologically directed thoracenteses. She was scheduled for thoracentesis with radiology yesterday on 12/01/2022. This was uneventful. Postprocedure chest x-ray revealed findings of possible pneumothorax. She then underwent CT scan of the chest which revealed what appeared to be loculated pneumothorax. Surgery was then contacted for possible chest tube placement. Patient was seen and examined in the postoperative area after her procedure and was in no acute distress. Discussion was held with the hospitalist and plan was made for admission with observation and serial imaging. Several hours after admission chest x-ray showed no progression. The following day she was stable. She underwent CT scan which revealed progressive pneumothorax with increasing effusion. Plan was made for chest tube placement. Operative findings:: Findings consistent with hydropneumothorax. Operative note:: Consent was obtained. Timeout was performed. Patient was positioned in partial left lateral position. She was given 50 mcg of fentanyl and 1 mg of Versed intravenously for the procedure. Right lateral chest was prepped and draped in the standard surgical fashion. Local anesthetic was infiltrated. Skin incision was made. Dissection was carried down to the intercostal space in the mid axillary line. Pleural space was entered. 20 Mongolian thoracostomy tube was manipulated into the pleural space. There was fogging and some return of thin pleural fluid. It was secured with 0 Surgilon suture. Antibiotic dressing and clean dry sterile dressing were applied. It was attached to Pleur-evac. Approximately 400 cc of thin serosanguineous fluid was evacuated. There was evidence of some fluctuation and swelling with respirations. Chest x-ray is ordered. Condition: stable Disposition: no change Complications:: None immediately apparent
--- NOTE | 2023-12-02 10:57 | PC.NURSE ---
time out completed prior to procedure with MD Fountain, MD Fountain placed 20FR chest tube at right 4th intercostal space, moderate sanguineous drainage out into pleuravac upon insertion, placed suction on pleuravac to 40mmHg, dressed chest tube site with occlusive xeroform dressing, CDI; CXR completed at bedside, MD Morrow stated okay for pt to have regular diet, call light within reach
[2023-12-02] MEDS: IPRATROPIUM/ALBUTEROL 3 ML NEB IH ×3 (11:02→23:06)
--- NOTE | 2023-12-02 11:05 | XR_ITS ---
PROCEDURE INFORMATION: Exam: XR Chest Exam date and time: 12/02/2023 10:45 AM Age: 83 years old Clinical indication: Device placement; Chest tube; Additional info: Chest tube placement TECHNIQUE: Imaging protocol: Radiologic exam of the chest. Views: 1 view. COMPARISON: CT CHEST WO CON 12/02/2023 8:46 AM FINDINGS: Lungs: Perihilar consolidation and bronchiectasis are unchanged. Curvilinear atelectasis in the right lung base. Pleural spaces: Small residual right apical pneumothorax has improved after chest tube placement. Right pleural effusion has resolved. Heart/Mediastinum: Cardiomegaly. Bones/joints: No fractures or bone lesions. IMPRESSION: 1. Small, persistent, right apical pneumothorax has improved following chest tube placement. 2. Right pleural effusion has improved. 3. Right perihilar consolidation and bronchiectasis are unchanged. 4. Cardiomegaly.
--- NOTE | 2023-12-02 11:09 | PC.NURSE ---
MD Morrow stated to keep 100% non-rebreather on unless pt eating and then place 6LNC on pt while eating
--- NOTE | 2023-12-02 13:47 | EXP.ACUTE.PN ---
Subjective *Date: 12/02/23 *Time: 13:47 Interval history: Denies nausea or vomiting. Denies significant shortness of breath. Breathing comfortably. States she feels little better today than yesterday. Still has pain at insertion site from thoracentesis yesterday. Requesting p.o. intake. Afebrile. Saturations are 100%. Medical Exam Vital signs and Labs for Last 24 Hours: Vital Signs Temp Pulse Pulse Resp BP Pulse Ox O2 Del Method 12/02/23 12:30 97 H 24 96 Non-Rebreather 12/02/23 12:00 95 H 22 114/61 96 Non-Rebreather 12/02/23 11:45 95 H 21 96 Non-Rebreather 12/02/23 11:30 92 H 22 98 Non-Rebreather 12/02/23 11:15 99 H 21 98 Non-Rebreather 12/02/23 10:15 90 18 100 Non-Rebreather 12/02/23 10:45 102 H 20 99 Non-Rebreather 12/02/23 11:00 101 H 21 99 Non-Rebreather 12/02/23 08:07 90 12/02/23 08:08 88 21 120/68 99 Non-Rebreather 12/02/23 10:30 91 H 22 99 Non-Rebreather 12/02/23 11:00 Non-Rebreather 12/02/23 10:00 98 H 20 108/64 L 100 Non-Rebreather 12/02/23 11:02 82 12/02/23 11:02 85 12/02/23 11:02 100 Non-Rebreather 12/02/23 09:00 Non-Rebreather 12/02/23 08:00 97.8 F 12/02/23 06:00 92 H 15 101/63 L Non-Rebreather 12/02/23 04:00 90 12/02/23 00:00 90 12/01/23 20:00 91 H 12/02/23 06:55 Non-Rebreather 12/02/23 05:00 Non-Rebreather 12/02/23 04:00 98.6 F 93 H 20 99/58 L 100 Non-Rebreather 12/02/23 04:00 Non-Rebreather 12/02/23 02:00 92 H 16 96/57 L 99 Non-Rebreather 12/02/23 03:00 Non-Rebreather 12/02/23 01:00 Non-Rebreather 12/01/23 23:00 Non-Rebreather 12/02/23 00:00 98.8 F 92 H 17 91/50 L 100 Nasal Cannula 12/01/23 22:00 94 H 18 90/49 L 99 Non-Rebreather 12/01/23 21:00 Non-Rebreather 12/01/23 20:00 97.5 F L 91 H 21 108/63 L Non-Rebreather 12/01/23 20:00 Non-Rebreather 12/01/23 18:25 Non-Rebreather 12/01/23 18:00 97 H 19 103/65 L 100 Non-Rebreather 12/01/23 16:00 100 Non-Rebreather 12/01/23 16:00 97.5 F L 12/01/23 16:44 Non-Rebreather 12/01/23 16:00 90 12/01/23 16:00 92 H 26 H 107/65 L 100 Non-Rebreather 12/01/23 15:00 Non-Rebreather 12/01/23 14:00 94 H 15 99/64 L 99 Non-Rebreather O2 Flow Rate FiO2 12/02/23 12:30 15 12/02/23 12:00 15 12/02/23 11:45 15 12/02/23 11:30 15 12/02/23 11:15 15 12/02/23 10:15 15 12/02/23 10:45 15 12/02/23 11:00 15 12/02/23 08:07 12/02/23 08:08 15 12/02/23 10:30 15 12/02/23 11:00 15 12/02/23 10:00 15 12/02/23 11:02 12/02/23 11:02 12/02/23 11:02 15 100 12/02/23 09:00 15 12/02/23 08:00 12/02/23 06:00 15 12/02/23 04:00 12/02/23 00:00 12/01/23 20:00 12/02/23 06:55 15 12/02/23 05:00 15 12/02/23 04:00 15 12/02/23 04:00 15 12/02/23 02:00 15 12/02/23 03:00 15 12/02/23 01:00 15 12/01/23 23:00 12/02/23 00:00 15 12/01/23 22:00 15 12/01/23 21:00 12/01/23 20:00 15 12/01/23 20:00 15 12/01/23 18:25 15 12/01/23 18:00 15 12/01/23 16:00 15 12/01/23 16:00 12/01/23 16:44 15 12/01/23 16:00 12/01/23 16:00 15 12/01/23 15:00 15 12/01/23 14:00 15 Intake and Output 12/01/23 12/02/23 12/02/23 23:59 07:59 15:59 Intake Total 720 / 900 720 / 720 Output Total 0 / 0 0 / 0 0 / 0 Balance 720 / 900 0 / 720 720 / 720 Intake: Intake, Oral Amount 720 / 900 720 / 720 Output: Output, Urine Amount 0 / 0 0 / 0 0 / 0 Other: Number of Voids 0 Number of Unmeasured Voids 1 1 1 Weight 56.501 kg Patient Weight 12/02/23 23:59 Weight 56.501 kg Laboratory Results - last 24 hr 12/02/23 07:51: Sodium 131 L, Potassium 4.4, Chloride 104, Carbon Dioxide 26, Anion Gap 5.4, BUN 28 H, Creatinine 1.20 H, Estimated Creat Clear 33, Estimated GFR 43 L, Est GFR ( Amer) 52 L, Glucose 142 H, Calcium 8.3 L, Magnesium 1.9, Total Bilirubin 0.5, AST 33, ALT 26, Alkaline Phosphatase 127 H, Total Protein 6.5, Albumin 3.1 L, Globulin 3.4 H, Albumin/Globulin Ratio 0.9 L I & O for Labs for Last 24 Hours: Intake & Output 11/29/23 11/30/23 12/01/23 12/02/23 23:59 23:59 23:59 23:59 Intake Total 900 / 900 720 / 720 Output Total 0 / 0 0 / 0 Balance 900 / 900 720 / 720 Weight 54.885 kg 56.501 kg Constitutional: Present no acute distress, thin, chronically ill appearing and cooperative Head: Present atraumatic and normocephalic ENT: Present normal exam Neck: Present normal inspection Respiratory: Present normal respiratory effort; Absent rhonchi, wheezes or crackles Cardiac: Present Regular Rhythm and Tachycardia GI: Present normal bowel sounds; Absent tenderness Extremities: Present normal inspection and full ROM Skin: Present intact; Absent erythema Neuro: Present Grossly Intact, alert, awake, oriented x 3 and moves all extremities Assessment and Plan *Assessment and plan (1) Pneumothorax on right: Status: Acute Category: Medical Code(s): J93.9 - Pneumothorax, unspecified (2) Multiple myeloma: Status: Acute Category: Medical Code(s): C90.00 - Multiple myeloma not having achieved remission (3) Pleural effusion: Status: Acute Category: Medical Code(s): J90 - Pleural effusion, not elsewhere classified (4) COPD (chronic obstructive pulmonary disease): Status: Chronic Qualifiers: COPD type: emphysema Emphysema type: unspecified Qualified Code(s): J43.9 - Emphysema, unspecified Category: Medical Code(s): J44.9 - Chronic obstructive pulmonary disease, unspecified (5) History of lung cancer: Status: Chronic Category: Medical Code(s): Z85.118 - Personal history of other malignant neoplasm of bronchus and lung (6) Hyperlipidemia: Status: Acute Qualifiers: Hyperlipidemia type: mixed hyperlipidemia Qualified Code(s): E78.2 - Mixed hyperlipidemia Category: Medical Code(s): E78.5 - Hyperlipidemia, unspecified (7) Hypertension: Status: Acute Qualifiers: Hypertension type: primary hypertension Qualified Code(s): I10 - Essential (primary) hypertension Category: Medical Code(s): I10 - Essential (primary) hypertension (8) Anemia: Status: Acute Qualifiers: Anemia type: unspecified type Qualified Code(s): D64.9 - Anemia, unspecified Category: Medical Code(s): D64.9 - Anemia, unspecified Plan 83-year-old female with history of lung cancer, multiple myeloma, pleural effusion on right. Previous thoracotomy and radiation to right hemithorax. Presented for direct admission from interventional radiology after developing pneumothorax post Thoracentesis. Patient complaining of some mild right-sided chest pain. Tolerating nonrebreather. Denies significant dyspnea. Discussed case with radiology, request admission for further monitoring and treatment and possible chest tube placement. Medicine agreed to admit. Surgery consulted to assist with care. PCT's morning showing slight increase and pneumothorax. Decision made to proceed with chest tube placement. Continues to require inpatient management. Problems addressed as follows: Recurrent pleural effusion Malignancy of right lung Pneumothorax -Status post thoracentesis, development of pneumothorax on right side. CT obtained, showing increase in pneumothorax and effusion on personal review. Discussed case with surgery, will proceed with placement of chest tube today to evacuate pleural space and promote healing and resolution of pneumothorax. Placed to low wall suction with Pleur-evac. Continue nonrebreather while asleep or not eating. Transition to nasal cannula 6 L while eating. -CBC, CMP, magnesium ordered for the morning. Will obtain a repeat CT tomorrow. Continue Stiolto for COPD. DuoNebs every 6 hours scheduled Continue spironolactone, Lasix, Lipitor for hypertension and hyperlipidemia Continue omeprazole for GERD Continue levothyroxine 50 mcg daily for hypothyroid Continues to require stepdown level of care due to risk for decompensation and close monitoring of vital signs Full code Full liquid diet Holding anticoagulation in the setting of possible chest tube placement
[2023-12-02] MEDS: HYDROCODONE/APAP 5/325 MG TABLET 1 TAB PO ×2 (14:02→20:01)
[2023-12-02] MEDS: PANTOPRAZOLE 40MG TABLET 40 MG PO (20:01)
[2023-12-02] MEDS: diazePAM 5MG TABLET 5 MG PO (20:01)
--- NOTE | 2023-12-02 21:00 | ECG_ITS ---
APPROVED REPORT Exam: Resting ECG HR:99 bpm ECG Measurements Heart Rate 99 AXES WI 170 P 53 QRSd 97 QRS -17 QT 353 T 55 QTc 409 Conclusion SINUS RHYTHM WITH OCCASIONAL SUPRAVENTRICULAR PREMATURE COMPLEXES BORDERLINE ECG UNCONFIRMED REPORT Electronically signed by : Heriberto Villalobos MD 12/04/2023 20:02:09
--- NOTE | 2023-12-02 21:07 | PC.NURSE ---
@2044 PROFESSOR OF COMMUNICATION AND WRITING ROUNDING AND THIS RN MADE PROFESSOR OF COMMUNICATION AND WRITING AWARE OF POSSIBLE CARDIAC RHYTHM CHANGES; POSSIBLE CHANGE FROM NSR TO A-FIB; EKG ORDER; SEE RESULTS ON CHART
[2023-12-03] VITALS (25 sets, daily range): BP systolic 82–105; BP diastolic 46–70; PULSE 72–110; RESP 12–26; TEMP 36.3–37.5; O2SAT 94–100; BMI 29.4
[2023-12-03] MEDS: HYDROCODONE/APAP 5/325 MG TABLET 1 TAB PO ×3 (04:25→15:59)
--- NOTE | 2023-12-03 04:57 | PC.NURSE ---
@1706 SRNA WAS ASSISTING PT TO BSC AND NOTICED BLOODY DRAINAGE ON CT DRESSING; THIS RN WAS NOTIFIED AND ASSESSED THE SITUATION; IT INTEGRATION ARCHITECT AND HOUSE SUP NOTIFIED OF SITUATION; EQ, MULTIM[employer]IA AUTHOR NOTIFIED ON ROUNDS. PT IS NOT IN DISTRESS, NO AIR LEAK NOTED, NO SUB Q EMPHYSEMA NOTED, DRESSING AND TUBE ARE SECURE.
--- NOTE | 2023-12-03 06:07 | XR_ITS ---
PROCEDURE INFORMATION: Exam: XR Chest Exam date and time: 12/03/2023 6:37 AM Age: 83 years old Clinical indication: Device placement; Chest tube; Additional info: CT TECHNIQUE: Imaging protocol: Radiologic exam of the chest. Views: 1 view. COMPARISON: CR XR CHEST PORTABLE 12/02/2023 10:45 AM FINDINGS: Tubes, catheters and devices: Thoracostomy tube terminates in the right lung base. . Lungs: Opacity in the right lower lobe and medial right upper lobe may represent atelectasis or pneumonia.. Pleural spaces: Unremarkable. No pleural effusion. No pneumothorax. Heart/Mediastinum: Stable cardiac silhouette Bones/joints: Unremarkable. IMPRESSION: 1. Thoracostomy tube terminates in the right lung base. . 2. Opacity in the right lower lobe and medial right upper lobe may represent atelectasis or pneumonia..
[2023-12-03] MEDS: IPRATROPIUM/ALBUTEROL 3 ML NEB IH ×4 (06:19→23:03)
[2023-12-03] MEDS: LEVOTHYROXINE 50MCG (0.05MG) TAB 50 MCG PO (06:31)
[2023-12-03 07:50] LABS: Chloride 101 mmol/L (98-107)
[2023-12-03 07:51] LABS: Potassium 4.3 mmoL/L (3.5-5.1); Sodium 129 mmol/L (136-145)
[2023-12-03 07:53] LABS: Alanine Aminotransferase 25 U/L (12-78); Blood Urea Nitrogen 31 mg/dl (7-17); Creatinine Clearance Estimated 44 mL/min (50-200); Estimated Glomerular Filt Rate 43 ml/min (>60); GFR (African American) 52 ML/MIN (>60)
[2023-12-03 07:54] LABS: Albumin Level 2.9 g/dl (3.5-5.0); Albumin/Globulin Ratio 0.9 (1.1-1.8); Alkaline Phosphatase 118 U/L (38-126); Anion Gap 4.3 mEq/L (5-15); Aspartate Amino Transferase 30 U/L (14-36); Bilirubin,Total 0.4 mg/dl (0.2-1.3); Calcium 8.2 mg/dl (8.4-10.2); Carbon Dioxide 28 mmol/L (22.0-30.0); Globulin 3.3 g/dL (1.3-3.2); Glucose 98 mg/dl (74-100); Total Protein,Serum 6.2 g/dl (6.3-8.2)
[2023-12-03 08:01] LABS: Basophils % 0.1 % (0.1-2.0); Eosinophils % 0.1 % (0.1-12.0); Hemoglobin 11.8 g/dL (12.2-16.2); Lymphocytes % 18.8 % (10-50); Mean Corpuscular HGB Conc 31.2 g/dL (31.8-35.4); Mean Corpuscular Hemoglobin 31.7 pg (27.0-31.2); Mean Corpuscular Volume 101.6 fl (81-99); Mean Platelet Volume 13.8 fl (7.4-10.4); Monocytes # 0.5 K/mm3 (0.1-1.0); Neutrophils # 3.9 K/mm3 (1.8-7.8); Red Blood Count 3.74 M/mm3 (4.20-5.40); Red Cell Distribution Width 16.9 % (11.5-17.5); White Blood Count 5.5 K/mm3 (4.8-10.8)
[2023-12-03 08:13] LABS: Platelet Count 31 K/mm3 (142-424)
--- NOTE | 2023-12-03 08:24 | P.PN_ITS ---
Subjective Narrative: Patient states that she did not sleep well for being restless. Denies shortness of air. Exam Data for Last 24 hours Vital signs and Labs for Last 24 Hours: Temp Pulse Resp BP Pulse Ox O2 Del Method O2 Flow Rate 98.8 F 90 12 82/48 L 99 Non-Rebreather 15 12/03/23 04:00 12/03/23 06:19 12/03/23 06:00 12/03/23 06:00 12/03/23 06:19 12/03/23 06:57 12/03/23 06:57 FiO2 100 12/03/23 06:19 Laboratory Results - last 24 hr 12/02/23 07:51: Carbon Dioxide 26, Anion Gap 5.4, BUN 28 H, Creatinine 1.20 H, Estimated Creat Clear 33, Estimated GFR 43 L, Est GFR ( Amer) 52 L, Glucose 142 H, Calcium 8.3 L, Magnesium 1.9, Total Bilirubin 0.5, AST 33, ALT 26, Alkaline Phosphatase 127 H, Total Protein 6.5, Albumin 3.1 L, Globulin 3.4 H , Albumin/Globulin Ratio 0.9 L 12/03/23 06:24: WBC 5.5, RBC 3.74 L, Hgb 11.8 L, Hct 38.0, MCV 101.6 H, MCH 31.7 H, MCHC 31.2 L, RDW 16.9, Plt Count 31 L*, MPV 13.8 H, Neut % (Auto) 72.0, Lymph % (Auto) 18.8, [place] % (Auto) 9.0, Eos % (Auto) 0.1, Baso % (Auto) 0.1, Neut # (Auto) 3.9, Lymph # (Auto) 1.0, [place] # (Auto) 0.5, Eos # (Auto) 0.0, Baso # (Auto) 0.0, Sodium 129 L, Potassium 4.3, Chloride 101, Carbon Dioxide 28, Anion Gap 4.3 L, BUN 31 H, Creatinine 1.20 H, Estimated Creat Clear 44, Estimated GFR 43 L, Est GFR ( Amer) 52 L, Glucose 98 D, Calcium 8.2 L, Magnesium 2.0, Total Bilirubin 0.4, AST 30, ALT 25, Alkaline Phosphatase 118, Total Protein 6.2 L, Albumin 2.9 L, Globulin 3.3 H, Albumin/Globulin Ratio 0.9 L I & O for Last 24 hours: Intake & Output 11/30/23 12/01/23 12/02/23 12/03/23 11:59 11:59 11:59 11:59 Intake Total 1260 / 1260 720 / 720 Output Total 0 / 0 1245 / 1245 Balance 1260 / 1260 -525 / -525 Weight 121 lb 123 lb 7.342 oz 166 lb *Routine Respiratory Exam Respiratory: Present distant breath sounds Progress Note: A&P Assessment and plan (1) Pneumothorax on right: Status: Acute Assessment and plan: Chest x-ray the appears to show a tiny apical pneumothorax. There is no notable air leak. I will place chest tube to waterseal. (2) Multiple myeloma: Status: Acute (3) Pleural effusion: Status: Acute (4) COPD (chronic obstructive pulmonary disease): Status: Chronic (5) History of lung cancer: Status: Chronic (6) Hyperlipidemia: Status: Acute (7) Hypertension: Status: Acute (8) Anemia: Status: Acute
--- NOTE | 2023-12-03 08:24 | PC.NURSE ---
MD YOON AT BEDSIDE ASSESSING PT AND CHEST TUBE, PLACED PLEURAVAC TO WATER SEAL AND INSTRUCTED THIS RN TO LEAVE CHEST TUBE ON WATER SEAL, STATED IF DRESSING SATURATED OKAY FOR NURSING TO CHANGE CHEST TUBE DRESSINGS, STATED PLATELETS POSSIBLY SO LOW DUE TO CHEMOTHERAPY AND MORE THAN LIKELY WON'T NEED PLATELET REPLACEMENT AT THIS TIME, MD ANSWERED PT'S QUESTIONS AT THIS TIME, CALL LIGHT WITHIN REACH
--- NOTE | 2023-12-03 08:46 | P.PN_ITS ---
Subjective *Date: 12/03/23 *Time: 10:25 Interval history: Complaining of some pain at site of chest tube. No nausea or vomiting. Stable on nonrebreather for promotion of resorption of pneumothorax, not because of hypoxia. Tolerating p.o. intake. Transitions to nasal cannula to eat. Af ebrile. Denies significant chest pain or shortness of breath Medical Exam Vital signs and Labs for Last 24 Hours: Vital Signs Temp Pulse Pulse Resp BP Pulse Ox O2 Del Method 12/03/23 08:00 97 H 18 101/62 L 99 Non-Rebreather 12/03/23 06:19 90 12/03/23 06:19 99 H 12/03/23 06:19 99 Non-Rebreather 12/03/23 04:00 100 H 12/03/23 00:00 100 H 12/03/23 06:57 Non-Rebreather 12/03/23 06:00 99 H 12 82/48 L Non-Rebreather 12/03/23 05:00 Non-Rebreather 12/03/23 04:00 98.8 F 94 H 18 88/49 L Non-Rebreather 12/03/23 04:00 Non-Rebreather 12/03/23 03:00 Non-Rebreather 12/03/23 02:00 102 H 17 86/52 L 99 Non-Rebreather 12/03/23 01:00 Non-Rebreather 12/03/23 00:00 99.5 F 98 H 18 101/69 L 99 Non-Rebreather 12/02/23 23:00 Non-Rebreather 12/02/23 22:00 100 H 14 97/61 L 99 Non-Rebreather 12/02/23 20:00 100 H 12/02/23 23:43 76 12/02/23 23:42 75 12/02/23 21:00 Non-Rebreather 12/02/23 20:00 97.9 F 104 H 13 102/60 L Non-Rebreather 12/02/23 20:00 Non-Rebreather 12/02/23 18:41 Non-Rebreather 12/02/23 18:41 83 12/02/23 18:41 80 12/02/23 18:31 Non-Rebreather 12/02/23 16:00 100 H 12/02/23 18:00 102 H 22 102/55 L 94 L Non-Rebreather 12/02/23 17:00 Non-Rebreather 12/02/23 16:00 98.2 F 12/02/23 14:00 99 Non-Rebreather 12/02/23 15:00 Non-Rebreather 12/02/23 13:00 Non-Rebreather 12/02/23 16:00 97 H 33 H 100/64 L 99 Non-Rebreather 12/02/23 14:00 99 H 27 H 96/55 L 99 Non-Rebreather 12/02/23 12:00 100 H 12/02/23 12:30 97 H 24 96 Non-Rebreather 12/02/23 12:00 95 H 22 114/61 96 Non-Rebreather 12/02/23 11:45 95 H 21 96 Non-Rebreather 12/02/23 11:30 92 H 22 98 Non-Rebreather 12/02/23 11:15 99 H 21 98 Non-Rebreather 12/02/23 10:15 90 18 100 Non-Rebreather 12/02/23 10:45 102 H 20 99 Non-Rebreather 12/02/23 11:00 101 H 21 99 Non-Rebreather 12/02/23 10:30 91 H 22 99 Non-Rebreather 12/02/23 11:00 Non-Rebreather 12/02/23 10:00 98 H 20 108/64 L 100 Non-Rebreather 12/02/23 11:02 82 12/02/23 11:02 85 12/02/23 11:02 100 Non-Rebreather 12/02/23 09:00 Non-Rebreather O2 Flow Rate FiO2 12/03/23 08:00 15 12/03/23 06:19 12/03/23 06:19 12/03/23 06:19 15 100 12/03/23 04:00 12/03/23 00:00 12/03/23 06:57 15 12/03/23 06:00 15 12/03/23 05:00 15 12/03/23 04:00 15 12/03/23 04:00 15 12/03/23 03:00 15 12/03/23 02:00 15 12/03/23 01:00 15 12/03/23 00:00 15 12/02/23 23:00 15 12/02/23 22:00 15 12/02/23 20:00 12/02/23 23:43 12/02/23 23:42 12/02/23 21:00 15 12/02/23 20:00 15 12/02/23 20:00 15 12/02/23 18:41 100 15 12/02/23 18:41 12/02/23 18:41 12/02/23 18:31 15 12/02/23 16:00 12/02/23 18:00 15 12/02/23 17:00 15 12/02/23 16:00 12/02/23 14:00 15 12/02/23 15:00 15 12/02/23 13:00 15 12/02/23 16:00 15 12/02/23 14:00 15 12/02/23 12:00 12/02/23 12:30 15 12/02/23 12:00 15 12/02/23 11:45 15 12/02/23 11:30 15 12/02/23 11:15 15 12/02/23 10:15 15 12/02/23 10:45 15 12/02/23 11:00 15 12/02/23 10:30 15 12/02/23 11:00 15 12/02/23 10:00 15 12/02/23 11:02 12/02/23 11:02 12/02/23 11:02 15 100 12/02/23 09:00 15 Intake and Output 12/02/23 12/03/23 12/03/23 23:59 07:59 15:59 Intake Total 360 / 1080 Output Total 625 / 1025 220 / 220 Balance -265 / 55 -220 / -220 Intake: Intake, Oral Amount 360 / 1080 Output: Output, Urine Amount 0 / 400 0 / 0 Output, Chest Tube Drainage 625 / 625 220 / 220 Amount Right Mid-Axillary Chest 625 / 625 220 / 220 Other: Number of Voids 0 Number of Unmeasured Voids 1 1 Weight 75.296 kg Patient Weight 12/03/23 23:59 Weight 75.296 kg Laboratory Results - last 24 hr 12/03/23 06:24: WBC 5.5, RBC 3.74 L, Hgb 11.8 L, Hct 38.0, MCV 101.6 H, MCH 31.7 H, MCHC 31.2 L, RDW 16.9, Plt Count 31 L*, MPV 13.8 H, Neut % (Auto) 72.0, Lymph % (Auto) 18.8, [place] % (Auto) 9.0, Eos % (Auto) 0.1, Baso % (Auto) 0.1, Neut # (Auto) 3.9, Lymph # (Auto) 1.0, [place] # (Auto) 0.5, Eos # (Auto) 0.0, Baso # (Auto) 0.0, Sodium 129 L, Potassium 4.3, Chloride 101, Carbon Dioxide 28, Anion Gap 4.3 L, BUN 31 H, Creatinine 1.20 H, Estimated Creat Clear 44, Estimated GFR 43 L, Est GFR ( Amer) 52 L, Glucose 98 D, Calcium 8.2 L, Magnesium 2.0, Total Bilirubin 0.4, AST 30, ALT 25, Alkaline Phosphatase 118, Total Protein 6.2 L, Albumin 2.9 L, Globulin 3.3 H, Albumin/Globulin Ratio 0.9 L I & O for Labs for Last 24 Hours: Intake & Output 11/30/23 12/01/23 12/02/23 12/03/23 23:59 23:59 23:59 23:59 Intake Total 900 / 900 1080 / 1080 Output Total 0 / 0 1025 / 1025 220 / 220 Balance 900 / 900 55 / 55 -220 / -220 Weight 54.885 kg 56 kg 75.296 kg Constitutional: Present no acute distress, thin, chronically ill appearing and cooperative Head: Present atraumatic and normocephalic ENT: Present normal exam Neck: Present normal inspection Respiratory: Present normal respiratory effort; Absent rhonchi, wheezes or crackles Comment:: Chest tube in right chest wall, minor bleeding around tube. Cardiac: Present Regular Rhythm and Tachycardia GI: Present normal bowel sounds; Absent tenderness Extremities: Present normal inspection and full ROM Skin: Present intact; Absent erythema Neuro: Present Grossly Intact, alert, awake, oriented x 3 and moves all extremities Assessment and Plan *Assessment and plan (1) Pneumothorax on right: Status: Acute Category: Medical Code(s): J93.9 - Pneumothorax, unspecified (2) Thrombocytopenia: Status: Acute Category: Medical Code(s): D69.6 - Thrombocytopenia, unspecified (3) Pleural effusion: Status: Acute Category: Medical Code(s): J90 - Pleural effusion, not elsewhere classified (4) Multiple myeloma: Status: Acute Category: Medical Code(s): C90.00 - Multiple myeloma not having achieved remission (5) COPD (chronic obstructive pulmonary disease): Status: Chronic Qualifiers: COPD type: emphysema Emphysema type: unspecified Qualified Code(s): J43.9 - Emphysema, unspecified Category: Medical Code(s): J44.9 - Chronic obstructive pulmonary disease, unspecified (6) History of lung cancer: Status: Chronic Category: Medical Code(s): Z85.118 - Personal history of other malignant neoplasm of bronchus and lung (7) Hyperlipidemia: Status: Acute Qualifiers: Hyperlipidemia type: mixed hyperlipidemia Qualified Code(s): E78.2 - Mixed hyperlipidemia Category: Medical Code(s): E78.5 - Hyperlipidemia, unspecified (8) Hypertension: Status: Acute Qualifiers: Hypertension type: primary hypertension Qualified Code(s): I10 - Essential (primary) hypertension Category: Medical Code(s): I10 - Essential (primary) hypertension (9) Anemia: Status: Acute Qualifiers: Anemia type: unspecified type Qualified Code(s): D64.9 - Anemia, unspecified Category: Medical Code(s): D64.9 - Anemia, unspecified Plan 83-year-old female with history of lung cancer, multiple myeloma, pleural effusion on right. Previous thoracotomy and radiation to right hemithorax. Presented for direct admission from interventional radiology after developing pneumothorax post Thoracentesis. Patient complaining of some mild right-sided chest pain. Tolerating nonrebreather. Denies significant dyspnea. Discussed case with radiology, request admission for further monitoring and treatment and possible chest tube placement. Medicine agreed to admit. Surgery assisting with care. Chest tube placed yesterday. Chest x-ray today shows improving pneumothorax. Continues to require inpatient management. Problems addressed as follows. Recurrent pleural effusion Malignancy of right lung Pneumothorax -Chest tube placed yesterday due to worsening pneumothorax on CT. Tolerated procedure well. Removed proximally for 100 cc of effusion. Chest x-ray this morning shows small pneumothorax and apex but otherwise improvement through the rest of the hemithorax. Surgery consulted and assisting with care, discussed case today, transition to waterseal for chest tube. Monitor for continued leak. -Continue nonrebreather at 100% to promote resorption of remaining pneumothorax. Okay to wear 4 to 6 L supplemental oxygen while eating. Does not have any signs of hypoxia at this time. Anticipate weaning oxygen in the next 24 hours. -Kidney function and electrolytes acceptable, creatinine 1.2. Potassium 4.3. Sodium low at 129, stable with her chronic hyponatremia. Repeat CBC, CMP, magnesium ordered for the morning. Thrombocytopenia: Platelets 31 this morning. Goal platelets greater than 50 given presence of chest tube. Transfused 2 units platelets today. Continue Stiolto for COPD. DuoNebs every 6 hours scheduled Continue spironolactone, Lasix, Lipitor for hypertension and hyperlipidemia Continue omeprazole for GERD Continue levothyroxine 50 mcg daily for hypothyroid Full code Full liquid diet Holding anticoagulation in the setting of chest tube placement and thrombocytopenia
--- NOTE | 2023-12-03 09:00 | PC.NURSE ---
MD GUNDERSON STATED OKAY TO TAKE NON-REBREATHER OFF AND USE NASAL CANNULA, PLACED PT ON 4LNC AND OXYGEN SATURATIONS 95-100%
[2023-12-03] MEDS: POTASSIUM CHLORIDE 10MEQ TABLET.ER 10 MEQ PO ×2 (09:17→20:38)
[2023-12-03] MEDS: FUROSEMIDE 40 MG TABLET PO ×2 (09:17→16:00)
[2023-12-03] MEDS: SPIRONOLACTONE 25MG TABLET 25 MG PO ×2 (09:17→20:38)
[2023-12-03] MEDS: ATORVASTATIN 40MG TABLET 40 MG PO (09:17)
[2023-12-03 17:40] LABS: Platelet Count 101 K/mm3 (142-424)
[2023-12-03] MEDS: diazePAM 5MG TABLET 5 MG PO (20:38)
[2023-12-03] MEDS: PANTOPRAZOLE 40MG TABLET 40 MG PO (20:38)
[2023-12-04] VITALS (11 sets, daily range): BP systolic 83–105; BP diastolic 42–60; PULSE 56–100; RESP 16–20; TEMP 36.4–36.9; O2SAT 92–99; BMI 30.9; BMI 21.1
[2023-12-04] MEDS: IPRATROPIUM/ALBUTEROL 3 ML NEB IH ×3 (06:28→18:55)
[2023-12-04 06:46] LABS: Eosinophils % 0.4 % (0.1-12.0); Hematocrit 35.7 % (37.0-47.0); Hemoglobin 11.2 g/dL (12.2-16.2); Lymphocytes # 0.7 K/mm3 (0.7-4.5); Lymphocytes % 11.6 % (10-50); Mean Corpuscular HGB Conc 31.5 g/dL (31.8-35.4); Mean Corpuscular Hemoglobin 32.2 pg (27.0-31.2); Mean Corpuscular Volume 102.3 fl (81-99); Monocytes # 0.5 K/mm3 (0.1-1.0); Monocytes % 7.2 % (1.7-9.3); Neutrophils # 5.1 K/mm3 (1.8-7.8); Neutrophils % 80.7 % (37.0-80.0); Platelet Count 114 K/mm3 (142-424); Red Blood Count 3.49 M/mm3 (4.20-5.40); Red Cell Distribution Width 16.9 % (11.5-17.5); White Blood Count 6.3 K/mm3 (4.8-10.8)
[2023-12-04 06:49] LABS: Chloride 102 mmol/L (98-107); Potassium 4.3 mmoL/L (3.5-5.1); Sodium 132 mmol/L (136-145)
[2023-12-04 06:51] LABS: Blood Urea Nitrogen 29 mg/dl (7-17); Creatinine Clearance Estimated 50 mL/min (50-200); Estimated Glomerular Filt Rate 48 ml/min (>60); GFR (African American) 58 ML/MIN (>60)
[2023-12-04 06:52] LABS: Alanine Aminotransferase 23 U/L (12-78); Albumin Level 2.9 g/dl (3.5-5.0); Albumin/Globulin Ratio 0.9 (1.1-1.8); Alkaline Phosphatase 126 U/L (38-126); Aspartate Amino Transferase 29 U/L (14-36); Bilirubin,Total 0.6 mg/dl (0.2-1.3); Calcium 8.3 mg/dl (8.4-10.2); Carbon Dioxide 32 mmol/L (22.0-30.0); Globulin 3.3 g/dL (1.3-3.2); Glucose 84 mg/dl (74-100); Total Protein,Serum 6.2 g/dl (6.3-8.2)
[2023-12-04] MEDS: LEVOTHYROXINE 50MCG (0.05MG) TAB 50 MCG PO (06:52)
--- NOTE | 2023-12-04 06:52 | P.PN_ITS ---
Subjective Narrative: Patient resting. Chest x-ray yesterday revealed, by report, no mention of pneumothorax. Exam Data for Last 24 hours Vital signs and Labs for Last 24 Hours: Temp Pulse Resp BP Pulse Ox O2 Del Method O2 Flow Rate 98.4 F 87 20 83/42 L 95 Nasal Cannula 3 12/04/23 04:00 12/04/23 06:28 12/04/23 04:00 12/04/23 04:00 12/04/23 06:28 12/04/23 06:28 12/04/23 06:28 FiO2 32 12/03/23 18:46 Laboratory Results - last 24 hr 12/03/23 06:24: WBC 5.5, RBC 3.74 L, Hgb 11.8 L, Hct 38.0, MCV 101.6 H, MCH 31.7 H, MCHC 31.2 L, RDW 16.9, Plt Count 31 L*, MPV 13.8 H, Neut % (Auto) 72.0, Lymph % (Auto) 18.8, [place] % (Auto) 9.0, Eos % (Auto) 0.1, Baso % (Auto) 0.1, Neut # (Auto) 3.9, Lymph # (Auto) 1.0, [place] # (Auto) 0.5, Eos # (Auto) 0.0, Baso # (Auto) 0.0, Sodium 129 L, Potassium 4.3, Chloride 101, Carbon Dioxide 28, Anion Gap 4.3 L, BUN 31 H, Creatinine 1.20 H, Estimated Creat Clear 44, Estimated GFR 43 L, Est GFR ( Amer) 52 L, Glucose 98 D, Calcium 8.2 L, Magnesium 2.0, Total Bilirubin 0.4, AST 30, ALT 25, Alkaline Phosphatase 118, Total Protein 6.2 L, Albumin 2.9 L, Globulin 3.3 H, Albumin/Globulin Ratio 0.9 L 12/03/23 08:40: Blood Type O Positive 12/03/23 16:10: Hgb Cancelled, Hct Cancelled, Plt Count 101 L D 12/04/23 06:10: WBC 6.3, RBC 3.49 L, Hgb 11.2 L, Hct 35.7 L, MCV 102.3 H, MCH 32.2 H, MCHC 31.5 L, RDW 16.9, Plt Count 114 L, MPV 10.0, Neut % (Auto) 80.7 H, Lymph % (Auto) 11.6, [place] % (Auto) 7.2, Eos % (Auto) 0.4, Baso % (Auto) 0.0 L, Neut # (Auto) 5.1, Lymph # (Auto) 0.7, [place] # (Auto) 0.5, Eos # (Auto) 0.0, Baso # (Auto) 0.0 I & O for Last 24 hours: Intake & Output 12/01/23 12/02/23 12/03/23 12/04/23 11:59 11:59 11:59 11:59 Intake Total 1260 / 1260 1080 / 1080 1394 / 1394 Output Total 0 / 0 1245 / 1245 40 / 40 Balance 1260 / 1260 -165 / -165 1354 / 1354 Weight 121 lb 123 lb 7.342 oz 166 lb 174 lb 6 oz Routine Chest/Breast/Axilla Exam Comments: No evidence of any definite air leak on waterseal. Progress Note: A&P Assessment and plan (1) Pneumothorax on right: Status: Acute Assessment and plan: Chest x-ray today. May be able to potentially remove chest tube. (2) Thrombocytopenia: Status: Acute (3) Pleural effusion: Status: Acute (4) Multiple myeloma: Status: Acute (5) COPD (chronic obstructive pulmonary disease): Status: Chronic (6) History of lung cancer: Status: Chronic (7) Hyperlipidemia: Status: Acute (8) Hypertension: Status: Acute (9) Anemia: Status: Acute
[2023-12-04 06:53] LABS: Anion Gap 2.3 mEq/L (5-15)
--- NOTE | 2023-12-04 07:05 | XR_ITS ---
FINAL REPORT TECHNIQUE: Single view chest CLINICAL HISTORY: chest tube in place right lung COMPARISON: 12/03/2023 FINDINGS: A single view of the chest was obtained. The heart unchanged. Right chest tube is unchanged. There is worsening right perihilar opacity, favor atelectasis. Small right apical pneumothorax is stable. IMPRESSION: Worsening right perihilar opacity, favor atelectasis. Otherwise, no significant interval change. Reviewed, Interpreted and Dictated by Mago Fajardo MD Transcribed by Tana Power Authenticated and [facility]
[2023-12-04] MEDS: ATORVASTATIN 40MG TABLET 40 MG PO (07:59)
[2023-12-04] MEDS: POTASSIUM CHLORIDE 10MEQ TABLET.ER 10 MEQ PO (07:59)
[2023-12-04] MEDS: SPIRONOLACTONE 25MG TABLET 25 MG PO ×2 (07:59→21:10)
[2023-12-04] MEDS: FUROSEMIDE 40 MG TABLET PO ×2 (07:59→16:27)
--- NOTE | 2023-12-04 13:15 | PC.NURSE ---
Chest tube removed per Dr. Fountain at this time.
--- NOTE | 2023-12-04 13:26 | PC.NURSE ---
report given to Julisa Doss RN.
--- NOTE | 2023-12-04 14:05 | P.PN_ITS ---
Subjective *Date: 12/04/23 *Time: 14:05 Interval history: Feeling okay this morning. Denies any shortness of breath. Still having some pain in her lower right chest at site of chest tube. Denies any nausea or vomiting. Tolerating p.o. intake. On 3 L nasal cannula this morning with no desaturations. Still having moderate output of serosanguineous fluid from chest tube. Medical Exam Vital signs and Labs for Last 24 Hours: Vital Signs Temp Pulse Pulse Resp BP BP Pulse Ox 12/04/23 13:00 12/04/23 12:00 98.2 F 12/04/23 12:00 87 18 98/46 L 99 12/04/23 11:50 81 12/04/23 11:50 80 12/04/23 11:00 12/04/23 08:00 100 H 12/04/23 08:59 12/04/23 07:56 88 16 92/55 L 98 12/04/23 07:17 96 12/04/23 07:00 12/04/23 04:00 98.4 F 56 L 20 83/42 L 94 L 12/04/23 06:28 87 12/04/23 06:28 86 12/04/23 06:28 95 12/04/23 04:00 90 12/04/23 00:00 100 H 12/04/23 00:00 97.6 F 84 18 83/46 L 92 L 12/03/23 20:00 110 H 12/04/23 05:00 12/04/23 03:00 12/04/23 01:00 12/03/23 23:00 12/03/23 21:00 12/03/23 23:26 74 12/03/23 23:26 72 12/03/23 20:00 12/03/23 20:00 97.4 F L 86 17 95/55 L 94 L 12/03/23 18:46 12/03/23 18:46 76 12/03/23 18:46 74 12/03/23 18:42 12/03/23 16:00 98.4 F 12/03/23 16:42 12/03/23 16:00 94 H 23 100/55 L 98 12/03/23 16:36 95 H 22 98/60 L 96 12/03/23 16:00 100 H 12/03/23 15:00 12/03/23 15:36 98.1 F 84 22 100/51 L 95 12/03/23 15:32 83 17 89/51 L 96 12/03/23 15:27 98.4 F 95 H 18 94/57 L 96 12/03/23 15:22 86 18 90/48 L 97 12/03/23 15:17 98.0 F 83 13 88/48 L 97 12/03/23 15:05 98.0 F 100 H 19 95/53 L 97 12/03/23 15:00 101 H 21 89/52 L 98 12/03/23 14:55 99 H 22 90/46 L 98 12/03/23 14:50 98.3 F 95 H 17 93/51 L 98 12/03/23 14:45 94 H 19 98/49 L 98 12/03/23 14:44 95 H 18 93/61 L 97 O2 Del Method O2 Flow Rate FiO2 12/04/23 13:00 Nasal Cannula 3 12/04/23 12:00 12/04/23 12:00 Nasal Cannula 3 12/04/23 11:50 12/04/23 11:50 12/04/23 11:00 Nasal Cannula 3 12/04/23 08:00 12/04/23 08:59 Nasal Cannula 3 12/04/23 07:56 Nasal Cannula 3 12/04/23 07:17 Nasal Cannula 3 12/04/23 07:00 Nasal Cannula 3 12/04/23 04:00 12/04/23 06:28 12/04/23 06:28 12/04/23 06:28 Nasal Cannula 3 12/04/23 04:00 12/04/23 00:00 12/04/23 00:00 Nasal Cannula 3 12/03/23 20:00 12/04/23 05:00 Nasal Cannula 3 12/04/23 03:00 Nasal Cannula 3 12/04/23 01:00 Nasal Cannula 3 12/03/23 23:00 Nasal Cannula 12/03/23 21:00 Nasal Cannula 12/03/23 23:26 12/03/23 23:26 12/03/23 20:00 Nasal Cannula 3 12/03/23 20:00 Nasal Cannula 3 12/03/23 18:46 Nasal Cannula 3 32 12/03/23 18:46 12/03/23 18:46 12/03/23 18:42 Nasal Cannula 3 12/03/23 16:00 12/03/23 16:42 Nasal Cannula 4 12/03/23 16:00 Nasal Cannula 4 12/03/23 16:36 12/03/23 16:00 12/03/23 15:00 Nasal Cannula 4 12/03/23 15:36 12/03/23 15:32 12/03/23 15:27 12/03/23 15:22 12/03/23 15:17 12/03/23 15:05 12/03/23 15:00 12/03/23 14:55 12/03/23 14:50 12/03/23 14:45 12/03/23 14:44 Intake and Output 12/03/23 12/04/23 12/04/23 23:59 07:59 15:59 Intake Total 720 / 1754 50 / 680 630 / 680 Output Total 0 / 220 40 / 790 750 / 790 Balance 720 / 1534 10 / -110 -120 / -110 Intake: Intake, Oral Amount 720 / 1350 50 / 680 630 / 680 Output: Output, Urine Amount 0 / 0 0 / 0 Output, Chest Tube Drainage 40 / 790 750 / 790 Amount Right Mid-Axillary Chest 40 / 790 750 / 790 Other: Number of Unmeasured Voids 1 1 Weight 79.095 kg 79 kg Patient Weight 12/04/23 23:59 Weight 79 kg Laboratory Results - last 24 hr 12/03/23 08:40: Blood Type O Positive 12/03/23 16:10: Hgb Cancelled, Hct Cancelled, Plt Count 101 L D 12/04/23 06:10: WBC 6.3, RBC 3.49 L, Hgb 11.2 L, Hct 35.7 L, MCV 102.3 H, MCH 32.2 H, MCHC 31.5 L, RDW 16.9, Plt Count 114 L, MPV 10.0, Neut % (Auto) 80.7 H, Lymph % (Auto) 11.6, [place] % (Auto) 7.2, Eos % (Auto) 0.4, Baso % (Auto) 0.0 L, Neut # (Auto) 5.1, Lymph # (Auto) 0.7, [place] # (Auto) 0.5, Eos # (Auto) 0.0, Baso # (Auto) 0.0, Sodium 132 L, Potassium 4.3, Chloride 102, Carbon Dioxide 32 H, Anion Gap 2.3 L, BUN 29 H, Creatinine 1.10 H, Estimated Creat Clear 50, Estimated GFR 48 L, Est GFR ( Amer) 58 L, Glucose 84, Calcium 8.3 L, Magnesium 2.0, Total Bilirubin 0.6, AST 29, ALT 23, Alkaline Phosphatase 126, Total Protein 6.2 L, Albumin 2.9 L, Globulin 3.3 H, Albumin/Globulin Ratio 0.9 L I & O for Labs for Last 24 Hours: Intake & Output 12/01/23 12/02/23 12/03/23 12/04/23 23:59 23:59 23:59 23:59 Intake Total 900 / 900 1080 / 1080 1754 / 1754 680 / 680 Output Total 0 / 0 1025 / 1025 220 / 220 790 / 790 Balance 900 / 900 55 / 55 1534 / 1534 -110 / -110 Weight 54.885 kg 56 kg 75.296 kg 79 kg Constitutional: Present no acute distress, thin, chronically ill appearing and cooperative Head: Present atraumatic and normocephalic ENT: Present normal exam Neck: Present normal inspection Respiratory: Present normal respiratory effort; Absent rhonchi, wheezes or aircraft designer 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 Comment:: Chest tube in right chest wall, no active bleeding Cardiac: Present Regular Rhythm and Tachycardia GI: Present normal bowel sounds; Absent tenderness Extremities: Present normal inspection and full ROM Skin: Present intact; Absent erythema Neuro: Present Grossly Intact, alert, awake, oriented x 3 and moves all extremities Assessment and Plan *Assessment and plan (1) Pneumothorax on right: Status: Acute Category: Medical Code(s): J93.9 - Pneumothorax, unspecified (2) Thrombocytopenia: Status: Acute Category: Medical Code(s): D69.6 - Thrombocytopenia, unspecified (3) Pleural effusion: Status: Acute Category: Medical Code(s): J90 - Pleural effusion, not elsewhere classified (4) Multiple myeloma: Status: Acute Category: Medical Code(s): C90.00 - Multiple myeloma not having achieved remission (5) COPD (chronic obstructive pulmonary disease): Status: Chronic Qualifiers: COPD type: emphysema Emphysema type: unspecified Qualified Code(s): J43.9 - Emphysema, unspecified Category: Medical Code(s): J44.9 - Chronic obstructive pulmonary disease, unspecified (6) History of lung cancer: Status: Chronic Category: Medical Code(s): Z85.118 - Personal history of other malignant neoplasm of bronchus and lung (7) Hyperlipidemia: Status: Acute Qualifiers: Hyperlipidemia type: mixed hyperlipidemia Qualified Code(s): E78.2 - Mixed hyperlipidemia Category: Medical Code(s): E78.5 - Hyperlipidemia, unspecified (8) Hypertension: Status: Acute Qualifiers: Hypertension type: primary hypertension Qualified Code(s): I10 - Essential (primary) hypertension Category: Medical Code(s): I10 - Essential (primary) hypertension (9) Anemia: Status: Acute Qualifiers: Anemia type: unspecified type Qualified Code(s): D64.9 - Anemia, unspecified Category: Medical Code(s): D64.9 - Anemia, unspecified Plan 83-year-old female with history of lung cancer, multiple myeloma, pleural effusion on right. Previous thoracotomy and radiation to right hemithorax. Presented for direct admission from interventional radiology after developing pneumothorax post Thoracentesis. Patient complaining of some mild right-sided chest pain. Tolerating nonrebreather. Denies significant dyspnea. Discussed case with radiology, request admission for further monitoring and treatment and possible chest tube placement. Medicine agreed to admit. Surgery assisting with care. Chest tube placed 12/02/23. Chest x-ray today shows improving pneumothorax. Continues to require inpatient management. Problems addressed as follows. Recurrent pleural effusion Malignancy of right lung Pneumothorax -Chest tube placed 10/01. Pneumothorax improving on chest x-ray, personally reviewed. Discussed case with surgery, plan for removal of chest tube today as she has done well for 24 hours on waterseal. -Transition to nasal cannula for comfort. No hypoxia noted. 2 to 3 L at this time. -Kidney function and electrolytes acceptable, creatinine 1.1. Potassium 4.3. Sodium low at 132, stable with her chronic hyponatremia. Repeat CBC, CMP, magnesium ordered for the morning. Thrombocytopenia: Platelets have improved to 114 this morning. Received 2 units yesterday. Transfusion threshold platelets less than 50. Continue Stiolto for COPD. DuoNebs every 6 hours scheduled Continue spironolactone, Lasix, Lipitor for hypertension and hyperlipidemia Continue omeprazole for GERD Continue levothyroxine 50 mcg daily for hypothyroid Full code Full liquid diet Holding anticoagulation in the setting of chest tube placement and thromb ocytopenia
[2023-12-04] MEDS: SIMETHICONE 80MG CHEWABLE TABLET 160 MG PO (21:10)
[2023-12-04] MEDS: PANTOPRAZOLE 40MG TABLET 40 MG PO (21:11)
[2023-12-04] MEDS: diazePAM 5MG TABLET 5 MG PO (21:13)
[2023-12-05] VITALS (10 sets, daily range): BP systolic 83–97; BP diastolic 41–62; PULSE 63–99; RESP 16–18; TEMP 36.7–37.2; O2SAT 94–98; BMI 31.0
[2023-12-05] MEDS: HYDROCODONE/APAP 5/325 MG TABLET 1 TAB PO ×2 (01:54→18:20)
[2023-12-05] MEDS: LEVOTHYROXINE 50MCG (0.05MG) TAB 50 MCG PO (06:08)
[2023-12-05] MEDS: IPRATROPIUM/ALBUTEROL 3 ML NEB IH ×3 (06:33→23:22)
[2023-12-05 07:15] LABS: Basophils % 0.1 % (0.1-2.0); Eosinophils # 0.1 K/mm3 (0.0-0.4); Eosinophils % 0.8 % (0.1-12.0); Hematocrit 35.9 % (37.0-47.0); Hemoglobin 11.2 g/dL (12.2-16.2); Lymphocytes # 0.9 K/mm3 (0.7-4.5); Lymphocytes % 14.1 % (10-50); Mean Corpuscular HGB Conc 31.2 g/dL (31.8-35.4); Mean Corpuscular Hemoglobin 31.8 pg (27.0-31.2); Mean Corpuscular Volume 102.1 fl (81-99); Mean Platelet Volume 10.7 fl (7.4-10.4); Monocytes # 0.5 K/mm3 (0.1-1.0); Monocytes % 7.2 % (1.7-9.3); Neutrophils # 5.1 K/mm3 (1.8-7.8); Neutrophils % 77.8 % (37.0-80.0); Platelet Count 110 K/mm3 (142-424); Red Blood Count 3.52 M/mm3 (4.20-5.40); Red Cell Distribution Width 16.9 % (11.5-17.5); White Blood Count 6.6 K/mm3 (4.8-10.8)
[2023-12-05 07:30] LABS: Chloride 99 mmol/L (98-107); Sodium 129 mmol/L (136-145)
[2023-12-05 07:33] LABS: Alanine Aminotransferase 21 U/L (12-78); Albumin Level 2.9 g/dl (3.5-5.0); Albumin/Globulin Ratio 0.9 (1.1-1.8); Alkaline Phosphatase 140 U/L (38-126); Aspartate Amino Transferase 32 U/L (14-36); Bilirubin,Total 0.8 mg/dl (0.2-1.3); Blood Urea Nitrogen 27 mg/dl (7-17); Calcium 8.2 mg/dl (8.4-10.2); Carbon Dioxide 32 mmol/L (22.0-30.0); Creatinine Clearance Estimated 55 mL/min (50-200); Estimated Glomerular Filt Rate 60 ml/min (>60); GFR (African American) 73 ML/MIN (>60); Globulin 3.3 g/dL (1.3-3.2); Glucose 95 mg/dl (74-100); Total Protein,Serum 6.2 g/dl (6.3-8.2)
--- NOTE | 2023-12-05 07:46 | XR_ITS ---
FINAL REPORT CLINICAL HISTORY: PNEUMOTHORAX chest tube removed yesterday COMPARISON: 12/04/2023 FINDINGS: PA and lateral views of the chest were obtained. There has been interval removal of the right basilar chest tube. The cardiac and mediastinal silhouettes are within normal limits. Right perihilar opacity is stable.. There is a very small right apical pneumothorax with 3 to 4 mm of pleural separation. No acute osseous abnormality is identified. IMPRESSION: Very small right apical pneumothorax with 3 to 4 mm of pleural separation. Stable right perihilar opacity. Reviewed, Interpreted and Dictated by Mago Fajardo MD Transcribed by Ale Montes Authenticated and [facility]
--- NOTE | 2023-12-05 07:55 | EXP.SURG.PN ---
Subjective Narrative: Patient complains of right sided chest pain. Denies shortness of air. Exam Data for Last 24 hours Vital signs and Labs for Last 24 Hours: Temp Pulse Resp BP Pulse Ox O2 Del Method O2 Flow Rate 98.1 F 87 17 95/56 L 95 Room Air 3 12/05/23 07:36 12/05/23 07:36 12/05/23 07:36 12/05/23 07:36 12/05/23 07:36 12/05/23 07:36 12/04/23 18:42 FiO2 32 12/03/23 18:46 Laboratory Results - last 24 hr 12/05/23 06:23: WBC 6.6, RBC 3.52 L, Hgb 11.2 L, Hct 35.9 L, MCV 102.1 H, MCH 31.8 H, MCHC 31.2 L, RDW 16.9, Plt Count 110 L, MPV 10.7 H, Neut % (Auto) 77.8, Lymph % (Auto) 14.1, [place] % (Auto) 7.2, Eos % (Auto) 0.8, Baso % (Auto) 0.1, Neut # (Auto) 5.1, Lymph # (Auto) 0.9, [place] # (Auto) 0.5, Eos # (Auto) 0.1, Baso # (Auto) 0.0, Sodium 129 L, Potassium 4.0, Chloride 99, Carbon Dioxide 32 H, Anion Gap 2.0 L, BUN 27 H, Creatinine 0.90, Estimated Creat Clear 55, Estimated GFR 60, Est GFR ( Amer) 73 D, Glucose 95, Calcium 8.2 L, Total Bilirubin 0.8, AST 32, ALT 21, Alkaline Phosphatase 140 H, Total Protein 6.2 L, Albumin 2.9 L, Globulin 3.3 H, Albumin/Globulin Ratio 0.9 L I & O for Last 24 hours: Intake & Output 12/02/23 12/03/23 12/04/23 12/05/23 11:59 11:59 11:59 11:59 Intake Total 1260 / 1260 1080 / 1080 1714 / 1714 1050 / 1050 Output Total 0 / 0 1245 / 1245 40 / 40 750 / 750 Balance 1260 / 1260 -165 / -165 1674 / 1674 300 / 300 Weight 123 lb 7.342 oz 166 lb 119 lb 0.794 oz 175 lb 4.8 oz Progress Note: A&P Assessment and plan (1) Pneumothorax on right: Status: Acute Assessment and plan: CXR ordered. Pending. (2) Thrombocytopenia: Status: Acute (3) Pleural effusion: Status: Acute (4) Multiple myeloma: Status: Acute (5) COPD (chronic obstructive pulmonary disease): Status: Chronic (6) History of lung cancer: Status: Chronic (7) Hyperlipidemia: Status: Acute (8) Hypertension: Status: Acute (9) Anemia: Status: Acute
[2023-12-05] MEDS: POTASSIUM CHLORIDE 10MEQ TABLET.ER 10 MEQ PO (08:58)
[2023-12-05] MEDS: SPIRONOLACTONE 25MG TABLET 25 MG PO ×2 (08:58→20:37)
[2023-12-05] MEDS: FUROSEMIDE 40 MG TABLET PO (08:58)
--- NOTE | 2023-12-05 11:22 | P.PN_ITS ---
Subjective *Date: 12/05/23 *Time: 11:25 Interval history: seen at bedside, complains of Chest pain on R lower chest. is on RA, able to ambulate to restroom Exam Data for Last 24 hours Vital signs and Labs for Last 24 Hours: Temp Pulse Resp BP Pulse Ox O2 Del Method O2 Flow Rate 98.2 F 77 18 95/47 L 96 Room Air 3 12/05/23 11:21 12/05/23 11:21 12/05/23 11:21 12/05/23 11:12/05/23 11:12/05/23 11:21 12/04/23 18:42 FiO2 32 12/03/23 18:46 Laboratory Results - last 24 hr 12/05/23 06:23: WBC 6.6, RBC 3.52 L, Hgb 11.2 L, Hct 35.9 L, MCV 102.1 H, MCH 31.8 H, MCHC 31.2 L, RDW 16.9, Plt Count 110 L, MPV 10.7 H, Neut % (Auto) 77.8, Lymph % (Auto) 14.1, [place] % (Auto) 7.2, Eos % (Auto) 0.8, Baso % (Auto) 0.1, Neut # (Auto) 5.1, Lymph # (Auto) 0.9, [place] # (Auto) 0.5, Eos # (Auto) 0.1, Baso # (Auto) 0.0, Sodium 129 L, Potassium 4.0, Chloride 99, Carbon Dioxide 32 H, Anion Gap 2.0 L, BUN 27 H, Creatinine 0.90, Estimated Creat Clear 55, Estimated GFR 60, Est GFR ( Amer) 73 D, Glucose 95, Calcium 8.2 L, Total Bilirubin 0.8, AST 32, ALT 21, Alkaline Phosphatase 140 H, Total Protein 6.2 L, Albumin 2 .9 L, Globulin 3.3 H, Albumin/Globulin Ratio 0.9 L I & O for Last 24 hours: Intake & Output 12/02/23 12/03/23 12/04/23 12/05/23 23:59 23:59 23:59 23:59 Intake Total 1080 / 1080 1754 / 1754 900 / 900 470 / 470 Output Total 1025 / 1025 220 / 220 790 / 790 0 / 0 Balance 55 / 55 1534 / 1534 110 / 110 470 / 470 Weight 56 kg 75.296 kg 54 kg 79.515 kg Constitutional Constitutional: no acute distress *Routine HEENT Exam Head: Present normocephalic Eye: Present EOMI and PERRL ENT: Present mucous membranes moist *Routine Neck Exam Neck: Present supple; Absent lymphadenopathy *Routine Respiratory Exam Respiratory: Present CTA bilaterally *Routine Cardiovascular Exam Cardiovascular: Present RRR *Routine Abdominal Exam Abdominal: Present soft and normoactive bowel sounds; Absent tenderness *Routine Extremities Exam Extremities: Absent cyanosis, clubbing or edema *Routine Skin Exam Skin: Present warm; Absent rash *Routine Neurological Exam Neurological: Present alert and oriented X3 Assessment and Plan *Assessment and plan (1) Pneumothorax on right: Status: Acute Category: Medical Code(s): J93.9 - Pneumothorax, unspecified (2) Thrombocytopenia: Status: Acute Category: Medical Code(s): D69.6 - Thrombocytopenia, unspecified (3) Pleural effusion: Status: Acute Category: Medical Code(s): J90 - Pleural effusion, not elsewhere classified (4) Multiple myeloma: Status: Acute Category: Medical Code(s): C90.00 - Multiple myeloma not having achieved remission (5) COPD (chronic obstructive pulmonary disease): Status: Chronic Qualifiers: COPD type: emphysema Emphysema type: unspecified Qualified Code(s): J43.9 - Emphysema, unspecified Category: Medical Code(s): J44.9 - Chronic obstructive pulmonary disease, unspecified (6) History of lung cancer: Status: Chronic Category: Medical Code(s): Z85.118 - Personal history of other malignant neoplasm of bronchus and lung (7) Hyperlipidemia: Status: Acute Qualifiers: Hyperlipidemia type: mixed hyperlipidemia Qualified Code(s): E78.2 - Mixed hyperlipidemia Category: Medical Code(s): E78.5 - Hyperlipidemia, unspecified (8) Hypertension: Status: Acute Qualifiers: Hypertension type: primary hypertension Qualified Code(s): I10 - Essential (primary) hypertension Category: Medical Code(s): I10 - Essential (primary) hypertension (9) Anemia: Status: Acute Qualifiers: Anemia type: unspecified type Qualified Code(s): D64.9 - Anemia, unspecified Category: Medical Code(s): D64.9 - Anemia, unspecified Plan 83-year-old female with history of lung cancer, multiple myeloma, pleural effusion on right. Previous thoracotomy and radiation to right hemithorax. Presented for direct admission from interventional radiology after developing pneumothorax post Thoracentesis. Patient complaining of some mild right-sided chest pain. Tolerating nonrebreather. Denies significant dyspnea. Recurrent pleural effusion Malignancy of right lung Pneumothorax -Chest tube placed 10/01, s/p removal of chest tube - CXR today shows small Pneumothorax, chest tube is out - consult pulmonary for recurring pleural effusion, pneumonathorax, and lung cancer history, still complains fo R sided chest pain, may need to be put on supplement oxygen to help with pneumothorax Thrombocytopenia: Platelets have are stable today Transfusion threshold platelets less than 50. Continue Stiolto for COPD. DuoNebs every 6 hours scheduled Continue spironolactone, Lasix, Lipitor for hypertension and hyperlipidemia Continue omeprazole for GERD Continue levothyroxine 50 mcg daily for hypothyroid Full code Regular diet SCDs for DVT PPx given thrombocytopenia
--- NOTE | 2023-12-05 12:54 | PC.NURSE ---
. to order medication to help patient have a bm.
[2023-12-05] MEDS: POLYETHYLENE GLYCOL 3350 17 GM PACKET PO (13:06)
--- NOTE | 2023-12-05 13:06 | SW/DCPLANNER ---
Addendum entered by Daily Reed 12/06/23 12:16: The plan for this patient is to discharge home today. Patient is very emotional due to ex being in a group home and about to . Patient is not interested in home health services at this time. Patient stated that she will have transportation home at time of discharge. Patient is agreeable to return home today. Original Note: I spoke w/ this patient regarding plans once medically stable for discharge. Patient stated that she is independent at home and ambulates w/o any assisted devices. Patient stated that she does not have any needs for home at time of discharge. I will continue to follow up w/ this patient to assist w/ any needs/new orders. Per MD patient will discharge tomorrow.
[2023-12-05] MEDS: DOCUSATE SODIUM 100 MG CAPSULE PO ×2 (13:12→20:37)
--- NOTE | 2023-12-05 14:28 | EXP.CARD.CON ---
History of Present Illness History of Present Illness Consult date: 12/05/23 Chief complaint: SOA Additional Medical History:: 1. History of Lung Cancer stage IIIa SCC, treated at in 2019 A. History of chest radiation, immunotherapy and chemotherapy after RLL lobectomy B. Remote history of [id number] tobacco use C. Recurrent right pleural effusion status postthoracentesis 2. Hypertension A. Echo, 12/06/2021, mild LAE, normal LV size with EF 50%, no regional WMA. Mild conc LVH. Grade I DD. Thickened and calcified aortic valve without . Mild AI/MR/TR. RVSP 34 mm Hg B. Hair loss related to beta kermit 3. Moderate coronary artery calcification noted on chest CTA, 09/15/2023 A. Jeffrey myoview, 11/2021, No ischemia, EF 53% 4. History of TIA, 2016 5. History of remote DVT and PE, 2018, A. no longer on A/C as of 2021 due to GI bleed 6. Carotid artery stenosis A. Less than 50% bilateral ICA stenosis. 7. Hyperlipidemia A. Statin therapy 8. History of GI bleed A. Colonoscopy, Dr. Zuniga, 09/2020, colonic polyps x 2, left-sided diverticulosis, grade 1-2 internal hemorrhoids B. EGD, 09/2010, Dr. Zuniga, esophageal telangiectasias/AVMs (mid esophagus encompassing 10 cm in length) consistent with radiation esophagitis. Mild linear reactive gastropathy with bile reflux. C. 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 Patient was on anticoagulation due to history of PE and DVT but this was stopped in 2021. 9. 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 Zuniga, 06/2021 and 12/2020 A. History of esophageal dilatation, 2018 with nonerosive GERD and mild esophageal dysmotility and bile reflux with linear reactive gastropathy B. EGD with cauterization of AVMs, approximately August 2023 10. Hypothyroidism A. On replacement 11. Mild obstructive sleep apnea, 05/2021, with severe LURDES during REM with evidence of nocturnal hypoxemia A. Followed by Dr. Simpson 12. COPD related to remote tobacco use A. PFTs, 06/2021, V1 VC ratio of 76 with V1 at 89% predicted and VC at 87% predicted. TLC within normal limits at 84% predicted. Air trapping noted with a ratio at 45 and significant decrease in DLCO at 54% predicted. 13. Lumbar spondylosis A. Lumbar epidural steroid injection, 09/2022 14. Newly diagnosed IgG kappa myeloma, October [address] Rubio Johnson. PET CT scan 10/18/2023 revealed diffuse osseous hypermetabolism most likely secondary to marrow stimulation. C. Bone marrow biopsy 10/24/2023 noted kappa restricted plasma cell population representing approximately 80% of hypercellular bone marrow. D. Chemotherapy started 11/2023 15. Paroxysmal atrial fibrillation A. Noted on property assessment monitor 11/2023 with 22% burden. B. Not on anticoagulation due to history of prior GI bleeds. History of present illness: 83-year-old white female with history of lung cancer status post right lower lobectomy in 2019 with recurrent right pleural effusions was admitted post thoracentesis due to small pneumothorax. Ultimately required chest tube placement which was removed yesterday. Cardiology asked to address increase in diuretics to see if recurrent pleural effusion can be prevented (she has had 3 thoracentesis this year). [facility] Disclaimer: The information contained in this section may have been updated after the patient was seen, as this information can be updated by other users. Medical History Abnormal echocardiogram Acute respiratory failure with hypoxia Anxiety Carotid artery stenosis Chest pain COPD (chronic obstructive pulmonary disease) Dyspnea Dyspnea on exertion Edema of both lower extremities Fatigue Heart palpitations History of lung cancer Hx of deep venous thrombosis Hx-TIA (transient ischemic attack) Hyperlipidemia Hypertension Hypothyroidism Loss of hair Nausea and vomiting LURDES on CPAP Pneumonia with cavity of lung Stopped smoking with greater than 30 pack year history Surgical History H/O arthroscopy of knee History of breast biopsy History of tonsillectomy Hx of appendectomy Hx of cholecystectomy Family History No significant family history Diabetes Cancer Social History Smoking Status: Former smoker tobacco type: cigarettes second hand exposure: No alcohol intake: never substance use type: denies use current occupational status: retired Travel in the last 8 weeks: None household members: none housing: house current occupational exposures/hazards: No caffeine: Yes Review of Systems Review of Systems Review of systems:: pertinent systems reviewed and negative unless documented below *Cardiovascular Cardiovascular: Denies chest pain, Reports dyspnea and Reports dyspnea on exertion *Respiratory Respiratory: Reports dyspnea and Reports dyspnea on exertion Exam Data for Last 24 hours Vital signs and Labs for Last 24 Hours: Temp Pulse Resp BP Pulse Ox O2 Del Method O2 Flow Rate 98.2 F 77 18 95/47 L 96 Room Air 3 12/05/23 11:21 12/05/23 11:21 12/05/23 11:21 12/05/23 11:21 12/05/23 11:21 12/05/23 14:02 12/04/23 18:42 FiO2 32 12/03/23 18:46 Laboratory Results - last 24 hr 12/05/23 06:23: WBC 6.6, RBC 3.52 L, Hgb 11.2 L, Hct 35.9 L, MCV 102.1 H, MCH 31.8 H, MCHC 31.2 L, RDW 16.9, Plt Count 110 L, MPV 10.7 H, Neut % (Auto) 77.8, Lymph % (Auto) 14.1, [place] % (Auto) 7.2, Eos % (Auto) 0.8, Baso % (Auto) 0.1, Neut # (Auto) 5.1, Lymph # (Auto) 0.9, [place] # (Auto) 0.5, Eos # (Auto) 0.1, Baso # (Auto) 0.0, Sodium 129 L, Potassium 4.0, Chloride 99, Carbon Dioxide 32 H, Anion Gap 2.0 L, BUN 27 H, Creatinine 0.90, Estimated Creat Clear 55, Estimated GFR 60, Est GFR ( Amer) 73 D, Glucose 95, Calcium 8.2 L, Total Bilirubin 0.8, AST 32, ALT 21, Alkaline Phosphatase 140 H, Total Protein 6.2 L, Albumin 2.9 L, Globulin 3.3 H, Albumin/Globulin Ratio 0.9 L I & O for Last 24 hours: Intake & Output 12/03/23 12/04/23 12/05/23 12/06/23 11:59 11:59 11:59 11:59 Intake Total 1080 / 1080 1714 / 1714 1050 / 1050 240 / 240 Output Total 1245 / 1245 40 / 40 750 / 750 Balance -165 / -165 1674 / 1674 300 / 300 240 / 240 Weight 166 lb 119 lb 0.794 oz 175 lb 4.8 oz Constitutional Constitutional: no acute distress *Routine Respiratory Exam Respiratory: Present decreased breath sounds (Decreased breath sounds right base) and diminished air movement *Routine Cardiovascular Exam Cardiovascular: Present RRR and murmur; Absent gallop or rubs *Routine Extremities Exam Extremities: Absent edema *Routine Neurological Exam Neurological: Present alert and oriented X3 Meds Home Medications and Allergies Home Medications Medication Instructions Recorded Confirmed Type diazepam 5 mg tablet 5 mg PO HSP PRN Insomnia 05/12/22 12/01/23 History famotidine 40 mg tablet 40 mg PO DAILY acid reflux 05/12/22 12/01/23 History atorvastatin 40 mg tablet 40 mg PO DAILY Cholesterol 09/16/23 12/01/23 History ergocalciferol (vitamin D2) 1,250 50,000 unit PO WEEKLY Supplement 09/16/23 12/01/23 History mcg (50,000 unit) capsule levothyroxine 50 mcg tablet 50 mcg PO DAILY Thyroid 09/16/23 12/01/23 History multivitamin 1 tab PO DAILY Supplement 09/16/23 12/01/23 History meloxicam 7.5 mg tablet 7.5 mg PO DAILY Pain 11/08/23 12/01/23 History albuterol sulfate 90 mcg/actuation 1 inh inhalation Q6HP PRN 12/01/23 12/01/23 History aerosol inhaler shortness of breath or wheezing dexamethasone 4 mg tablet 40 mg PO TU 12/01/23 12/01/23 History furosemide 40 mg tablet 40 mg PO BID Fluid 12/01/23 12/01/23 History omeprazole 20 mg capsule,delayed 20 mg PO DAILY Acid Reflux 12/01/23 12/01/23 History release potassium chloride 10 mEq 10 meq PO BID Supplement 12/01/23 12/01/23 History tablet,extended release prochlorperazine maleate 10 mg 10 mg PO Q6HP PRN Nausea And 12/01/23 12/01/23 History tablet Vomiting spironolactone 25 mg tablet 25 mg PO BID Fluid 12/01/23 12/01/23 History tiotropium 2.5 mcg-olodaterol 2.5 2 puff inhalation DAILY Breathing 12/01/23 12/01/23 History mcg/actuation mist for inhalation Problems (Stiolto Respimat) New Prescriptions to Start Prescriptions: Allergies Allergy/AdvReac Type Severity Reaction Status Date / Time metoclopramide [From Reglan] Allergy Intermediate Unknown Verified 12/01/23 09:19 allergy reaction Barbiturates [BARBITURATES] Allergy Unknown Unknown Verified 12/01/23 09:19 allergy reaction sulfamethoxazole Allergy Unknown Verified 12/01/23 09:19 [From Bactrim] allergy reaction trimethoprim [From Bactrim] Allergy Unknown Verified 12/01/23 09:19 allergy reaction bisoprolol AdvReac Mild HAIR LOSS Verified 12/01/23 09:19 diltiazem AdvReac Mild Dizziness Verified 12/01/23 09:19 Assessment and Plan *Assessment and plan (1) Pneumothorax on right: Status: Acute Category: Medical Code(s): J93.9 - Pneumothorax, unspecified (2) Thrombocytopenia: Status: Acute Category: Medical Code(s): D69.6 - Thrombocytopenia, unspecified (3) Multiple myeloma: Status: Acute Qualifiers: Multiple myeloma remission status: unspecified Qualified Code(s): C90.00 - Multiple myeloma not having achieved remission Category: Medical Code(s): C90.00 - Multiple myeloma not having achieved remission (4) [place] amyloidosis: Status: Acute Category: Medical Code(s): E85.81 - Light chain (AL) amyloidosis (5) Pleural effusion on right: Status: Acute Category: Medical Code(s): J90 - Pleural effusion, not elsewhere classified (6) History of lung cancer: Status: Chronic Category: Medical Code(s): Z85.118 - Personal history of other malignant neoplasm of bronchus and lung (7) Hyperlipidemia: Status: Acute Qualifiers: Hyperlipidemia type: mixed hyperlipidemia Qualified Code(s): E78.2 - Mixed hyperlipidemia Category: Medical Code(s): E78.5 - Hyperlipidemia, unspecified (8) Hypertension: Status: Acute Qualifiers: Hypertension type: primary hypertension Qualified Code(s): I10 - Essential (primary) hypertension Category: Medical Code(s): I10 - Essential (primary) hypertension (9) Anemia: Status: Acute Qualifiers: Anemia type: unspecified type Qualified Code(s): D64.9 - Anemia, unspecified Category: Medical Code(s): D64.9 - Anemia, unspecified Plan 1. History of lung cancer status post right lower lobe lobectomy -now with recurrent right pleural effusion status post thoracentesis with pneumothorax requiring chest tube, now removed -Pleural fluid negative for malignancy 2. Multiple myeloma/AL amyloidosis -Recent chemotherapy institution, followed by Dr. Bergeron -Recurrent thrombocytopenia, improved after plasma infusion 3. 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 Paroxysmal atrial fibrillation with 22% burden on recent event monitor -No anticoagulation due to history of GI bleed related to esophageal AVMs -currently sinus -unable to tolerate diltiazem due to hair loss -will not start beta kermit due to hypotension 5. Hypothyroidism -on replacement therapy 6. HFpEF due to infiltrative disease -Will change lasix to IV and monitor renal functions -Continue spironolactone 25 mg twice daily check echo to evaluate for pericardial effusion
--- NOTE | 2023-12-05 16:00 | P.CONS_ITS ---
History of Present Illness History of present illness: Ms. Shah is a 83-year-old female former smoker and [id number] smoking carries a diagnosis exertional dyspnea COPD, prior history of Stage IIIA squamous cell carcinoma right lung diagnosed with right lower lobectomy performed along with concurrent chemoradiotherapy Nov 2018, currently under surveillance, history of gastric AVMs, sleep apnea prior history of DVT noted of recurrent right-sided pleural effusions and pulmonary was consulted for further evaluation and management. [facility] Disclaimer: The information contained in this section may have been updated after the edvin puri was seen, as this information can be updated by other users. Medical History Abnormal echocardiogram Acute respiratory failure with hypoxia Anxiety Carotid artery stenosis Chest pain COPD (chronic obstructive pulmonary disease) Dyspnea Dyspnea on exertion Edema of both lower extremities Fatigue Heart palpitations History of lung cancer Hx of deep venous thrombosis Hx-TIA (transient ischemic attack) Hyperlipidemia Hypertension Hypothyroidism Loss of hair Nausea and vomiting LURDES on CPAP Pneumonia with cavity of lung Recurrent pleural effusion on right Stopped smoking with greater than 30 pack year history Surgical History H/O arthroscopy of knee History of breast biopsy History of tonsillectomy Hx of appendectomy Hx of cholecystectomy Family History No significant family history Diabetes Cancer Social History Smoking Status: Former smoker tobacco type: cigarettes second hand exposure: No alcohol intake: never substance use type: denies use current occupational status: retired Travel in the last 8 weeks: None household members: none housing: house current occupational exposures/hazards: No caffeine: Yes Review of Systems Constitutional Constitutional: Reports anorexia, Reports body ache(s) and Reports fatigue Eyes Eyes: Denies eye discharge, Denies dry eyes, Denies irritation and Denies itchy eyes ENT Ears, Nose, Mouth, and Throat: Denies epistaxis, Denies facial pain, Denies lip swelling and Denies throat swelling *Cardiovascular Cardiovascular: Reports dyspnea and Reports dyspnea on exertion *Respiratory Respiratory: Reports chest congestion, Reports cough, Reports dyspnea, Reports dyspnea on exertion, Denies excessive phlegm production, Denies hemoptysis, Denies pain on inspiration, Denies pain with cough and Reports wheezing *Gastrointestinal Gastrointestinal: Denies abdominal pain, Denies belching and Denies cramping *Musculoskeletal Musculoskeletal: Reports back pain, Reports myalgias and Reports other (No small joint swelling or Pain) *Neurologic Neurologic: Reports system reviewed and no additional complaints, except as documented Psychiatric Psychiatric: Denies homicidal ideation and Denies suicidal ideation Endocrine Endocrine: Reports fatigue and Denies heat intolerance Hematologic/Lymphatic Hematologic/Lymphatic: Denies easy bleeding and Denies lymphadenopathy Allergic/Immunologic Allergic/Immunologic: Denies itchy eyes, Denies lip swelling, Denies throat swelling and Reports wheezing Pulmonology Exam Inpatient Vital signs and Labs for Last 24 Hours: Temp Pulse Resp BP Pulse Ox O2 Del Method O2 Flow Rate 98.3 F 63 18 88/54 L 98 Room Air 3 12/05/23 15:10 12/05/23 15:10 12/05/23 15:10 12/05/23 15:10 12/05/23 15:10 12/05/23 15:10 12/04/23 18:42 FiO2 32 12/03/23 18:46 Laboratory Results - last 24 hr 12/05/23 06:23: WBC 6.6, RBC 3.52 L, Hgb 11.2 L, Hct 35.9 L, MCV 102.1 H, MCH 31.8 H, MCHC 31.2 L, RDW 16.9, Plt Count 110 L, MPV 10.7 H, Neut % (Auto) 77.8, Lymph % (Auto) 14.1, [place] % (Auto) 7.2, Eos % (Auto) 0.8, Baso % (Auto) 0.1, Neut # (Auto) 5.1, Lymph # (Auto) 0.9, [place] # (Auto) 0.5, Eos # (Auto) 0.1, Baso # (Auto) 0.0, Sodium 129 L, Potassium 4.0, Chloride 99, Carbon Dioxide 32 H, Anion Gap 2.0 L, BUN 27 H, Creatinine 0.90, Estimated Creat Clear 55, Estimated GFR 60, Est GFR ( Amer) 73 D, Glucose 95, Calcium 8.2 L, Total Bilirubin 0.8, AST 32, ALT 21, Alkaline Phosphatase 140 H, Total Protein 6.2 L, Albumin 2.9 L, Globulin 3.3 H, Albumin/Globulin Ratio 0.9 L I & O for Labs for Last 24 Hours: Intake & Output 12/02/23 12/03/23 12/04/23 12/05/23 23:59 23:59 23:59 23:59 Intake Total 1080 / 1080 1754 / 1754 900 / 900 710 / 710 Output Total 1025 / 1025 220 / 220 790 / 790 0 / 0 Balance 55 / 55 1534 / 1534 110 / 110 710 / 710 Weight 123 lb 7.342 oz 166 lb 119 lb 0.794 oz 175 lb 4.8 oz Microbiology Reports for the Last 24 Hours: Microbiology 09/18/23 11:30 Thoracic Fluid Gram Stain - Final 09/18/23 11:30 Thoracic Fluid Body Fluid Culture - Preliminary 09/15/23 15:30 Blood Blood Culture - Preliminary 09/15/23 15:23 Blood Blood Culture - Preliminary Constitutional: Present moderate distress Head: Present normocephalic and atraumatic ENT: Present normal exam, normal oropharynx and mucous membranes moist Neck: Present normal inspection and full ROM Respiratory: Present respiratory distress and able to speak in complete sentences; Absent wheezes or crackles Comment:: Subcutaneous hematoma noted along the right chest tube site. No warmth or tenderness noted Cardiac: Present S1/S2, Tachycardia and radial pulses present GI: Present soft and distention; Absent tenderness or guarding Rectal (female): Present deferred (female): Present deferred Skin: Present intact; Absent cyanosis or jaundice Neuro: Present alert, awake and oriented x 3 Extremities: Present normal inspection; Absent clubbing or cyanosis Psychiatric: Present normal affect and cooperative Meds Home Medications and Allergies Home Medications Medication Instructions Recorded Confirmed Type diazepam 5 mg tablet 5 mg PO HSP PRN Insomnia 05/12/22 12/01/23 History famotidine 40 mg tablet 40 mg PO DAILY acid reflux 05/12/22 12/01/23 History atorvastatin 40 mg tablet 40 mg PO DAILY Cholesterol 09/16/23 12/01/23 History ergocalciferol (vitamin D2) 1,250 50,000 unit PO WEEKLY Supplement 09/16/23 12/01/23 History mcg (50,000 unit) capsule levothyroxine 50 mcg tablet 50 mcg PO DAILY Thyroid 09/16/23 12/01/23 History multivitamin 1 tab PO DAILY Supplement 09/16/23 12/01/23 History meloxicam 7.5 mg tablet 7.5 mg PO DAILY Pain 11/08/23 12/01/23 History albuterol sulfate 90 mcg/actuation 1 inh inhalation Q6HP PRN 12/01/23 12/01/23 History aerosol inhaler shortness of breath or wheezing dexamethasone 4 mg tablet 40 mg PO TU 12/01/23 12/01/23 History furosemide 40 mg tablet 40 mg PO BID Fluid 12/01/23 12/01/23 History omeprazole 20 mg capsule,delayed 20 mg PO DAILY Acid Reflux 12/01/23 12/01/23 History release potassium chloride 10 mEq 10 meq PO BID Supplement 12/01/23 12/01/23 History tablet,extended release prochlorperazine maleate 10 mg 10 mg PO Q6HP PRN Nausea And 12/01/23 12/01/23 History tablet Vomiting spironolactone 25 mg tablet 25 mg PO BID Fluid 12/01/23 12/01/23 History tiotropium 2.5 mcg-olodaterol 2.5 2 puff inhalation DAILY Breathing 12/01/23 12/01/23 History mcg/actuation mist for inhalation Problems (Stiolto Respimat) New Prescriptions to Start Prescriptions: Allergies Allergy/AdvReac Type Severity Reaction Status Date / Time metoclopramide [From Reglan] Allergy Intermediate Unknown Verified 12/01/23 09:19 allergy reaction Barbiturates [BARBITURATES] Allergy Unknown Unknown Verified 12/01/23 09:19 allergy reaction sulfamethoxazole Allergy Unknown Verified 12/01/23 09:19 [From Bactrim] allergy reaction trimethoprim [From Bactrim] Allergy Unknown Verified 12/01/23 09:19 allergy reaction bisoprolol AdvReac Mild HAIR LOSS Verified 12/01/23 09:19 diltiazem AdvReac Mild Dizziness Verified 12/01/23 09:19 Results Laboratory Findings 12/05/23 06:23 12/05/23 06:23 Abnormal lab findings: Abnormal Labs 12/02/23 12/03/23 12/03/23 07:51 06:24 16:10 RBC 3.74 L Hgb 11.8 L Hct MCV 101.6 H MCH 31.7 H MCHC 31.2 L Plt Count 31 L* 101 L D MPV 13.8 H Neut % (Auto) Baso % (Auto) Sodium 131 L 129 L Carbon Dioxide Anion Gap 4.3 L BUN 28 H 31 H Creatinine 1.20 H 1.20 H Estimated GFR 43 L 43 L Est GFR ( Amer) 52 L 52 L Glucose 142 H Calcium 8.3 L 8.2 L Alkaline Phosphatase 127 H Total Protein 6.2 L Albumin 3.1 L 2.9 L Globulin 3.4 H 3.3 H Albumin/Globulin Ratio 0.9 L 0.9 L 12/04/23 12/05/23 06:10 06:23 RBC 3.49 L 3.52 L Hgb 11.2 L 11.2 L Hct 35.7 L 35.9 L MCV 102.3 H 102.1 H MCH 32.2 H 31.8 H MCHC 31.5 L 31.2 L Plt Count 114 L 110 L MPV 10.7 H Neut % (Auto) 80.7 H Baso % (Auto) 0.0 L Sodium 132 L 129 L Carbon Dioxide 32 H 32 H Anion Gap 2.3 L 2.0 L BUN 29 H 27 H Creatinine 1.10 H Estimated GFR 48 L Est GFR ( Amer) 58 L Glucose Calcium 8.3 L 8.2 L Alkaline Phosphatase 140 H Total Protein 6.2 L 6.2 L Albumin 2.9 L 2.9 L Globulin 3.3 H 3.3 H Albumin/Globulin Ratio 0.9 L 0.9 L Assessment and Plan *Assessment and plan (1) Recurrent pleural effusion on right: Status: Acute Category: Medical Code(s): J90 - Pleural effusion, not elsewhere classified Plan Ms. Shah is a 83-year-old female former smoker and [id number] smoking carries a diagnosis exertional dyspnea COPD, prior history of Stage IIIA squa mous cell carcinoma right lung diagnosed with right lower lobectomy performed along with concurrent chemoradiotherapy Nov 2018, currently under surveillance, history of gastric AVMs, sleep apnea prior history of DVT noted of recurrent right-sided pleural effusions and pulmonary was consulted for further evaluation and management. Patient also was recently diagnosed with multiple myeloma, currently receiving treatments. Thoracentesis performed on the right side on 09/18/23,10/30/2023 and 11/10/2023. Transudative pleural effusions. Pleural fluid cytology negative for malignancy on all 3 occasions. Echo from September 2023 normal EF with LV diastolic dysfunction. Urine protein from September 2023 negative. Continue to follow with cardiology will discuss regarding the need for diuretic regimen before scheduling the patient for Pleurx catheter for the noted nonmalignant recurrent right-sided pleural effusion. She is currently following oncology for multiple myeloma. Etiology of this patient's recurrent nonmalignant pleural effusion is unclear at this point of time. Discussed with cardiology regarding the possibility of increasing her current diuretic regimen at this point of time if patient either cannot tolerate the diuretic regimen or to continue to have recurrent pleural effusion then we will consider placing a Pleurx catheter. She does have a iatrogenic pneumothorax status post chest tube placement ad removal, significantly improved with small residual pneumothorax, surgical team following.
--- NOTE | 2023-12-05 16:02 | CA_ITS ---
APPROVED REPORT EXAM: Comprehensive 2D, Doppler, and color-flow Echocardiogram Door Repairman: Anna Herbert RT(R) Ht: 5 ft 2 in Wt: 174lbs BSA: 1.80 BP: 95/47 mmHg Indications: COPD, ex smoker, palpitations, edema, HTN, SOB, hyperlipidemia, chemo/radiation lung CA stage III, AFIB, TIA, new multiple myeloma diagnosis chemo started 12/02, recurrent pleural effusion, post thoracentesis with pneumothorax, pericardial effusion seen on echo 09/[address] scan done 12/02/23. Ordered as limited echo to assess pericardial effusion. Tricuspid Valve TR P. Velocity 246.00 cm/s RAP Estimate 15.00 mmHg RVSP 39.30 mmHg Other Information Study Quality: Fair Conclusion This is a limited TTE to evaluate for pericardial effusion. Limited windows were obtained. The left ventricle is normal in size. There is marked increase in LV wall thickness. There is normal global and regional LV systolic function. LVEF is 60%. The right ventricle is mildly dilated with normal RV function. Moderate TR is present. RVSP 30-35 mmHg. Small, circumferential pericardial effusion is present. The largest pocket measures 0.4 centimeters in diastole. No echo indications of tamponade. Compared to prior study from 09/2023, there are no significant changes. Electronically signed by : Maggie Herrera MD 12/05/2023 22:43:12
--- NOTE | 2023-12-05 17:04 | PC.WOUNDNOTE ---
Aox 4, upadlib, on RA, right back chest dressing c/d/i, bp runs low and Md. aware, plan to d/c in am.
[2023-12-05] MEDS: SIMETHICONE 80MG CHEWABLE TABLET 160 MG PO (20:37)
[2023-12-05] MEDS: ATORVASTATIN 40MG TABLET 40 MG PO (20:37)
[2023-12-05] MEDS: diazePAM 5MG TABLET 5 MG PO (20:37)
[2023-12-05] MEDS: PANTOPRAZOLE 40MG TABLET 40 MG PO (20:37)
[2023-12-06 04:00] VITALS: BP 87/53; PULSE 92; RESP 18; TEMP 36.6; O2SAT 92; BMI 31.5
[2023-12-06] MEDS: LEVOTHYROXINE 50MCG (0.05MG) TAB 50 MCG PO (06:11)
[2023-12-06 06:31] VITALS: PULSE 72; PULSE 77; O2SAT 97
[2023-12-06] MEDS: IPRATROPIUM/ALBUTEROL 3 ML NEB IH ×2 (06:31→11:21)
--- NOTE | 2023-12-06 06:39 | PC.NURSE ---
Patient continues to desat very quickly without Venti mask on. Patient has taken it offi multiple times and is unable to tolerate it. Patient BP remains low with an elevated HR; provider continues to hold meds r/t decrease in pressure. Patient has slept very little this past shift.
--- NOTE | 2023-12-06 06:42 | PC.NURSE ---
Addendum entered by Jacklyn Jose RN 12/06/23 06:43: Patient tolerated crushed medication with applesauce Original Note: patient VS WNL; dressing c/d/i from chest tube removal. Patient voices no new concerns at this time.
[2023-12-06 08:00] VITALS: BP 94/53; PULSE 89; RESP 20; O2SAT 97
[2023-12-06] MEDS: DOCUSATE SODIUM 100 MG CAPSULE PO (08:02)
[2023-12-06] MEDS: POLYETHYLENE GLYCOL 3350 17 GM PACKET PO (08:02)
[2023-12-06] MEDS: POTASSIUM CHLORIDE 10MEQ TABLET.ER 10 MEQ PO (08:03)
[2023-12-06] MEDS: HYDROCODONE/APAP 5/325 MG TABLET 1 TAB PO (08:06)
[2023-12-06] MEDS: SPIRONOLACTONE 25MG TABLET 25 MG PO (08:06)
--- NOTE | 2023-12-06 08:28 | EXP.CARD.PN ---
Subjective Subjective Date: 12/06/23 Time: 08:28 Principal diagnosis: SOA, pleural effusion Interval history: 83-year-old white female in bed in no acute distress. No increase in shortness of breath overnight. Limited echo yesterday shows preserved ejection fraction with a small circumferential pericardial effusion essentially unchanged since September 2023. Exam Data for Last 24 hours Vital signs and Labs for Last 24 Hours: Temp Pulse Resp BP Pulse Ox O2 Del Method O2 Flow Rate 97.8 F 72 18 87/53 L 97 Room Air 3 12/06/23 04:00 12/06/23 06:31 12/06/23 04:00 12/06/23 04:00 12/06/23 06:31 12/06/23 06:33 12/04/23 18:42 FiO2 32 12/03/23 18:46 I & O for Last 24 hours: Intake & Output 12/03/23 12/04/23 12/05/23 12/06/23 11:59 11:59 11:59 11:59 Intake Total 1080 / 1080 1714 / 1714 1050 / 1050 1200 / 1200 Output Total 1245 / 1245 40 / 40 750 / 750 0 / 0 Balance -165 / -165 1674 / 1674 300 / 300 1200 / 1200 Weight 166 lb 119 lb 0.794 oz 175 lb 4.8 oz 178 lb Constitutional Constitutional: no acute distress *Routine Respiratory Exam Respiratory: Present crackles and diminished air movement; Absent wheezes *Routine Cardiovascular Exam Cardiovascular: Present RRR Progress Note: A&P Assessment and plan (1) Recurrent pleural effusion on right: Status: Acute (2) Multiple myeloma: Status: Acute (3) [place] amyloidosis: Status: Acute (4) PAF (paroxysmal atrial fibrillation): Status: Acute (5) Anemia: Status: Acute (6) (HFpEF) heart failure with preserved ejection fraction: Status: Acute Assessment and Plan Assessment and Plan for All Diagnoses:: 1. History of lung cancer status post right lower lobe lobectomy - recurrent right pleural effusion status post thoracentesis with pneumothorax requiring chest tube, now removed -Pleural fluid negative for malignancy on previous results 2. Multiple myeloma/AL amyloidosis -Recent chemotherapy institution, followed by Dr. Bergeron -Recurrent thrombocytopenia, improved after plasma infusion 3. 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 Paroxysmal atrial fibrillation with 22% burden on recent event monitor, 11/2023 -No anticoagulation due to history of GI bleed related to esophageal AVMs -currently sinus -unable to tolerate diltiazem due to hair loss -will not start beta kermit due to hypotension 5. Hypothyroidism -on replacement therapy 6. HFpEF due to infiltrative disease -Continue IV Lasix until discharge then switch to Lasix 60 mg twice daily -Continue spironolactone 25 mg twice daily -Limited echo this admission shows EF 60% with small pericardial effusion without evidence of tamponade. Mild RV dilatation with normal function and moderate TR with RVSP 30-35 mmHg. 7. Hyponatremia -Likely caused by/exacerbated by diuretic therapy -Today's labs pending 8. Anemia, improved to around 11 -Macrocytic indices with normal B12 and folate in 2021 9. Thrombocytopenia -Platelet count 110,000 after plasma Na up to 132 BUN 26 with Cr 1.2 Stable for discharge from cardiology standpoint. Home med recommendations: Atorvastatin 40 mg daily Lasix 60 mg twice daily Spironolactone 25 mg twice daily Potassium 10 mEq twice daily Follow-up in our office in 1 to 2 weeks with BMP and BNP.
[2023-12-06 09:25] LABS: Basophils % 0.2 % (0.1-2.0); Eosinophils # 0.1 K/mm3 (0.0-0.4); Eosinophils % 0.8 % (0.1-12.0); Hematocrit 36.4 % (37.0-47.0); Hemoglobin 11.8 g/dL (12.2-16.2); Lymphocytes # 1.2 K/mm3 (0.7-4.5); Lymphocytes % 15.2 % (10-50); Mean Corpuscular HGB Conc 32.3 g/dL (31.8-35.4); Mean Corpuscular Hemoglobin 32.3 pg (27.0-31.2); Mean Corpuscular Volume 99.8 fl (81-99); Mean Platelet Volume 10.6 fl (7.4-10.4); Monocytes # 0.5 K/mm3 (0.1-1.0); Neutrophils # 6.1 K/mm3 (1.8-7.8); Neutrophils % 77.8 % (37.0-80.0); Platelet Count 122 K/mm3 (142-424); Red Blood Count 3.65 M/mm3 (4.20-5.40); Red Cell Distribution Width 16.6 % (11.5-17.5); White Blood Count 7.8 K/mm3 (4.8-10.8)
[2023-12-06 09:36] LABS: Anion Gap 9.4 mEq/L (5-15); Blood Urea Nitrogen 26 mg/dl (7-17); Calcium 8.3 mg/dl (8.4-10.2); Carbon Dioxide 29 mmol/L (22.0-30.0); Chloride 98 mmol/L (98-107); Creatinine Clearance Estimated 47 mL/min (50-200); Estimated Glomerular Filt Rate 43 ml/min (>60); GFR (African American) 52 ML/MIN (>60); Glucose 90 mg/dl (74-100); Potassium 4.4 mmoL/L (3.5-5.1); Sodium 132 mmol/L (136-145)
--- NOTE | 2023-12-06 09:51 | XR_ITS ---
FINAL REPORT CLINICAL HISTORY: Pneumothorax COMPARISON: 12/04/2023 FINDINGS: SINGLE-VIEW CHEST The heart size is normal. The mediastinum is normal. Right chest tube has been removed. There is a right apical pneumothorax with 8 mm of apical separation. Right perihilar opacity is unchanged. IMPRESSION: Right apical pneumothorax. Reviewed, Interpreted and Dictated by Mago Fajardo MD Transcribed by Mireya Hale Authenticated and [facility]
[2023-12-06] MEDS: FUROSEMIDE 40MG/4ML VIAL 40 MG IV (09:52)
--- NOTE | 2023-12-06 09:52 | EXP.PULM.PN ---
Subjective *Date: 12/06/23 *Time: 11:04 Interval history: No acute respiratory vents overnight. Patient expressing grief regarding her family members being sick and end-of-life care. Otherwise admits stable respiratory symptoms. No new complaints. Pulmonology Exam Inpatient Vital signs and Labs for Last 24 Hours: Temp Pulse Resp BP Pulse Ox O2 Del Method O2 Flow Rate 97.8 F 89 20 94/53 L 97 Room Air 3 12/06/23 04:00 12/06/23 08:00 12/06/23 08:00 12/06/23 08:00 12/06/23 08:00 12/06/23 08:00 12/04/23 18:42 FiO2 32 12/03/23 18:46 Laboratory Results - last 24 hr 12/06/23 09:09: WBC 7.8, RBC 3.65 L, Hgb 11.8 L, Hct 36.4 L, MCV 99.8 H, MCH 32.3 H, MCHC 32.3, RDW 16.6, Plt Count 122 L, MPV 10.6 H, Neut % (Auto) 77.8, Lymph % (Auto) 15.2, [place] % (Auto) 6.0, Eos % (Auto) 0.8, Baso % (Auto) 0.2, Neut # (Auto) 6.1, Lymph # (Auto) 1.2, [place] # (Auto) 0.5, Eos # (Auto) 0.1, Baso # (Auto) 0.0, Sodium 132 L, Potassium 4.4, Chloride 98, Carbon Dioxide 29, Anion Gap 9.4, BUN 26 H, Creatinine 1.20 H D, Estimated Creat Clear 47, Estimated GFR 43 L, Est GFR ( Amer) 52 L D, Glucose 90, Calcium 8.3 L I & O for Labs for Last 24 Hours: Intake & Output 12/03/23 12/04/23 12/05/23 12/06/23 23:59 23:59 23:59 23:59 Intake Total 1754 / 1754 900 / 900 950 / 950 720 / 720 Output Total 220 / 220 790 / 790 0 / 0 0 / 0 Balance 1534 / 1534 110 / 110 950 / 950 720 / 720 Weight 166 lb 119 lb 0.794 oz 175 lb 4.8 oz 178 lb Microbiology Reports for the Last 24 Hours: Microbiology 09/18/23 11:30 Thoracic Fluid Gram Stain - Final 09/18/23 11:30 Thoracic Fluid Body Fluid Culture - Preliminary 09/15/23 15:30 Blood Blood Culture - Preliminary 09/15/23 15:23 Blood Blood Culture - Preliminary Constitutional: Present moderate distress Head: Present normocephalic and atraumatic ENT: Present normal exam, normal oropharynx and mucous membranes moist Neck: Present normal inspection and full ROM Respiratory: Present respiratory distress and able to speak in complete sentences; Absent wheezes or crackles Comment:: Subcutaneous hematoma noted along the right chest tube site. No warmth or tenderness noted Cardiac: Present S1/S2, Tachycardia and radial pulses present GI: Present soft and distention; Absent tenderness or guarding Rectal (female): Present deferred (female): Present deferred Skin: Present intact; Absent cyanosis or jaundice Neuro: Present alert, awake and oriented x 3 Extremities: Present normal inspection; Absent clubbing or cyanosis Psychiatric: Present normal affect and cooperative Assessment and Plan *Assessment and plan (1) Recurrent pleural effusion on right: Status: Acute Category: Medical Code(s): J90 - Pleural effusion, not elsewhere classified Plan Ms. 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 Patient also was recently diagnosed with multiple myeloma, currently receiving treatments. Thoracentesis performed on the right side on 09/18/23,10/30/2023 and 11/10/2023. Transudative pleural effusions. Pleural fluid cytology negative for malignancy on all 3 occasions. Echo from September 2023 normal EF with LV diastolic dysfunction. Urine protein from September 2023 negative. Continue to follow with cardiology will discuss regarding the need for diuretic regimen before scheduling the patient for Pleurx catheter for the noted nonmalignant recurrent right-sided pleural effusion. She is currently following oncology for multiple myeloma. Etiology of this patient's recurrent nonmalignant pleural effusion is unclear at this point of time. Discussed with cardiology regarding the possibility of increasing her current diuretic regimen at this point of time if patient either cannot tolerate the diuretic regimen or to continue to have recurrent pleural effusion then we will consider placing a Pleurx catheter. She does have a iatrogenic pneumothorax status post chest tube placement ad removal, significantly improved with small residual pneumothorax, surgical team following. Interval update: No new respiratory events overnight. Continued to remain on room air. Plan: Continue to follow with cardiology with diuretic regimen. Following the clinic in 2 weeks with a chest x-ray PA lateral prior to clinic to further determine the reaccumulation of fluid and the need for Pleurx catheter placed
--- NOTE | 2023-12-06 10:56 | P.DS_ITS ---
General Admission date:: 12/01/23 Discharge date: 12/06/23 HPI HPI HPI: 83-year-old female with history of lung cancer, multiple myeloma, pleural effusion on right. Previous thoracotomy and radiation to right hemithorax. Presented as an outpatient for thoracentesis for recurrent pleural effusion. During procedure, was noted to have pneumothorax on postprocedure chest x-ray. Interventional radiology consulted medicine for admission and further management. Patient presented to the floor from radiology currently on nonrebreather and in no acute respiratory distress. Complaining of thoracentesis. Otherwise states she feels well. Tolerating nonrebreather. Denies significant dyspnea. Discussed case with radiology, request admission for further monitoring and treatment and possible chest tube placement. Contacted surgery and discussed case with them. Would like to observe patient before placing chest tube given complex findings on CT of chest with adhesions of lung to pleural wall. Patient afebrile, no nausea or vomiting, alert and oriented x 4. Hospital Course Hospital Course Hospital Course: 83-year-old female with history of lung cancer, multiple myeloma, pleural effusion on right. Previous thoracotomy and radiation to right hemithorax. Presented for direct admission from interventional radiology after developing pneumothorax post Thoracentesis. Patient complaining of some mild right-sided chest pain. Tolerating nonrebreather. Denies significant dyspnea. Recurrent pleural effusion - non malignant/transudative per cytology, pulmonary and cardiology ok to DC on lasix 60mg BID Malignancy of right lung Pneumothorax -Chest tube placed 10/01, s/p removal of chest tube, currently on room air Thrombocytopenia: stable Continue Stiolto for COPD. DuoNebs every 6 hours scheduled Continue spironolactone, Lasix, Lipitor for hypertension and hyperlipidemia Continue omeprazole for GERD Continue levothyroxine 50 mcg daily for hypothyroid Exam Data for Last 24 hours Vital signs and Labs for Last 24 Hours: Temp Pulse Resp BP Pulse Ox O2 Del Method O2 Flow Rate 97.8 F 89 20 94/53 L 97 Room Air 3 12/06/23 04:00 12/06/23 08:00 12/06/23 08:00 12/06/23 08:00 12/06/23 08:00 12/06/23 08:00 12/04/23 18:42 FiO2 32 12/03/23 18:46 Laboratory Results - last 24 hr 12/06/23 09:09: WBC 7.8, RBC 3.65 L, Hgb 11.8 L, Hct 36.4 L, MCV 99.8 H, MCH 32.3 H, MCHC 32.3, RDW 16.6, Plt Count 122 L, MPV 10.6 H, Neut % (Auto) 77.8, Lymph % (Auto) 15.2, [place] % (Auto) 6.0, Eos % (Auto) 0.8, Baso % (Auto) 0.2, Neut # (Auto) 6.1, Lymph # (Auto) 1.2, [place] # (Auto) 0.5, Eos # (Auto) 0.1, Baso # (Auto) 0.0, Sodium 132 L, Potassium 4.4, Chloride 98, Carbon Dioxide 29, Anion Gap 9.4, BUN 26 H, Creatinine 1.20 H D, Estimated Creat Clear 47, Estimated GFR 43 L, Est GFR ( Amer) 52 L D, Glucose 90, Calcium 8.3 L I & O for Last 24 hours: Intake & Output 12/03/23 12/04/23 12/05/23 12/06/23 23:59 23:59 23:59 23:59 Intake Total 1754 / 1754 900 / 900 950 / 950 720 / 720 Output Total 220 / 220 790 / 790 0 / 0 0 / 0 Balance 1534 / 1534 110 / 110 950 / 950 720 / 720 Weight 75.296 kg 54 kg 79.515 kg 80.739 kg Constitutional Constitutional: no acute distress *Routine HEENT Exam Head: Present normocephalic Eye: Present EOMI and PERRL ENT: Present mucous membranes moist *Routine Neck Exam Neck: Present supple; Absent lymphadenopathy *Routine Respiratory Exam Respiratory: Present CTA bilaterally *Routine Cardiovascular Exam Cardiovascular: Present RRR *Routine Abdominal Exam Abdominal: Present soft and normoactive bowel sounds; Absent tenderness *Routine Extremities Exam Extremities: Absent cyanosis, clubbing or edema *Routine Skin Exam Skin: Present warm; Absent rash *Routine Neurological Exam Neurological: Present alert and oriented X3 Results Data Completed and Pending Labs on day of discharge: Labs from last 24 hours 12/06/23 09:09 WBC 7.8 RBC 3.65 L Hgb 11.8 L Hct 36.4 L MCV 99.8 H MCH 32.3 H MCHC 32.3 RDW 16.6 Plt Count 122 L MPV 10.6 H Neut % (Auto) 77.8 Lymph % (Auto) 15.2 [place] % (Auto) 6.0 Eos % (Auto) 0.8 Baso % (Auto) 0.2 Neut # (Auto) 6.1 Lymph # (Auto) 1.2 [place] # (Auto) 0.5 Eos # (Auto) 0.1 Baso # (Auto) 0.0 Sodium 132 L Potassium 4.4 Chloride 98 Carbon Dioxide 29 Anion Gap 9.4 BUN 26 H Creatinine 1.20 H D Estimated Creat Clear 47 Estimated GFR 43 L Est GFR ( Amer) 52 L D Glucose 90 Calcium 8.3 L DS: Diagnosis Discharge Diagnosis (1) Recurrent pleural effusion on right: Status: Acute Code(s): J90 - Pleural effusion, not elsewhere classified Meds Home Medications and Allergies Home Medications Medication Instructions Recorded Confirmed Type diazepam 5 mg tablet 5 mg PO HSP PRN Insomnia 05/12/22 12/01/23 History famotidine 40 mg tablet 40 mg PO DAILY acid reflux 05/12/22 12/01/23 History atorvastatin 40 mg tablet 40 mg PO DAILY Cholesterol 09/16/23 12/01/23 History ergocalciferol (vitamin D2) 1,250 50,000 unit PO WEEKLY Supplement 09/16/23 12/01/23 History mcg (50,000 unit) capsule levothyroxine 50 mcg tablet 50 mcg PO DAILY Thyroid 09/16/23 12/01/23 History multivitamin 1 tab PO DAILY Supplement 09/16/23 12/01/23 History meloxicam 7.5 mg tablet 7.5 mg PO DAILY Pain 11/08/23 12/01/23 History albuterol sulfate 90 mcg/actuation 1 inh inhalation Q6HP PRN 12/01/23 12/01/23 History aerosol inhaler shortness of breath or wheezing dexamethasone 4 mg tablet 40 mg PO TU 12/01/23 12/01/23 History furosemide 40 mg tablet 40 mg PO BID Fluid 12/01/23 12/01/23 History omeprazole 20 mg capsule,delayed 20 mg PO DAILY Acid Reflux 12/01/23 12/01/23 History release potassium chloride 10 mEq 10 meq PO BID Supplement 12/01/23 12/01/23 History tablet,extended release prochlorperazine maleate 10 mg 10 mg PO Q6HP PRN Nausea And 02/23/24 02/23/24 History tablet Vomiting spironolactone 25 mg tablet 25 mg PO BID Fluid 12/01/23 12/01/23 History tiotropium 2.5 mcg-olodaterol 2.5 2 puff inhalation DAILY Breathing 12/01/23 12/01/23 History mcg/actuation mist for inhalation Problems (Stiolto Respimat) bisacodyl 5 mg tablet,delayed 5 mg PO HS 2 days #2 tabs 12/06/23 Rx release (Dulcolax (bisacodyl)) furosemide 20 mg tablet (Lasix) 60 mg PO BID 14 days #84 tabs 12/06/23 Rx New Prescriptions to Start Prescriptions: bisacodyl [Dulcolax (bisacodyl)] Satish Nolasco furosemide [Lasix] Satish Nolasco Allergies Allergy/AdvReac Type Severity Reaction Status Date / Time metoclopramide [From Reglan] Allergy Intermediate Unknown Verified 12/01/23 0 9:19 allergy reaction Barbiturates [BARBITURATES] Allergy Unknown Unknown Verified 12/01/23 09:19 allergy reaction sulfamethoxazole Allergy Unknown Verified 12/01/23 09:19 [From Bactrim] allergy reaction trimethoprim [From Bactrim] Allergy Unknown Verified 12/01/23 09:19 allergy reaction bisoprolol AdvReac Mild HAIR LOSS Verified 12/01/23 09:19 diltiazem AdvReac Mild Dizziness Verified 12/01/23 09:19 Discharge Plan Disposition Patient Disposition: Home, Self-Care Condition: Fair Discharge Order Discharge Orders: Discharge Order (Routine); Ordered 12/06/23 Ordered By: Satish Nolasco Follow up Plan Follow up with: Hadley Berger MD [Staff Physician] - Enter time for follow up Paul Galeano MD [Physician] - Enter time for follow up Prescriptions/Medication Reconciliation: New bisacodyl [Dulcolax (bisacodyl)] 5 mg tablet,delayed release (DR/EC) 5 mg PO HS 2 Days Qty: 2 0RF furosemide [Lasix] 20 mg tablet 60 mg PO BID 14 Days Qty: 84 0RF Continued meloxicam 7.5 mg tablet 7.5 mg PO DAILY famotidine 40 MG tablet 40 mg PO DAILY diazepam 5 MG tablet 5 mg PO HSP PRN (Reason: Insomnia) atorvastatin 40 mg tablet 40 mg PO DAILY Patient Comments: TAKE 1 TABLET BY MOUTH ONCE DAILY ergocalciferol (vitamin D2) 1,250 mcg (50,000 unit) capsule 50,000 unit PO WEEKLY Patient Comments: TAKE 1 CAPSULE BY MOUTH ONCE A WEEK multivitamin Tablet 1 tab PO DAILY levothyroxine 50 mcg tablet 50 mcg PO DAILY potassium chloride 10 mEq tablet extended release 10 meq PO BID Patient Comments: TAKE 1 TABLET BY MOUTH TWICE DAILY WITH FOOD FOR 30 DAYS omeprazole 20 mg capsule,delayed release(DR/EC) 20 mg PO DAILY Patient Comments: TAKE 1 CAPSULE BY MOUTH ONCE DAILY prochlorperazine maleate 10 mg tablet 10 mg PO Q6HP PRN (Reason: Nausea And Vomiting) Patient Comments: TAKE 1 TABLET BY MOUTH EVERY 6 HOURS NEEDED dexamethasone 4 mg tablet 40 mg PO Patient Comments: TAKE 10 TABLETS BY MOUTH EVERY WEEK ON MONDAY START ON 11/21 furosemide 40 mg tablet 40 mg PO BID spironolactone 25 mg tablet 25 mg PO BID albuterol sulfate 90 mcg/actuation HFA aerosol inhaler 1 inh inhalation Q6HP PRN (Reason: shortness of breath or wheezing) Stiolto Respimat 2.5-2.5 mcg/actuation mist 2 puff inhalation DAILY Problem Reconciliation Problems Reviewed?: Yes Patient Discharge Instructions ACTIVITY: Ambulate as tolerated DIET: continue same diet Patient Instructions: Pneumothorax, DI for Pneumothorax, DI for Thoracentesis, DI for Surgical Site Infection, DI for Pleural Effusion Providers Primary Care Provider: Nikki Brown Admit Provider: Hasmukh Morrow Attending Provider: Hasmukh Morrow
[2023-12-06 12:00] VITALS: BP 96/55; PULSE 87; RESP 20; TEMP 37.1; O2SAT 97
--- NOTE | 2023-12-07 13:18 | CARE MANAGER ---
Contacted patient related to hospital discharge. She states she picked up her medications besides the naproxen. She is concerned for taking NSAIDS and issues with esophagus. She is aware of her follow up appointments and denies any questions or concerns. AARON Leone
== END 2023-12-06 16:20 | disposition home or self-care (01) | DRG 200 ==
LOC: 2ND 12:06
PROVIDERS: Internal Medicine; Admitting Provider Internal Medicine Adolescent Medicine; PCP Family Medicine; Visit Provider Internal Medicine Adolescent Medicine
DX: J95.811 Postprocedural pneumothorax (principal); C90.00 Multiple myeloma not having achieved remission; Y84.4 Aspiration of fluid as the cause of abnormal reaction of the patient, or of later complication, without mention of misadventure at the time of the procedure; F41.9 Anxiety disorder, unspecified; I65.29 Occlusion and stenosis of unspecified carotid artery; Z85.118 Personal history of other malignant neoplasm of bronchus and lung; Z86.73 Personal history of transient ischemic attack (TIA), and cerebral infarction without residual deficits; Z86.718 Personal history of other venous thrombosis and embolism; Z87.891 Personal history of nicotine dependence; E78.2 Mixed hyperlipidemia; E03.9 Hypothyroidism, unspecified; G47.33 Obstructive sleep apnea (adult) (pediatric); D63.0 Anemia in neoplastic disease; D69.6 Thrombocytopenia, unspecified; J43.9 Emphysema, unspecified; K21.9 Gastro-esophageal reflux disease without esophagitis; D50.9 Iron deficiency anemia, unspecified; I48.0 Paroxysmal atrial fibrillation
CPT/HCPCS: 32554; 32551; 32555; 36415; 71045; 71046; 71250; 80048; 80053; 83735; 85025; 85049; 86900; 86901; 93005; 93308; 94640; 94761; 96401; J9041; P9034

== ENCOUNTER 2023-12-12 10:38 | Outpatient (CLI) | payer MEDICARE, OTHER, SELFPAY ==
[2023-12-12 10:52] VITALS: BMI 23.7
[2023-12-12 11:07] LABS: Basophils % 0.3 % (0.1-2.0); Eosinophils % 0.7 % (0.1-12.0); Hematocrit 36.2 % (37.0-47.0); Hemoglobin 11.4 g/dL (12.2-16.2); Lymphocytes # 0.6 K/mm3 (0.7-4.5); Lymphocytes % 15.4 % (10-50); Mean Corpuscular HGB Conc 31.5 g/dL (31.8-35.4); Mean Corpuscular Hemoglobin 32.6 pg (27.0-31.2); Mean Corpuscular Volume 103.4 fl (81-99); Mean Platelet Volume 9.3 fl (7.4-10.4); Monocytes # 0.2 K/mm3 (0.1-1.0); Monocytes % 5.9 % (1.7-9.3); Neutrophils # 2.8 K/mm3 (1.8-7.8); Neutrophils % 77.7 % (37.0-80.0); Platelet Count 175 K/mm3 (142-424); Red Cell Distribution Width 16.6 % (11.5-17.5); White Blood Count 3.6 K/mm3 (4.8-10.8)
[2023-12-12 11:18] LABS: Alanine Aminotransferase 25 U/L (12-78); Albumin Level 3.5 g/dl (3.5-5.0); Albumin/Globulin Ratio 0.9 (1.1-1.8); Alkaline Phosphatase 154 U/L (38-126); Anion Gap 9.3 mEq/L (5-15); Aspartate Amino Transferase 38 U/L (14-36); Bilirubin,Total 0.8 mg/dl (0.2-1.3); Blood Urea Nitrogen 20 mg/dl (7-17); Calcium 8.5 mg/dl (8.4-10.2); Carbon Dioxide 29 mmol/L (22.0-30.0); Chloride 96 mmol/L (98-107); Creatinine Clearance Estimated 28 mL/min (50-200); Estimated Glomerular Filt Rate 33 ml/min (>60); GFR (African American) 40 ML/MIN (>60); Globulin 3.7 g/dL (1.3-3.2); Glucose 107 mg/dl (74-100); Potassium 4.3 mmoL/L (3.5-5.1); Sodium 130 mmol/L (136-145); Total Protein,Serum 7.2 g/dl (6.3-8.2)
[2023-12-12] MEDS: BORTEZOMIB 3.5MG VIAL 2 MG SQ (12:11)
--- NOTE | 2023-12-12 12:11 | PC.NURSE ---
1100 CBC/CMP obtained as ordered via venipuncture to L AC with butterfly needle. Patient has appointment with Dr. Berger and needs labs prior to appointment.
[2023-12-12 12:15] VITALS: BP 87/52; PULSE 90; RESP 18; O2SAT 98
== END 2023-12-12 12:20 | disposition home or self-care (01) ==
LOC: INF 10:39
PROVIDERS: PCP Family Medicine; Visit Provider Internal Medicine Medical Oncology
DX: C90.00 Multiple myeloma not having achieved remission; Z79.899 Other long term (current) drug therapy; Z85.118 Personal history of other malignant neoplasm of bronchus and lung
CPT/HCPCS: 36415; 80053; 85025; 96401; J9041

== ENCOUNTER 2023-12-15 10:09 | Outpatient (CLI) | payer MEDICARE, OTHER, SELFPAY ==
[2023-12-15 10:19] VITALS: BMI 21.7
[2023-12-15] MEDS: BORTEZOMIB 3.5MG VIAL 2 MG SQ (10:48)
[2023-12-15 10:50] VITALS: BP 107/63; PULSE 95; RESP 17; O2SAT 96
[2023-12-18 13:41] LABS: Immunoglobulin A, Qn 9 mg/dL (64-422); Immunoglobulin G, Qn 2165 mg/dL (586-1602); Immunoglobulin M, Qn 8 mg/dL (26-217)
[2023-12-18 15:17] LABS: Albumin 3.2 g/dL (2.9-4.4); Alpha-1-Globulin 0.3 g/dL (0.0-0.4); Alpha-2-Globulin 0.8 g/dL (0.4-1.0); Gamma Globulin 1.8 g/dL (0.4-1.8); Protein, Total 6.8 g/dL (6.0-8.5)
[2023-12-21 09:04] LABS: PDF SCANNED IMAGE
== END 2023-12-15 11:05 | disposition home or self-care (01) ==
LOC: INF 10:10
PROVIDERS: PCP Family Medicine; Visit Provider Internal Medicine Medical Oncology
DX: C90.00 Multiple myeloma not having achieved remission (principal); D64.9 Anemia, unspecified
CPT/HCPCS: 82784; 84155; 84165; 86334; 96401; J9041

== ENCOUNTER 2023-12-19 11:07 | Outpatient (CLI) | payer MEDICARE, OTHER, SELFPAY ==
[2023-12-19 11:11] VITALS: BMI 23.9
[2023-12-19] MEDS: PROCHLORPERAZINE 10MG TABLET 10 MG PO (11:15)
[2023-12-19 11:33] LABS: Basophils % 0.8 % (0.1-2.0); Eosinophils % 0.2 % (0.1-12.0); Hematocrit 36.8 % (37.0-47.0); Lymphocytes # 0.5 K/mm3 (0.7-4.5); Lymphocytes % 11.6 % (10-50); Mean Corpuscular HGB Conc 32.8 g/dL (31.8-35.4); Mean Corpuscular Hemoglobin 33.5 pg (27.0-31.2); Mean Corpuscular Volume 102.2 fl (81-99); Mean Platelet Volume 11.7 fl (7.4-10.4); Monocytes # 0.4 K/mm3 (0.1-1.0); Monocytes % 9.2 % (1.7-9.3); Neutrophils # 3.6 K/mm3 (1.8-7.8); Neutrophils % 78.3 % (37.0-80.0); Platelet Count 51 K/mm3 (142-424); Red Cell Distribution Width 16.5 % (11.5-17.5); White Blood Count 4.6 K/mm3 (4.8-10.8)
[2023-12-19 11:39] LABS: Alanine Aminotransferase 38 U/L (12-78); Albumin Level 3.6 g/dl (3.5-5.0); Albumin/Globulin Ratio 1.1 (1.1-1.8); Alkaline Phosphatase 141 U/L (38-126); Anion Gap 11.1 mEq/L (5-15); Aspartate Amino Transferase 45 U/L (14-36); Bilirubin,Total 0.9 mg/dl (0.2-1.3); Blood Urea Nitrogen 30 mg/dl (7-17); Calcium 8.5 mg/dl (8.4-10.2); Carbon Dioxide 27 mmol/L (22.0-30.0); Chloride 93 mmol/L (98-107); Creatinine Clearance Estimated 36 mL/min (50-200); Estimated Glomerular Filt Rate 43 ml/min (>60); GFR (African American) 52 ML/MIN (>60); Globulin 3.4 g/dL (1.3-3.2); Glucose 100 mg/dl (74-100); Potassium 4.1 mmoL/L (3.5-5.1); Sodium 127 mmol/L (136-145)
[2023-12-19 11:56] VITALS: BP 107/55; PULSE 86; RESP 18; O2SAT 94
== END 2023-12-19 11:56 | disposition home or self-care (01) ==
PROVIDERS: PCP Family Medicine; Visit Provider Internal Medicine Medical Oncology
DX: C90.00 Multiple myeloma not having achieved remission (principal)
CPT/HCPCS: 36415; 80053; 85025

== ENCOUNTER 2023-12-20 13:54 | Outpatient (CLI) | payer MEDICARE, OTHER, SELFPAY ==
--- NOTE | 2023-12-20 14:00 | XR_ITS ---
FINAL REPORT CLINICAL HISTORY: Pleural Effusion COMPARISON: 12/06/2023 FINDINGS: Two views of the chest were obtained. Cardiomegaly is present. The mediastinum is normal. A moderate right-sided pleural effusion is present, larger than seen on the prior exam. Right lung atelectasis is present. There has been interval resolution of the small right pneumothorax. The bony thorax is intact. IMPRESSION: Increasing right pleural effusion when compared to the prior exam. Right lung atelectasis is present as well. There has been interval resolution of the small right pneumothorax since the prior exam. Reviewed, Interpreted and Dictated by Maicol Garcia III, MD Transcribed by Luisa Arteaga Authenticated and . [facility]
== END 2023-12-20 23:59 ==
LOC: RAD 13:57
PROVIDERS: PCP Family Medicine; Visit Provider Internal Medicine Pulmonary Disease
DX: J90 Pleural effusion, not elsewhere classified (principal)
CPT/HCPCS: 71046

== ENCOUNTER 2024-01-11 12:47 | Outpatient (CLI) | payer MEDICARE, OTHER, SELFPAY ==
[2024-01-11 12:51] VITALS: BMI 22.6
[2024-01-11 13:24] LABS: Basophils # 0.1 K/mm3 (0-0.2); Basophils % 1.1 % (0.1-2.0); Eosinophils % 0.2 % (0.1-12.0); Hematocrit 39.1 % (37.0-47.0); Hemoglobin 11.9 g/dL (12.2-16.2); Lymphocytes # 1.2 K/mm3 (0.7-4.5); Lymphocytes % 26.9 % (10-50); Mean Corpuscular HGB Conc 30.5 g/dL (31.8-35.4); Mean Corpuscular Hemoglobin 31.9 pg (27.0-31.2); Mean Corpuscular Volume 104.5 fl (81-99); Mean Platelet Volume 10.6 fl (7.4-10.4); Monocytes # 0.4 K/mm3 (0.1-1.0); Monocytes % 8.4 % (1.7-9.3); Neutrophils # 2.7 K/mm3 (1.8-7.8); Neutrophils % 63.4 % (37.0-80.0); Platelet Count 151 K/mm3 (142-424); Red Blood Count 3.74 M/mm3 (4.20-5.40); Red Cell Distribution Width 16.5 % (11.5-17.5); White Blood Count 4.3 K/mm3 (4.8-10.8)
[2024-01-11 13:31] LABS: Chloride 101 mmol/L (98-107); Potassium 3.8 mmoL/L (3.5-5.1); Sodium 135 mmol/L (136-145)
[2024-01-11 13:34] LABS: Alanine Aminotransferase 24 U/L (12-78); Albumin Level 2.9 g/dl (3.5-5.0); Albumin/Globulin Ratio 0.8 (1.1-1.8); Alkaline Phosphatase 136 U/L (38-126); Anion Gap 6.8 mEq/L (5-15); Aspartate Amino Transferase 41 U/L (14-36); Bilirubin,Total 0.9 mg/dl (0.2-1.3); Blood Urea Nitrogen 21 mg/dl (7-17); Calcium 8.6 mg/dl (8.4-10.2); Carbon Dioxide 31 mmol/L (22.0-30.0); Creatinine Clearance Estimated 40 mL/min (50-200); Estimated Glomerular Filt Rate 80 ml/min (>60); GFR (African American) 97 ML/MIN (>60); Globulin 3.5 g/dL (1.3-3.2); Glucose 101 mg/dl (74-100); Total Protein,Serum 6.4 g/dl (6.3-8.2)
[2024-01-12 15:12] LABS: Albumin 2.7 g/dL (2.9-4.4); Alpha-1-Globulin 0.3 g/dL (0.0-0.4); Alpha-2-Globulin 0.7 g/dL (0.4-1.0); Gamma Globulin 1.8 g/dL (0.4-1.8); Protein, Total 6.2 g/dL (6.0-8.5)
[2024-01-15 12:25] LABS: Immunoglobulin A, Qn 6 mg/dL (64-422); Immunoglobulin G, Qn 2198 mg/dL (586-1602); Immunoglobulin M, Qn <5 mg/dL (26-217)
[2024-01-16 09:41] LABS: PDF SCANNED IMAGE
== END 2024-01-11 12:51 | disposition home or self-care (01) ==
LOC: INF 12:47
PROVIDERS: PCP Family Medicine; Visit Provider Internal Medicine Medical Oncology
DX: C90.00 Multiple myeloma not having achieved remission; Z85.118 Personal history of other malignant neoplasm of bronchus and lung
CPT/HCPCS: 36415; 80053; 82784; 84155; 84165; 85025; 86334

== ENCOUNTER 2024-01-16 15:54 | Emergency (ER) | payer MEDICARE, OTHER, SELFPAY ==
[2024-01-16 16:12] VITALS: BP 101/68; PULSE 89; RESP 19; TEMP 36.9; O2SAT 97; BMI 21.0
--- NOTE | 2024-01-16 16:13 | ED_ITS ---
<Statement entered by Ryan Bernal MD - 01/16/24 22:20> I was consulted by the SYL, and we discussed the complexity of the problems being addressed. I approved the treatment and management plan for this patient's care in the emergency department, thus performing a substantive portion of the medical decision making. Ryan Bernal MD, ELYSSA, FACEP Discharge Plan Disposition Patient Disposition: Home, Self-Care Condition: Good Prescriptions Prescriptions: No Action Stiolto Respimat 2.5-2.5 mcg/actuation mist 2 puff inhalation DAILY 90 Days Qty: 4 2RF furosemide [Lasix] 20 mg tablet 40 mg PO DAILY Qty: 90 3RF famotidine 40 MG tablet 40 mg PO DAILY diazepam 5 MG tablet 5 mg PO HSP PRN (Reason: Insomnia) atorvastatin 40 mg tablet 40 mg PO DAILY Patient Comments: TAKE 1 TABLET BY MOUTH ONCE DAILY ergocalciferol (vitamin D2) 1,250 mcg (50,000 unit) capsule 50,000 unit PO WEEKLY Patient Comments: TAKE 1 CAPSULE BY MOUTH ONCE A WEEK multivitamin Tablet 1 tab PO DAILY levothyroxine 50 mcg tablet 50 mcg PO DAILY potassium chloride 10 mEq tablet extended release 10 meq PO BID Patient Comments: TAKE 1 TABLET BY MOUTH TWICE DAILY WITH FOOD FOR 30 DAYS omeprazole 20 mg capsule,delayed release(DR/EC) 20 mg PO DAILY Patient Comments: TAKE 1 CAPSULE BY MOUTH ONCE DAILY prochlorperazine maleate 10 mg tablet 10 mg PO Q6HP PRN (Reason: Nausea And Vomiting) Patient Comments: TAKE 1 TABLET BY MOUTH EVERY 6 HOURS NEEDED Stiolto Respimat 2.5-2.5 mcg/actuation mist 2 puff inhalation DAILY Referrals Follow up/Referrals: Nikki Brown MD [Primary Care Provider] - See instructions Activity Restrictions/Add. Instructions Additional Instructions/Restrictions: As we discussed please utilize meal supplementations like boost, start taking the Megace as directed and utilizing Gas-X for bloat. Follow-up with PCP and specialist as scheduled or sooner if needed or return to the ER for any change or worsening in your symptoms as needed. Clinical Impressions Clinical Impression: Hypotension Discharge ED Provider: Ryan Bernal General Adult HPI General Chief complaint: Weakness Stated complaint: low blood pressure from Doctors office Time Seen by Provider: 01/16/24 15:58 History of Present Illness HPI narrative: Patient presents from home for evaluation of a low blood pressure. Patient has a history of lung cancer and now multiple myeloma currently undergoing chemotherapy with Dr. Berger. Patient recently had a 2-week stay at the [facility] for placement of a Pleurx catheter after pleural effusion and complete atelectasis of the right lung. Patient actually has not had chemotherapy since November. She gets her Pleurx catheter drained 3 times a week by home health and at the visit today home health noted her systolic blood pressure to be 80. Patient herself has no symptoms is not dizzy no tachycardia no chest pain. Patient does report chronic feeling weak with a poor appetite but that has been ongoing for quite some time through her cancer journey. On arrival here patient denies chest pain fever chills hemoptysis hematochezia melena nausea vomiting diarrhea shortness of breath or dyspnea. Related Data Home Medications Medication Instructions Recorded Confirmed diazepam 5 mg tablet 5 mg PO HSP PRN Insomnia 05/12/22 01/11/24 famotidine 40 mg tablet 40 mg PO DAILY acid reflux 05/12/22 01/11/24 atorvastatin 40 mg tablet 40 mg PO DAILY Cholesterol 09/16/23 01/11/24 ergocalciferol (vitamin D2) 1,250 50,000 unit PO WEEKLY Supplement 09/16/23 01/11/24 mcg (50,000 unit) capsule levothyroxine 50 mcg tablet 50 mcg PO DAILY Thyroid 09/16/23 01/11/24 multivitamin 1 tab PO DAILY Supplement 09/16/23 01/11/24 omeprazole 20 mg capsule,delayed 20 mg PO DAILY Acid Reflux 12/01/23 01/11/24 release potassium chloride 10 mEq 10 meq PO BID Supplement 12/01/23 01/11/24 tablet,extended release prochlorperazine maleate 10 mg 10 mg PO Q6HP PRN Nausea And 12/01/23 01/11/24 tablet Vomiting tiotropium 2.5 mcg-olodaterol 2.5 2 puff inhalation DAILY Breathing 12/01/23 01/11/24 mcg/actuation mist for inhalation Problems (Stiolto Respimat) Previous Rx's Medication Instructions Recorded tiotropium 2.5 mcg-olodaterol 2.5 2 puff inhalation DAILY 90 days #4 12/20/23 mcg/actuation mist for inhalation grams (Stiolto Respimat) furosemide 20 mg tablet (Lasix) 40 mg (2 x 20 mg) PO DAILY #90 tabs 01/16/24 Allergies Allergy/AdvReac Type Severity Reaction Status Date / Time metoclopramide [From Reglan] Allergy Intermediate Unknown Verified 12/29/23 09:50 allergy reaction Barbiturates [BARBITURATES] Allergy Unknown Unknown Verified 12/29/23 09:50 allergy reaction sulfamethoxazole Allergy Unknown Verified 12/29/23 09:50 [From Bactrim] allergy reaction trimethoprim [From Bactrim] Allergy Unknown Verified 12/29/23 09:50 allergy reaction bisoprolol AdvReac Mild HAIR LOSS Verified 12/29/23 09:50 diltiazem AdvReac Mild Dizziness Verified 12/29/23 09:[facility] Dis[facility]: The information contained in this section may have been updated after the patient was seen, as this information can be updated by other users. Medical History Recurrent pleural effusion on right Hyponatremia Abnormal echocardiogram Heart palpitations Pneumonia with cavity of lung Acute respiratory failure with hypoxia History of lung cancer COPD (chronic obstructive pulmonary disease) Stopped smoking with greater than 30 pack year history Dyspnea on exertion LURDES on CPAP Hyperlipidemia Hypertension Hx of deep venous thrombosis Hx-TIA (transient ischemic attack) Carotid artery stenosis Fatigue Edema of both lower extremities Dyspnea Chest pain Loss of hair Nausea and vomiting Hypothyroidism Anxiety Surgical History Hx of appendectomy Hx of cholecystectomy History of breast biopsy History of tonsillectomy H/O arthroscopy of knee Family History Other Cancer Diabetes No significant family history Social History Smoking Status: Former smoker tobacco type: cigarettes second hand exposure: No alcohol intake: never substance use type: denies use current occupational status: retired Travel in the last 8 weeks: None household members: none housing: house current occupational exposures/hazards: No caffeine: Yes ROS Obtained: Yes Systems reviewed as appropriate & no additional complaints except as documented Physical Exam General General appearance: alert and in no apparent distress Head Head exam: atraumatic and normal inspection Eye Eye exam: Present normal appearance and EOMI ENT ENT exam: Present normal exam, normal oropharynx and mucous membranes moist Neck Neck exam: Present normal inspection and full ROM Chest Chest inspection: Present normal inspection and symmetric chest wall rise; Absent tenderness Respiratory Respiratory exam: Present normal lung sounds bilaterally; Absent respiratory distress or wheezes Cardiovascular Cardiovascular exam: Present regular rate, normal rhythm, normal heart sounds, +S1 and +S2 Abdominal Exam Abdominal exam: Present soft and normal bowel sounds; Absent tenderness Extremities Exam Extremities exam: Present normal inspection, full ROM and edema (+1 bilateral lower extremity pitting edema) Back Exam Back exam: Present normal inspection and full ROM; Absent tenderness Neurological Exam Neurological exam: Present alert, oriented X3 and CN II-XII intact Psychiatric Psychiatric exam: Present normal affect and normal mood Skin Skin exam: Present warm, dry and normal color Medical Decision Making Medical Records Medical records reviewed: Yes I reviewed the patient's medical records. Baudilio Inquiry Pt receiving controlled substance: No Vital Signs: 01/16/24 16:12 Temperature 98.5 F Temperature Source Oral Pulse Rate [Left Radial] 89 Respiratory Rate 19 Blood Pressure [Right Arm] 101/68 L Blood Pressure Mean [Right Arm] 79 02 Sat by Pulse Oximetry 97 Oxygen Delivery Method Room Air Lab Data Lab results reviewed: Yes I reviewed the patient's lab results. I reviewed patient's recent laboratory work from 01/11/2024 Medical Decision Narrative: In summary patient is a 83-year-old female who presents to the emergency department for evaluation of initially low blood pressure .. Patient is patient has a systolic blood pressure here of 101 and a diastolic of 68 with a heart rate of 89 respiratory rate of 19 temperature 98.5 and satting at 97% on room air upon arrival. Physical exam is unremarkable and nonfocal with normal breath sounds heard at the bases slightly diminished on the right, heart rate noted to be sinus rhythm on the monitor at the bedside, slight bilateral lower extremity chronic pitting edema. Patient denies any dizziness chest pain shortness of breath and is still able to do her activities of daily living. Differential diagnosis includes asymptomatic systolic blood pressure of 80, versus symptomatic hypotension versus ACS versus failure to thrive etc. After review of her records both at and locally with a hard metals engraver hand oncologist as well as her batch unloader patient has no acute change other than a low systolic blood pressure for which she is asymptomatic. Likely reflects her nutritional state as well as her chronic medical problems. I discussed patient management with her batch unloader. Plan is to discharge the patient home with reassurance and close follow-up with her PCP and follow-up with her batch unloader and oncologist as scheduled. Patient verbalized understanding and agreement. Critical Care Critical Care Time Critical Care Time: No
--- NOTE | 2024-01-16 16:20 | PC.NURSE ---
Karl DELGADO speaking with Dr. Salinas
--- NOTE | 2024-01-16 16:26 | PC.NURSE ---
Karl DELGADO at BS for pt eval
[2024-01-16 16:31] VITALS: BP 92/51; PULSE 87; O2SAT 96
[2024-01-16 16:36] VITALS: BP 92/51; PULSE 86; RESP 16; TEMP 36.9; O2SAT 96
== END 2024-01-16 16:37 | disposition home or self-care (01) ==
PROVIDERS: Emergency Provider Student in an Organized Health Care Education/Training Program; PCP Family Medicine
DX: I95.9 Hypotension, unspecified (principal); C90.00 Multiple myeloma not having achieved remission; E03.9 Hypothyroidism, unspecified; J44.9 Chronic obstructive pulmonary disease, unspecified; I65.29 Occlusion and stenosis of unspecified carotid artery; E78.5 Hyperlipidemia, unspecified; I10 Essential (primary) hypertension; K21.9 Gastro-esophageal reflux disease without esophagitis; Z92.21 Personal history of antineoplastic chemotherapy; Z87.891 Personal history of nicotine dependence
CPT/HCPCS: 99283

== ENCOUNTER 2024-02-04 14:36 | Observation (INO) | payer MEDICARE, OTHER, SELFPAY ==
[2024-02-04] VITALS (8 sets, daily range): BP systolic 97–122; BP diastolic 61–68; PULSE 83–92; RESP 18–20; TEMP 36.5–36.7; O2SAT 96–99; BMI 20.2; BMI 20.9
--- NOTE | 2024-02-04 15:32 | XR_ITS ---
PROCEDURE INFORMATION: Exam: XR Chest Exam date and time: 02/04/2024 3:34 PM Age: 83 years old Clinical indication: Pain; Right-sided; Additional info: Chest pain TECHNIQUE: Imaging protocol: Radiologic exam of the chest. Views: 2 views. COMPARISON: CR XR CHEST 2V 12/20/2023 2:02 PM FINDINGS: Tubes, catheters and devices: Presumed right thoracostomy tube is seen coiled in the right upper quadrant/right lower airspace, tip at the right diaphragmatic border. Lungs: Persistent yet improved right pleural effusion with associated right base atelectasis. Diffuse interstitial marking coarsening. Pleural spaces: See Lungs finding. Heart/Mediastinum: Surgical clips are appreciated over the right hilum/right heart border. Bones/joints: Diffuse degenerative change of the visualized osseous structures. Other findings: Right hilar fullness is again noted, nonspecific. IMPRESSION: 1. Difficult to discern exact location of the thoracostomy tube given projection, tip projects anteriorly at the right diaphragmatic border/right upper quadrant on lateral projection. Cross-sectional evaluation can be obtained for further definitive assessment. 2. Persistent and improved right pleural effusion with associated right basilar atelectasis, interval improvement in aeration of the right lower lung kee. Superimposed infection cannot be ruled out.
--- NOTE | 2024-02-04 15:34 | ED_ITS ---
<Statement entered by Ryan Bernal MD - 02/06/24 23:12> I was consulted by the SYL, and we discussed the complexity of the problems being addressed. I approved the treatment and management plan for this patient's care in the emergency department, thus performing a substantive portion of the medical decision making. Ryan Bernal MD, ELYSSA, FACEP Discharge Plan Disposition Patient Disposition: Admitted Clinical Impressions Clinical Impression: Elevated troponin Discharge ED Provider: Ryan Bernal General Adult HPI General Chief complaint: PAIN Stated complaint: lower abd pain Time Seen by Provider: 02/04/24 15:16 Mode of Arrival: Wheelchair Source of Information: Patient Limitations: No Limitations Description of Symptoms (Recalled from ER Triage Doc. by RN): r sided pain around her surgical site. pt has a drain that is emptied by home health 2x a week due to cancer History of Present Illness HPI narrative: Araceli Shah is an 83yo female with previous medical history of lung cancer, multiple myeloma, chronic right-sided pleural effusion with Pleurx catheter in place, pneumonia, presenting with 4 days of progressively worsening right chest pain. Patient states that she gets the right-sided pleural effusion drained twice a week with home health. She usually has some mild chest pain at the site of the catheter after draining but since it was most recently done on 01/31, it has worsened more than usual. She describes it as right lower rib pain that worsens with movement. No fevers, chills, worsened cough, nausea, vomiting, skin changes, or other concerns. She states she has not had chemotherapy since November. Related Data Home Medications Medication Instructions Recorded Confirmed diazepam 5 mg tablet 5 mg PO HSP PRN Insomnia 05/12/22 02/04/24 atorvastatin 40 mg tablet 40 mg PO DAILY Cholesterol 09/16/23 02/04/24 ergocalciferol (vitamin D2) 1,250 50,000 unit PO WEEKLY Supplement 09/16/23 02/04/24 mcg (50,000 unit) capsule levothyroxine 50 mcg tablet 50 mcg PO DAILY Thyroid 09/16/23 02/04/24 omeprazole 20 mg capsule,delayed 20 mg PO DAILY Acid Reflux 12/01/23 02/04/24 release tiotropium 2.5 mcg-olodaterol 2.5 2 puff inhalation DAILY Breathing 12/01/23 02/04/24 mcg/actuation mist for inhalation Problems (Stiolto Respimat) megestrol 20 mg tablet 20 mg PO DAILY anorexia 02/04/24 02/04/24 spironolactone 25 mg tablet 25 mg PO DAILY Edema 02/04/24 02/04/24 Previous Rx's Medication Instructions Recorded tiotropium 2.5 mcg-olodaterol 2.5 2 puff inhalation DAILY 90 days #4 12/20/23 mcg/actuation mist for inhalation grams (Stiolto Respimat) furosemide 20 mg tablet (Lasix) 40 mg (2 x 20 mg) PO DAILY #90 tabs 01/16/24 Allergies Allergy/AdvReac Type Severity Reaction Status Date / Time metoclopramide [From Reglan] Allergy Intermediate Unknown Verified 01/22/24 13:37 allergy reaction Barbiturates [BARBITURATES] Allergy Unknown Unknown Verified 01/22/24 13:37 allergy reaction sulfamethoxazole Allergy Unknown Verified 01/22/24 13:37 [From Bactrim] allergy reaction trimethoprim [From Bactrim] Allergy Unknown Verified 01/22/24 13:37 allergy reaction bisoprolol AdvReac Mild HAIR LOSS Verified 01/22/24 13:37 diltiazem AdvReac Mild Dizziness Verified 01/22/24 13:37 PFSH PFS Disclaimer: The information contained in this section may have been updated after the patient was seen, as this information can be updated by other users. Medical History Primary cancer of bone marrow Recurrent pleural effusion on right Hyponatremia Abnormal echocardiogram Heart palpitations Pneumonia with cavity of lung Acute respiratory failure with hypoxia History of lung cancer COPD (chronic obstructive pulmonary disease) Stopped smoking with greater than 30 pack year history Dyspnea on exertion LURDES on CPAP Hyperlipidemia Hypertension Hx of deep venous thrombosis Hx-TIA (transient ischemic attack) Carotid artery stenosis Fatigue Edema of both lower extremities Dyspnea Chest pain Loss of hair Nausea and vomiting Hypothyroidism Anxiety Surgical History Hx of appendectomy Hx of cholecystectomy History of breast biopsy History of tonsillectomy H/O arthroscopy of knee Family History Other Cancer Diabetes No significant family history Social History (Updated 02/04/24 @ 20:14 by Jagruti Amor RN) Smoking Status: Former smoker tobacco type: cigarettes years smoked: 30 smoking status stop date: 2005 second hand exposure: No alcohol intake: never substance use type: denies use current occupational status: retired Travel in the last 8 weeks: None household members: none housing: house current occupational exposures/hazards: No caffeine: Yes ROS Obtained: Yes All systems reviewed & no additional complaints except as documented Physical Exam General General appearance: alert and in no apparent distress Comment: Elderly, thin, no acute distress. Head Head exam: atraumatic, normocephalic and normal inspection Eye Eye exam: Present normal appearance, PERRL and EOMI ENT ENT exam: Present normal exam, normal oropharynx, mucous membranes moist and normal external ear exam Neck Neck exam: Present normal inspection, full ROM and trachea midline; Absent meningismus or lymphadenopathy Chest Chest inspection: Present normal inspection, symmetric chest wall rise, tenderness (TTP over right pleurx catheter but no erythema or signs of infection near catheter.) and other (Pleurx catheter in place over the right lower ribs with a clean appearing dressing.) Respiratory Respiratory exam: Present other (Lung sounds reduced on the right.); Absent respiratory distress Cardiovascular Cardiovascular exam: Present regular rate and normal rhythm; Absent JVD Abdominal Exam Abdominal exam: Present soft and normal bowel sounds; Absent distention, tenderness or guarding Extremities Exam Extremities exam: Present normal inspection, full ROM and normal capillary refill; Absent calf tenderness Back Exam Back exam: Present normal inspection; Absent tenderness Neurological Exam Neurological exam: Present alert and oriented X3 Psychiatric Psychiatric exam: Present normal affect and normal mood Skin Skin exam: Present warm, dry, intact and normal color Lymphatic Lymphatic Findings: no adenopathy Medical Decision Making Medical Records Medical records reviewed: Yes I reviewed the patient's medical records. Baudilio Inquiry Pt receiving controlled substance: No Baudilio was queried for this patient: No Vital Signs: 02/04/24 14:37 02/04/24 14:50 02/04/24 15:00 Temperature 97.9 F Temperature Source Oral Pulse Rate 88 83 Pulse Rate [Right] 92 H Respiratory Rate 18 Blood Pressure 122/68 118/67 Blood Pressure [Right Arm] 122/68 Blood Pressure Mean [Right Arm] 86 02 Sat by Pulse Oximetry 99 96 99 Oxygen Delivery Method Room Air Room Air Room Air Lab Data Lab Results 02/04/24 15:06: WBC 3.5 L, RBC 3.92 L, Hgb 12.4, Hct 39.1, MCV 99.8 H, MCH 31.7 H, MCHC 31.8, RDW 16.3, Plt Count 177, MPV 9.3, Neut % (Auto) 52.8, Lymph % (Auto) 35.5, Moca % (Auto) 10.4 H, Eos % (Auto) 0.6, Baso % (Auto) 0.7, Neut # (Auto) 1.9, Lymph # (Auto) 1.3, Moca # (Auto) 0.4, Eos # (Auto) 0.0, Baso # (Auto) 0.0, Sodium 134 L, Potassium 4.5, Chloride 104, Carbon Dioxide 26, Anion Gap 8.5, BUN 22 H, Creatinine 0.80, Estimated Creat Clear 36, Estimated GFR 69, Est GFR ( Amer) 83, Glucose 103 H, Calcium 9.8, Total Bilirubin 0.8, AST 47 H, ALT 25, Alkaline Phosphatase 101, Troponin I 0.16 H, Total Protein 7.4, A lbumin 3.4 L, Globulin 4.0 H, Albumin/Globulin Ratio 0.9 L 02/04/24 16:30: Fluid Source Thoracentesis fluid, Fluid Volume 80, Fluid Appearance Cloudy, Fluid RBC (Auto) < 10, Fld Tot Nucleated Cell 275, Fld Polynuclear WBCs % 1, Fld Mononuclear WBCs % 99 02/04/24 17:50: Troponin I 0.20 H 02/04/24 15:06 02/04/24 15:06 Orders (Tests/Meds): ED MEDICATIONS Generic Name Dose Route Start Last Admin Trade Name Freq PRN Reason Stop Dose Admin Acetaminophen 1,000 mg 02/04/24 19:18 Acetaminophen 325mg Tab PO 03/05/24 19:17 Q6HP PRN Fever or Mild Pain (1-3) Hydrocodone Bitart/Acetaminophen 1 tab 02/04/24 19:10 Hydrocodone/Apap 5/325 Mg Tablet PO 03/05/24 19:09 Q4HP PRN Mild to Moderate Pain (1-6) Albuterol/Ipratropium 3 ml 02/05/24 00:00 Ipratropium/Albuterol 3 Ml Neb 03/06/24 00:00 Q6RT SARA Atorvastatin Calcium 40 mg 02/04/24 21:00 02/04/24 20:32 Atorvastatin 40mg Tablet PO 03/05/24 20:59 40 mg HS SARA Administration Budesonide 0.5 mg 02/05/24 06:00 Budesonide 0.5mg/2ml Neb 03/06/24 05:59 BIDRT SARA Diazepam 5 mg 02/04/24 19:18 Diazepam 5mg Tablet PO 03/05/24 19:17 HSP PRN Anxiety Furosemide 40 mg 02/05/24 09:00 Furosemide 40 Mg Tablet PO 03/06/24 08:59 DAILY SARA Levothyroxine Sodium 50 mcg 02/05/24 07:00 Levothyroxine 50mcg (0.05mg) Tab PO 03/06/24 06:59 DAILYDM SARA Morphine Sulfate 4 mg 02/04/24 19:18 Morphine 4mg/Ml Syringe IV 03/05/24 19:17 Q4HP PRN Severe Pain (7-10) Ondansetron HCl 4 mg 02/04/24 19:10 Ondansetron 4mg/2ml Vial IV 03/05/24 19:09 Q8HP PRN Nausea Oxycodone HCl 5 mg 02/04/24 18:30 02/04/24 19:02 Oxycodone 5mg Immediate Release Tablet PO 03/05/24 18:29 5 mg Q4HP PRN Administration Severe Pain (7-10) Pantoprazole Sodium 40 mg 02/04/24 19:30 02/04/24 20:32 Pantoprazole 40mg Tablet PO 03/05/24 19:29 40 mg DAILY SARA Administration Potassium Chloride 10 meq 02/04/24 21:00 02/04/24 20:32 Potassium Chloride 10meq Tablet.Er PO 03/05/24 20:59 10 meq BID SARA Administration Sodium Chloride 10 ml 02/04/24 19:16 Sodium Chloride 0.9% 10ml Flush Syringe IV 03/05/24 19:15 NEEDED PRN Maintain IV Site Discontinued Medications Generic Name Dose Route Start Last Admin Trade Name Freq PRN Reason Stop Dose Admin Acetaminophen 1,000 mg 02/04/24 15:32 02/04/24 15:37 Acetaminophen 500mg Tab PO 02/04/24 15:33 1,000 mg ONCE ONE Administration ORDERS Category Date Time Status Chest XR 2 view (NOT portable) [XR chest 2V] Stat Exams 02/04/24 15:32 Completed POCUS Point of Care (ER Only) Stat Exams 02/04/24 15:23 Completed Body Fluid: Cell Count w/ Diff Stat Lab 02/04/24 16:30 Completed CBC [Complete Blood Count Auto Diff] Stat Lab 02/04/24 15:06 Completed CMP [Comprehensive Metabolic Panel] Stat Lab 02/04/24 15:06 Completed Trop I [Troponin I] Stat Lab 02/04/24 15:06 Completed Troponin I Q3H Lab 02/04/24 17:50 Completed Troponin I Q3H Lab 02/04/24 21:45 Ordered Body Fluid Cult & Gram Stain Stat Micro 02/04/24 16:30 Received ECG Data Tracing #1: I reviewed this ECG and interpreted as documented below: ECG initial impression date: 02/04/24 ECG initial impression time: 15:43 ECG normal with no acute: arrhythmias, ischemia, conduction abnormalities, chamber hypertrophy Normal Sinus Rhythm: Yes Ischemic changes: other (T waves inverted in V1 but this was seen on previous EKGs so is at baseline for this patient.) ECG compared to prior tracings: there are no significant changes Medical Decision Narrative: Considered multiple causes of patient's right-sided chest pain including that her right-sided pleural effusion may be worsening or may have superimposed infection such as empyema or pneumonia. Also considered ACS, arrhythmia, lower likelihood of large pulmonary embolus given her very normal vital signs, satting 99% on room air, and no dyspnea however considered this as well. For this reason perform [id number] bedside ultrasound that showed large right-sided pleural effusion. Patient's daughter brought pleurx supplies from home and I obtained thoracentesis. Cell count was 275 and has been close to this range on past thoracentesis. Given this is likely associated with her multiple myeloma, this cell count is not necessarily concerning but sent for culture to determine likelihood of pleural effusion superimposed infection. Obtained EKG, troponin, CBC, CMP, chest x-ray. EKG I independently reviewed and interpreted showed normal sinus rhythm with no changes compared to previous EKGs. Troponin was elevated from her baseline so this was to be repeated. CBC shows no significant abnormalities, no profound neutropenia or leukocytosis. No anemia. CMP no significant abnormalities to explain her right lower chest pain. Chest x-ray independently reviewed and interpreted and showed persistent right pleural effusion but no focal consolidations, no signs of pneumonia or pneumothorax to explain her chest pain. Repeat troponin showed elevation to 0.20. For this reason consulted cardiology and had interactive discussion with generator operator straight bevel gear who recommended that she be admitted for monitoring and further diagnostics in the morning. I discussed this with patient and she is comfortable coming into the hospital. She remained hemodynamically stable, eating and drinking well until time of admission. Her chest pain had not particularly improved with the thoracentesis. Procedures Limited Ultrasound Indication:: Right chest pain Views:: Bilateral lungs Findings:: Large pleural effusion over the right lung, worst in posterior and inferior lung kee Interpretation:: Large right-sided pleural effusion Miscellaneous Procedure Procedure Performed: Procedure: Thoracentesis Performed by Rosa Morris MD Indication: Large right-sided pleural effusion with right chest pain Verbal consent was obtained after explaining risk, benefits, alternatives including waiting for her home health visit tomorrow. Patient elects to proceed with procedure in the emergency department. Patient has a Pleurx catheter in place so this was used with her home vacuum sealed container and tubing to remove 750 mL of fluid which is her routine amount to remove. Patient tolerated this well with no adverse effects. Dressing was replaced with in sterile fashion using her home supplies. Critical Care Critical Care Time Critical Care Time: No
[2024-02-04] MEDS: ACETAMINOPHEN 500MG TAB 1000 MG PO (15:37)
[2024-02-04 15:41] LABS: Basophils % 0.7 % (0.1-2.0); Chloride 104 mmol/L (98-107); Eosinophils % 0.6 % (0.1-12.0); Hematocrit 39.1 % (37.0-47.0); Hemoglobin 12.4 g/dL (12.2-16.2); Lymphocytes # 1.3 K/mm3 (0.7-4.5); Lymphocytes % 35.5 % (10-50); Mean Corpuscular HGB Conc 31.8 g/dL (31.8-35.4); Mean Corpuscular Hemoglobin 31.7 pg (27.0-31.2); Mean Corpuscular Volume 99.8 fl (81-99); Mean Platelet Volume 9.3 fl (7.4-10.4); Monocytes # 0.4 K/mm3 (0.1-1.0); Monocytes % 10.4 % (1.7-9.3); Neutrophils # 1.9 K/mm3 (1.8-7.8); Neutrophils % 52.8 % (37.0-80.0); Platelet Count 177 K/mm3 (142-424); Red Blood Count 3.92 M/mm3 (4.20-5.40); Red Cell Distribution Width 16.3 % (11.5-17.5); Sodium 134 mmol/L (136-145); White Blood Count 3.5 K/mm3 (4.8-10.8)
--- NOTE | 2024-02-04 15:41 | ECG_ITS ---
APPROVED REPORT Exam: Resting ECG HR:81 bpm ECG Measurements Heart Rate 81 AXES DE 115 P 26 QRSd 86 QRS 17 QT 390 T 133 QTc 427 Conclusion SINUS RHYTHM WITH MARKED SINUS ARRHYTHMIA WITH SHORT DE INTERVAL NONSPECIFIC T-WAVE ABNORMALITY ABNORMAL ECG Electronically signed by : SHERRI PORTILLO, 02/07/2024 07:25:55
[2024-02-04 15:42] LABS: Potassium 4.5 mmoL/L (3.5-5.1)
[2024-02-04 15:44] LABS: Alanine Aminotransferase 25 U/L (12-78); Albumin Level 3.4 g/dl (3.5-5.0); Albumin/Globulin Ratio 0.9 (1.1-1.8); Alkaline Phosphatase 101 U/L (38-126); Anion Gap 8.5 mEq/L (5-15); Aspartate Amino Transferase 47 U/L (14-36); Bilirubin,Total 0.8 mg/dl (0.2-1.3); Blood Urea Nitrogen 22 mg/dl (7-17); Carbon Dioxide 26 mmol/L (22.0-30.0); Creatinine Clearance Estimated 36 mL/min (50-200); Estimated Glomerular Filt Rate 69 ml/min (>60); GFR (African American) 83 ML/MIN (>60); Total Protein,Serum 7.4 g/dl (6.3-8.2)
[2024-02-04 15:45] LABS: Calcium 9.8 mg/dl (8.4-10.2); Glucose 103 mg/dl (74-100)
--- NOTE | 2024-02-04 15:45 | PC.NURSE ---
PT GONE TO XRAY
--- NOTE | 2024-02-04 15:46 | PC.NURSE ---
PT ARRIVED BACK TO ROOM
[2024-02-04 15:56] LABS: Troponin I 0.16 ng/ml (0.00-0.034)
--- NOTE | 2024-02-04 16:06 | PC.NURSE ---
AT FOR PROCEDURE
--- NOTE | 2024-02-04 16:26 | PC.NURSE ---
MD JOHNSON ON PHONE WITH AD
[2024-02-04 16:39] LABS: Appearance,Body Fld. Cloudy; Source, Body Fld. Thoracentesis Fluid
[2024-02-04 16:40] LABS: Volume,Body Fld. 80 mL
[2024-02-04 16:42] LABS: RBC,Body Fluid < 10 cells/uL (< 10 X 10^3); TNC,Body Fluid 275 cells/uL (< 1000)
--- NOTE | 2024-02-04 18:02 | PC.NURSE ---
ROUNDED ON PT NO NEEDS AT THIS TIME,TOOK DINNER TRAY OUT OF ROOM PT ATE 100% CALL LIGHT IN REACH
[2024-02-04 18:09] LABS: Mononuclear WBCs,Body Fluid 99 %; Polynuclear WBC,Body Fluid 1 %
--- NOTE | 2024-02-04 18:24 | PC.NURSE ---
Paged Dr. Isaac at this time.
--- NOTE | 2024-02-04 18:25 | PC.NURSE ---
Dr. Morris is s/w Dr. Isaac
--- NOTE | 2024-02-04 18:29 | PC.NURSE ---
Dr. Morris s/w Dr. Morrow for admission
[2024-02-04] MEDS: OXYCODONE 5MG IMMEDIATE RELEASE TABLET 5 MG PO (19:02)
--- NOTE | 2024-02-04 19:07 | PC.NURSE ---
Called report to Tristin WALKER on Med/Surg. Let her know pt's admit time to be admitted is 1916.
--- NOTE | 2024-02-04 19:24 | PC.NURSE ---
Patient arrived to floor via wheelchair from ED at 19:22.
--- NOTE | 2024-02-04 19:32 | PC.NURSE ---
pt off floor via wheelvchair with radiology for ct
--- NOTE | 2024-02-04 19:34 | PC.NURSE ---
Patient left floor with Radiology at 19:31.
--- NOTE | 2024-02-04 19:41 | EXP.HP ---
History of Present Illness *Admission Date: 02/04/24 *Reason for visit:: Right chest pain *History of present illness: This is an 83-year-old female who presents to [facility] emergency department with concerns of right chest pain. She reports sharp pain to the rib line area near her Pleurx catheter. It is worse with movement. She rates the pain as greater than 10 on a 1-10 pain scale. This is a new pain for her. She reports previous pain with Pleurx catheter use but it has crescendoed. She denies associated retrosternal chest pain, palpitations, confusion or syncope. She reports no associated increasing pain with inspiration. She denies associated hemoptysis, sputum production, fever, chills or acute dyspnea. She reports a recent visit with her it compliance manager (01/22/2024). Her past medical history is significant for COPD with a 30+ year cigarette smoking and quit in 2005. She describes a previous history of LURDES with home NIPPV therapy. She was diagnosed with lung cancer stage IIIa 2018 and is status post right lower lobectomy. She reports no current immuno or chemotherapy. She describes a past history of radiation therapy with esophageal AVMs and GI bleeding. In the ED her white blood cell count was 3.5 with hemoglobin 12.4 normal platelets. Her electrolytes BUN and creatinine were normal. Her LFTs were normal. Right pleural effusion was sent for evaluation (~750cc drained). X-ray chest imaging identified a right thoracic tube. Troponin were elevated and cardiology was contacted out of the ED and recommended admission. 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 PAF (paroxysmal atrial fibrillation) Primary cancer of bone marrow Recurrent pleural effusion on right Hyponatremia Abnormal echocardiogram Heart palpitations Pneumonia with cavity of lung Acute respiratory failure with hypoxia History of lung cancer COPD (chronic obstructive pulmonary disease) Stopped smoking with greater than 30 pack year history Dyspnea on exertion LURDES on CPAP Hyperlipidemia Hypertension Hx of deep venous thrombosis Hx-TIA (transient ischemic attack) Carotid artery stenosis Fatigue Edema of both lower extremities Dyspnea Chest pain Loss of hair Nausea and vomiting Hypothyroidism Anxiety Surgical History Hx of appendectomy Hx of cholecystectomy History of breast biopsy History of tonsillectomy H/O arthroscopy of knee Family History Other Cancer Diabetes No significant family history Social History (Updated 02/04/24 @ 20:14 by Jagruti Amor RN) Smoking Status: Former smoker tobacco type: cigarettes years smoked: 30 smoking status stop date: 2005 second hand exposure: No alcohol intake: never substance use type: denies use current occupational status: retired Travel in the last 8 weeks: None household members: none housing: house current occupational exposures/hazards: No caffeine: Yes Review of Systems Review of Systems Review of systems:: pertinent systems reviewed and negative unless documented below Constitutional Constitutional: Denies chills, Denies fever(s) and Reports stops breathing during sleep ENT Ears, Nose, Mouth, and Throat: Denies epistaxis and Denies sore throat *Cardiovascular Cardiovascular: Reports chest pain, Reports dyspnea and Denies irregular heart rhythm *Respiratory Respiratory: Reports dyspnea, Denies excessive phlegm production and Denies hemoptysis *Gastrointestinal Gastrointestinal: Denies hematemesis, Denies hematochezia and Denies melena *Neurologic Neurologic: Denies confusion Psychiatric Psychiatric: Denies confusion Hematologic/Lymphatic Hematologic/Lymphatic: Reports easy bleeding Meds Home Medications and Allergies Home Medications Medication Instructions Recorded Confirmed Type diazepam 5 mg tablet 5 mg PO HSP PRN Insomnia 05/12/22 02/04/24 History atorvastatin 40 mg tablet 40 mg PO DAILY Cholesterol 09/16/23 02/04/24 History ergocalciferol (vitamin D2) 1,250 50,000 unit PO WEEKLY Supplement 09/16/23 02/04/24 History mcg (50,000 unit) capsule levothyroxine 50 mcg tablet 50 mcg PO DAILY Thyroid 09/16/23 02/04/24 History omeprazole 20 mg capsule,delayed 20 mg PO DAILY Acid Reflux 12/01/23 02/04/24 History release tiotropium 2.5 mcg-olodaterol 2.5 2 puff inhalation DAILY Breathing 12/01/23 02/04/24 History mcg/actuation mist for inhalation Problems (Stiolto Respimat) tiotropium 2.5 mcg-olodaterol 2.5 2 puff inhalation DAILY 90 days #4 12/20/23 02/04/24 Rx mcg/actuation mist for inhalation grams (Stiolto Respimat) furosemide 20 mg tablet (Lasix) 40 mg (2 x 20 mg) PO DAILY #90 tabs 01/16/24 02/04/24 Rx megestrol 20 mg tablet 20 mg PO DAILY anorexia 02/04/24 02/04/24 History spironolactone 25 mg tablet 25 mg PO DAILY Edema 02/04/24 02/04/24 History New Prescriptions to Start Prescriptions: Allergies Allergy/AdvReac Type Severity Reaction Status Date / Time metoclopramide [From Reglan] Allergy Intermediate Unknown Verified 01/22/24 13:37 allergy reaction Barbiturates [BARBITURATES] Allergy Unknown Unknown Verified 01/22/24 13:37 allergy reaction sulfamethoxazole Allergy Unknown Verified 01/22/24 13:37 [From Bactrim] allergy reaction trimethoprim [From Bactrim] Allergy Unknown Verified 01/22/24 13:37 allergy reaction bisoprolol AdvReac Mild HAIR LOSS Verified 01/22/24 13:37 diltiazem AdvReac Mild Dizziness Verified 01/22/24 13:37 Exam Data for Last 24 hours Vital signs and Labs for Last 24 Hours: Temp Pulse Resp BP Pulse Ox O2 Del Method 98.0 F 83 18 101/65 L 96 Room Air 02/04/24 19:09 02/04/24 19:09 02/04/24 19:09 02/04/24 19:09 02/04/24 18:30 02/04/24 19:09 Laboratory Results - last 24 hr 02/04/24 15:06: WBC 3.5 L, RBC 3.92 L, Hgb 12.4, Hct 39.1, MCV 99.8 H, MCH 31.7 H, MCHC 31.8, RDW 16.3, Plt Count 177, MPV 9.3, Neut % (Auto) 52.8, Lymph % (Auto) 35.5, [place] % (Auto) 10.4 H, Eos % (Auto) 0.6, Baso % (Auto) 0.7, Neut # (Auto) 1.9, Lymph # (Auto) 1.3, [place] # (Auto) 0.4, Eos # (Auto) 0.0, Baso # (Auto) 0.0, Sodium 134 L, Potassium 4.5, Chloride 104, Carbon Dioxide 26, Anion Gap 8.5, BUN 22 H, Creatinine 0.80, Estimated Creat Clear 36, Estimated GFR 69, Est GFR ( Amer) 83, Glucose 103 H, Calcium 9.8, Total Bilirubin 0.8, AST 47 H, ALT 25, Alkaline Phosphatase 101, Troponin I 0.16 H, Total Protein 7.4, Albumin 3.4 L, Globulin 4.0 H, Albumin/Globulin Ratio 0.9 L 02/04/24 16:30: Fluid Source Thoracentesis fluid, Fluid Volume 80, Fluid Appearance Cloudy, Fluid RBC (Auto) < 10, Fld Tot Nucleated Cell 275, Fld Polynuclear WBCs % 1, Fld Mononuclear WBCs % 99 02/04/24 17:50: Troponin I 0.20 H I & O for Last 24 hours: Intake & Output 02/01/24 02/02/24 02/03/24 02/04/24 23:59 23:59 23:59 23:59 Weight 51.71 kg Constitutional Constitutional: no acute distress, thin, chronically ill appearing and cooperative *Routine HEENT Exam Head: Present normocephalic Eye: Present EOMI, PERRL and normal accommodation ENT: Present mucous membranes moist *Routine Neck Exam Neck: Present supple and trachea midline; Absent lymphadenopathy *Routine Respiratory Exam Respiratory: Present rhonchi, crackles, diminished air movement and normal respiratory effort; Absent respiratory distress *Routine Cardiovascular Exam Cardiovascular: Present murmur and irregular rhythm *Routine Abdominal Exam Abdominal: Present soft and normoactive bowel sounds; Absent tenderness *Routine Rectal Exam Rectal:: deferred *Routine Genitalia Exam Genitalia:: deferred *Routine Extremities Exam Extremities: Present full ROM and pulses intact; Absent edema *Routine Skin Exam Skin: Present intact and warm *Routine Neurological Exam Neurological: Present alert, oriented X3, CN II-XII intact, moving all extremities, hearing grossly intact and normal speech; Absent sensory deficit or motor deficit Routine Psychiatric Exam Psychiatric: Present normal affect, normal thought process, good insight and good judgment Assessment and Plan *Assessment and plan (1) Myocardial injury: Status: Acute Category: Medical Code(s): I5A - Non-ischemic myocardial injury (non-traumatic) (2) Elevated troponin: Status: Acute Category: Medical Code(s): R79.89 - Other specified abnormal findings of blood chemistry (3) (HFpEF) heart failure with preserved ejection fraction: Status: Acute Qualifiers: Heart failure chronicity: acute on chronic Qualified Code(s): I50.33 - Acute on chronic diastolic (congestive) heart failure Category: Medical Code(s): I50.30 - Unspecified diastolic (congestive) heart failure (4) PAF (paroxysmal atrial fibrillation): Status: Acute Category: Medical Code(s): I48.0 - Paroxysmal atrial fibrillation (5) Pericardial effusion: Status: Acute Category: Medical Code(s): I31.39 - Other pericardial effusion (noninflammatory) (6) Recurrent pleural effusion on right: Status: Acute Category: Medical Code(s): J90 - Pleural effusion, not elsewhere classified (7) History of lung cancer: Status: Chronic Category: Medical Code(s): Z85.118 - Personal history of other malignant neoplasm of bronchus and lung (8) LURDES on CPAP: Status: Chronic Category: Medical Code(s): G47.33 - Obstructive sleep apnea (adult) (pediatric); Z99.89 - Dependence on other enabling machines and devices Plan This is an 83-year-old female who presents with right-sided chest pain, recurrent right pleural effusion with right Pleurx catheter drained every other day with recent pulmonology evaluation. Elevated troponin in the setting of chronic pericardial effusion acute on chronic HFpEF and paroxysmal atrial fibrillation. Her care is complicated by her history of GI bleeding with a threat to her life. We have discussed and reviewed anticoagulation and she requests no anticoagulation therapy with her previous history (Tristin RN assisting). Cardiology and pulmonology have been consulted. Problems addressed as follows: Myocardial injury type II Elevated troponin Chronic pericardial effusion Acute on chronic HFpEF (Class C/NYHA III) Paroxysmal atrial fibrillation Telemetry monitoring Cardiology consult Echo (November 2023) with EF 60%, moderate TR, RVSP 35 mmHg, pericardial effusion CT chest (November 2023) with right pleural effusion and pericardial effusion ED chest x-ray with right tube and right pleural effusion ED ECG with no acute ST-T changes Patient declines anticoagulation therapy including aspirin, P2Y12 inhibitor, Factor Xa inhibitor Patient reports allergy to beta-kermit therapy Loop diuretic therapy Potassium replacement therapy Statin therapy Routine weights Accurate I's and O's Sodium and fluid restriction Nitroglycerin as needed Parenterally administered controlled substance for comfort care Recurrent right pleural effusion LURDES with COPD overlap History of lung cancer stage III SCC 2019 Remote history [id number] tobacco use s/p RL lobectomy History of chest radiation, immuno and chemotherapy History of multiple right thoracentesis with no malignancy identified on pathology s/p Pleurx catheter on right with drainage QOD Pulmonology consult CT scan of chest Pulse oximetry monitoring Oxygen therapy to maintain appropriate oxygen saturations NIPPV therapy Roberta/Susannah inhalation therapy ICS therapy IgG kappa myeloma Immunocompromise state Follows with oncology Chemotherapy noted PET scan (10/18/2023) Bone marrow biopsy (10/24/2023) The patient is hospitalized with above diagnoses complicated by her advanced age and immunocompromise status. We appreciate healthcare market consultant evaluations and recommendations. The length of stay for this patient will be 2 midnights or greater due to above diagnoses. A goals of care conversation has occurred and the patient elects a full CODE STATUS. Her son Heriberto ShahSr. is her POA.
--- NOTE | 2024-02-04 19:46 | PC.NURSE ---
Patient returned to floor from Radiology at 21:45.
--- NOTE | 2024-02-04 19:46 | PC.NURSE ---
pt back in room from radiology
[2024-02-04] MEDS: ATORVASTATIN 40MG TABLET 40 MG PO (20:32)
[2024-02-04] MEDS: PANTOPRAZOLE 40MG TABLET 40 MG PO (20:32)
[2024-02-04] MEDS: POTASSIUM CHLORIDE 10MEQ TABLET.ER 10 MEQ PO (20:32)
[2024-02-04 20:49] LABS: Troponin I 0.21 ng/ml (0.00-0.034)
--- NOTE | 2024-02-04 20:54 | PC.NURSE ---
Dr Rain made aware of trop 0.21
[2024-02-04 21:20] LABS: Vitamin B12 286 pg/mL (239-931)
[2024-02-04 22:25] LABS: Troponin I 0.19 ng/ml (0.00-0.034)
[2024-02-04] MEDS: IPRATROPIUM/ALBUTEROL 3 ML NEB IH (23:30)
[2024-02-05] VITALS (8 sets, daily range): BP systolic 89–97; BP diastolic 48–61; PULSE 63–91; RESP 16–18; TEMP 36.6–37.1; O2SAT 93–98; BMI 20.9
--- NOTE | 2024-02-05 00:02 | PC.NURSE ---
patient refused cpap
--- NOTE | 2024-02-05 05:38 | PC.NURSE ---
pt a&ox4. room air. has had no complaints through the night. pluerx catheter to right chest, drsg c/d/i. voiding well. nsr on tele. scuds for vte. standby assist.
[2024-02-05] MEDS: LEVOTHYROXINE 50MCG (0.05MG) TAB 50 MCG PO (06:29)
[2024-02-05] MEDS: IPRATROPIUM/ALBUTEROL 3 ML NEB IH (06:37)
[2024-02-05] MEDS: BUDESONIDE 0.5MG/2ML NEB 0.5 MG IH (06:37)
[2024-02-05 06:41] LABS: Basophils % 0.7 % (0.1-2.0); Eosinophils % 1.5 % (0.1-12.0); Hematocrit 33.5 % (37.0-47.0); Lymphocytes # 1.1 K/mm3 (0.7-4.5); Lymphocytes % 43.7 % (10-50); Mean Corpuscular HGB Conc 32.4 g/dL (31.8-35.4); Mean Corpuscular Hemoglobin 31.8 pg (27.0-31.2); Mean Corpuscular Volume 98.1 fl (81-99); Mean Platelet Volume 10.6 fl (7.4-10.4); Monocytes # 0.3 K/mm3 (0.1-1.0); Monocytes % 9.5 % (1.7-9.3); Neutrophils # 1.2 K/mm3 (1.8-7.8); Neutrophils % 44.6 % (37.0-80.0); Platelet Count 150 K/mm3 (142-424); Red Blood Count 3.41 M/mm3 (4.20-5.40); Red Cell Distribution Width 16.4 % (11.5-17.5); White Blood Count 2.6 K/mm3 (4.8-10.8)
[2024-02-05 06:42] LABS: Chloride 107 mmol/L (98-107); Potassium 3.9 mmoL/L (3.5-5.1); Sodium 133 mmol/L (136-145)
[2024-02-05 06:45] LABS: Anion Gap 4.9 mEq/L (5-15); Blood Urea Nitrogen 18 mg/dl (7-17); Carbon Dioxide 25 mmol/L (22.0-30.0); Creatinine Clearance Estimated 37 mL/min (50-200); Estimated Glomerular Filt Rate 80 ml/min (>60); GFR (African American) 97 ML/MIN (>60); Iron 49 ug/dL (37-170)
[2024-02-05 06:46] LABS: Calcium 9.4 mg/dl (8.4-10.2); Glucose 81 mg/dl (74-100); Magnesium 1.6 mg/dl (1.6-2.3)
[2024-02-05 06:54] LABS: Hemoglobin 10.8 g/dL (12.2-16.2)
[2024-02-05 06:55] LABS: Total Iron Binding Capacity 243 ug/dL (265-497)
--- NOTE | 2024-02-05 08:02 | P.CONPHA_ITS ---
Pharmacy Intervention Comments: HOME MEDICAITON LIST VERIFIED USING LIST FROM [facility]
--- NOTE | 2024-02-05 08:02 | HMH.PHAINT1 ---
Pharmacy Intervention Comments: HOME MEDICAITON LIST VERIFIED USING LIST FROM [facility]
--- NOTE | 2024-02-05 09:21 | EXP.PULM.CON ---
History of Present Illness History of present illness: Ms. Shah is a 83-year-old female history of [id number]-axym smoker last smoked 2006 diagnosis COPD, history of lung cancer status post right lower lobectomy 2019, exertional dyspnea, recurrent right pleural effusion status post Pleurx catheter placement, multiple myeloma currently receiving chemotherapy following Dr. Berger, presented to the ER complaining of right-sided chest pain currently being managed for NSTEMI and pulmonary was called for further evaluation and management given her significant baseline pulmonary comorbidities [facility]SH [facility] Disclaimer: The information contained in this section may have been updated after the patient was seen, as this information can be updated by other users. Medical History (Updated 02/05/24 @ 13:22 by Paul Galeano MD) COPD mixed type Multiple myeloma Monoclonal gammopathy present on serum protein electrophoresis PAF (paroxysmal atrial fibrillation) Primary cancer of bone marrow Recurrent pleural effusion on right Hyponatremia Abnormal echocardiogram Heart palpitations Pneumonia with cavity of lung Acute respiratory failure with hypoxia History of lung cancer COPD (chronic obstructive pulmonary disease) Stopped smoking with greater than 30 pack year history Dyspnea on exertion LURDES on CPAP Hyperlipidemia Hypertension Hx of deep venous thrombosis Hx-TIA (transient ischemic attack) Carotid artery stenosis Fatigue Edema of both lower extremities Dyspnea Chest pain Loss of hair Nausea and vomiting Hypothyroidism Anxiety Surgical History Hx of appendectomy Hx of cholecystectomy History of breast biopsy History of tonsillectomy H/O arthroscopy of knee Family History Other Cancer Diabetes No significant family history Social History (Updated 02/04/24 @ 20:14 by Jagruti Amor RN) Smoking Status: Former smoker tobacco type: cigarettes years smoked: 30 smoking status stop date: 2005 second hand exposure: No alcohol intake: never substance use type: denies use current occupational status: retired Travel in the last 8 weeks: None household members: none housing: house current occupational exposures/hazards: No caffeine: Yes Review of Systems Constitutional Constitutional: Reports anorexia, Reports body ache(s) and Reports fatigue Eyes Eyes: Denies eye discharge, Denies dry eyes, Denies irritation and Denies itchy eyes ENT Ears, Nose, Mouth, and Throat: Denies epistaxis, Denies facial pain, Denies lip swelling and Denies throat swelling *Cardiovascular Cardiovascular: Reports chest pain at rest, Reports dyspnea and Reports dyspnea on exertion *Respiratory Respiratory: Reports dyspnea, Reports dyspnea on exertion, Denies excessive phlegm production, Denies hemoptysis, Denies pain on inspiration and Denies wheezing *Gastrointestinal Gastrointestinal: Denies abdominal pain, Denies belching and Denies cramping *Musculoskeletal Musculoskeletal: Reports back pain, Reports myalgias and Reports other (No small joint swelling or Pain) *Neurologic Neurologic: Denies confusion Psychiatric Psychiatric: Denies confusion Endocrine Endocrine: Reports fatigue and Denies heat intolerance Hematologic/Lymphatic Hematologic/Lymphatic: Denies easy bleeding and Denies lymphadenopathy Allergic/Immunologic Allergic/Immunologic: Denies itchy eyes, Denies lip swelling, Denies throat swelling and Denies wheezing Pulmonology Exam Inpatient Vital signs and Labs for Last 24 Hours: Temp Pulse Resp BP Pulse Ox O2 Del Method 98.8 F 80 17 97/51 L 96 Room Air 02/05/24 07:37 02/05/24 08:00 02/05/24 07:37 02/05/24 07:37 02/05/24 07:37 02/05/24 07:37 Laboratory Results - last 24 hr 02/04/24 15:06: WBC 3.5 L, RBC 3.92 L, Hgb 12.4, Hct 39.1, MCV 99.8 H, MCH 31.7 H, MCHC 31.8, RDW 16.3, Plt Count 177, MPV 9.3, Neut % (Auto) 52.8, Lymph % (Auto) 35.5, [place] % (Auto) 10.4 H, Eos % (Auto) 0.6, Baso % (Auto) 0.7, Neut # (Auto) 1.9, Lymph # (Auto) 1.3, [place] # (Auto) 0.4, Eos # (Auto) 0.0, Baso # (Auto) 0.0, Sodium 134 L, Potassium 4.5, Chloride 104, Carbon Dioxide 26, Anion Gap 8.5, BUN 22 H, Creatinine 0.80, Estimated Creat Clear 36, Estimated GFR 69, Est GFR ( Amer) 83, Glucose 103 H, Calcium 9.8, Total Bilirubin 0.8, AST 47 H, ALT 25, Alkaline Phosphatase 101, Troponin I 0.16 H, Total Protein 7.4, Albumin 3.4 L, Globulin 4.0 H, Albumin/Globulin Ratio 0.9 L 02/04/24 16:30: Fluid Source Thoracentesis fluid, Fluid Volume 80, Fluid Appearance Cloudy, Fluid RBC (Auto) < 10, Fld Tot Nucleated Cell 275, Fld Polynuclear WBCs % 1, Fld Mononuclear WBCs % 99 02/04/24 17:50: Troponin I 0.20 H 02/04/24 19:20: Troponin I 0.21 H, Vitamin B12 286 02/04/24 21:30: Troponin I 0.19 H 02/05/24 05:55: WBC 2.6 L D, RBC 3.41 L, Hgb 10.8 L D, Hct 33.5 L, MCV 98.1, MCH 31.8 H, MCHC 32.4, RDW 16.4, Plt Count 150, MPV 10.6 H, Neut % (Auto) 44.6, Lymph % (Auto) 43.7, [place] % (Auto) 9.5 H, Eos % (Auto) 1.5, Baso % (Auto) 0.7, Neut # (Auto) 1.2 L, Lymph # (Auto) 1.1, [place] # (Auto) 0.3, Eos # (Auto) 0.0, Baso # (Auto) 0.0, Sodium 133 L, Potassium 3.9, Chloride 107, Carbon Dioxide 25, Anion Gap 4.9 L, BUN 18 H, Creatinine 0.70, Estimated Creat Clear 37, Estimated GFR 80, Est GFR ( Amer) 97, Glucose 81 D, Calcium 9.4, Magnesium 1.6, Iron 49, TIBC 243 L, Iron Saturation [id number] I & O for Labs for Last 24 Hours: Intake & Output 02/02/24 02/03/24 02/04/24 02/05/24 23:59 23:59 23:59 23:59 Intake Total 370 / 370 Output Total 0 / 0 0 / 0 Balance 0 / 100 370 / 370 Weight 117 lb 14.4 oz 117 lb 14.4 oz Constitutional: Present moderate distress Head: Present normocephalic and atraumatic ENT: Present normal exam, normal oropharynx and mucous membranes moist Neck: Present normal inspection and full ROM Respiratory: Present normal respiratory effort and able to speak in complete sentences; Absent respiratory distress, wheezes or crackles Cardiac: Present S1/S2, Tachycardia and radial pulses present GI: Present soft and distention; Absent tenderness or guarding Rectal (female): Present deferred (female): Present deferred Skin: Present intact; Absent cyanosis or jaundice Neuro: Present alert, awake and oriented x 3 Extremities: Present normal inspection; Absent clubbing or cyanosis Psychiatric: Present normal affect and cooperative Meds Home Medications and Allergies Home Medications Medication Instructions Recorded Confirmed Type diazepam 5 mg tablet 5 mg PO HSP PRN Insomnia 05/12/22 02/04/24 History atorvastatin 40 mg tablet 40 mg PO DAILY 09/16/23 02/04/24 History ergocalciferol (vitamin D2) 1,250 50,000 unit PO WEEKLY 09/16/23 02/04/24 History mcg (50,000 unit) capsule levothyroxine 50 mcg tablet 50 mcg PO DAILY 09/16/23 02/04/24 History omeprazole 20 mg capsule,delayed 20 mg PO DAILY 12/01/23 02/04/24 History release tiotropium 2.5 mcg-olodaterol 2.5 2 puff inhalation DAILY 12/01/23 02/04/24 History mcg/actuation mist for inhalation (Stiolto Respimat) furosemide 20 mg tablet (Lasix) 40 mg (2 x 20 mg) PO DAILY #90 tabs 01/16/24 02/04/24 Rx megestrol 20 mg tablet 20 mg PO BID 02/04/24 02/05/24 History spironolactone 25 mg tablet 25 mg PO DAILY 02/04/24 02/04/24 History New Prescriptions to Start Prescriptions: Allergies Allergy/AdvReac Type Severity Reaction Status Date / Time metoclopramide [From Reglan] Allergy Intermediate Unknown Verified 01/22/24 13:37 allergy reaction Barbiturates [BARBITURATES] Allergy Unknown Unknown Verified 01/22/24 13:37 allergy reaction sulfamethoxazole Allergy Unknown Verified 01/22/24 13:37 [From Bactrim] allergy reaction trimethoprim [From Bactrim] Allergy Unknown Verified 01/22/24 13:37 allergy reaction bisoprolol AdvReac Mild HAIR LOSS Verified 01/22/24 13:37 diltiazem AdvReac Mild Dizziness Verified 01/22/24 13:37 Results Laboratory Findings 02/05/24 05:55 02/05/24 05:55 Abnormal lab findings: Abnormal Labs 02/04/24 02/04/24 02/04/24 15:06 17:50 19:20 WBC 3.5 L RBC 3.92 L Hgb Hct MCV 99.8 H MCH 31.7 H MPV [place] % (Auto) 10.4 H Neut # (Auto) Sodium 134 L Anion Gap BUN 22 H Glucose 103 H TIBC AST 47 H Troponin I 0.16 H 0.20 H 0.21 H Albumin 3.4 L Globulin 4.0 H Albumin/Globulin Ratio 0.9 L 02/04/24 02/05/24 21:30 05:55 WBC 2.6 L D RBC 3.41 L Hgb 10.8 L D Hct 33.5 L MCV MCH 31.8 H MPV 10.6 H [place] % (Auto) 9.5 H Neut # (Auto) 1.2 L Sodium 133 L Anion Gap 4.9 L BUN 18 H Glucose TIBC 243 L AST Troponin I 0.19 H Albumin Globulin Albumin/Globulin Ratio Assessment and Plan *Assessment and plan (1) COPD mixed type: Status: Acute Category: Medical Code(s): J44.9 - Chronic obstructive pulmonary disease, unspecified (2) Pleural effusion on right: Status: Acute Category: Medical Code(s): J90 - Pleural effusion, not elsewhere classified Plan Ms. Shah is a 83-year-old female history of 43-[id number] smoker last smoked 2006 diagnosis COPD, history of lung cancer status post right lower lobectomy 2018, exertional dyspnea, recurrent right pleural effusion status post Pleurx catheter placement, multiple myeloma currently receiving chemotherapy following Dr. Berger, presented to the ER complaining of right-sided chest pain currently being managed for NSTEMI and pulmonary was called for further evaluation and management given her significant baseline pulmonary comorbidities CT chest without contrast on admission, small right effusion and chronic changes on the right lower lobes. No other consolidative/airspace disease noted. Patient denies any worsening respiratory distress denies any cough or any productive phlegm. Patient also complains of pleuritic chest pain likely secondary irritation from Pleurx catheter. Pleural effusion drained in the ER 750 cc per patient currently being drained twice weekly and Monday. Chest CT postdrainage did not show any significant residual pleural fluid. Plan: Continue home inhalers including Stiolto scheduled along with albuterol/nebs every 6 hours on as-needed basis Continue pleural fluid drainage Monday and , 750 cc. Follow with cardiology recommendations NSAIDs as needed for the noted pleuritic chest pain No need for antibiotics from pulmonary standpoint at this point of time
[2024-02-05] MEDS: POTASSIUM CHLORIDE 10MEQ TABLET.ER 10 MEQ PO (09:24)
[2024-02-05] MEDS: FUROSEMIDE 40 MG TABLET PO (09:24)
--- NOTE | 2024-02-05 10:20 | CA_ITS ---
APPROVED REPORT EXAM: Limited 2D Echocardiogram Medical Office Supervisor: Ellen Gould CRT Ht: 5 ft 2 in Wt: 117lbs BSA: 1.52 BP: 97/51 mmHg Indications: NSTEMI, currently on chemo myeloma, hx lung ca and right lobectomy 2019, HTN, HLD, chronic pericardial effusion, DM, Palp, chest tube in place for pleural effusion 2D Dimensions Left Atrium 3.70 cm LVEF ([place]'s) 48.60 % LVOT 1.82 cm (M/F) 1.5-2.5 LV Volume 92.00 mL EF AP4 48.90 % EF AP2 45.8 % EF BP 48.6 % GL Strain -8.5 % M-Mode Dimensions RVDd 2.47 cm (0.9-2.6) LVDd 4.07 cm (3.5-5.7) Ao Diam 3.34 cm (2.0-3.7) LVDs 2.83 cm (3.5-5.7) IVSd 2.12 cm (0.6-1.1) PWd 0.73 cm (0.6-1.1) EF (Teich) 58.40% FS 30.50% EDV (Teich) 72.90 mL ESV (Teich) 30.30 mL Tricuspid Valve TR P. Velocity 273.00 cm/s RAP Estimate 10.00 mmHg RVSP 39.80 mmHg Other Information Study Quality: Fair Conclusion This is a limited TTE to evaluate for LVEF and pericardial effusion. Limited windows were obtained. The LV is normal in size. There is marked increase in LV wall thickness. There are no regional wall motion abnormalities. LVEF is 60%. The RV is mildly dilated with normal RV function. Severe biatrial dilation. There is a small sized, circumferential pericardial effusion. Largest pocket measures 0.3 cm in diastole. No echo indications of tamponade. No chamber collapse. Compared to prior study, the pericardial effusion appears unchanged to slightly improved. Electronically signed by : Maggie Herrera MD 02/07/2024 22:53:57
--- NOTE | 2024-02-05 13:36 | HMH.OTEV ---
OT Inpatient Evaluation Rehab OT IP Evaluation Start: 02/05/24 10:24 Freq: ONCE Status: Active Protocol: Document 02/05/24 13:33 [facility]ret[facility] (Rec: 02/05/24 13:36 [facility] [id number]) Rehab OT IP Assessment Subjective History Pt oriented x 3 on arrival. Pt agreeable to engage in therapy evaluation. Family present and supportive. Pt admitted on 02/04/24 dueto elevated troponin. History and Physical report: This is an 83-year-old female who presents to [facility] emergency department with concerns of right chest pain. She reports sharp pain to the rib line area near her Pleurx catheter. It is worse with movement. She rates the pain as greater than 10 on a 1-10 pain scale. This is a new pain for her. She reports previous pain with Pleurx catheter use but it has crescendoed. She denies associated retrosternal chest pain, palpitations, confusion or syncope. She reports no associated increasing pain with inspiration. She denies associated hemoptysis, sputum production, fever, chills or acute dyspnea. She reports a recent visit with her aerospace technician (01/22/2024). Her past medical history is significant for COPD with a 30 + year cigarette smoking and quit in 2005. She describes a previous history of LURDES with home NIPPV therapy. She was diagnosed with lung cancer stage IIIa 2018 and is status post right lower lobectomy. She reports no current immuno or chemotherapy. She describes a past history of radiation therapy with esophageal AVMs and GI bleeding. In the ED her white blood cell count was 3.5 with hemoglobin 12.4 normal platelets. Her electrolytes BUN and creatinine were normal . Her LFTs were normal. Right pleural effusion was sent for evaluation (~750cc drained). X-ray chest imaging identified a right thoracic tube. Troponin were elevated and cardiology was contacted out of the ED and recommended admission. Subjective I am ready to go home. Prior to being in the hospital , pt lived at home alone. Normally she was independent with all ADLs and IADLs. Pt no longer drove. Pt does have a rolling walker, grab bars, and shower chair at home. Objective Patient Orientation Person,Place,Birthday Right Upper Extremity Gross ROM WFL Left Upper Extremity Gross ROM WFL Bed Mobility bed mobility-scooting,bed mobility - supine/sit Assist Level Supervision/Stand by Transfer Training Sit/Stand Transfer Assist Level Supervision/Stand by Lower Body Dressing Ability Standby Assistance Performing Toilet Hygiene Ability Standby Assistance Overall Commode/Toilet Transfer Ability Standby Assistance Commode/Toilet Transfer Technique Sit to/from Ambulatory Commode/Toilet Transfer Assistive Grab Bars Devices Rehab OT IP prob,goals,plan Problems Date of Evaluation: 02/05/24 Rehab Potential Rehab Potential Innapropriate for Skilled Therapy Discharge Plan OT Discharge Plan Pt appears to be at her baseline with functional transfers and ADL independence . Pt can return home once she is medically stable per physician. Eval Complexity Eval Charge Codes 80921 - Low Complexity PHYSICIAN CERTIFICATION: I certify the specified therapy services for Araceli Shah are required, authorized, and reviewed every 30 days.
--- NOTE | 2024-02-05 13:50 | EXP.CARD.CON ---
History of Present Illness History of Present Illness Consult date: 02/05/24 Requesting physician: Satish Nolasco Consult reason: chest pain Chief complaint: chest pain History of present illness: This is an 83-year-old white female who presented to [facility] with right-sided chest pain. She reports sharp pain around her rib line near her Pleurx catheter that is currently in place. She rated this a 10 out of 10 in intensity. The patient states that the pain started around of last week and then got better but then significantly worsened again on Monday. She states that the pain was intolerable. She denied any substernal chest pain. She denied any shortness of breath or edema. She denies any fever, chills, nausea, vomiting, diarrhea, PND or orthopnea. She states that the pain in the right side of her chest by the Pleurx catheter was severe so her niece brought her to the emergency department. She was then recommended for admission due to an elevated troponin. Today she states her chest pain has completely resolved and she is ready to be discharged home. The patient was recently admitted at [facility] for pneumothorax following pericardiocentesis and she subsequently underwent a VATS procedure with placement of the Pleurx catheter. She states that this is being drained about 3 times a week by home health. She is currently getting chemotherapy for multiple myeloma. She also has a history of lung cancer status post right lower lobectomy with no recurrence of the lung cancer. [facility] Disclaimer: The information contained in this section may have been updated after the patient was seen, as this information can be updated by other users. 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 PAF (paroxysmal atrial fibrillation) Primary cancer of bone marrow Recurrent pleural effusion on right Hyponatremia Abnormal echocardiogram Heart palpitations Pneumonia with cavity of lung Acute respiratory failure with hypoxia History of lung cancer COPD (chronic obstructive pulmonary disease) Stopped smoking with greater than 30 pack year history Dyspnea on exertion LURDES on CPAP Hyperlipidemia Hypertension Hx of deep venous thrombosis Hx-TIA (transient ischemic attack) Carotid artery stenosis Fatigue Edema of both lower extremities Dyspnea Chest pain Loss of hair Nausea and vomiting Hypothyroidism Anxiety Surgical History Hx of appendectomy Hx of cholecystectomy History of breast biopsy History of tonsillectomy H/O arthroscopy of knee Family History Other Cancer Diabetes No significant family history Social History (Updated 02/04/24 @ 20:14 by Jagruti Amor RN) Smoking Status: Former smoker tobacco type: cigarettes years smoked: 30 smoking status stop date: 2005 second hand exposure: No alcohol intake: never substance use type: denies use current occupational status: retired Travel in the last 8 weeks: None household members: none housing: house current occupational exposures/hazards: No caffeine: Yes Review of Systems Review of Systems Review of systems:: pertinent systems reviewed and negative unless documented below Constitutional Constitutional: Reports system reviewed and no additional complaints, except as documented Eyes Eyes: Reports system reviewed and no additional complaints, except as documented ENT Ears, Nose, Mouth, and Throat: Reports system reviewed and no additional complaints, except as documented *Cardiovascular Cardiovascular: Reports system reviewed and no additional complaints, except as documented, Reports chest pain, Reports chest pain at rest, Reports chest pain with activity and Denies dyspnea *Respiratory Respiratory: Reports system reviewed and no additional complaints, except as documented and Denies dyspnea *Gastrointestinal Gastrointestinal: Reports system reviewed and no additional complaints, except as documented *Genitourinary Genitourinary: Reports system reviewed and no additional complaints, except as documented *Musculoskeletal Musculoskeletal: Reports system reviewed and no additional complaints, except as documented Integumentary/Breasts Skin/Breast: Reports system reviewed and no additional complaints, except as documented *Neurologic Neurologic: Reports system reviewed and no additional complaints, except as documented and Denies confusion Psychiatric Psychiatric: Reports system reviewed and no additional complaints, except as documented and Denies confusion Endocrine Endocrine: Reports system reviewed and no additional complaints, except as documented Hematologic/Lymphatic Hematologic/Lymphatic: Reports system reviewed and no additional complaints, except as documented Allergic/Immunologic Allergic/Immunologic: Reports system reviewed and no additional complaints, except as documented Exam Data for Last 24 hours Vital signs and Labs for Last 24 Hours: Temp Pulse Resp BP Pulse Ox O2 Del Method 98.0 F 78 16 92/61 L 96 Room Air 02/05/24 11:53 02/05/24 11:53 02/05/24 11:53 02/05/24 11:53 02/05/24 11:53 02/05/24 11:53 Laboratory Results - last 24 hr 02/04/24 15:06: WBC 3.5 L, RBC 3.92 L, Hgb 12.4, Hct 39.1, MCV 99.8 H, MCH 31.7 H, MCHC 31.8, RDW 16.3, Plt Count 177, MPV 9.3, Neut % (Auto) 52.8, Lymph % (Auto) 35.5, Ransom % (Auto) 10.4 H, Eos % (Auto) 0.6, Baso % (Auto) 0.7, Neut # (Auto) 1.9, Lymph # (Auto) 1.3, Ransom # (Auto) 0.4, Eos # (Auto) 0.0, Baso # (Auto) 0.0, Sodium 134 L, Potassium 4.5, Chloride 104, Carbon Dioxide 26, Anion Gap 8.5, BUN 22 H, Creatinine 0.80, Estimated Creat Clear 36, Estimated GFR 69, Est GFR ( Amer) 83, Glucose 103 H, Calcium 9.8, Total Bilirubin 0.8, AST 47 H, ALT 25, Alkaline Phosphatase 101, Troponin I 0.16 H, Total Protein 7.4, Albumin 3.4 L, Globulin 4.0 H, Albumin/Globulin Ratio 0.9 L 02/04/24 16:30: Fluid Source Thoracentesis fluid, Fluid Volume 80, Fluid Appearance Cloudy, Fluid RBC (Auto) < 10, Fld Tot Nucleated Cell 275, Fld Polynuclear WBCs % 1, Fld Mononuclear WBCs % 99 02/04/24 17:50: Troponin I 0.20 H 02/04/24 19:20: Troponin I 0.21 H, Vitamin B12 286 02/04/24 21:30: Troponin I 0.19 H 02/05/24 05:55: WBC 2.6 L D, RBC 3.41 L, Hgb 10.8 L D, Hct 33.5 L, MCV 98.1, MCH 31.8 H, MCHC 32.4, RDW 16.4, Plt Count 150, MPV 10.6 H, Neut % (Auto) 44.6, Lymph % (Auto) 43.7, Ransom % (Auto) 9.5 H, Eos % (Auto) 1.5, Baso % (Auto) 0.7, Neut # (Auto) 1.2 L, Lymph # (Auto) 1.1, Ransom # (Auto) 0.3, Eos # (Auto) 0.0, Baso # (Auto) 0.0, Sodium 133 L, Potassium 3.9, Chloride 107, Carbon Dioxide 25, Anion Gap 4.9 L, BUN 18 H, Creatinine 0.70, Estimated Creat Clear 37, Estimated GFR 80, Est GFR ( Amer) 97, Glucose 81 D, Calcium 9.4, Magnesium 1.6, Iron 49, TIBC 243 L, Iron Saturation [id number] I & O for Last 24 hours: Intake & Output 02/02/24 02/03/24 02/04/24 02/05/24 23:59 23:59 23:59 23:59 Intake Total 490 / 490 Output Total 0 / 0 0 / 0 Balance 0 / 100 490 / 490 Weight 117 lb 14.4 oz 117 lb 14.099 oz Constitutional Constitutional: no acute distress and average body habitus *Routine HEENT Exam Head: Present normocephalic and atraumatic ENT: Present mucous membranes moist *Routine Neck Exam Neck: Present supple, full ROM and normal carotid upstroke; Absent JVD, carotid bruit or lymphadenopathy *Routine Respiratory Exam Respiratory: Present CTA bilaterally, normal respiratory effort, able to speak in complete sentences and symmetric chest movement *Routine Cardiovascular Exam Cardiovascular: Present RRR, Normal S1 and Normal S2; Absent murmur or gallop *Routine Abdominal Exam Abdominal: Present soft and normoactive bowel sounds; Absent tenderness, distended or organomegaly *Routine Extremities Exam Extremities: Present full ROM, pulses intact and normal capillary refill; Absent cyanosis, clubbing or edema *Routine Skin Exam Skin: Present intact and warm; Absent erythema *Routine Neurological Exam Neurological: Present alert, oriented X3 and CN II-XII intact; Absent sensory deficit or motor deficit Routine Psychiatric Exam Psychiatric: Present normal affect Meds Home Medications and Allergies Home Medications Medication Instructions Recorded Confirmed Type diazepam 5 mg tablet 5 mg PO HSP PRN Insomnia 05/12/22 02/04/24 History atorvastatin 40 mg tablet 40 mg PO DAILY 09/16/23 02/04/24 History ergocalciferol (vitamin D2) 1,250 50,000 unit PO WEEKLY 09/16/23 02/04/24 History mcg (50,000 unit) capsule levothyroxine 50 mcg tablet 50 mcg PO DAILY 09/16/23 02/04/24 History omeprazole 20 mg capsule,delayed 20 mg PO DAILY 12/01/23 02/04/24 History release tiotropium 2.5 mcg-olodaterol 2.5 2 puff inhalation DAILY 12/01/23 02/04/24 History mcg/actuation mist for inhalation (Stiolto Respimat) furosemide 20 mg tablet (Lasix) 40 mg (2 x 20 mg) PO DAILY #90 tabs 01/16/24 02/04/24 Rx megestrol 20 mg tablet 20 mg PO BID 02/04/24 02/05/24 History spironolactone 25 mg tablet 25 mg PO DAILY 02/04/24 02/04/24 History New Prescriptions to Start Prescriptions: Allergies Allergy/AdvReac Type Severity Reaction Status Date / Time metoclopramide [From Reglan] Allergy Intermediate Unknown Verified 01/22/24 13:37 allergy reaction Barbiturates [BARBITURATES] Allergy Unknown Unknown Verified 01/22/24 13:37 allergy reaction sulfamethoxazole Allergy Unknown Verified 01/22/24 13:37 [From Bactrim] allergy reaction trimethoprim [From Bactrim] Allergy Unknown Verified 01/22/24 13:37 allergy reaction bisoprolol AdvReac Mild HAIR LOSS Verified 01/22/24 13:37 diltiazem AdvReac Mild Dizziness Verified 01/22/24 13:37 Assessment and Plan *Assessment and plan (1) Elevated troponin: Status: Acute Category: Medical Code(s): R79.89 - Other specified abnormal findings of blood chemistry (2) Myocardial injury: Status: Acute Category: Medical Code(s): I5A - Non-ischemic myocardial injury (non-traumatic) (3) (HFpEF) heart failure with preserved ejection fraction: Status: Acute Qualifiers: Heart failure chronicity: acute on chronic Qualified Code(s): I50.33 - Acute on chronic diastolic (congestive) heart failure Category: Medical Code(s): I50.30 - Unspecified diastolic (congestive) heart failure (4) Thrombocytopenia: Status: Acute Category: Medical Code(s): D69.6 - Thrombocytopenia, unspecified (5) Pneumothorax on right: Status: Acute Category: Medical Code(s): J93.9 - Pneumothorax, unspecified (6) AL amyloidosis: Status: Acute Category: Medical Code(s): E85.81 - Light chain (AL) amyloidosis (7) Pleural effusion: Status: Acute Category: Medical Code(s): J90 - Pleural effusion, not elsewhere classified (8) Hypertension: Status: Acute Qualifiers: Hypertension type: primary hypertension Qualified Code(s): I10 - Essential (primary) hypertension Category: Medical Code(s): I10 - Essential (primary) hypertension (9) Hyperlipidemia: Status: Acute Qualifiers: Hyperlipidemia type: mixed hyperlipidemia Qualified Code(s): E78.2 - Mixed hyperlipidemia Category: Medical Code(s): E78.5 - Hyperlipidemia, unspecified (10) COPD (chronic obstructive pulmonary disease): Status: Chronic Qualifiers: COPD type: emphysema Emphysema type: unspecified Qualified Code(s): J43.9 - Emphysema, unspecified Category: Medical Code(s): J44.9 - Chronic obstructive pulmonary disease, unspecified (11) History of lung cancer: Status: Chronic Category: Medical Code(s): Z85.118 - Personal history of other malignant neoplasm of bronchus and lung (12) Multiple myeloma: Status: Acute Qualifiers: Multiple myeloma remission status: unspecified Qualified Code(s): C90.00 - Multiple myeloma not having achieved remission Category: Medical Code(s): C90.00 - Multiple myeloma not having achieved remission Plan Plan: 1. The patient was admitted to the hospital for right-sided chest pain around her Pleurx catheter. She also had an elevated troponin. The patient did have a limited echocardiogram which shows a normal ejection fraction with no significant wall motion abnormalities. Her pericardial effusion has improved and at its largest diameter is 0.2 cm. No plans for invasive left cardiac catheterization at this time. 2. 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 3. Continue statin. 4. No aspirin or other antiplatelet due to her thrombocytopenia from current chemotherapy for her multiple myeloma and amyloidosis. 5. No beta-kermit at this time as the patient is intolerant. 6. Her blood pressure is on the lower side. We do recommend decreasing her spironolactone down to 12 and half milligrams p.o. daily. 7. Continue with Dr. Bergeron for treatment of her multiple myeloma and AL amyloidosis. 8. Her LDL goal is less than 100. She is on a statin. 9. Continue diuresis for her HFpEF with oral Lasix and her lower dose of spironolactone as mentioned above. 10. No further recommendations at this time from a cardiac standpoint. The patient is stable for discharge home today from a cardiac standpoint on Lipitor 40 mg p.o. nightly, Lasix 40 mg daily, omeprazole 20 mg daily, and spironolactone 12.5 mg p.o. daily. 11. The patient will need to follow-up in cardiology clinic on February 13 at [address] Serrano. Thank you for the opportunity to help dissipate in the care of this patient. All recommendations and orders are per Dr. Herrera.
--- NOTE | 2024-02-05 13:52 | HMH.PTEV ---
Physical Therapy Evaluation Rehab PT IP Evaluation Start: 02/05/24 10:24 Freq: ONCE Status: Active Protocol: Document 02/05/24 13:35 CHERRY (Rec: 02/05/24 13:51 PHORNE [id number]) Subjective/History History History This is the initial evaluation for Araecli Shah, 83 yowf, who presents to [facility] with elevated troponin and complaints of worsening chest pain. 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 PAF (paroxysmal atrial fibrillation) Primary cancer of bone marrow Recurrent pleural effusion on right Hyponatremia Abnormal echocardiogram Heart palpitations Pneumonia with cavity of lung Acute respiratory failure with hypoxia History of lung cancer COPD (chronic obstructive pulmonary disease) Stopped smoking with greater than 30 pack year history Dyspnea on exertion LURDES on CPAP Hyperlipidemia Hypertension Hx of deep venous thrombosis Hx-TIA (transient ischemic attack) Carotid artery stenosis Fatigue Edema of both lower extremities Dyspnea Chest pain Loss of hair Nausea and vomiting Hypothyroidism Anxiety Subjective Subjective The patient is supine in bed upon arrival with family present. Patient is agreeable to PT and is oriented x4. She reports that she is fully indpendent with all self-care activities. Reports that she is able to cook, clean, and care for herself without help. She reports that she has been up to the bathroom by herself since her admission. She reports that she does sometimes use a walker, but not always. New diagnosis of cancer in past 12 No months? Rehab PT IP Eval Objective Appearance Patient Behavior Appropriate,Cooperative, Patient Baseline Patient Orientation Person,Place,Time,Birthday Difficulty following instructions none Speech Pattern Clear,Patient Baseline Ambulation Patient Able to Ambulate Yes Ambulation Observation IP General Gait Pattern Observation No Deviations/Normal Ambulation Distance (feet) 16 Ambulation Assistive Device None Ambulation Ability Supervision/Stand by Balance Ability to Arise Able, w/o using arms Sitting Balance Steady, safe Standing Balance Narrow stance w/o support Dynamic Sitting Balance Ability Normal Dynamic Standing Balance Ability Normal Transfers Bed Transfer Ability Independent Chair Transfer Ability Independent Sit to Stand Bed Transfer Ability Independent Sit to Stand Chair Transfer Ability Independent Rehab PT IP prob,goals,plan Problems Date of Evaluation: 02/05/24 Discharge Plan PT Discharge Plan Patient presents at baseline for all functional mobility and transfers. Skilled PT is not indicated for this patient during her stay. The patient presents safely for discharge to home, when deemed medically stable. Eval Complexity Eval Charge Codes 45016 - High Complexity PHYSICIAN CERTIFICATION: I certify the specified therapy services for Araceli Shah are required, authorized, and reviewed every 30 days.
--- NOTE | 2024-02-05 14:58 | P.DS_ITS ---
General Admission date:: 02/04/24 Discharge date: 02/05/24 HPI HPI HPI: This is an 83-year-old female who presents to [facility] emergency department with concerns of right chest pain. She reports sharp pain to the rib line area near her Pleurx catheter. It is worse with movement. She rates the pain as greater than 10 on a 1-10 pain scale. This is a new pain for her. She reports previous pain with Pleurx catheter use but it has crescendoed. She denies associated retrosternal chest pain, palpitations, confusion or syncope. She reports no associated increasing pain with inspiration. She denies associated hemoptysis, sputum production, fever, chills or acute dyspnea. She reports a recent visit with her creative services coordinator (01/22/2024). Her past medical history is significant for COPD with a 30+ year cigarette smoking and quit in 2005. She describes a previous history of LURDES with home NIPPV therapy. She was diagnosed with lung cancer stage IIIa 2018 and is status post right lower lobectomy. She reports no current immuno or chemotherapy. She describes a past history of radiation therapy with esophageal AVMs and GI bleeding. In the ED her white blood cell count was 3.5 with hemoglobin 12.4 normal platelets. Her electrolytes BUN and creatinine were normal. Her LFTs were normal. Right pleural effusion was sent for evaluation (~750cc drained). X-ray chest imaging identified a right thoracic tube. Troponin were elevated and cardiology was contacted out of the ED and recommended admission. Hospital Course Hospital Course Hospital Course: Patient was seen and evaluated at the bedside on the day of discharge. Patient wishes to be discharged. All patient questions were answered and patient was given time to ask questions. Patient was discharged in stable condition. Patient understands that she can return to ER in case of any sudden changes in health. Total time spent on DC - 38 mins This is an 83-year-old female who presents with right-sided chest pain, recurrent right pleural effusion with right Pleurx catheter drained every other day with recent pulmonology evaluation. Elevated troponin in the setting of chronic pericardial effusion acute on chronic HFpEF and paroxysmal atrial fibrillation. Her care is complicated by her history of GI bleeding with a threat to her life. We have discussed and reviewed anticoagulation and she requests no anticoagulation therapy with her previous history (Tristin WALKER assisting). Cardiology and pulmonology have been consulted. Problems addressed as follows: Myocardial injury type II Elevated troponin Chronic pericardial effusion Acute on chronic HFpEF (Class C/NYHA III) Paroxysmal atrial fibrillation Telemetry monitoring Cardiology consult Echo (November 2023) with EF 60%, moderate TR, RVSP 35 mmHg, pericardial effusion Recurrent right pleural effusion - s/p drainage, ok to DC from pulmonary and cardiology standpoint LURDES with COPD overlap IgG kappa myeloma - f/u as OP with Dr. Hadley Berger Exam Data for Last 24 hours Vital signs and Labs for Last 24 Hours: Temp Pulse Resp BP Pulse Ox O2 Del Method 98.0 F 78 16 92/61 L 96 Room Air 02/05/24 11:53 02/05/24 11:53 02/05/24 11:53 02/05/24 11:53 02/05/24 11:53 02/05/24 13:00 Laboratory Results - last 24 hr 02/04/24 15:06: WBC 3.5 L, RBC 3.92 L, Hgb 12.4, Hct 39.1, MCV 99.8 H, MCH 31.7 H, MCHC 31.8, RDW 16.3, Plt Count 177, MPV 9.3, Neut % (Auto) 52.8, Lymph % (Auto) 35.5, Barber % (Auto) 10.4 H, Eos % (Auto) 0.6, Baso % (Auto) 0.7, Neut # (Auto) 1.9, Lymph # (Auto) 1.3, Barber # (Auto) 0.4, Eos # (Auto) 0.0, Baso # (Auto) 0.0, Sodium 134 L, Potassium 4.5, Chloride 104, Carbon Dioxide 26, Anion Gap 8.5, BUN 22 H, Creatinine 0.80, Estimated Creat Clear 36, Estimated GFR 69, Est GFR ( Amer) 83, Glucose 103 H, Calcium 9.8, Total Bilirubin 0.8, AST 47 H, ALT 25, Alkaline Phosphatase 101, Troponin I 0.16 H, Total Protein 7.4, Albumin 3.4 L, Globulin 4.0 H, Albumin/Globulin Ratio 0.9 L 02/04/24 16:30: Fluid Source Thoracentesis fluid, Fluid Volume 80, Fluid Appearance Cloudy, Fluid RBC (Auto) < 10, Fld Tot Nucleated Cell 275, Fld Polynuclear WBCs % 1, Fld Mononuclear WBCs % 99 02/04/24 17:50: Troponin I 0.20 H 02/04/24 19:20: Troponin I 0.21 H, Vitamin B12 286 02/04/24 21:30: Troponin I 0.19 H 02/05/24 05:55: WBC 2.6 L D, RBC 3.41 L, Hgb 10.8 L D, Hct 33.5 L, MCV 98.1, MCH 31.8 H, MCHC 32.4, RDW 16.4, Plt Count 150, MPV 10.6 H, Neut % (Auto) 44.6, Lymph % (Auto) 43.7, Barber % (Auto) 9.5 H, Eos % (Auto) 1.5, Baso % (Auto) 0.7, Neut # (Auto) 1.2 L, Lymph # (Auto) 1.1, Barber # (Auto) 0.3, Eos # (Auto) 0.0, Baso # (Auto) 0.0, Sodium 133 L, Potassium 3.9, Chloride 107, Carbon Dioxide 25, Anion Gap 4.9 L, BUN 18 H, Creatinine 0.70, Estimated Creat Clear 37, Estimated GFR 80, Est GFR ( Amer) 97, Glucose 81 D, Calcium 9.4, Magnesium 1.6, Iron 49, TIBC 243 L, Iron Saturation 20.01942 I & O for Last 24 hours: Intake & Output 02/02/24 02/03/24 02/04/24 02/05/24 23:59 23:59 23:59 23:59 Intake Total 490 / 490 Output Total 0 / 0 0 / 0 Balance 0 / 100 490 / 490 Weight 53.479 kg 53.47 kg Constitutional Constitutional: no acute distress *Routine HEENT Exam Head: Present normocephalic Eye: Present EOMI and PERRL ENT: Present mucous membranes moist *Routine Neck Exam Neck: Present supple; Absent lymphadenopathy *Routine Respiratory Exam Respiratory: Present CTA bilaterally *Routine Cardiovascular Exam Cardiovascular: Present RRR *Routine Abdominal Exam Abdominal: Present soft and normoactive bowel sounds; Absent tenderness *Routine Extremities Exam Extremities: Absent cyanosis, clubbing or edema *Routine Skin Exam Skin: Present warm; Absent rash *Routine Neurological Exam Neurological: Present alert and oriented X3 Results Data Completed and Pending Labs on day of discharge: Labs from last 24 hours 02/05/24 02/04/24 02/04/24 05:55 21:30 19:20 WBC 2.6 L D RBC 3.41 L Hgb 10.8 L D Hct 33.5 L MCV 98.1 MCH 31.8 H MCHC 32.4 RDW 16.4 Plt Count 150 MPV 10.6 H Neut % (Auto) 44.6 Lymph % (Auto) 43.7 Barber % (Auto) 9.5 H Eos % (Auto) 1.5 Baso % (Auto) 0.7 Neut # (Auto) 1.2 L Lymph # (Auto) 1.1 Barber # (Auto) 0.3 Eos # (Auto) 0.0 Baso # (Auto) 0.0 Sodium 133 L Potassium 3.9 Chloride 107 Carbon Dioxide 25 Anion Gap 4.9 L BUN 18 H Creatinine 0.70 Estimated Creat Clear 37 Estimated GFR 80 Est GFR ( Amer) 97 Glucose 81 D Calcium 9.4 Magnesium 1.6 Iron 49 TIBC 243 L Iron Saturation 20.84285 Total Bilirubin AST ALT Alkaline Phosphatase Troponin I 0.19 H 0.21 H Total Protein Albumin Globulin Albumin/Globulin Ratio Vitamin B12 286 Fluid Source Fluid Volume Fluid Appearance Fluid RBC (Auto) Fld Tot Nucleated Cell Fld Polynuclear WBCs % Fld Mononuclear WBCs % 02/04/24 02/04/24 02/04/24 17:50 16:30 15:06 WBC 3.5 L RBC 3.92 L Hgb 12.4 Hct 39.1 MCV 99.8 H MCH 31.7 H MCHC 31.8 RDW 16.3 Plt Count 177 MPV 9.3 Neut % (Auto) 52.8 Lymph % (Auto) 35.5 Barber % (Auto) 10.4 H Eos % (Auto) 0.6 Baso % (Auto) 0.7 Neut # (Auto) 1.9 Lymph # (Auto) 1.3 Barber # (Auto) 0.4 Eos # (Auto) 0.0 Baso # (Auto) 0.0 Sodium 134 L Potassium 4.5 Chloride 104 Carbon Dioxide 26 Anion Gap 8.5 BUN 22 H Creatinine 0.80 Estimated Creat Clear 36 Estimated GFR 69 Est GFR ( Amer) 83 Glucose 103 H Calcium 9.8 Magnesium Iron TIBC Iron Saturation Total Bilirubin 0.8 AST 47 H ALT 25 Alkaline Phosphatase 101 Troponin I 0.20 H 0.16 H Total Protein 7.4 Albumin 3.4 L Globulin 4.0 H Albumin/Globulin Ratio 0.9 L Vitamin B12 Fluid Source Thoracentesis fluid Fluid Volume 80 Fluid Appearance Cloudy Fluid RBC (Auto) < 10 Fld Tot Nucleated Cell 275 Fld Polynuclear WBCs % 1 Fld Mononuclear WBCs % 99 DS: Diagnosis Discharge Diagnosis (1) Elevated troponin: Status: Acute Code(s): R79.89 - Other specified abnormal findings of blood chemistry (2) Myocardial injury: Status: Acute Code(s): I5A - Non-ischemic myocardial injury (non-traumatic) (3) (HFpEF) heart failure with preserved ejection fraction: Status: Acute Code(s): I50.30 - Unspecified diastolic (congestive) heart failure Qualifiers: Heart failure chronicity: acute on chronic Qualified Code(s): I50.33 - Acute on chronic diastolic (congestive) heart failure (4) Thrombocytopenia: Status: Acute Code(s): D69.6 - Thrombocytopenia, unspecified (5) Pneumothorax on right: Status: Acute Code(s): J93.9 - Pneumothorax, unspecified (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 - Light chain (AL) amyloidosis (7) Pleural effusion: Status: Acute Code(s): J90 - Pleural effusion, not elsewhere classified (8) Hypertension: Status: Acute Code(s): I10 - Essential (primary) hypertension Qualifiers: Hypertension type: primary hypertension Qualified Code(s): I10 - Essential (primary) hypertension (9) Hyperlipidemia: Status: Acute Code(s): E78.5 - Hyperlipidemia, unspecified Qualifiers: Hyperlipidemia type: mixed hyperlipidemia Qualified Code(s): E78.2 - Mixed hyperlipidemia (10) COPD (chronic obstructive pulmonary disease): Status: Chronic Code(s): J44.9 - Chronic obstructive pulmonary disease, unspecified Qualifiers: COPD type: emphysema Emphysema type: unspecified Qualified Code(s): J43.9 - Emphysema, unspecified (11) History of lung cancer: Status: Chronic Code(s): Z85.118 - Personal history of other malignant neoplasm of bronchus and lung (12) Multiple myeloma: Status: Acute Code(s): C90.00 - Multiple myeloma not having achieved remission Qualifiers: Multiple myeloma remission status: unspecified Qualified Code(s): C90.00 - Multiple myeloma not having achieved remission Meds Home Medications and Allergies Home Medications Medication Instructions Recorded Confirmed Type diazepam 5 mg tablet 5 mg PO HSP PRN Insomnia 05/12/22 02/04/24 History atorvastatin 40 mg tablet 40 mg PO DAILY 09/16/23 02/04/24 History ergocalciferol (vitamin D2) 1,250 50,000 unit PO WEEKLY 09/16/23 02/04/24 History mcg (50,000 unit) capsule levothyroxine 50 mcg tablet 50 mcg PO DAILY 09/16/23 02/04/24 History omeprazole 20 mg capsule,delayed 20 mg PO DAILY 12/01/23 02/04/24 History release tiotropium 2.5 mcg-olodaterol 2.5 2 puff inhalation DAILY 12/01/23 02/04/24 History mcg/actuation mist for inhalation (Stiolto Respimat) furosemide 20 mg tablet (Lasix) 40 mg (2 x 20 mg) PO DAILY #90 tabs 01/16/24 02/04/24 Rx megestrol 20 mg tablet 20 mg PO BID 02/04/24 02/05/24 History spironolactone 25 mg tablet 25 mg PO DAILY 02/04/24 02/04/24 History New Prescriptions to Start Prescriptions: Allergies Allergy/AdvReac Type Severity Reaction Status Date / Time metoclopramide [From Reglan] Allergy Intermediate Unknown Verified 01/22/24 13:37 allergy reaction Barbiturates [BARBITURATES] Allergy Unknown Unknown Verified 01/22/24 13:37 allergy reaction sulfamethoxazole Allergy Unknown Verified 01/22/24 13:37 [From Bactrim] allergy reaction trimethoprim [From Bactrim] Allergy Unknown Verified 01/22/24 13:37 allergy reaction bisoprolol AdvReac Mild HAIR LOSS Verified 01/22/24 13:37 diltiazem AdvReac Mild Dizziness Verified 01/22/24 13:37 Discharge Plan Disposition Patient Disposition: Home, Self-Care Condition: Good Follow up Plan Follow up with: Nikki Brown MD [Primary Care Provider] - 02/13/24 11:15 am Jose Armando Isaac MD [Staff Physician] - 02/19/24 2:30 pm Paul Galeano MD [Physician] - 02/19/24 1:45 pm Prescriptions/Medication Reconciliation: Continued furosemide [Lasix] 20 mg tablet 40 mg PO DAILY Qty: 90 3RF diazepam 5 MG tablet 5 mg PO HSP PRN (Reason: Insomnia) atorvastatin 40 mg tablet 40 mg PO DAILY Patient Comments: TAKE 1 TABLET BY MOUTH ONCE DAILY ergocalciferol (vitamin D2) 1,250 mcg (50,000 unit) capsule 50,000 unit PO WEEKLY Patient Comments: TAKE 1 CAPSULE BY MOUTH ONCE A WEEK levothyroxine 50 mcg tablet 50 mcg PO DAILY omeprazole 20 mg capsule,delayed release(DR/EC) 20 mg PO DAILY Patient Comments: TAKE 1 CAPSULE BY MOUTH ONCE DAILY Stiolto Respimat 2.5-2.5 mcg/actuation mist 2 puff inhalation DAILY spironolactone 25 mg tablet 25 mg PO DAILY Patient Comments: TAKE 1 TABLET BY MOUTH ONCE DAILY megestrol 20 mg tablet 20 mg PO BID Patient Comments: TAKE 1 TABLET BY MOUTH TWICE DAILY Problem Reconciliation Problems Reviewed?: Yes Patient Discharge Instructions ACTIVITY: Ambulate as tolerated DIET: continue same diet Patient Instructions: DI for Heart Failure, DI for Thoracentesis, DI for Surgical Site Infection, DI for Chest Pain, DI for Pleural Effusion Providers Primary Care Provider: Nikki Brown Admit Provider: Hasmukh Morrow Attending Provider: Hasmukh Morrow
--- NOTE | 2024-02-06 10:38 | CARE MANAGER ---
Called and spoke with patient regarding recent discharge. She stated that she is doing well and aware of scheduled f/u appt. She had no concerns at time of call.
[2024-02-06 14:02] LABS: Glucose, Body Fluid 92 mg/dL (.); LD, Body Fluid 125 IU/L (.)
== END 2024-02-05 15:42 | disposition home or self-care (01) ==
LOC: ER 15:06 → 2ND 19:16
PROVIDERS: Emergency Medicine; Family Medicine; Admitting Provider Internal Medicine Adolescent Medicine; Emergency Provider Student in an Organized Health Care Education/Training Program; PCP Family Medicine; Visit Provider Internal Medicine Adolescent Medicine
DX: I5A Non-ischemic myocardial injury (non-traumatic) (principal); R79.89 Other specified abnormal findings of blood chemistry; I50.33 Acute on chronic diastolic (congestive) heart failure; I48.0 Paroxysmal atrial fibrillation; I31.39 Other pericardial effusion (noninflammatory); J90 Pleural effusion, not elsewhere classified; Z85.118 Personal history of other malignant neoplasm of bronchus and lung; G47.33 Obstructive sleep apnea (adult) (pediatric); Z99.89 Dependence on other enabling machines and devices; J44.9 Chronic obstructive pulmonary disease, unspecified; D69.6 Thrombocytopenia, unspecified; J93.9 Pneumothorax, unspecified; E85.81 Light chain (AL) amyloidosis; I11.0 Hypertensive heart disease with heart failure; E78.2 Mixed hyperlipidemia; J43.9 Emphysema, unspecified; C90.00 Multiple myeloma not having achieved remission; Z79.899 Other long term (current) drug therapy
CPT/HCPCS: 32554; 36415; 71046; 71250; 80048; 80053; 82607; 82945; 83540; 83550; 83615; 83735; 84484; 85025; 87070; 87205; 89051; 93005; 93306; 93308; 94640; 97163; 97165; 99285; G0378

== ENCOUNTER 2024-02-14 12:50 | Outpatient (CLI) | payer MEDICARE, OTHER, SELFPAY ==
[2024-02-14 13:00] VITALS: BMI 21.9
[2024-02-14 13:18] LABS: Chloride 101 mmol/L (98-107); Potassium 4.3 mmoL/L (3.5-5.1); Sodium 131 mmol/L (136-145)
[2024-02-14 13:20] LABS: Blood Urea Nitrogen 23 mg/dl (7-17); Creatinine Clearance Estimated 39 mL/min (50-200); Estimated Glomerular Filt Rate 69 ml/min (>60); GFR (African American) 83 ML/MIN (>60)
[2024-02-14 13:21] LABS: Alanine Aminotransferase 23 U/L (12-78); Albumin/Globulin Ratio 0.8 (1.1-1.8); Alkaline Phosphatase 97 U/L (38-126); Anion Gap 11.3 mEq/L (5-15); Aspartate Amino Transferase 37 U/L (14-36); Bilirubin,Total 0.7 mg/dl (0.2-1.3); Calcium 9.7 mg/dl (8.4-10.2); Carbon Dioxide 23 mmol/L (22.0-30.0); Globulin 3.8 g/dL (1.3-3.2); Glucose 117 mg/dl (74-100); Total Protein,Serum 6.8 g/dl (6.3-8.2)
[2024-02-14 13:25] LABS: Basophils % 0.7 % (0.1-2.0); Eosinophils % 0.5 % (0.1-12.0); Hematocrit 35.9 % (37.0-47.0); Hemoglobin 11.4 g/dL (12.2-16.2); Lymphocytes # 1.1 K/mm3 (0.7-4.5); Lymphocytes % 35.1 % (10-50); Mean Corpuscular HGB Conc 31.8 g/dL (31.8-35.4); Mean Corpuscular Volume 100.6 fl (81-99); Mean Platelet Volume 10.3 fl (7.4-10.4); Monocytes # 0.3 K/mm3 (0.1-1.0); Monocytes % 8.2 % (1.7-9.3); Neutrophils # 1.8 K/mm3 (1.8-7.8); Neutrophils % 55.4 % (37.0-80.0); Platelet Count 136 K/mm3 (142-424); Red Blood Count 3.57 M/mm3 (4.20-5.40); Red Cell Distribution Width 16.1 % (11.5-17.5); White Blood Count 3.3 K/mm3 (4.8-10.8)
[2024-02-15 15:11] LABS: Albumin 2.9 g/dL (2.9-4.4); Alpha-1-Globulin 0.3 g/dL (0.0-0.4); Alpha-2-Globulin 0.7 g/dL (0.4-1.0); Gamma Globulin 2.2 g/dL (0.4-1.8); Protein, Total 6.7 g/dL (6.0-8.5)
[2024-02-15 16:13] LABS: Immunoglobulin A, Qn 5 mg/dL (64-422); Immunoglobulin G, Qn 2639 mg/dL (586-1602); Immunoglobulin M, Qn <5 mg/dL (26-217)
[2024-02-24 10:45] LABS: PDF SCANNED IMAGE
== END 2024-02-14 13:16 | disposition home or self-care (01) ==
PROVIDERS: PCP Family Medicine; Visit Provider Internal Medicine Medical Oncology
DX: C90.00 Multiple myeloma not having achieved remission (principal); R73.09 Other abnormal glucose; R74.01 Elevation of levels of liver transaminase levels; R76.0 Raised antibody titer; Z79.899 Other long term (current) drug therapy
CPT/HCPCS: 36415; 80053; 82784; 84155; 84165; 85025; 86334

== ENCOUNTER 2024-02-20 13:04 | Outpatient (CLI) | payer MEDICARE, OTHER, SELFPAY | END 2024-02-20 23:59 | disposition home or self-care (01) | LOC: DIETICIAN 13:04 | PROVIDERS: PCP Family Medicine; Visit Provider Internal Medicine Medical Oncology | DX: Z71.3 Dietary counseling and surveillance (principal); R63.4 Abnormal weight loss; C90.00 Multiple myeloma not having achieved remission | CPT/HCPCS: 97802 ==

== ENCOUNTER 2024-02-29 11:05 | Inpatient (IN) | payer MEDICARE, OTHER, SELFPAY ==
[2024-02-29] VITALS (12 sets, daily range): BP systolic 82–124; BP diastolic 45–78; PULSE 60–97; RESP 16–27; TEMP 36.4–36.8; O2SAT 89–95; BMI 20.7; BMI 22.3
--- NOTE | 2024-02-29 11:19 | ECG_ITS ---
APPROVED REPORT Exam: Resting ECG HR:91 bpm ECG Measurements Heart Rate 91 AXES VT 143 P 52 QRSd 98 QRS 76 QT 350 T 72 QTc 398 Conclusion SINUS RHYTHM Electronically signed by : TINO GALVAN, 02/29/2024 15:50:24
--- NOTE | 2024-02-29 11:25 | PC.NURSE ---
DR GALVAN AT BEDSIDE
--- NOTE | 2024-02-29 11:35 | XR_ITS ---
FINAL REPORT TECHNIQUE: Single view chest CLINICAL HISTORY: R sided pleurix, weakness COMPARISON: 02/04/2024 FINDINGS: A single view of the chest was obtained. Abnormal opacities in the right perihilar region which is stable from prior exam. Moderate right pleural effusion is no longer identified. A Pleurx catheter is in place. There is airspace infiltrate at the left lung base likely due to focal pneumonia. There is no pneumothorax. IMPRESSION: Decreased right pleural effusion with pleural drain in place. Airspace infiltrate at the left lung base likely due to pneumonia. Reviewed, Interpreted and Dictated by Manuel Gordillo MD Transcribed by Tana Power Authenticated and [facility]
--- NOTE | 2024-02-29 11:39 | PC.NURSE ---
RT notified of vbg order
--- NOTE | 2024-02-29 11:43 | HMH.EDGENADL ---
Discharge Plan Disposition Patient Disposition: Admitted Clinical Impressions Clinical Impression: CHF exacerbation, Pneumonia, Weakness Discharge ED Provider: Giovanni Calvo General Adult HPI General Chief complaint: Weakness Stated complaint: Ams Time Seen by Provider: 02/29/24 11:11 Mode of Arrival: Wheelchair Source of Information: Patient and Relative Limitations: No Limitations Description of Symptoms (Recalled from ER Triage Doc. by RN): pt to ed c/o generalized weakness over the past 4 days. pt states she has had a descrease in her appetite. family at bedside states she has had periods of disorientation; pt gcs 15 on arrival @ ed. pt states she currently has a plurex drain to the right side, family states draining 900ml today. family at the bedside states this gets drained @ home twice weekly. pt states a hx of bone marrow & lung cx. History of Present Illness HPI narrative: Please note that above description of symptoms, in this electronic medical record under categorization of recalled from ER triage doctor by RN are reflective of an initial nursing assessment, however, is not reflective of my full history and physical exam that was personally taken and clarified. Consequentially, this preceding description of symptoms, which may include the patient's categorized chief complaint in the EMR, do not reflect my personal clinical impression, and the ultimate description of history of present illness and patient stated complaints should be deferred to this section of the note. Unless stated otherwise or congruent with this section of the note, additional signs, symptoms, or incongruence should be interpreted as inaccurate with my clinical impression. Related Data Home Medications Medication Instructions Recorded Confirmed diazepam 5 mg tablet 5 mg PO HSP PRN Insomnia 05/12/22 02/29/24 atorvastatin 40 mg tablet 40 mg PO DAILY 09/16/23 02/29/24 ergocalciferol (vitamin D2) 1,250 50,000 unit PO WEEKLY 09/16/23 02/29/24 mcg (50,000 unit) capsule levothyroxine 50 mcg tablet 50 mcg PO DAILY 09/16/23 02/29/24 omeprazole 20 mg capsule,delayed 20 mg PO DAILY 12/01/23 02/29/24 release tiotropium 2.5 mcg-olodaterol 2.5 2 puff inhalation DAILY 12/01/23 02/29/24 mcg/actuation mist for inhalation (Stiolto Respimat) ipratropium 0.5 mg-albuterol 3 mg 3 ml inhalation QIDP PRN shortness 02/29/24 02/29/24 (2.5 mg base)/3 mL nebulization of breath or wheezing soln megestrol 400 mg/10 mL (40 mg/mL) 400 mg PO BID 02/29/24 02/29/24 oral suspension Previous Rx's Medication Instructions Recorded furosemide 20 mg tablet (Lasix) 40 mg (2 x 20 mg) PO DAILY #90 tabs 01/16/24 Allergies Allergy/AdvReac Type Severity Reaction Status Date / Time metoclopramide [From Reglan] Allergy Intermediate Unknown Verified 02/20/24 14:04 allergy reaction Barbiturates [BARBITURATES] Allergy Unknown Unknown Verified 02/20/24 14:04 allergy reaction sulfamethoxazole Allergy Unknown Verified 02/20/24 14:04 [From Bactrim] allergy reaction trimethoprim [From Bactrim] Allergy Unknown Verified 02/20/24 14:04 allergy reaction bisoprolol AdvReac Mild HAIR LOSS Verified 02/20/24 14:04 diltiazem AdvReac Mild Dizziness Verified 02/20/24 14:04 PFSH PFS Disclaimer: The information contained in this section may have been updated after the patient was seen, as this information can be updated by other users. 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 PAF (paroxysmal atrial fibrillation) Primary cancer of bone marrow Recurrent pleural effusion on right Hyponatremia Abnormal echocardiogram Heart palpitations Pneumonia with cavity of lung Acute respiratory failure with hypoxia History of lung cancer COPD (chronic obstructive pulmonary disease) Stopped smoking with greater than 30 pack year history Dyspnea on exertion LURDES on CPAP Hyperlipidemia Hypertension Hx of deep venous thrombosis Hx-TIA (transient ischemic attack) Carotid artery stenosis Fatigue Edema of both lower extremities Dyspnea Chest pain Loss of hair Nausea and vomiting Hypothyroidism Anxiety Surgical History Hx of appendectomy Hx of cholecystectomy History of breast biopsy History of tonsillectomy H/O arthroscopy of knee Family History Other Cancer Diabetes No significant family history Social History (Updated 02/29/24 @ 17:08 by Khushboo Neil, RNA) Smoking Status: Former smoker tobacco type: cigarettes years smoked: 30 smoking status stop date: 2005 second hand exposure: No alcohol intake: never substance use type: denies use current occupational status: retired Travel in the last 8 weeks: None household members: none housing: house current occupational exposures/hazards: No caffeine: Yes ROS Obtained: Yes All systems reviewed & no additional complaints except as documented Physical Exam General General appearance: alert, in no apparent distress and cachectic (Chronically ill) Head Head exam: atraumatic and normocephalic Eye Eye exam: Present normal appearance, PERRL and EOMI ENT ENT exam: Present mucous membranes moist Neck Neck exam: Present normal inspection, full ROM and trachea midline Respiratory Respiratory exam: Present normal lung sounds bilaterally and other (Speaking in partial sentences); Absent respiratory distress, wheezes, stridor, accessory muscle use or prolonged expiratory phase Cardiovascular Cardiovascular exam: Present regular rate and normal rhythm Abdominal Exam Abdominal exam: Present soft; Absent distention, tenderness, guarding, rebound or rigidity Extremities Exam Extremities exam: Present edema (2+ extremity pitting edema) Neurological Exam Neurological exam: Present alert, oriented X3, CN II-XII intact and normal gait; Absent motor sensory deficit Skin Skin exam: Present warm and dry; Absent diaphoresis or erythema Medical Decision Making Medical Records Medical records reviewed: Yes I reviewed the patient's medical records. Baudilio Inquiry Pt receiving controlled substance: No Baudilio was queried for this patient: No Vital Signs: 02/29/24 11:06 02/29/24 11:30 02/29/24 12:00 Temperature 97.5 F L Temperature Source Oral Pulse Rate 90 90 Pulse Rate [Left Radial] 89 Respiratory Rate 16 Blood Pressure 108/66 L 112/63 Blood Pressure [Right Arm] 124/78 Blood Pressure Mean 80 74 Blood Pressure Mean [Right Arm] 93 02 Sat by Pulse Oximetry 95 91 L 94 L Oxygen Delivery Method Room Air 02/29/24 12:30 02/29/24 13:01 02/29/24 13:30 Temperature Temperature Source Pulse Rate 89 97 H 89 Pulse Rate [Left Radial] Respiratory Rate Blood Pressure 117/58 L 96/75 L 111/59 L Blood Pressure [Right Arm] Blood Pressure Mean 70 77 80 Blood Pressure Mean [Right Arm] 02 Sat by Pulse Oximetry 93 L 95 92 L Oxygen Delivery Method 02/29/24 14:04 Temperature 98.3 F Temperature Source Pulse Rate 60 Pulse Rate [Left Radial] Respiratory Rate 18 Blood Pressure 103/60 L Blood Pressure [Right Arm] Blood Pressure Mean Blood Pressure Mean [Right Arm] 02 Sat by Pulse Oximetry Oxygen Delivery Method Room Air Lab Data Lab Results 02/29/24 11:14: Urine Color Yellow, Urine Appearance Cloudy, Urine pH 6.0, Ur Specific [place] 1.025, Urine Protein Negative, Urine Glucose (UA) Negative, Urine Ketones Negative, Urine Blood Negative, Urine Nitrate Negative, Urine Bilirubin Negative, Urine Urobilinogen 1.0, Ur Leukocyte Esterase 1+ A, Urine RBC None, Urine WBC 3-5, Ur Squamous Epith Cells Occasional, Calcium Oxalate Crystal 1+, Urine Bacteria Trace, Hyaline Casts Occasional 02/29/24 11:25: WBC 9.7, RBC 3.95 L, Hgb 12.6, Hct 39.6, MCV 100.4 H, MCH 31.9 H, MCHC 31.8, RDW 15.4, Plt Count 197, MPV 9.6, Neut % (Auto) 83.4 H, Lymph % (Auto) 10.3, [place] % (Auto) 5.7, Eos % (Auto) 0.3, Baso % (Auto) 0.3, Neut # (Auto) 8.1 H, Lymph # (Auto) 1.0, [place] # (Auto) 0.6, Eos # (Auto) 0.0, Baso # (Auto) 0.0, Sodium 133 L, Potassium 4.0, Chloride 95 L, Carbon Dioxide 32 H, Anion Gap 10.0, BUN 40 H, Creatinine 1.30 H, Estimated Creat Clear 28, Estimated GFR 39 L, Est GFR ( Amer) 48 L, Glucose 92, Calcium 12.4 H*, Phosphorus 3.4, Magnesium 2.2, Total Bilirubin 0.8, AST 56 H, ALT 32, Alkaline Phosphatase 130 H, Troponin I 0.29 H, NT-Pro-B Natriuret Pep 41433 H, Total Protein 8.3 H, Albumin 3.2 L, Globulin 5.1 H, Albumin/Globulin Ratio 0.6 L 02/29/24 11:38: VBG pH 7.41, VBG pCO2 45.0, VBG pO2 33.3, VBG HCO3 27.6, VBG Total CO2 28.9 H, VBG O2 Saturation 56.1, VBG Base Excess 2.8 H, VBG Lactic Acid 3.1 H 03/01/24 05:16 03/01/24 05:16 Orders (Tests/Meds): ED MEDICATIONS Generic Name Dose Route Start Last Admin Trade Name Evelyn PRN Reason Stop Dose Admin Albuterol/Ipratropium 3 ml 02/29/24 17:24 Ipratropium/Albuterol 3 Ml Neb IH 03/30/24 17:23 QIDP PRN shortness of breath or wheezing Atorvastatin Calcium 40 mg 03/01/24 09:00 Atorvastatin 40mg Tablet PO 03/31/24 08:59 DAILY SARA Diazepam 5 mg 02/29/24 17:24 Diazepam 5mg Tablet PO 03/30/24 17:23 HSP PRN Insomnia Azithromycin 500 mg/ Sodium 250 mls @ 250 mls/hr 02/29/24 12:00 02/29/24 13:33 Chloride IV 03/10/24 11:59 250 mls/hr Q24H SARA Administration Zoledronic Acid 4 mg/ Sodium 105 mls @ 420 mls/hr 02/29/24 17:27 02/29/24 21:15 Chloride IV 02/29/24 17:28 Not Given ONCE ONE Ceftriaxone Sodium 1 gm/ 50 mls @ 100 mls/hr 03/01/24 10:00 Sodium Chloride IV 03/11/24 09:59 Q24H SARA Levothyroxine Sodium 50 mcg 03/01/24 07:00 Levothyroxine 50mcg (0.05mg) Tab PO 03/31/24 06:59 DAILY SARA Morphine Sulfate 2 mg 02/29/24 17:26 Morphine 2mg/Ml Syringe IV 03/30/24 17:25 Q6HP PRN Moderate to Severe Pain (4-10) Non-Formulary Medication 2 puff 03/01/24 09:00 Tiotropium-Olodaterol [Stiolto Respimat] 03/31/24 08:59 DAILY SARA Pantoprazole Sodium 40 mg 02/29/24 21:00 02/29/24 20:36 Pantoprazole 40mg Tablet PO 03/30/24 20:59 40 mg HS SARA Administration Discontinued Medications Generic Name Dose Route Start Last Admin Trade Name Evelyn PRN Reason Stop Dose Admin Aspirin 324 mg 02/29/24 12:43 02/29/24 12:56 Aspirin 81mg Chewable Tablet PO 02/29/24 12:44 324 mg ONCE ONE Administration Furosemide 40 mg 02/29/24 12:47 02/29/24 12:58 Furosemide 40mg/4ml Vial IV 02/29/24 12:48 40 mg ONCE ONE Administration Ceftriaxone Sodium 2 gm/ 100 mls @ 200 mls/hr 02/29/24 12:00 02/29/24 12:15 Sodium Chloride IV 02/29/24 12:29 200 mls/hr ONCE ONE Administration Sodium Chloride 1,000 mls @ 250 mls/hr 02/29/24 13:00 02/29/24 13:11 Sod Chlor 0.9% 1000ml Bag IV 02/29/24 16:59 250 mls/hr .Q4H SARA Administration Ketorolac Tromethamine 15 mg 02/29/24 15:15 02/29/24 15:11 Ketorolac 30mg/Ml Vial IV 02/29/24 15:16 15 mg ONCE ONE Administration Levothyroxine Sodium 50 mcg 03/01/24 09:00 Levothyroxine 50mcg (0.05mg) Tab PO 03/31/24 08:59 DAILY SARA ORDERS Category Date Time Status Cardiology Consult [Consult to Cardiology] [CONS] Cons 02/29/24 13:01 Active Routine CXR --portable [XR chest portable] Stat Exams 02/29/24 11:35 Completed CBC w/Auto Diff [Complete Blood Count Auto Diff] Stat Lab 02/29/24 11:25 Completed CMP [Comprehensive Metabolic Panel] Stat Lab 02/29/24 11:25 Completed Complete Blood Count Auto Diff AMLAB Lab 03/01/24 05:16 Completed Comprehensive Metabolic Panel AMLAB Lab 03/01/24 05:16 Completed Comprehensive Metabolic Panel Routine Lab 02/29/24 17:53 Completed Magnesium AMLAB Lab 03/01/24 05:16 Completed Magnesium Stat Lab 02/29/24 11:25 Completed NT Pro Brain Natriuretic Pep. Stat Lab 02/29/24 11:25 Completed PHOS [Phosphorous] Stat Lab 02/29/24 11:25 Completed Prealbumin Stat Lab 02/29/24 11:25 Received Trop I [Troponin I] Stat Lab 02/29/24 11:25 Completed Troponin I Q3H Lab 02/29/24 15:00 Completed Troponin I Q3H Lab 02/29/24 17:53 Completed UA [Urinalysis and Microscopic] Stat Lab 02/29/24 11:14 Completed Blood Culture Stat Micro 02/29/24 11:30 Received Urine Culture Stat Micro 02/29/24 11:14 Received VBG [Venous Blood Gas] Stat RT 02/29/24 11:38 Completed Medical Decision Narrative: 83-year-old female history of hypertension, hyperlipidemia, paroxysmal A-fib on no anticoagulation due to previous GI bleed,, lung cancer in remission status post chemo and radiation, will bone marrow cancer, not currently on treatment, chronic right pleural effusion with Pleurx drain in place, COPD not on home, CAD, CHF presenting with generalized weakness. Patient states that she has been feeling generally weak for the last few days to weeks. No appetite despite appetite stimulants, weight loss, general weakness. States that she lives alone, can get around on her own with a walker, but has felt so weak that she does not get out of bed some days. No fevers or chills, nausea or vomiting, shortness of breath, but she does mention having left-sided chest pain has been going on for 4 to 5 weeks. Does not radiate. Also having associated lower extremity swelling. istory was obtained via conversation with patient and family. On arrival, patient hemodynamically stable, alert, oriented x4, appropriate, GCS 15, moving all extremities spontaneously, pupils equal and reactive to light. Full physical exam performed and significant for chronically ill-appearing woman in no acute distress. Cachectic, speaking in partial sentences. Lungs are clear to auscultation, cardiac exam within normal limits aside from bilateral lower extremity pitting edema. No abdominal tenderness. Hemodynamically stable, afebrile, normotensive. Differential includes pneumonia, CAD, CHF, UTI, septicemia, acute on chronic deconditioning/debility, protein calorie malnutrition, progression of disease, among others. Patient was given ceftriaxone, azithromycin, Lasix, aspirin for symptomatic management and correction of underlying abnormalities. Workup independently interpreted and significant for no leukocytosis. Hyponatremia, hypercalcemia 12.4. Elevated BUN/creatinine, appears to be prerenal urinalysis unremarkable. Troponin elevated 0.39 likely secondary BNP elevated at 1500. Chest x-ray with concern for pneumonia. See radiology read for full review of final results. Independent interpretation of EKG shows sinus rhythm without ST changes concerning for acute ischemia. Nonspecific T wave flattening inferior leads. [place] normal. IN 143, QRS 98, QTc 398. Heart score 5. Because patient with CHF exacerbation in setting of lobar pneumonia, acutely on chronically debilitated, appropriate for admission. Hospital medicine was contacted and case was discussed at length. Because patient high risk for clinical decompensation, deemed appropriate for inpatient admission. Results were relayed to patient who voiced understanding and patient was agreeable to inpatient admission and management. Patient was admitted to the hospital for further definitive management. Ham Sawyer disclaimer Much of this encounter note is an electronic iron guardrail installer spoken language to printed text. Electronic iron guardrail installer of the spoken language may permit errors. Although I have reviewed the note, some errors may still exist. Critical Care Critical Care Time Critical Care Time: Yes (cv) Attestation: On 02/29/24, the high probability of a clinically significant, sudden or life threatening deterioration of the following system(s) required my full and direct attention, intervention and personal management. The time I documented below is in addition to time spent performing reported procedures but includes the following listed in this critical care notation. Total Time Total Critical Care Time: 45
[2024-02-29 11:45] LABS: VBG Base Excess 2.8 mmol/L (-2.4-2.3); VBG HCO3 27.6 mmol/L (23-30); VBG Oxygen Saturation 56.1 % (50-70); VBG PH 7.41 mmol/L (7.31-7.41); VBG PO2 33.3 mmol/L (28-40); VBG Total CO2 28.9 mmol/L (23-27)
[2024-02-29 11:46] LABS: Basophils % 0.3 % (0.1-2.0); Eosinophils % 0.3 % (0.1-12.0); Hematocrit 39.6 % (37.0-47.0); Hemoglobin 12.6 g/dL (12.2-16.2); Lymphocytes % 10.3 % (10-50); Mean Corpuscular HGB Conc 31.8 g/dL (31.8-35.4); Mean Corpuscular Hemoglobin 31.9 pg (27.0-31.2); Mean Corpuscular Volume 100.4 fl (81-99); Mean Platelet Volume 9.6 fl (7.4-10.4); Monocytes # 0.6 K/mm3 (0.1-1.0); Monocytes % 5.7 % (1.7-9.3); Neutrophils # 8.1 K/mm3 (1.8-7.8); Neutrophils % 83.4 % (37.0-80.0); Platelet Count 197 K/mm3 (142-424); Red Blood Count 3.95 M/mm3 (4.20-5.40); Red Cell Distribution Width 15.4 % (11.5-17.5); White Blood Count 9.7 K/mm3 (4.8-10.8)
[2024-02-29 11:46] LABS: Microscopic, Urine URINE MICROSCOPIC (MICROSCOPIC)
[2024-02-29 11:48] LABS: Bilirubin,Urine Negative (Negative); Blood, Urine Negative (Negative); Color,Urine YELLOW (Yellow); Glucose,Urine (UA) Negative (Negative); Ketones,Urine Negative (Negative); Leukocyte Esterase,Urine 1+ (Negative); Nitrate,Urine Negative (Negative); Protein,Urine Negative (Negative); Specific Gravity, Urine 1.025 (1.005-1.030)
[2024-02-29 11:49] LABS: Lactate Venous 3.1 mmol/L (0.4-2.0)
[2024-02-29 11:53] LABS: Alanine Aminotransferase 32 U/L (12-78); Albumin Level 3.2 g/dl (3.5-5.0); Albumin/Globulin Ratio 0.6 (1.1-1.8); Alkaline Phosphatase 130 U/L (38-126); Aspartate Amino Transferase 56 U/L (14-36); Bilirubin,Total 0.8 mg/dl (0.2-1.3); Blood Urea Nitrogen 40 mg/dl (7-17); Carbon Dioxide 32 mmol/L (22.0-30.0); Chloride 95 mmol/L (98-107); Creatinine Clearance Estimated 28 mL/min (50-200); Estimated Glomerular Filt Rate 39 ml/min (>60); GFR (African American) 48 ML/MIN (>60); Globulin 5.1 g/dL (1.3-3.2); Glucose 92 mg/dl (74-100); Magnesium 2.2 mg/dl (1.6-2.3); Phosphorous 3.4 mg/dl (2.5-4.5); Sodium 133 mmol/L (136-145); Total Protein,Serum 8.3 g/dl (6.3-8.2)
--- NOTE | 2024-02-29 11:56 | PC.NURSE ---
XR AT BEDSIDE
[2024-02-29 12:01] LABS: NT Pro Brain Natriuretic Pep. 24500 pg/mL (0-450)
--- NOTE | 2024-02-29 12:07 | PC.NURSE ---
Rounded on pt to see if they had any needs pt asked for several blankets and pillows. Pt was given 2 warm blankets and a pillow and had no other needs ast this time
[2024-02-29 12:11] LABS: Appearance,Urine Cloudy (Clear)
[2024-02-29] MEDS: CEFTRIAXONE SODIUM 2 GM in 0.9 % SODIUM CHLORIDE 100 ML IV (12:15)
[2024-02-29 12:19] LABS: Bacteria,Urine Trace /lpf; Calcium Oxalate Crystals,Urine 1+ /lpf; Squamous Epithelial Cell,Urine Occasional #/hpf (0-5)
[2024-02-29 12:20] LABS: Hyaline Casts,Urine Occasional #/lpf (0)
[2024-02-29 12:41] LABS: Troponin I 0.29 ng/ml (0.00-0.034)
--- NOTE | 2024-02-29 12:41 | PC.NURSE ---
Anahi from lab called with a critical troponin of 0.29. Results verified. Provider made aware.
[2024-02-29 12:46] LABS: Calcium 12.4 mg/dl (8.4-10.2)
--- NOTE | 2024-02-29 12:46 | PC.NURSE ---
critical calcium and troponin resulted to MD.
--- NOTE | 2024-02-29 12:55 | PC.NURSE ---
DR GALVAN SPEAKING WITH DR GUNDERSON
[2024-02-29] MEDS: ASPIRIN 81MG CHEWABLE TABLET 324 MG PO (12:56)
[2024-02-29] MEDS: FUROSEMIDE 40MG/4ML VIAL 40 MG IV (12:58)
--- NOTE | 2024-02-29 13:03 | EXP.HP ---
History of Present Illness *Admission Date: 02/29/24 *Reason for visit:: dyspnea, weakness, left sided chest wall pain *History of present illness: Ms. Shah is an 83-year-old female who presents to [facility] emergency department with concerns of weakness, left-sided chest pain, fatigue. Extensive history with lung cancer diagnosed in 2019, multiple myeloma diagnosed earlier this year. Has indwelling Pleurx catheter in right chest due to recurring pleural effusion. Status post VATS procedure. Patient presented to the ER because of generalized weakness over the past several days. Has had a decreased appetite and also complains of pain in her left chest for the past 2 to 3 days. Denies any fever, nausea, vomiting, diarrhea. Workup in the ER concerning for pneumonia versus effusion in the left hemithorax, abnormal urine tract and possible UTI. Calcium elevated at 12.4, creatinine 1.3 with BUN of 40 consistent with YUSRA. Troponin elevated to 0.29 with elevated BNP of 24,000. Patient was initiated on IV antibiotics administered a dose of diuretic, and administered on IV fluids to help flush calcium. Medicine was consulted for admission. Arrival to the floor, patient appears quite weak. She is stable on room air. States that she drained 900 cc from her Pleurx drain just today. Drains at twice weekly. Has not had chemotherapy in several months due to low platelets. Recently had repeat test with oncology, does not know the results yet. Due to her bone pain creatinine, troponin, BNP, cardiology consulted to assist with care. Of note, EKG in sinus rhythm with no ST abnormalities History of Lung Cancer stage IIIa SCC, treated at in 2019 A. History of chest radiation, immunotherapy and chemotherapy after RLL lobectomy B. Remote history of [id number] tobacco use C. Recurrent right pleural effusion status post thoracentesis and VATS procedure with PleurX cath placement Newly diagnosed IgG kappa myeloma, October [address] Bergeron B. PET CT scan 10/18/2023 revealed diffuse osseous hypermetabolism most likely secondary to marrow stimulation. C. Bone marrow biopsy 10/24/2023 noted kappa restricted plasma cell population representing approximately 80% of hypercellular bone marrow. D. Chemotherapy started 11/2023 (velcade) held in December 2023 due to low platelets [facility] Disclaimer: The information contained in this section may have been updated after the patient was seen, as this information can be updated by other users. 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 PAF (paroxysmal atrial fibrillation) Primary cancer of bone marrow Recurrent pleural effusion on right Hyponatremia Abnormal echocardiogram Heart palpitations Pneumonia with cavity of lung Acute respiratory failure with hypoxia History of lung cancer COPD (chronic obstructive pulmonary disease) Stopped smoking with greater than 30 pack year history Dyspnea on exertion LURDES on CPAP Hyperlipidemia Hypertension Hx of deep venous thrombosis Hx-TIA (transient ischemic attack) Carotid artery stenosis Fatigue Edema of both lower extremities Dyspnea Chest pain Loss of hair Nausea and vomiting Hypothyroidism Anxiety Surgical History Hx of appendectomy Hx of cholecystectomy History of breast biopsy History of tonsillectomy H/O arthroscopy of knee Family History Other Cancer Diabetes No significant family history Social History (Updated 02/29/24 @ 17:08 by MAGGI Bhardwaj) Smoking Status: Former smoker tobacco type: cigarettes years smoked: 30 smoking status stop date: 2005 second hand exposure: No alcohol intake: never substance use type: denies use current occupational status: retired Travel in the last 8 weeks: None household members: none housing: house current occupational exposures/hazards: No caffeine: Yes Review of Systems Review of Systems Review of systems (narrative): 14 point review of systems performed, pertinent positives and negatives as per [facility] Meds Home Medications and Allergies Home Medications Medication Instructions Recorded Confirmed Type diazepam 5 mg tablet 5 mg PO HSP PRN Insomnia 05/12/22 02/29/24 History atorvastatin 40 mg tablet 40 mg PO DAILY 09/16/23 02/29/24 History ergocalciferol (vitamin D2) 1,250 50,000 unit PO WEEKLY 09/16/23 02/29/24 History mcg (50,000 unit) capsule levothyroxine 50 mcg tablet 50 mcg PO DAILY 09/16/23 02/29/24 History omeprazole 20 mg capsule,delayed 20 mg PO DAILY 12/01/23 02/29/24 History release tiotropium 2.5 mcg-olodaterol 2.5 2 puff inhalation DAILY 12/01/23 02/29/24 History mcg/actuation mist for inhalation (Stiolto Respimat) furosemide 20 mg tablet (Lasix) 40 mg (2 x 20 mg) PO DAILY #90 tabs 01/16/24 02/29/24 Rx ipratropium 0.5 mg-albuterol 3 mg 3 ml inhalation QIDP PRN shortness 02/29/24 02/29/24 History (2.5 mg base)/3 mL nebulization of breath or wheezing soln megestrol 400 mg/10 mL (40 mg/mL) 400 mg PO BID 02/29/24 02/29/24 History oral suspension New Prescriptions to Start Prescriptions: Allergies Allergy/AdvReac Type Severity Reaction Status Date / Time metoclopramide [From Reglan] Allergy Intermediate Unknown Verified 02/20/24 14:04 allergy reaction Barbiturates [BARBITURATES] Allergy Unknown Unknown Verified 02/20/24 14:04 allergy reaction sulfamethoxazole Allergy Unknown Verified 02/20/24 14:04 [From Bactrim] allergy reaction trimethoprim [From Bactrim] Allergy Unknown Verified 02/20/24 14:04 allergy reaction bisoprolol AdvReac Mild HAIR LOSS Verified 02/20/24 14:04 diltiazem AdvReac Mild Dizziness Verified 02/20/24 14:04 Exam Data for Last 24 hours Vital signs and Labs for Last 24 Hours: Temp Pulse Resp BP Pulse Ox O2 Del Method 97.5 F L 89 16 117/58 L 93 L Room Air 02/29/24 11:06 02/29/24 12:30 02/29/24 11:06 02/29/24 12:30 02/29/24 12:30 02/29/24 11:06 Laboratory Results - last 24 hr 02/29/24 11:14: Urine Color Yellow, Urine Appearance Cloudy, Urine pH 6.0, Ur Specific Crump 1.025, Urine Protein Negative, Urine Glucose (UA) Negative, Urine Ketones Negative, Urine Blood Negative, Urine Nitrate Negative, Urine Bilirubin Negative, Urine Urobilinogen 1.0, Ur Leukocyte Esterase 1+ A, Urine RBC None, Urine WBC 3-5, Ur Squamous Epith Cells Occasional, Calcium Oxalate Crystal 1+, Urine Bacteria Trace, Hyaline Casts Occasional 02/29/24 11:25: WBC 9.7, RBC 3.95 L, Hgb 12.6, Hct 39.6, MCV 100.4 H, MCH 31.9 H, MCHC 31.8, RDW 15.4, Plt Count 197, MPV 9.6, Neut % (Auto) 83.4 H, Lymph % (Auto) 10.3, Page % (Auto) 5.7, Eos % (Auto) 0.3, Baso % (Auto) 0.3, Neut # (Auto) 8.1 H, Lymph # (Auto) 1.0, Page # (Auto) 0.6, Eos # (Auto) 0.0, Baso # (Auto) 0.0, Sodium 133 L, Potassium 4.0, Chloride 95 L, Carbon Dioxide 32 H, Anion Gap 10.0, BUN 40 H, Creatinine 1.30 H, Estimated Creat Clear 28, Estimated GFR 39 L, Est GFR ( Amer) 48 L, Glucose 92, Calcium 12.4 H*, Phosphorus 3.4, Magnesium 2.2, Total Bilirubin 0.8, AST 56 H, ALT 32, Alkaline Phosphatase 130 H, Troponin I 0.29 H, NT-Pro-B Natriuret Pep 52695 H, Total Protein 8.3 H, Albumin 3.2 L, Globulin 5.1 H, Albumin/Globulin Ratio 0.6 L 02/29/24 11:38: VBG pH 7.41, VBG pCO2 45.0, VBG pO2 33.3, VBG HCO3 27.6, VBG Total CO2 28.9 H, VBG O2 Saturation 56.1, VBG Base Excess 2.8 H, VBG Lactic Acid 3.1 H I & O for Last 24 hours: Intake & Output 02/26/24 02/27/24 02/28/24 02/29/24 23:59 23:59 23:59 23:59 Weight 53.07 kg Constitutional Constitutional: no acute distress, thin, chronically ill appearing and cooperative *Routine HEENT Exam Head: Present normocephalic Eye: Present EOMI, PERRL and normal accommodation ENT: Present mucous membranes moist *Routine Neck Exam Neck: Present supple and trachea midline; Absent lymphadenopathy Routine Chest/Breast/Axilla Exam Chest wall: Present tenderness Comments: Left lower thoracic wall *Routine Respiratory Exam Respiratory: Present prolonged expiratory phase, rhonchi, diminished air movement and normal respiratory effort; Absent respiratory distress or crackles *Routine Cardiovascular Exam Cardiovascular: Present RRR, murmur and irregular rhythm *Routine Abdominal Exam Abdominal: Present soft and normoactive bowel sounds; Absent tenderness *Routine Rectal Exam Rectal:: deferred *Routine Genitalia Exam Genitalia:: deferred *Routine Extremities Exam Extremities: Present full ROM and pulses intact; Absent edema *Routine Skin Exam Skin: Present intact and warm *Routine Neurological Exam Neurological: Present alert, oriented X3, CN II-XII intact, moving all extremities, hearing grossly intact and normal speech; Absent sensory deficit or motor deficit Routine Psychiatric Exam Psychiatric: Present normal affect, normal thought process, good insight and good judgment Assessment and Plan *Assessment and plan (1) Pneumonia: Status: Acute Qualifiers: Laterality: left Lung location: lower lobe of lung Pneumonia type: due to unspecified organism Qualified Code(s): J18.9 - Pneumonia, unspecified organism Category: Medical Code(s): J18.9 - Pneumonia, unspecified organism (2) Pleural effusion: Status: Acute Category: Medical Code(s): J90 - Pleural effusion, not elsewhere classified (3) Multiple myeloma: Status: Acute Qualifiers: Multiple myeloma remission status: unspecified Qualified Code(s): C90.00 - Multiple myeloma not having achieved remission Category: Medical Code(s): C90.00 - Multiple myeloma not having achieved remission (4) Elevated troponin: Status: Acute Category: Medical Code(s): R79.89 - Other specified abnormal findings of blood chemistry (5) COPD mixed type: Status: Acute Category: Medical Code(s): J44.9 - Chronic obstructive pulmonary disease, unspecified (6) PAF (paroxysmal atrial fibrillation): Status: Acute Category: Medical Code(s): I48.0 - Paroxysmal atrial fibrillation (7) History of lung cancer: Status: Chronic Category: Medical Code(s): Z85.118 - Personal history of other malignant neoplasm of bronchus and lung (8) Hypertension: Status: Acute Qualifiers: Hypertension type: primary hypertension Qualified Code(s): I10 - Essential (primary) hypertension Category: Medical Code(s): I10 - Essential (primary) hypertension (9) Hyperlipidemia: Status: Acute Qualifiers: Hyperlipidemia type: mixed hyperlipidemia Qualified Code(s): E78.2 - Mixed hyperlipidemia Category: Medical Code(s): E78.5 - Hyperlipidemia, unspecified (10) Pleuritic chest pain: Status: Acute Category: Medical Code(s): R07.81 - Pleurodynia (11) AL amyloidosis: Status: Acute Category: Medical Code(s): E85.81 - Light chain (AL) amyloidosis Plan This is an 83-year-old female who presents with weakness, left-sided chest pain, and fatigue. Found to have elevated troponin, BNP, and calcium. Concern for pneumonia versus UTI. Discussed case with the ER, request admission for further management. Medicine agreed to admit. Cardiology consulted. Necessitating stepdown level of care for treatment of her hypercalcemia and infection. PSI/port score of 141, risk class V. 27 to 29% mortality risk. Problems addressed as follows: Left lower lobe pneumonia Suspected UTI Pleural effusions -Initiated on ceftriaxone and azithromycin in the ER. Will continue daily IV -Supplemental oxygen as needed, currently satting above 90% on air - Continue Stiolto daily. Continue DuoNebs 4 times a day as needed -Urine culture pending Pleuritic chest pain felt secondary to pneumonia -Received Toradol x 1. Given YUSRA, will initiate morphine 2 mg every 6 hours as needed for breakthrough pain, monitor for toxicity. Elevated troponin and elevated BNP likely secondary to pneumonia -Cardiology consulted to assist with care, appreciate their recommendations. moderate CAD noted on CT of the chest 09/2023 with stress test showing no ischemia at that time -Echo pending -Received 1 dose of Lasix in the ER for elevated BNP however given hypercalcemia and YUSRA, will administer 1 L of normal saline as well. Caution with fluids. Patient does not appear volume overloaded -Holding hypertensive medications due to YUSRA and low normal blood pressures Multiple myeloma Hypercalcemia -TSH 1.7, parathyroid hormone 19. Both normal. -Hypercalcemia likely secondary to multiple myeloma. Will treat medically with volume resuscitation as above with 1 L normal saline. -1 dose of zoledronic acid IV -Repeat calcium level in the morning. -Chemotherapy previously on hold in December due to low platelets, improved to 197 COPD -Breathing treatments as above. Stable on room air. Recurrent pleural effusion history of lung cancer, status post right lower lobectomy in 2019 - Pleurx catheter in right side due to recurrent pleural effusion -Consider CT of chest in the morning to evaluate for effusion on left side versus airspace disease/consolidation The patient is hospitalized with above diagnoses complicated by her advanced age and immunocompromise status. Patient elects a full CODE STATUS. Her son Heriberto Shah, . is her POA. Regular diet
[2024-02-29] MEDS: 0.9 % SODIUM CHLORIDE 1000ML 1,000 ML 250 ML IV (13:11)
--- NOTE | 2024-02-29 13:15 | HMH.PHAINT1 ---
Pharmacy Intervention Comments: MEDICATION RECONCILIATION COMPLETED ON PATIENT USING EXTERNAL FILL HISTORY FROM PHARMACY, LISETTE REPORT, AND LISTS FROM CARDIOLOGY/PULMONOLOGY OFFICES. -JUSTIN TRISTAN, JOSED
--- NOTE | 2024-02-29 13:19 | PC.NURSE ---
Pt repositioned in bed for comfort. Pillow placed behind back per request. Pure wick put in place. No other needs voiced and call light within reach.
[2024-02-29] MEDS: AZITHROMYCIN 500 MG in 0.9 % SODIUM CHLORIDE 250 ML 250 MG IV (13:33)
--- NOTE | 2024-02-29 13:43 | PC.NURSE ---
report called to AARON higgins
--- NOTE | 2024-02-29 13:51 | PC.NURSE ---
transport for admission delayed r/t receiving nurse having to transport (pt step-down)
--- NOTE | 2024-02-29 14:35 | P.CONCA_ITS ---
History of Present Illness History of Present Illness Consult date: 02/29/24 Requesting physician: Hasmukh Morrow Consult reason: chest pain Chief complaint: left sided chest pain Additional Medical History:: 1. History of Lung Cancer stage IIIa SCC, treated at in 2019 A. History of chest radiation, immunotherapy and chemotherapy after RLL lobectomy B. Remote history of [id number] tobacco use C. Recurrent right pleural effusion status post thoracentesis and VATS procedure with PleurX cath placement 2. Hypertension A. Echo, 02/05/2024, EF 60% with increased LV wall thickness. Mild RV dilatation with normal function. Severe biatrial dilatation. Small pericardial effusion measuring 0.3 cm with no evidence of tamponade. B. Hair loss related to beta kermit 3. Moderate coronary artery calcification noted on chest CTA, 09/15/2023 A. Jeffrey myoview, 11/2021, No ischemia, EF 53% 4. History of TIA, 2016 5. History of remote DVT and PE, 2018, A. no longer on A/C as of 2021 due to GI bleed 6. Carotid artery stenosis A. Less than 50% bilateral ICA stenosis. 7. Hyperlipidemia A. Statin therapy 8. History of GI bleed A. Colonoscopy, Dr. Zuniga, 09/2020, colonic polyps x 2, left-sided diverticulosis, grade 1-2 internal hemorrhoids B. EGD, 09/2010, Dr. Zuniga, esophageal telangiectasias/AVMs (mid esophagus encompassing 10 cm in length) consistent with radiation esophagitis. Mild linear reactive gastropathy with bile reflux. C. 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 Patient was on anticoagulation due to history of PE and DVT but this was stopped in 2021. 9. 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 Zuniga, 06/2021 and 12/2020 A. History of esophageal dilatation, 2018 with nonerosive GERD and mild esophageal dysmotility and bile reflux with linear reactive gastropathy B. EGD with cauterization of AVMs, approximately August 2023 10. Hypothyroidism A. On replacement 11. Mild obstructive sleep apnea, 05/2021, with severe LURDES during REM with evidence of nocturnal hypoxemia A. Followed by Dr. Simpson 12. COPD related to remote tobacco use A. PFTs, 06/2021, V1/VC ratio 76, V1 at 89% predicted and VC at 87% predicted. TLC normal at 84% predicted. Air trapping noted with a ratio at 45 and significant decrease in DLCO at 54% predicted. 13. Lumbar spondylosis A. Lumbar epidural steroid injection, 09/2022 14. Newly diagnosed IgG kappa myeloma, October [address] Rubio Johnson. PET CT scan 10/18/2023 revealed diffuse osseous hypermetabolism most likely secondary to marrow stimulation. C. Bone marrow biopsy 10/24/2023 noted kappa restricted plasma cell population representing approximately 80% of hypercellular bone marrow. D. Chemotherapy started 11/2023 (velcade) held in December 2023 due to low platelets 15. Paroxysmal atrial fibrillation A. Noted on satellite project site monitor 11/2023 with 22% burden. B. Not on anticoagulation due to history of prior GI bleeds. History of present illness: 83-year-old white female with significant history as noted above presented to the ER for generalized weakness over the last few days with decreasing appetite and complaint of left-sided chest pain. Workup in the ER pertinent for pneumonia, left-sided on chest x-ray and possible UTI. Elevated troponin of 0.29 and BNP of 24,000. Patient was started on IV antibiotics and given a dose of IV diuretics and admitted for further evaluation. Cardiology consulted for evaluation and recommendations. Patient states Pleurx catheter is drained twice a week with 900 mL removed each time. EKG is sinus rhythm with nonspecific ST-T abnormalities at a rate of 91 bpm [facility] Disclaimer: The information contained in this section may have been updated after the patient was seen, as this information can be updated by other users. 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 PAF (paroxysmal atrial fibrillation) Primary cancer of bone marrow Recurrent pleural effusion on right Hyponatremia Abnormal echocardiogram Heart palpitations Pneumonia with cavity of lung Acute respiratory failure with hypoxia History of lung cancer COPD (chronic obstructive pulmonary disease) Stopped smoking with greater than 30 pack year history Dyspnea on exertion LURDES on CPAP Hyperlipidemia Hypertension Hx of deep venous thrombosis Hx-TIA (transient ischemic attack) Carotid artery stenosis Fatigue Edema of both lower extremities Dyspnea Chest pain Loss of hair Nausea and vomiting Hypothyroidism Anxiety Surgical History Hx of appendectomy Hx of cholecystectomy History of breast biopsy History of tonsillectomy H/O arthroscopy of knee Family History Other Cancer Diabetes No significant family history Social History Smoking Status: Former smoker tobacco type: cigarettes years smoked: 30 smoking status stop date: 2005 second hand exposure: No alcohol intake: never substance use type: denies use current occupational status: retired Travel in the last 8 weeks: None household members: none housing: house current occupational exposures/hazards: No caffeine: Yes Review of Systems Review of Systems Review of systems:: pertinent systems reviewed and negative unless documented below Exam Data for Last 24 hours Vital signs and Labs for Last 24 Hours: Temp Pulse Resp BP Pulse Ox O2 Del Method 98.3 F 60 18 103/60 L 92 L Room Air 02/29/24 14:04 02/29/24 14:04 02/29/24 14:04 02/29/24 14:04 02/29/24 13:30 02/29/24 14:04 Laboratory Results - last 24 hr 02/29/24 11:14: Urine Color Yellow, Urine Appearance Cloudy, Urine pH 6.0, Ur Specific [place] 1.025, Urine Protein Negative, Urine Glucose (UA) Negative, Urine Ketones Negative, Urine Blood Negative, Urine Nitrate Negative, Urine Bilirubin Negative, Urine Urobilinogen 1.0, Ur Leukocyte Esterase 1+ A, Urine RBC None, Urine WBC 3-5, Ur Squamous Epith Cells Occasional, Calcium Oxalate Crystal 1+, Urine Bacteria Trace, Hyaline Casts Occasional 02/29/24 11:25: WBC 9.7, RBC 3.95 L, Hgb 12.6, Hct 39.6, MCV 100.4 H, MCH 31.9 H , MCHC 31.8, RDW 15.4, Plt Count 197, MPV 9.6, Neut % (Auto) 83.4 H, Lymph % (Auto) 10.3, [place] % (Auto) 5.7, Eos % (Auto) 0.3, Baso % (Auto) 0.3, Neut # (Auto) 8.1 H, Lymph # (Auto) 1.0, [place] # (Auto) 0.6, Eos # (Auto) 0.0, Baso # (Auto) 0.0, Sodium 133 L, Potassium 4.0, Chloride 95 L, Carbon Dioxide 32 H, Anion Gap 10.0, BUN 40 H, Creatinine 1.30 H, Estimated Creat Clear 28, Estimated GFR 39 L, Est GFR ( Amer) 48 L, Glucose 92, Calcium 12.4 H*, Phosphorus 3.4, Magnesium 2.2, Total Bilirubin 0.8, AST 56 H, ALT 32, Alkaline Phosphatase 130 H, Troponin I 0.29 H, NT-Pro-B Natriuret Pep 29021 H, Total Protein 8.3 H, Albumin 3.2 L, Globulin 5.1 H, Albumin/Globulin Ratio 0.6 L 02/29/24 11:38: VBG pH 7.41, VBG pCO2 45.0, VBG pO2 33.3, VBG HCO3 27.6, VBG Total CO2 28.9 H, VBG O2 Saturation 56.1, VBG Base Excess 2.8 H, VBG Lactic Acid 3.1 H I & O for Last 24 hours: Intake & Output 02/27/24 02/28/24 02/29/24 03/01/24 11:59 11:59 11:59 11:59 Weight 117 lb Constitutional Constitutional: mild distress *Routine Respiratory Exam Respiratory: Present rhonchi and diminished air movement *Routine Cardiovascular Exam Cardiovascular: Present RRR *Routine Extremities Exam Extremities: Present edema *Routine Neurological Exam Neurological: Present alert, oriented X3 and CN II-XII intact Meds Home Medications and Allergies Home Medications Medication Instructions Recorded Confirmed Type diazepam 5 mg tablet 5 mg PO HSP PRN Insomnia 05/12/22 02/29/24 History atorvastatin 40 mg tablet 40 mg PO DAILY 09/16/23 02/29/24 History ergocalciferol (vitamin D2) 1,250 50,000 unit PO WEEKLY 09/16/23 02/29/24 History mcg (50,000 unit) capsule levothyroxine 50 mcg tablet 50 mcg PO DAILY 09/16/23 02/29/24 History omeprazole 20 mg capsule,delayed 20 mg PO DAILY 12/01/23 02/29/24 History release tiotropium 2.5 mcg-olodaterol 2.5 2 puff inhalation DAILY 12/01/23 02/29/24 History mcg/actuation mist for inhalation (Stiolto Respimat) furosemide 20 mg tablet (Lasix) 40 mg (2 x 20 mg) PO DAILY #90 tabs 01/16/24 02/29/24 Rx ipratropium 0.5 mg-albuterol 3 mg 3 ml inhalation QIDP PRN shortness 02/29/24 02/29/24 History (2.5 mg base)/3 mL nebulization of breath or wheezing soln megestrol 400 mg/10 mL (40 mg/mL) 400 mg PO BID 02/29/24 02/29/24 History oral suspension New Prescriptions to Start Prescriptions: Allergies Allergy/AdvReac Type Severity Reaction Status Date / Time metoclopramide [From Reglan] Allergy Intermediate Unknown Verified 02/20/24 14:04 allergy reaction Barbiturates [BARBITURATES] Allergy Unknown Unknown Verified 02/20/24 14:04 allergy reaction sulfamethoxazole Allergy Unknown Verified 02/20/24 14:04 [From Bactrim] allergy reaction trimethoprim [From Bactrim] Allergy Unknown Verified 02/20/24 14:04 allergy reaction bisoprolol AdvReac Mild HAIR LOSS Verified 02/20/24 14:04 diltiazem AdvReac Mild Dizziness Verified 02/20/24 14:04 Assessment and Plan *Assessment and plan (1) Pneumonia: Status: Acute Qualifiers: Laterality: left Lung location: lower lobe of lung Pneumonia type: due to unspecified organism Qualified Code(s): J18.9 - Pneumonia, unspecified organism Category: Medical Code(s): J18.9 - Pneumonia, unspecified organism (2) Multiple myeloma: Status: Acute Qualifiers: Multiple myeloma remission status: unspecified Qualified Code(s): C90.00 - Multiple myeloma not having achieved remission Category: Medical Code(s): C90.00 - Multiple myeloma not having achieved remission (3) Elevated troponin: Status: Acute Category: Medical Code(s): R79.89 - Other specified abnormal findings of blood chemistry (4) COPD mixed type: Status: Acute Category: Medical Code(s): J44.9 - Chronic obstructive pulmonary disease, unspecified (5) PAF (paroxysmal atrial fibrillation): Status: Acute Category: Medical Code(s): I48.0 - Paroxysmal atrial fibrillation (6) History of lung cancer: Status: Chronic Category: Medical Code(s): Z85.118 - Personal history of other malignant neoplasm of bronchus and lung (7) Hypertension: Status: Acute Qualifiers: Hypertension type: primary hypertension Qualified Code(s): I10 - Essential (primary) hypertension Category: Medical Code(s): I10 - Essential (primary) hypertension (8) Hyperlipidemia: Status: Acute Qualifiers: Hyperlipidemia type: mixed hyperlipidemia Qualified Code(s): E78.2 - Mixed hyperlipidemia Category: Medical Code(s): E78.5 - Hyperlipidemia, unspecified (9) Pleuritic chest pain: Status: Acute Category: Medical Code(s): R07.81 - Pleurodynia Plan 1. Pneumonia, left lower lobe and suspected UTI -on azithromycin IV 2. Pleuritic chest pain felt secondary to pneumonia -Single-dose of IV Toradol for pain relief 3. Elevated troponin likely secondary to pneumonia -Moderate CAD noted on CT of the chest 09/2023 with stress test showing no ischemia at that time -Echo pending 4. Elevated BNP -likely secondary to pneumonia and right heart strain 5. Multiple myeloma -Chemotherapy on hold due to recent low platelet count. Followed by Dr. Bergeron -Platelet count 197,000 this admission 6. History of hypertension -Well-controlled on current medication 7. COPD -Followed by pulmonary 8. History of lung cancer, status post right lower lobectomy in 2019 -Pleurx catheter in right side due to recurrent pleural effusion 9. Hypercalcemia -Check TSH and parathyroid hormone One-time dose of Toradol for pleuritic chest pain. Further pain meds per Dr. Morrow Continue monitoring renal status and use diuretics PRN. Elevated troponin and BNP are due to amyloidosis/pericardial effusion/strain from pneumonia. No plans for intervention or further testing at this time. Echocardiogram results pending
[2024-02-29] MEDS: KETOROLAC 30MG/ML VIAL 15 MG IV (15:11)
--- NOTE | 2024-02-29 15:36 | CA_ITS ---
APPROVED REPORT EXAM: Comprehensive 2D, Doppler, and color-flow Echocardiogram Dowel Maker: Anna Herbert RT(R) Ht: 5 ft 3 in Wt: 117lbs BSA: 1.54 BP: 103/60 mmHg Indications: pericardial effusion, ordered as a limited to reassess effusion since last echo 01/2024, COPD, ex smoker, edema, HTN, hyperlipidemia, SOB, elevated troponins, lung cancer, multiple myeloma, hx of TIA, LURDES, AFIB M-Mode Dimensions RVDd 2.68 cm (0.9-2.6) LVDd 4.18 cm (3.5-5.7) LVDs 3.33 cm (3.5-5.7) IVSd 1.11 cm (0.6-1.1) PWd 1.04 cm (0.6-1.1) EF (Teich) 42.00% FS 20.30% EDV (Teich) 77.70 mL ESV (Teich) 45.10 mL Tricuspid Valve TR P. Velocity 244.00 cm/s RAP Estimate 15.00 mmHg RVSP 38.80 mmHg Other Information Study Quality: Fair Conclusion This is a limited TTE to evaluate for pericardial effusion. Limited windows were obtained. There is a small-sized, anterior pericardial effusion present. The largest pocket measures approximately 0.3 cm in diastole. There are no clear echo indications of tamponade. Compared to prior study from 02/05/2024, the pericardial effusion appears unchanged. Electronically signed by : Maggie Herrera MD 03/01/2024 02:00:35
[2024-02-29 15:48] LABS: Reflex Lactic Add Lactic Reflex
[2024-02-29 15:53] LABS: Intact Parathyroid Hormone 19.1 pg/mL (7.5-53.5)
[2024-02-29 16:05] LABS: Troponin I 0.26 ng/ml (0.00-0.034)
[2024-02-29 16:06] LABS: T4 (Thyroxine) 5.4 ug/dl (5.53-11.0); Triiodothryronine (T3) Uptake 55 % (23.5-40.5)
[2024-02-29 18:13] LABS: Lactic Acid Follow Up (RFLX 1) 2.2 mmol/L (0.7-2.1)
[2024-02-29 18:16] LABS: Alanine Aminotransferase 26 U/L (12-78); Albumin Level 2.5 g/dl (3.5-5.0); Albumin/Globulin Ratio 0.6 (1.1-1.8); Alkaline Phosphatase 109 U/L (38-126); Anion Gap 10.5 mEq/L (5-15); Aspartate Amino Transferase 44 U/L (14-36); Bilirubin,Total 0.3 mg/dl (0.2-1.3); Blood Urea Nitrogen 38 mg/dl (7-17); Calcium 11.6 mg/dl (8.4-10.2); Carbon Dioxide 30 mmol/L (22.0-30.0); Chloride 97 mmol/L (98-107); Creatinine Clearance Estimated 27 mL/min (50-200); Estimated Glomerular Filt Rate 33 ml/min (>60); GFR (African American) 40 ML/MIN (>60); Globulin 4.2 g/dL (1.3-3.2); Glucose 89 mg/dl (74-100); Potassium 3.5 mmoL/L (3.5-5.1); Sodium 134 mmol/L (136-145); Total Protein,Serum 6.7 g/dl (6.3-8.2)
[2024-02-29 18:37] LABS: Troponin I 0.31 ng/ml (0.00-0.034)
[2024-02-29 19:57] LABS: Reflex Lactic (2 hrs) Add Lactic Reflex
[2024-02-29 20:32] LABS: Lactic Acid Follow up (RFLX 2) 2.8 mmol/L (0.7-2.1)
[2024-02-29] MEDS: PANTOPRAZOLE 40MG TABLET 40 MG PO (20:36)
[2024-03-01] VITALS (13 sets, daily range): BP systolic 86–107; BP diastolic 43–71; PULSE 80–113; RESP 14–25; TEMP 36.5–37; O2SAT 91–95; BMI 21.2
[2024-03-01 06:05] LABS: Basophils % 0.1 % (0.1-2.0); Eosinophils % 0.1 % (0.1-12.0); Hematocrit 33.7 % (37.0-47.0); Lymphocytes # 0.6 K/mm3 (0.7-4.5); Lymphocytes % 10.9 % (10-50); Mean Corpuscular HGB Conc 31.9 g/dL (31.8-35.4); Mean Corpuscular Hemoglobin 31.3 pg (27.0-31.2); Mean Corpuscular Volume 98.3 fl (81-99); Mean Platelet Volume 9.8 fl (7.4-10.4); Monocytes # 0.5 K/mm3 (0.1-1.0); Monocytes % 8.8 % (1.7-9.3); Neutrophils # 4.4 K/mm3 (1.8-7.8); Platelet Count 201 K/mm3 (142-424); Red Blood Count 3.43 M/mm3 (4.20-5.40); Red Cell Distribution Width 15.4 % (11.5-17.5); White Blood Count 5.5 K/mm3 (4.8-10.8)
[2024-03-01 06:10] LABS: Hemoglobin 10.8 g/dL (12.2-16.2)
[2024-03-01 06:18] LABS: Alanine Aminotransferase 26 U/L (12-78); Albumin Level 2.4 g/dl (3.5-5.0); Albumin/Globulin Ratio 0.6 (1.1-1.8); Alkaline Phosphatase 109 U/L (38-126); Anion Gap 9.3 mEq/L (5-15); Aspartate Amino Transferase 45 U/L (14-36); Bilirubin,Total 0.4 mg/dl (0.2-1.3); Blood Urea Nitrogen 41 mg/dl (7-17); Calcium 11.7 mg/dl (8.4-10.2); Carbon Dioxide 29 mmol/L (22.0-30.0); Chloride 100 mmol/L (98-107); Creatinine Clearance Estimated 24 mL/min (50-200); Estimated Glomerular Filt Rate 31 ml/min (>60); GFR (African American) 37 ML/MIN (>60); Globulin 4.1 g/dL (1.3-3.2); Glucose 77 mg/dl (74-100); Magnesium 2.2 mg/dl (1.6-2.3); Potassium 3.3 mmoL/L (3.5-5.1); Sodium 135 mmol/L (136-145); Total Protein,Serum 6.5 g/dl (6.3-8.2)
--- NOTE | 2024-03-01 06:55 | EXP.ACUTE.PN ---
Subjective *Date: 03/01/24 *Time: 17:15 Interval history: Patient still feeling fatigued today but a little bit better. Working with therapy this morning. Tolerating Ensure shakes, only tolerating about 25% of her trays. No nausea or vomiting. Afebrile overnight. Calcium a little improved but still elevated. On room air. Medical Exam Vital signs and Labs for Last 24 Hours: Vital Signs Temp Pulse Pulse Resp BP BP Pulse Ox 03/01/24 06:00 83 100/58 L 93 L 03/01/24 05:07 92 L 03/01/24 04:00 98.1 F 03/01/24 04:00 81 25 H 98/58 L 92 L 03/01/24 04:00 80 03/01/24 02:00 82 100/59 L 91 L 03/01/24 00:00 97.9 F 03/01/24 00:00 90 03/01/24 00:00 81 86/43 L 91 L 02/29/24 22:00 84 26 H 88/46 L 91 L 02/29/24 20:00 98.1 F 02/29/24 20:00 80 02/29/24 20:00 89 L 02/29/24 20:00 83 27 H 82/45 L 90 L 02/29/24 18:52 02/29/24 18:00 93 H 18 88/52 L 93 L 02/29/24 17:00 02/29/24 16:00 80 02/29/24 16:00 82 24 94/57 L 94 L 02/29/24 16:00 97.8 F 02/29/24 14:30 02/29/24 14:25 84 24 90/52 L 94 L 02/29/24 14:04 98.3 F 60 18 103/60 L 02/29/24 13:30 89 111/59 L 92 L 02/29/24 13:01 97 H 96/75 L 95 02/29/24 12:30 89 117/58 L 93 L 02/29/24 12:00 90 112/63 94 L 02/29/24 11:30 90 108/66 L 91 L 02/29/24 11:06 97.5 F L 89 16 124/78 95 O2 Del Method 03/01/24 06:00 Room Air 03/01/24 05:07 Room Air 03/01/24 04:00 03/01/24 04:00 Room Air 03/01/24 04:00 03/01/24 02:00 Room Air 03/01/24 00:00 03/01/24 00:00 03/01/24 00:00 Room Air 02/29/24 22:00 Room Air 02/29/24 20:00 02/29/24 20:00 02/29/24 20:00 Room Air 02/29/24 20:00 Room Air 02/29/24 18:52 Room Air 02/29/24 18:00 Room Air 02/29/24 17:00 Room Air 02/29/24 16:00 02/29/24 16:00 Room Air 02/29/24 16:00 02/29/24 14:30 Room Air 02/29/24 14:25 Room Air 02/29/24 14:04 Room Air 02/29/24 13:30 02/29/24 13:01 02/29/24 12:30 02/29/24 12:00 02/29/24 11:30 02/29/24 11:06 Room Air Intake and Output 02/29/24 02/29/24 03/01/24 15:59 23:59 07:59 Intake Total 240 / 240 Output Total 200 / 300 100 / 100 Balance -200 / -60 240 / -60 -100 / -100 Intake: Intake, Oral Amount 240 / 240 Output: Output, Urine Amount 200 / 300 100 / 100 Other: Number of Unmeasured Voids 1 Weight 57.153 kg 54.488 kg Patient Weight 03/01/24 23:59 Weight 54.488 kg Laboratory Results - last 24 hr 02/29/24 11:14: Urine Color Yellow, Urine Appearance Cloudy, Urine pH 6.0, Ur Specific [place] 1.025, Urine Protein Negative, Urine Glucose (UA) Negative, Urine Ketones Negative, Urine Blood Negative, Urine Nitrate Negative, Urine Bilirubin Negative, Urine Urobilinogen 1.0, Ur Leukocyte Esterase 1+ A, Urine RBC None, Urine WBC 3-5, Ur Squamous Epith Cells Occasional, Calcium Oxalate Crystal 1+, Urine Bacteria Trace, Hyaline Casts Occasional 02/29/24 11:25: WBC 9.7, RBC 3.95 L, Hgb 12.6, Hct 39.6, MCV 100.4 H, MCH 31.9 H, MCHC 31.8, RDW 15.4, Plt Count 197, MPV 9.6, Neut % (Auto) 83.4 H, Lymph % (Auto) 10.3, [place] % (Auto) 5.7, Eos % (Auto) 0.3, Baso % (Auto) 0.3, Neut # (Auto) 8.1 H, Lymph # (Auto) 1.0, [place] # (Auto) 0.6, Eos # (Auto) 0.0, Baso # (Auto) 0.0, Sodium 133 L, Potassium 4.0, Chloride 95 L, Carbon Dioxide 32 H, Anion Gap 10.0, BUN 40 H, Creatinine 1.30 H, Estimated Creat Clear 28, Estimated GFR 39 L, Est GFR ( Amer) 48 L, Glucose 92, Calcium 12.4 H*, Phosphorus 3.4, Magnesium 2.2, Total Bilirubin 0.8, AST 56 H, ALT 32, Alkaline Phosphatase 130 H, Troponin I 0.29 H, NT-Pro-B Natriuret Pep 92758 H, Total Protein 8.3 H, Albumin 3.2 L, Globulin 5.1 H, Albumin/Globulin Ratio 0.6 L 02/29/24 11:38: VBG pH 7.41, VBG pCO2 45.0, VBG pO2 33.3, VBG HCO3 27.6, VBG Total CO2 28.9 H, VBG O2 Saturation 56.1, VBG Base Excess 2.8 H, VBG Lactic Acid 3.1 H 02/29/24 15:00: Troponin I 0.26 H, TSH Cancelled 02/29/24 15:00: TSH 1.70, Free T4 Index 3.0 L, Thyroxine (T4) 5.4 L, T3 Uptake 55 H, PTH Intact 19.1 02/29/24 17:53: Sodium 134 L, Potassium 3.5, Chloride 97 L, Carbon Dioxide 30, Anion Gap 10.5, BUN 38 H, Creatinine 1.50 H, Estimated Creat Clear 27, Estimated GFR 33 L, Est GFR ( Amer) 40 L, Glucose 89, Lactate 2.2 H, Calcium 11.6 H, Total Bilirubin 0.3, AST 44 H, ALT 26, Alkaline Phosphatase 109, Troponin I 0.31 H, Total Protein 6.7, Albumin 2.5 L D, Globulin 4.2 H, Albumin/Globulin Ratio 0.6 L 02/29/24 20:12: Lactate 2.8 H 03/01/24 05:16: WBC 5.5 D, RBC 3.43 L, Hgb 10.8 L D, Hct 33.7 L, MCV 98.3, MCH 31.3 H, MCHC 31.9, RDW 15.4, Plt Count 201, MPV 9.8, Neut % (Auto) 80.0, Lymph % (Auto) 10.9, [place] % (Auto) 8.8, Eos % (Auto) 0.1, Baso % (Auto) 0.1, Neut # (Auto) 4.4, Lymph # (Auto) 0.6 L, [place] # (Auto) 0.5, Eos # (Auto) 0.0, Baso # (Auto) 0.0, Sodium 135 L, Potassium 3.3 L, Chloride 100, Carbon Dioxide 29, Anion Gap 9.3, BUN 41 H, Creatinine 1.60 H, Estimated Creat Clear 24, Estimated GFR 31 L, Est GFR ( Amer) 37 L, Glucose 77, Calcium 11.7 H, Magnesium 2.2, Total Bilirubin 0.4, AST 45 H, ALT 26, Alkaline Phosphatase 109, Total Protein 6.5, Albumin 2.4 L, Globulin 4.1 H, Albumin/Globulin Ratio 0.6 L I & O for Labs for Last 24 Hours: Intake & Output 02/27/24 02/28/24 02/29/24 03/01/24 23:59 23:59 23:59 23:59 Intake Total 240 / 240 Output Total 200 / 300 100 / 100 Balance 40 / -60 -100 / -100 Weight 57.153 kg 54.488 kg Constitutional: Present no acute distress, thin, chronically ill appearing and cooperative Head: Present atraumatic and normocephalic ENT: Present normal exam Neck: Present normal inspection Respiratory: Present crackles (Bilateral bases) and normal respiratory effort; Absent rhonchi or wheezes Comment:: Pleurx tube in right chest wall, no active bleeding Cardiac: Present Regular Rhythm and Tachycardia GI: Present normal bowel sounds; Absent tenderness Extremities: Present normal inspection and full ROM Skin: Present intact; Absent erythema Neuro: Present Grossly Intact, alert, awake, oriented x 3 and moves all extremities Assessment and Plan *Assessment and plan (1) Pneumonia: Status: Acute Qualifiers: Laterality: left Lung location: lower lobe of lung Pneumonia type: due to unspecified organism Qualified Code(s): J18.9 - Pneumonia, unspecified organism Category: Medical Code(s): J18.9 - Pneumonia, unspecified organism (2) Pleural effusion: Status: Acute Category: Medical Code(s): J90 - Pleural effusion, not elsewhere classified (3) Multiple myeloma: Status: Acute Qualifiers: Multiple myeloma remission status: unspecified Qualified Code(s): C90.00 - Multiple myeloma not having achieved remission Category: Medical Code(s): C90.00 - Multiple myeloma not having achieved remission (4) Elevated troponin: Status: Acute Category: Medical Code(s): R79.89 - Other specified abnormal findings of blood chemistry (5) COPD mixed type: Status: Acute Category: Medical Code(s): J44.9 - Chronic obstructive pulmonary disease, unspecified (6) PAF (paroxysmal atrial fibrillation): Status: Acute Category: Medical Code(s): I48.0 - Paroxysmal atrial fibrillation (7) History of lung cancer: Status: Chronic Category: Medical Code(s): Z85.118 - Personal history of other malignant neoplasm of bronchus and lung (8) Hypertension: Status: Acute Qualifiers: Hypertension type: primary hypertension Qualified Code(s): I10 - Essential (primary) hypertension Category: Medical Code(s): I10 - Essential (primary) hypertension (9) Hyperlipidemia: Status: Acute Qualifiers: Hyperlipidemia type: mixed hyperlipidemia Qualified Code(s): E78.2 - Mixed hyperlipidemia Category: Medical Code(s): E78.5 - Hyperlipidemia, unspecified (10) Pleuritic chest pain: Status: Acute Category: Medical Code(s): R07.81 - Pleurodynia (11) AL amyloidosis: Status: Acute Category: Medical Code(s): E85.81 - Light chain (AL) amyloidosis Plan This is an 83-year-old female who presents with weakness, left-sided chest pain, and fatigue. Found to have elevated troponin, BNP, and calcium. Concern for pneumonia versus UTI. Discussed case with the ER, request admission for further management. Medicine agreed to admit. Cardiology consulted. Necessitating stepdown level of care for treatment of her hypercalcemia and infection. PSI/port score of 141, risk class V. 27 to 29% mortality risk. Continues to require inpatient management. Calcium still elevated. Problems addressed as follows: Left lower lobe pneumonia Suspected UTI Pleural effusions -Initiated on ceftriaxone and azithromycin in the ER. Will continue daily IV -CT of chest obtained showing bilateral effusions but also has airspace disease in left lower portion of upper lung. -Supplemental oxygen as needed, currently satting above 90% on air - Continue Stiolto daily. Continue DuoNebs 4 times a day as needed -Urine culture pending Pleuritic chest pain felt secondary to pneumonia -Given YUSRA, will continue morphine 2 mg every 6 hours as needed for breakthrough pain, monitor for toxicity. Elevated troponin and elevated BNP likely secondary to pneumonia -Cardiology consulted to assist with care, appreciate their recommendations. moderate CAD noted on CT of the chest 09/2023 with stress test showing no ischemia at that time -Limited TTE to evaluate pericardial effusion. The effusion is unchanged and stable compared to echo from last month -Holding on diuresis; gentle hydration with 1 L of LR today. Patient does not appear volume overloaded -Holding hypertensive medications due to YUSRA and low normal blood pressures Multiple myeloma Hypercalcemia -TSH 1.7, parathyroid hormone 19. Both normal. -Hypercalcemia likely secondary to multiple myeloma. Status post 1 dose of zoledronic acid IV yesterday. -Calcium 11.7 -Interactive discussion with oncology today, recommends initiating dexamethasone 20 mg daily for her multiple myeloma and hypercalcemia. May also benefit her appetite and energy. -Repeat calcium level this evening; CBC, CMP, magnesium ordered for the morning. -Chemotherapy previously on hold in December due to low platelets, improved to 201 COPD -Breathing treatments as above. Stable on room air. Recurrent pleural effusion history of lung cancer, status post right lower lobectomy in 2019 - Pleurx catheter in right side due to recurrent pleural effusion The patient is hospitalized with above diagnoses complicated by her advanced age and immunocompromise status. Patient elects a full CODE STATUS. Her son Heriberto Shah, . is her POA. Regular diet Lovenox 30 mg subcu daily
--- NOTE | 2024-03-01 07:28 | CT_ITS ---
FINAL REPORT TECHNIQUE: Axial images through the chest were performed by computed tomography. This study was performed with techniques to keep radiation doses as low as reasonably achievable, (ALARA). Individualized dose reduction techniques using automated exposure control or adjustment of mA and/or kV according to the patient's size were employed. CLINICAL HISTORY: eval for pna vs effusion COMPARISON: 02/04/2024 FINDINGS: CHEST CT WITHOUT CONTRAST: A few scattered mediastinal lymph nodes are noted, similar to the previous exam of February 03. No axillary or hilar adenopathy is present. There is no change in the small pericardial effusion seen on the prior exam. There is volume loss in the right hemithorax, with pleural and parenchymal scarring in the medial right hemithorax, stable since the prior exam. There is a moderate-sized effusion at the right base, with a pleural catheter, unchanged. A small left pleural effusion is now present, new since the prior exam, along with atelectasis at the left lung base, also noted. There is new consolidation in the inferior aspect of the lingula. IMPRESSION: Volume loss in the right hemithorax, with pleural and parenchymal scarring, stable. The moderate-sized right effusion is also stable. Small left pleural effusion, new, along with atelectasis in the left base. There is also new consolidation in the inferior aspect of the lingula. Small pericardial effusion, unchanged. Reviewed, Interpreted and Dictated by Manuel Gordillo MD Transcribed by Luisa Arteaga Authenticated and [facility]
--- NOTE | 2024-03-01 07:51 | PC.NURSE ---
Pt off unit with Marika nixon RN for CT of chest at this time
[2024-03-01 08:24] LABS: Prealbumin 7 mg/dL (9-32)
--- NOTE | 2024-03-01 09:07 | EXP.CARD.PN ---
Subjective Subjective Date: 03/01/24 Time: 09:07 Principal diagnosis: Pneumonia Interval history: 83-year-old white female in bed in no acute distress but does relate to weakness and fatigue. Continues to have some left-sided chest pain with deep breathing. Just returned from CT of the chest this morning. Limited echocardiogram yesterday showed stable pericardial effusion with no evidence of tamponade. EF is estimated about 42%. Increase creatinine after IV diuretic given yesterday. Exam Data for Last 24 hours Vital signs and Labs for Last 24 Hours: Temp Pulse Resp BP Pulse Ox O2 Del Method 97.8 F 85 20 102/60 L 92 L Room Air 03/01/24 08:00 03/01/24 08:00 03/01/24 08:00 03/01/24 08:00 03/01/24 08:00 03/01/24 08:00 Laboratory Results - last 24 hr 02/29/24 11:14: Urine Color Yellow, Urine Appearance Cloudy, Urine pH 6.0, Ur Specific [place] 1.025, Urine Protein Negative, Urine Glucose (UA) Negative, Urine Ketones Negative, Urine Blood Negative, Urine Nitrate Negative, Urine Bilirubin Negative, Urine Urobilinogen 1.0, Ur Leukocyte Esterase 1+ A, Urine RBC None, Urine WBC 3-5, Ur Squamous Epith Cells Occasional, Calcium Oxalate Crystal 1+, Urine Bacteria Trace, Hyaline Casts Occasional 02/29/24 11:25: WBC 9.7, RBC 3.95 L, Hgb 12.6, Hct 39.6, MCV 100.4 H, MCH 31.9 H, MCHC 31.8, RDW 15.4, Plt Count 197, MPV 9.6, Neut % (Auto) 83.4 H, Lymph % (Auto) 10.3, [place] % (Auto) 5.7, Eos % (Auto) 0.3, Baso % (Auto) 0.3, Neut # (Auto) 8.1 H, Lymph # (Auto) 1.0, [place] # (Auto) 0.6, Eos # (Auto) 0.0, Baso # (Auto) 0.0, Sodium 133 L, Potassium 4.0, Chloride 95 L, Carbon Dioxide 32 H, Anion Gap 10.0, BUN 40 H, Creatinine 1.30 H, Estimated Creat Clear 28, Estimated GFR 39 L, Est GFR ( Amer) 48 L, Glucose 92, Calcium 12.4 H*, Phosphorus 3.4, Magnesium 2.2, Total Bilirubin 0.8, AST 56 H, ALT 32, Alkaline Phosphatase 130 H, Troponin I 0.29 H, NT-Pro-B Natriuret Pep 58580 H, Total Protein 8.3 H, Albumin 3.2 L, Globulin 5.1 H, Albumin/Globulin Ratio 0.6 L, Prealbumin 7 L 02/29/24 11:38: VBG pH 7.41, VBG pCO2 45.0, VBG pO2 33.3, VBG HCO3 27.6, VBG Total CO2 28.9 H, VBG O2 Saturation 56.1, VBG Base Excess 2.8 H, VBG Lactic Acid 3.1 H 02/29/24 15:00: Troponin I 0.26 H, TSH Cancelled 02/29/24 15:00: TSH 1.70, Free T4 Index 3.0 L, Thyroxine (T4) 5.4 L, T3 Uptake 55 H, PTH Intact 19.1 02/29/24 17:53: Sodium 134 L, Potassium 3.5, Chloride 97 L, Carbon Dioxide 30, Anion Gap 10.5, BUN 38 H, Creatinine 1.50 H, Estimated Creat Clear 27, Estimated GFR 33 L, Est GFR ( Amer) 40 L, Glucose 89, Lactate 2.2 H, Calcium 11.6 H, Total Bilirubin 0.3, AST 44 H, ALT 26, Alkaline Phosphatase 109, Troponin I 0.31 H, Total Protein 6.7, Albumin 2.5 L D, Globulin 4.2 H, Albumin/Globulin Ratio 0.6 L 02/29/24 20:12: Lactate 2.8 H 03/01/24 05:16: WBC 5.5 D, RBC 3.43 L, Hgb 10.8 L D, Hct 33.7 L, MCV 98.3, MCH 31.3 H, MCHC 31.9, RDW 15.4, Plt Count 201, MPV 9.8, Neut % (Auto) 80.0, Lymph % (Auto) 10.9, [place] % (Auto) 8.8, Eos % (Auto) 0.1, Baso % (Auto) 0.1, Neut # (Auto) 4.4, Lymph # (Auto) 0.6 L, [place] # (Auto) 0.5, Eos # (Auto) 0.0, Baso # (Auto) 0.0, Sodium 135 L, Potassium 3.3 L, Chloride 100, Carbon Dioxide 29, Anion Gap 9.3, BUN 41 H, Creatinine 1.60 H, Estimated Creat Clear 24, Estimated GFR 31 L, Est GFR ( Amer) 37 L, Glucose 77, Calcium 11.7 H, Magnesium 2.2, Total Bilirubin 0.4, AST 45 H, ALT 26, Alkaline Phosphatase 109, Total Protein 6.5, Albumin 2.4 L, Globulin 4.1 H, Albumin/Globulin Ratio 0.6 L I & O for Last 24 hours: Intake & Output 02/27/24 02/28/24 02/29/24 03/01/24 11:59 11:59 11:59 11:59 Intake Total 510 / 510 Output Total 300 / 300 Balance 210 / 210 Weight 117 lb 120 lb 2 oz Constitutional Constitutional: no acute distress *Routine Respiratory Exam Respiratory: Present diminished air movement *Routine Cardiovascular Exam Cardiovascular: Present RRR *Routine Neurological Exam Neurological: Present alert and oriented X3 Progress Note: A&P Assessment and plan (1) Pneumonia: Status: Acute (2) Pleural effusion: Status: Acute (3) Multiple myeloma: Status: Acute (4) Elevated troponin: Status: Acute (5) COPD mixed type: Status: Acute (6) PAF (paroxysmal atrial fibrillation): Status: Acute (7) History of lung cancer: Status: Chronic (8) Hypertension: Status: Acute (9) Hyperlipidemia: Status: Acute (10) Pleuritic chest pain: Status: Acute (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 Pneumonia, left lower lobe and suspected UTI -on azithromycin IV 2. Pleuritic chest pain felt secondary to pneumonia 3. Elevated troponin likely secondary to pneumonia -Moderate CAD noted on CT of the chest 09/2023 with stress test showing no ischemia at that time -Echo shows normal EF with stable pericardial effusion 4. Elevated BNP -likely secondary to pneumonia and right heart strain 5. Multiple myeloma -Chemotherapy on hold due to recent low platelet count. Followed by Dr. Bergeron -Platelet count 197,000 this admission 6. History of hypertension -Well-controlled on current medication 7. COPD -Followed by pulmonary 8. History of lung cancer, status post right lower lobectomy in 2019 -Pleurx catheter in right side due to recurrent pleural effusion 9. Hypercalcemia -Improved with IVF -normal TSH and PTH Nothing to add from cardiology standpoint. CT of chest results pending. Use diuretics cautiously due to YUSRA/CKD. Poor prognosis due to worsening multiple myeloma and poor appetite.
--- NOTE | 2024-03-01 10:38 | HMH.OTEV ---
OT Inpatient Evaluation Rehab OT IP Evaluation Start: 03/01/24 09:42 Freq: ONCE Status: Active Protocol: Document 03/01/24 10:27 TYLER (Rec: 03/01/24 10:37 TYLER [id number]) Rehab OT IP Assessment Subjective History Ms. Shah is an 83-year-old female who presents to [facility] emergency department with concerns of weakness, left- sided chest pain, fatigue. Extensive history with lung cancer diagnosed in 2019, multiple myeloma diagnosed earlier this year. Has indwelling Pleurx catheter in right chest due to recurring pleural effusion. Status post VATS procedure. Patient presented to the ER because of generalized weakness over the past several days. Has had a decreased appetite and also complains of pain in her left chest for the past 2 to 3 days . Denies any fever, nausea, vomiting, diarrhea. Workup in the ER concerning for pneumonia versus effusion in the left hemithorax, abnormal urine tract and possible UTI. Calcium elevated at 12.4, creatinine 1.3 with BUN of 40 consistent with YUSRA. Troponin elevated to 0.29 with elevated BNP of 24,000. Patient was initiated on IV antibiotics administered a dose of diuretic, and administered on IV fluids to help flush calcium. Medicine was consulted for admission. Arrival to the floor, patient appears quite weak. She is stable on room air. States that she drained 900 cc from her Pleurx drain just today. Drains at twice weekly. Has not had chemotherapy in several months due to low platelets. Recently had repeat test with oncology, does not know the results yet. Due to her bone pain creatinine, troponin, BNP, cardiology consulted to assist with care. Of note, EKG in sinus rhythm with no ST abnormalities History of Lung Cancer stage IIIa SCC, treated at in 2019 A. History of chest radiation , immunotherapy and chemotherapy after RLL lobectomy B. Remote history of 30-pack- year tobacco use C. Recurrent right pleural effusion status post thoracentesis and VATS procedure with PleurX cath placement Newly diagnosed IgG kappa myeloma, October [address] Bergeron B. PET CT scan 10/18/2023 revealed diffuse osseous hypermetabolism most likely secondary to marrow stimulation. C. Bone marrow biopsy 2023 noted kappa restricted plasma cell population representing approximately 80% of hypercellular bone marrow. D. Chemotherapy started 2023 (velcade) held in December 2023 due to low platelets. Patient lives in 1 story home with 2 AILYN. REcommend railing and possible ramp to enter home. Independent with ADLs and fx'l mobility. Patient reported that she has a RW at home if needed. HH services 2x /wk. Subjective I want to go home. Instructed Patient on proper hand and foot placement to complete bed mobility from supine->sit @ EOB requiring Min A. Patient stated, I need to use the restroom. Instructed Patient on proper hand and foot placement to complete SPT to BSC with usage of RW. Patient able to complete toilet hygiene independently. Instructed patient to complete SPT with usage of RW from BSC->recliner with min A. Objective Patient Orientation Person,Name,Age,Birthday,Year Right Upper Extremity Gross ROM WFL Left Upper Extremity Gross ROM WFL Bed Mobility bed mobility - supine/sit Assist Level Minimal x 1 (25% assist) Transfer Training Sit/Stand/Pivot Transfer Assist Level Minimal x 1 (25% assist) Chair Transfer Ability Minimal x 1 (25% assist) Chair Transfer Technique Sit to/from Ambulatory Chair Transfer Assistive Devices Rolling Walker Overall Commode/Toilet Transfer Ability Minimal Assistance Commode/Toilet Transfer Technique Sit to/from Ambulatory Rehab OT IP prob,goals,plan Problems Date of Evaluation: 03/01/24 OT IP Problems Bed Mobility,Transfers,Balance ,Self care,Safety Rehab Potential Rehab Potential Good Equipment Needs Assistive Devices Rolling / Wheeled Walker Plan OT intervention Plan Bed Mobility,Transfers,Balance ,Self care,Safety,Therapeutic Exercise OT Plan Frequency Daily Duration LOS Discharge Goals Bed Mobility Ability Standby Assistance Sit to Stand Chair Transfer Ability Contact Guard/Hand Hold Chair Transfer Ability Contact Guard/Hand Hold Chair Transfer Technique Sit to/from Ambulatory Chair Transfer Assistive Devices Rolling Walker Performing Toilet Hygiene Ability Contact Guard Overall Commode/Toilet Transfer Ability Contact Guard Commode/Toilet Transfer Technique Sit to/from Ambulatory Discharge Plan OT Discharge Plan REcommend placement at this time due to patient being weak and needing assistance to safely transfers for fx'l mobility and ADLs. However Patient is wanting to return home with HH services. Patient to continue skilled OT IP services til medically d/c. Eval Complexity Eval Charge Codes 11191 - Low Complexity PHYSICIAN CERTIFICATION: I certify the specified therapy services for Araceli Holguin Alyssa are required, authorized, and reviewed every 30 days.
--- NOTE | 2024-03-01 10:56 | SW/DCPLANNER ---
Addendum entered by Daily Reed 03/06/24 11:04: I spoke w/ patient's daughter this AM regarding home health services. Per Mayda w/ [facility] services will start tomorrow 03/07/24 for this patient. Daughter did not have any further concerns/needs at this time. Original Note: I spoke w/ patient regarding plans once medically stable for discharge. PT/OT evaluated patient and recommended placement or home w/ home health. Patient stated that she is currently established w/ [facility] and prefers to return home w/ their services. Patient stated that she does have family at home to assist. I will continue to follow up w/ patient and MD. Patient may discharge home tomorrow pending no setbacks. Updated information/order for resumption will be faxed to [facility] at discharge.
[2024-03-01] MEDS: DEXAMETHASONE 4MG TABLET 20 MG PO (10:57)
[2024-03-01] MEDS: POTASSIUM CHLORIDE 20MEQ TAB 20 MEQ PO ×3 (10:57→20:34)
[2024-03-01] MEDS: CEFTRIAXONE SODIUM 1 GM in 0.9 % SODIUM CHLORIDE 50 ML IV (10:58)
[2024-03-01] MEDS: LACTATED RINGERS 1000ML 1,000 ML 250 ML IV (10:58)
--- NOTE | 2024-03-01 12:13 | HMH.PTEV ---
Physical Therapy Evaluation Rehab PT IP Evaluation Start: 03/01/24 09:42 Freq: ONCE Status: Active Protocol: Document 03/01/24 10:45 PHORNE (Rec: 03/01/24 12:13 PHORNE Laptop) Subjective/History History History 83 yowf adm to [facility] with YUSRA and CHF exac. She has extensive history with lung cancer diagnosed in 2019, multiple myeloma diagnosed earlier this year. Has indwelling Pleurx catheter in right chest due to recurring pleural effusion. Status post VATS procedure. She reports she lives alone, no steps to enter the home and she is independent with all mobility using rolator RW at all times at baseline. She has home health nursing services at baseline also. Subjective Subjective Pt reports she feels weak in general at this time, but agrees to mobility assessment. New diagnosis of cancer in past 12 Yes months? Rehab PT IP Eval Objective Appearance Patient Behavior Appropriate Patient Orientation Person,Place,Time Difficulty following instructions none Speech Pattern Clear Ambulation Patient Able to Ambulate Yes Ambulation Observation IP General Gait Pattern Observation Shuffling Step Ambulation Distance (feet) 30 Ambulation Assistive Device Rolling Walker Ambulation Ability Supervision/Stand by Balance Ability to Arise Able, uses arms to help Sitting Balance Steady, safe Standing Balance Steady, wide stance Dynamic Sitting Balance Ability Good Dynamic Standing Balance Ability Good Transfers Bed Transfer Ability Supervision/Stand by Chair Transfer Ability Supervision/Stand by Sit to Stand Bed Transfer Ability Supervision/Stand by Sit to Stand Chair Transfer Ability Supervision/Stand by Rehab PT IP prob,goals,plan Problems Date of Evaluation: 03/01/24 PT IP Problems Bed Mobility,Transfers,Gait Rehab Potential Rehab Potential Good Plan PT Intervention Plan Bed Mobility,Transfers,Gait, Safety PT Plan Frequency Daily Duration LOS Discharge Goals Bed Transfer Ability Independent Sit to Stand Chair Transfer Ability Independent Ambulation Assistive Device Rolling Walker Ambulation Distance (feet) 40 Discharge Plan PT Discharge Plan Pt is appropriate to return home with home health services once medically stable for d/c . Recommend home health therapy services after d/c to home. Skilled therapy is indicated to prevent further debility, falls, or injury and aid pt to return to her PLOF Eval Complexity Eval Charge Codes 36861 - High Complexity PHYSICIAN CERTIFICATION: I certify the specified therapy services for Araceli Holguin Alyssa are required, authorized, and reviewed every 30 days.
[2024-03-01] MEDS: AZITHROMYCIN 500 MG in 0.9 % SODIUM CHLORIDE 250 ML 250 MG IV (13:26)
[2024-03-01 17:18] LABS: Chloride 105 mmol/L (98-107); Potassium 4.1 mmoL/L (3.5-5.1); Sodium 137 mmol/L (136-145)
[2024-03-01 17:20] LABS: Blood Urea Nitrogen 39 mg/dl (7-17); Creatinine Clearance Estimated 27 mL/min (50-200); Estimated Glomerular Filt Rate 36 ml/min (>60); GFR (African American) 44 ML/MIN (>60)
[2024-03-01 17:21] LABS: Alanine Aminotransferase 29 U/L (12-78); Albumin Level 2.4 g/dl (3.5-5.0); Albumin/Globulin Ratio 0.6 (1.1-1.8); Alkaline Phosphatase 120 U/L (38-126); Anion Gap 12.1 mEq/L (5-15); Aspartate Amino Transferase 49 U/L (14-36); Bilirubin,Total 0.3 mg/dl (0.2-1.3); Calcium 11.2 mg/dl (8.4-10.2); Carbon Dioxide 24 mmol/L (22.0-30.0); Glucose 124 mg/dl (74-100); Total Protein,Serum 6.4 g/dl (6.3-8.2)
--- NOTE | 2024-03-01 17:35 | PC.NURSE ---
Patient has alternated from bed to chair this shift. she is able to ambulate to and from the bathroom with standby assist with the walker. pt endorses being cold, while heat in room is elevated. pt has remained afebrile this shift. pt at this time c/o pain in back. pt has family at bedside at this time nad noted. pt lung sounds are clear throughout bilaterally. pt bowel sounds are active in all quads. pt states that she has had a small bm this shift.
[2024-03-01] MEDS: ENOXAPARIN 30MG/0.3ML SYRINGE 30 MG SQ (17:40)
[2024-03-01] MEDS: MORPHINE 2MG/ML SYRINGE 2 MG IV (17:40)
[2024-03-01] MEDS: NYSTATIN SUSP 500,000 UNITS/5ML UDC 500000 UNIT PO (20:34)
[2024-03-01] MEDS: PANTOPRAZOLE 40MG TABLET 40 MG PO (20:35)
[2024-03-01] MEDS: ATORVASTATIN 40MG TABLET 40 MG PO (20:35)
--- NOTE | 2024-03-01 22:16 | PC.NURSE ---
RESP CARE NOTE: Pt sputum sent down at this time
[2024-03-01] MEDS: diazePAM 5MG TABLET 5 MG PO (22:42)
[2024-03-02] VITALS: PULSE 100
--- NOTE | 2024-03-02 03:29 | PC.NURSE ---
pt A&O at start of shift, around 2200 pt became anxious and mildly confused, pt wandered into hallway looking for sejal's room and thinking she was at [place]. pt was reoriented and assisted back into bed. pt ambulates in room with assistance, bed alarm is on for safety, call button is in reach.
[2024-03-02 04:00] VITALS: BP 106/68; PULSE 108; PULSE 110; RESP 17; TEMP 36.9; O2SAT 95; BMI 21.2
[2024-03-02] MEDS: LEVOTHYROXINE 50MCG (0.05MG) TAB 50 MCG PO (06:07)
[2024-03-02 07:51] LABS: Alanine Aminotransferase 34 U/L (12-78); Albumin Level 2.7 g/dl (3.5-5.0); Albumin/Globulin Ratio 0.6 (1.1-1.8); Alkaline Phosphatase 139 U/L (38-126); Anion Gap 10.6 mEq/L (5-15); Aspartate Amino Transferase 50 U/L (14-36); Bilirubin,Total 0.4 mg/dl (0.2-1.3); Blood Urea Nitrogen 43 mg/dl (7-17); Carbon Dioxide 28 mmol/L (22.0-30.0); Chloride 103 mmol/L (98-107); Creatinine Clearance Estimated 29 mL/min (50-200); Estimated Glomerular Filt Rate 39 ml/min (>60); GFR (African American) 48 ML/MIN (>60); Globulin 4.4 g/dL (1.3-3.2); Glucose 113 mg/dl (74-100); Magnesium 2.2 mg/dl (1.6-2.3); Potassium 4.6 mmoL/L (3.5-5.1); Sodium 137 mmol/L (136-145); Total Protein,Serum 7.1 g/dl (6.3-8.2)
[2024-03-02 08:00] VITALS: BP 117/54; PULSE 110; PULSE 112; RESP 20; TEMP 36.3; O2SAT 96
--- NOTE | 2024-03-02 08:04 | EXP.DC.SUM ---
General Admission date:: 02/29/24 Discharge date: 03/02/24 HPI HPI HPI: Ms. Shah is an 83-year-old female who presents to [facility] emergency department with concerns of weakness, left-sided chest pain, fatigue. Extensive history with lung cancer diagnosed in 2019, multiple myeloma diagnosed earlier this year. Has indwelling Pleurx catheter in right chest due to recurring pleural effusion. Status post VATS procedure. Patient presented to the ER because of generalized weakness over the past several days. Has had a decreased appetite and also complains of pain in her left chest for the past 2 to 3 days. Denies any fever, nausea, vomiting, diarrhea. Workup in the ER concerning for pneumonia versus effusion in the left hemithorax, abnormal urine tract and possible UTI. Calcium elevated at 12.4, creatinine 1.3 with BUN of 40 consistent with YUSRA. Troponin elevated to 0.29 with elevated BNP of 24,000. Patient was initiated on IV antibiotics administered a dose of diuretic, and administered on IV fluids to help flush calcium. Medicine was consulted for admission. Arrival to the floor, patient appears quite weak. She is stable on room air. States that she drained 900 cc from her Pleurx drain just today. Drains at twice weekly. Has not had chemotherapy in several months due to low platelets. Recently had repeat test with oncology, does not know the results yet. Due to her bone pain creatinine, troponin, BNP, cardiology consulted to assist with care. Of note, EKG in sinus rhythm with no ST abnormalities History of Lung Cancer stage IIIa SCC, treated at in 2019 A. History of chest radiation, immunotherapy and chemotherapy after RLL lobectomy B. Remote history of [id number] tobacco use C. Recurrent right pleural effusion status post thoracentesis and VATS procedure with PleurX cath placement Newly diagnosed IgG kappa myeloma, October [address] Bergeron B. PET CT scan 10/18/2023 revealed diffuse osseous hypermetabolism most likely secondary to marrow stimulation. C. Bone marrow biopsy 10/24/2023 noted kappa restricted plasma cell population representing approximately 80% of hypercellular bone marrow. D. Chemotherapy started 11/2023 (velcade) held in December 2023 due to low platelets Hospital Course Hospital Course Hospital Course: This is an 83-year-old female who presents with weakness, left-sided chest pain, and fatigue. Found to have elevated troponin, BNP, and calcium. Concern for pneumonia versus UTI. Discussed case with the ER, request admission for further management. Medicine agreed to admit. Cardiology consulted. Necessitating stepdown level of care for treatment of her hypercalcemia and infection. PSI/port score of 141, risk class V. 27 to 29% mortality risk. Treated with IV antibiotics during admission. Treatment of her hypercalcemia and multiple myeloma with medical management including steroids and zoledronic acid. Patient stable on room air during admission and meeting criteria for discharge home. Patient states she does not want to go to a nursing facility and family is comfortable taking her home. Will discharge in their care. Has close follow-up with oncology next week to discuss further treatment options. Problems addressed as follows: Left lower lobe pneumonia Suspected UTI Pleural effusions -Initiated on ceftriaxone and azithromycin in the ER. Continues during admission. Patient completed 3 days of azithromycin 500 mg daily, will complete 7-day course of cephalosporin with transition to cefdinir. CT of chest obtained showing bilateral effusions but also has airspace disease in left lower portion of upper lung. Oxygen remained above 90% during admission. Did not need supplemental oxygen. Continued home breathing treatments with Stiolto and DuoNebs as needed. Of note, her urine culture did not grow specific pathogen. Was mixed lety concerning for contaminant. No specific treatment for UTI at discharge. Pleuritic chest pain felt secondary to pneumonia Elevated troponin and elevated BNP likely secondary to pneumonia -Cardiology consulted to assist with care, appreciate their recommendations. moderate CAD noted on CT of the chest 09/2023 with stress test showing no ischemia at that time -Limited TTE to evaluate pericardial effusion. The effusion is unchanged and stable compared to echo from last month -Holding on diuresis due to kidney dysfunction. Patient does not appear volume overloaded -Holding hypertensive medications due to YUSRA and low normal blood pressures Multiple myeloma Hypercalcemia -TSH 1.7, parathyroid hormone 19. Both normal. Hypercalcemia likely secondary to her multiple myeloma. Received 1 dose zoledronic acid IV during admission. Calcium 12 on day of discharge. Patient having some mild confusion but reorients after talking to her son. Started on dexamethasone 20 mg daily for her multiple myeloma and hypercalcemia after consultation with oncology. Chemotherapy previously on hold in December due to low platelets, improved to 198 COPD -Breathing treatments as above. Stable on room air. Recurrent pleural effusion history of lung cancer, status post right lower lobectomy in 2019 - Pleurx catheter in right side due to recurrent pleural effusion Total time spent on discharge 45 minutes in counseling, documentation, chart review, and direct care with patient. Exam Data for Last 24 hours Vital signs and Labs for Last 24 Hours: Temp Pulse Resp BP Pulse Ox O2 Del Method 98.5 F 108 H 17 106/68 L 95 Room Air 03/02/24 04:00 03/02/24 04:00 03/02/24 04:00 03/02/24 04:00 03/02/24 04:00 03/02/24 07:36 Laboratory Results - last 24 hr 02/29/24 11:25: Prealbumin 7 L 03/01/24 16:40: Sodium 137, Potassium 4.1 D, Chloride 105, Carbon Dioxide 24, Anion Gap 12.1, BUN 39 H, Creatinine 1.40 H, Estimated Creat Clear 27, Estimated GFR 36 L, Est GFR ( Amer) 44 L, Glucose 124 H D, Calcium 11.2 H, Total Bilirubin 0.3, AST 49 H, ALT 29, Alkaline Phosphatase 120, Total Protein 6.4, Albumin 2.4 L, Globulin 4.0 H, Albumin/Globulin Ratio 0.6 L I & O for Last 24 hours: Intake & Output 02/28/24 02/29/24 03/01/24 03/02/24 23:59 23:59 23:59 23:59 Intake Total 240 / 240 211 / 2350 240 / 240 Output Total 200 / 300 100 / 100 0 / 0 Balance 40 / -60 2009 240 / 240 Weight 57.153 kg 54.48 kg 54.48 kg Constitutional Constitutional: no acute distress, thin, chronically ill appearing and cooperative *Routine HEENT Exam Head: Present normocephalic Eye: Present EOMI and PERRL ENT: Present mucous membranes moist *Routine Neck Exam Neck: Present supple; Absent lymphadenopathy *Routine Respiratory Exam Respiratory: Present prolonged expiratory phase, crackles (Bilateral bases) and normal respiratory effort; Absent rhonchi or wheezes *Routine Cardiovascular Exam Cardiovascular: Present RRR *Routine Abdominal Exam Abdominal: Present soft and normoactive bowel sounds; Absent tenderness *Routine Rectal Exam Patient deferred: visual exam *Routine Exam Patient deferred: external exam *Routine Extremities Exam Extremities: Present edema (1+ bilateral ankles); Absent cyanosis or clubbing *Routine Skin Exam Skin: Present intact and warm; Absent rash *Routine Neurological Exam Neurological: Present alert and moving all extremities; Absent altered mental status Comments: Patient oriented to self, keeps confusing hospital with nursing facility in her home. Orients well briefly but then gets confused again. Knows who I am and remembers my name. Knows her son. Knows she is been in the hospital for her cancer. Results Data Completed and Pending Labs on day of discharge: Labs from last 24 hours 03/01/24 02/29/24 16:40 11:25 Sodium 137 Potassium 4.1 D Chloride 105 Carbon Dioxide 24 Anion Gap 12.1 BUN 39 H Creatinine 1.40 H Estimated Creat Clear 27 Estimated GFR 36 L Est GFR ( Amer) 44 L Glucose 124 H D Calcium 11.2 H Total Bilirubin 0.3 AST 49 H ALT 29 Alkaline Phosphatase 120 Total Protein 6.4 Albumin 2.4 L Globulin 4.0 H Albumin/Globulin Ratio 0.6 L Prealbumin 7 L DS: Diagnosis Discharge Diagnosis (1) Pneumonia: Status: Acute Code(s): J18.9 - Pneumonia, unspecified organism Qualifiers: Laterality: left Lung location: lower lobe of lung Pneumonia type: due to unspecified organism Qualified Code(s): J18.9 - Pneumonia, unspecified organism (2) Pleural effusion: Status: Acute Code(s): J90 - Pleural effusion, not elsewhere classified (3) Multiple myeloma: Status: Acute Code(s): C90.00 - Multiple myeloma not having achieved remission Qualifiers: Multiple myeloma remission status: unspecified Qualified Code(s): C90.00 - Multiple myeloma not having achieved remission (4) Elevated troponin: Status: Acute Code(s): R79.89 - Other specified abnormal findings of blood chemistry (5) COPD mixed type: Status: Acute Code(s): J44.9 - Chronic obstructive pulmonary disease, unspecified (6) PAF (paroxysmal atrial fibrillation): Status: Acute Code(s): I48.0 - Paroxysmal atrial fibrillation (7) History of lung cancer: Status: Chronic Code(s): Z85.118 - Personal history of other malignant neoplasm of bronchus and lung (8) Hypertension: Status: Acute Code(s): I10 - Essential (primary) hypertension Qualifiers: Hypertension type: primary hypertension Qualified Code(s): I10 - Essential (primary) hypertension (9) Hyperlipidemia: Status: Acute Code(s): E78.5 - Hyperlipidemia, unspecified Qualifiers: Hyperlipidemia type: mixed hyperlipidemia Qualified Code(s): E78.2 - Mixed hyperlipidemia (10) Pleuritic chest pain: Status: Acute Code(s): R07.81 - Pleurodynia (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 - Light chain (AL) amyloidosis Meds Home Medications and Allergies Home Medications Medication Instructions Recorded Confirmed Type diazepam 5 mg tablet 5 mg PO HSP PRN Insomnia 05/12/22 02/29/24 History atorvastatin 40 mg tablet 40 mg PO DAILY 09/16/23 02/29/24 History ergocalciferol (vitamin D2) 1,250 50,000 unit PO WEEKLY 09/16/23 02/29/24 History mcg (50,000 unit) capsule levothyroxine 50 mcg tablet 50 mcg PO DAILY 09/16/23 02/29/24 History omeprazole 20 mg capsule,delayed 20 mg PO DAILY 12/01/23 02/29/24 History release tiotropium 2.5 mcg-olodaterol 2.5 2 puff inhalation DAILY 12/01/23 02/29/24 History mcg/actuation mist for inhalation (Stiolto Respimat) furosemide 20 mg tablet (Lasix) 40 mg (2 x 20 mg) PO DAILY #90 tabs 01/16/24 02/29/24 Rx ipratropium 0.5 mg-albuterol 3 mg 3 ml inhalation QIDP PRN shortness 02/29/24 02/29/24 History (2.5 mg base)/3 mL nebulization of breath or wheezing soln cefdinir 300 mg capsule 300 mg PO BID 4 days #8 caps 03/02/24 Rx dexamethasone 4 mg tablet 20 mg (5 x 4 mg) PO DAILY 4 days 03/02/24 Rx #20 tabs nystatin 100,000 unit/mL oral 500,000 unit (5 mL) PO QID 7 days 03/02/24 Rx suspension #140 mL New Prescriptions to Start Prescriptions: cefchapincitoir Hasmukh Morrow dexamethasone Odalys,Hasmukh nystatin Hasmukh Morrow Allergies Allergy/AdvReac Type Severity Reaction Status Date / Time metoclopramide [From Reglan] Allergy Intermediate Unknown Verified 02/20/24 14:04 allergy reaction Barbiturates [BARBITURATES] Allergy Unknown Unknown Verified 02/20/24 14:04 allergy reaction sulfamethoxazole Allergy Unknown Verified 02/20/24 14:04 [From Bactrim] allergy reaction trimethoprim [From Bactrim] Allergy Unknown Verified 02/20/24 14:04 allergy reaction bisoprolol AdvReac Mild HAIR LOSS Verified 02/20/24 14:04 diltiazem AdvReac Mild Dizziness Verified 02/20/24 14:04 Discharge Plan Disposition Patient Disposition: Home Health Service Condition: Fair Discharge Order Discharge Orders: Discharge Order (Routine); Ordered 03/02/24 Ordered By: Hasmukh Morrow Follow up Plan Follow up with: Nikki Brown MD [Primary Care Provider] - 03/06/24 3:00 pm Hadley Berger MD [Staff Physician] - 03/07/24 1:00 pm Prescriptions/Medication Reconciliation: New nystatin 100,000 unit/mL Suspension 500,000 unit PO QID 7 Days Qty: 140 0RF dexamethasone 4 mg Tablet 20 mg PO DAILY 4 Days Qty: 20 0RF cefdinir 300 mg capsule 300 mg PO BID 4 Days Qty: 8 0RF Continued diazepam 5 MG tablet 5 mg PO HSP PRN (Reason: Insomnia) atorvastatin 40 mg tablet 40 mg PO DAILY Patient Comments: TAKE 1 TABLET BY MOUTH ONCE DAILY ergocalciferol (vitamin D2) 1,250 mcg (50,000 unit) capsule 50,000 unit PO WEEKLY Patient Comments: TAKE 1 CAPSULE BY MOUTH ONCE A WEEK levothyroxine 50 mcg tablet 50 mcg PO DAILY omeprazole 20 mg capsule,delayed release(DR/EC) 20 mg PO DAILY Patient Comments: TAKE 1 CAPSULE BY MOUTH ONCE DAILY Stiolto Respimat 2.5-2.5 mcg/actuation mist 2 puff inhalation DAILY ipratropium-albuterol 0.5 mg-3 mg(2.5 mg base)/3 mL solution for nebulization 3 ml inhalation QIDP PRN (Reason: shortness of breath or wheezing) Held furosemide [Lasix] 20 mg tablet 40 mg PO DAILY Qty: 90 3RF Hold Instructions: Until follow-up with cardiology or oncology, reevaluate reinitiating at that time Discontinued megestrol 400 mg/10 mL (40 mg/mL) suspension 400 mg PO BID Patient Comments: TAKE 10 ML BY MOUTH TWICE DAILY Problem Reconciliation Problems Reviewed?: Yes Patient Discharge Instructions ACTIVITY: Continue current activity DIET: continue same diet Patient Instructions: DI for Heart Failure, DI for Acute Kidney Injury Providers Primary Care Provider: Nikki Brown Admit Provider: Hasmukh Morrow Attending Provider: Hasmukh Morrow
[2024-03-02 08:08] LABS: Basophils % 0.2 % (0.1-2.0); Eosinophils % 0.1 % (0.1-12.0); Hematocrit 37.1 % (37.0-47.0); Hemoglobin 11.3 g/dL (12.2-16.2); Lymphocytes # 0.7 K/mm3 (0.7-4.5); Lymphocytes % 12.2 % (10-50); Mean Corpuscular HGB Conc 30.5 g/dL (31.8-35.4); Mean Corpuscular Hemoglobin 31.5 pg (27.0-31.2); Mean Corpuscular Volume 103.2 fl (81-99); Mean Platelet Volume 9.5 fl (7.4-10.4); Monocytes # 0.2 K/mm3 (0.1-1.0); Monocytes % 3.9 % (1.7-9.3); Neutrophils # 4.9 K/mm3 (1.8-7.8); Neutrophils % 83.7 % (37.0-80.0); Platelet Count 198 K/mm3 (142-424); Red Blood Count 3.59 M/mm3 (4.20-5.40); Red Cell Distribution Width 15.4 % (11.5-17.5); White Blood Count 5.9 K/mm3 (4.8-10.8)
[2024-03-02] MEDS: POTASSIUM CHLORIDE 20MEQ TAB 20 MEQ PO ×2 (08:26→13:19)
[2024-03-02] MEDS: DEXAMETHASONE 4MG TABLET 20 MG PO (08:26)
[2024-03-02] MEDS: NYSTATIN SUSP 500,000 UNITS/5ML UDC 500000 UNIT PO ×3 (08:31→18:05)
[2024-03-02] MEDS: CEFTRIAXONE SODIUM 1 GM in 0.9 % SODIUM CHLORIDE 50 ML IV (10:09)
[2024-03-02] MEDS: AZITHROMYCIN 250MG TABLET 500 MG PO (13:15)
[2024-03-02 16:00] VITALS: BP 103/72; PULSE 74; RESP 19; TEMP 36.8; O2SAT 96
== END 2024-03-02 18:33 | disposition home health service (06) | DRG 194 ==
LOC: ER 11:13 → 2ND 13:31
PROVIDERS: Physician Assistant; Admitting Provider Internal Medicine Adolescent Medicine; Emergency Provider Emergency Medicine; PCP Family Medicine; Visit Provider Internal Medicine Adolescent Medicine
DX: J18.1 Lobar pneumonia, unspecified organism (principal); C90.00 Multiple myeloma not having achieved remission; E85.81 Light chain (AL) amyloidosis; J44.0 Chronic obstructive pulmonary disease with (acute) lower respiratory infection; I48.0 Paroxysmal atrial fibrillation; Z85.118 Personal history of other malignant neoplasm of bronchus and lung; I10 Essential (primary) hypertension; E78.2 Mixed hyperlipidemia; G47.33 Obstructive sleep apnea (adult) (pediatric); Z86.718 Personal history of other venous thrombosis and embolism; Z86.73 Personal history of transient ischemic attack (TIA), and cerebral infarction without residual deficits; E03.9 Hypothyroidism, unspecified; F41.9 Anxiety disorder, unspecified; Z87.891 Personal history of nicotine dependence; E83.52 Hypercalcemia
CPT/HCPCS: 36415; 71045; 71250; 80053; 81001; 82803; 83605; 83735; 83880; 83970; 84100; 84134; 84436; 84443; 84479; 84484; 85025; 87040; 87070; 87086; 87205; 93005; 93308; 97163; 97165; 99291; J0456; J0696; J7120

== ENCOUNTER 2024-03-07 13:52 | Outpatient (CLI) | payer MEDICARE, OTHER, SELFPAY ==
[2024-03-07 13:57] VITALS: BMI 20.5
[2024-03-07 14:20] LABS: Basophils % 0.4 % (0.1-2.0); Eosinophils % 0.2 % (0.1-12.0); Hematocrit 36.6 % (37.0-47.0); Hemoglobin 11.4 g/dL (12.2-16.2); Lymphocytes # 0.7 K/mm3 (0.7-4.5); Lymphocytes % 10.8 % (10-50); Mean Corpuscular Volume 99.8 fl (81-99); Mean Platelet Volume 10.3 fl (7.4-10.4); Monocytes # 0.5 K/mm3 (0.1-1.0); Monocytes % 7.5 % (1.7-9.3); Neutrophils # 5.4 K/mm3 (1.8-7.8); Neutrophils % 81.1 % (37.0-80.0); Platelet Count 195 K/mm3 (142-424); Red Blood Count 3.67 M/mm3 (4.20-5.40); Red Cell Distribution Width 15.6 % (11.5-17.5); White Blood Count 6.7 K/mm3 (4.8-10.8)
[2024-03-07 14:28] LABS: Chloride 104 mmol/L (98-107); Potassium 3.7 mmoL/L (3.5-5.1); Sodium 135 mmol/L (136-145)
[2024-03-07 14:31] LABS: Alanine Aminotransferase 43 U/L (12-78); Albumin Level 2.6 g/dl (3.5-5.0); Albumin/Globulin Ratio 0.7 (1.1-1.8); Alkaline Phosphatase 149 U/L (38-126); Anion Gap 6.7 mEq/L (5-15); Aspartate Amino Transferase 63 U/L (14-36); Bilirubin,Total 0.5 mg/dl (0.2-1.3); Blood Urea Nitrogen 56 mg/dl (7-17); Calcium 9.3 mg/dl (8.4-10.2); Carbon Dioxide 28 mmol/L (22.0-30.0); Creatinine Clearance Estimated 33 mL/min (50-200); Estimated Glomerular Filt Rate 48 ml/min (>60); GFR (African American) 58 ML/MIN (>60); Glucose 78 mg/dl (74-100); Total Protein,Serum 6.6 g/dl (6.3-8.2)
[2024-03-11 13:29] LABS: Albumin 2.5 g/dL (2.9-4.4); Alpha-1-Globulin 0.3 g/dL (0.0-0.4); Alpha-2-Globulin 0.8 g/dL (0.4-1.0); Gamma Globulin 2.4 g/dL (0.4-1.8); Protein, Total 6.5 g/dL (6.0-8.5)
[2024-03-11 14:59] LABS: Immunoglobulin A, Qn 8 mg/dL (64-422); Immunoglobulin G, Qn 3050 mg/dL (586-1602); Immunoglobulin M, Qn <5 mg/dL (26-217)
[2024-03-20 08:44] LABS: PDF SCANNED IMAGE
== END 2024-03-07 14:10 | disposition home or self-care (01) ==
LOC: INF 13:53
PROVIDERS: PCP Family Medicine; Visit Provider Internal Medicine Medical Oncology
DX: C90.00 Multiple myeloma not having achieved remission (principal); Z79.899 Other long term (current) drug therapy
CPT/HCPCS: 36415; 80053; 82784; 84155; 84165; 85025; 86334

== ENCOUNTER 2024-03-14 12:33 | Outpatient (CLI) | payer MEDICARE, OTHER, SELFPAY ==
[2024-03-14 13:01] LABS: Microscopic, Urine URINE MICROSCOPIC (MICROSCOPIC)
[2024-03-14 15:03] LABS: Appearance,Urine CLEAR (Clear); Bilirubin,Urine Negative (Negative); Blood, Urine Negative (Negative); Color,Urine YELLOW (Yellow); Glucose,Urine (UA) Negative (Negative); Ketones,Urine Negative (Negative); Leukocyte Esterase,Urine Negative (Negative); Nitrate,Urine Negative (Negative); PH,Urine 6.5 (5.0-8.5); Protein,Urine Negative (Negative); Specific Gravity, Urine <= 1.005 (1.005-1.030)
[2024-03-14 16:20] LABS: Bacteria,Urine Trace /lpf; Squamous Epithelial Cell,Urine Occasional #/hpf (0-5); WBC,Urine Occasional #/hpf (0-3)
== END 2024-03-14 23:59 | disposition home or self-care (01) ==
LOC: LAB.DROPOF 12:35
PROVIDERS: PCP Family Medicine; Visit Provider Family Medicine
DX: N39.0 Urinary tract infection, site not specified (principal)
CPT/HCPCS: 81001; 87086

== ENCOUNTER 2024-04-04 12:05 | Outpatient (CLI) | payer MEDICARE, OTHER, SELFPAY ==
[2024-04-04 12:16] VITALS: BMI 20.5
[2024-04-04 12:34] LABS: Basophils % 0.3 % (0.1-2.0); Eosinophils % 0.3 % (0.1-12.0); Hematocrit 35.7 % (37.0-47.0); Hemoglobin 11.2 g/dL (12.2-16.2); Lymphocytes # 0.8 K/mm3 (0.7-4.5); Mean Corpuscular HGB Conc 31.3 g/dL (31.8-35.4); Mean Corpuscular Hemoglobin 31.5 pg (27.0-31.2); Mean Corpuscular Volume 100.6 fl (81-99); Mean Platelet Volume 10.3 fl (7.4-10.4); Monocytes # 0.6 K/mm3 (0.1-1.0); Monocytes % 10.4 % (1.7-9.3); Neutrophils # 4.2 K/mm3 (1.8-7.8); Platelet Count 165 K/mm3 (142-424); Red Blood Count 3.55 M/mm3 (4.20-5.40); Red Cell Distribution Width 17.1 % (11.5-17.5); White Blood Count 5.6 K/mm3 (4.8-10.8)
[2024-04-04 12:45] LABS: Chloride 101 mmol/L (98-107); Potassium 3.8 mmoL/L (3.5-5.1); Sodium 137 mmol/L (136-145)
[2024-04-04 12:47] LABS: Blood Urea Nitrogen 36 mg/dl (7-17); Creatinine Clearance Estimated 33 mL/min (50-200); Estimated Glomerular Filt Rate 48 ml/min (>60); GFR (African American) 58 ML/MIN (>60)
[2024-04-04 12:48] LABS: Alanine Aminotransferase 37 U/L (12-78); Albumin Level 2.8 g/dl (3.5-5.0); Albumin/Globulin Ratio 0.8 (1.1-1.8); Alkaline Phosphatase 151 U/L (38-126); Anion Gap 6.8 mEq/L (5-15); Aspartate Amino Transferase 49 U/L (14-36); Bilirubin,Total 0.4 mg/dl (0.2-1.3); Calcium 8.7 mg/dl (8.4-10.2); Carbon Dioxide 33 mmol/L (22.0-30.0); Globulin 3.7 g/dL (1.3-3.2); Glucose 78 mg/dl (74-100); Total Protein,Serum 6.5 g/dl (6.3-8.2)
[2024-04-05 11:59] LABS: Immunoglobulin A, Qn 6 mg/dL (64-422); Immunoglobulin G, Qn 2314 mg/dL (586-1602); Immunoglobulin M, Qn <5 mg/dL (26-217)
[2024-04-05 13:30] LABS: Albumin 2.5 g/dL (2.9-4.4); Alpha-1-Globulin 0.3 g/dL (0.0-0.4); Alpha-2-Globulin 0.7 g/dL (0.4-1.0); Gamma Globulin 1.8 g/dL (0.4-1.8); Protein, Total 5.9 g/dL (6.0-8.5)
[2024-04-05 16:12] LABS: Immunoglobulin A, Qn 6 mg/dL (64-422); Immunoglobulin G, Qn 2346 mg/dL (586-1602); Immunoglobulin M, Qn <5 mg/dL (26-217)
[2024-04-20 12:31] LABS: PDF SCANNED IMAGE
== END 2024-04-04 14:42 | disposition home or self-care (01) ==
LOC: INF 12:12
PROVIDERS: PCP Family Medicine; Visit Provider Internal Medicine Medical Oncology
DX: Z85.118 Personal history of other malignant neoplasm of bronchus and lung (principal); C90.00 Multiple myeloma not having achieved remission; Z87.891 Personal history of nicotine dependence
CPT/HCPCS: 36415; 80053; 82784; 84155; 84165; 85025; 86334

== ENCOUNTER 2024-05-01 11:02 | Outpatient (CLI) | payer MEDICARE, OTHER, SELFPAY ==
[2024-05-01 11:07] VITALS: BMI 20.9
--- NOTE | 2024-05-01 11:16 | PC.NURSE ---
1116-jameson johnson rn collected labs via venipuncture stick in left ac with butterfly needle; pt d/c to md appointment.
[2024-05-01 11:48] LABS: Basophils % 0.2 % (0.1-2.0); Eosinophils % 0.2 % (0.1-12.0); Hematocrit 35.9 % (37.0-47.0); Hemoglobin 11.4 g/dL (12.2-16.2); Lymphocytes # 0.6 K/mm3 (0.7-4.5); Lymphocytes % 9.4 % (10-50); Mean Corpuscular HGB Conc 31.8 g/dL (31.8-35.4); Mean Corpuscular Hemoglobin 32.8 pg (27.0-31.2); Mean Corpuscular Volume 103.1 fl (81-99); Monocytes # 0.4 K/mm3 (0.1-1.0); Monocytes % 7.4 % (1.7-9.3); Neutrophils # 4.8 K/mm3 (1.8-7.8); Neutrophils % 82.9 % (37.0-80.0); Platelet Count 167 K/mm3 (142-424); Red Blood Count 3.48 M/mm3 (4.20-5.40); Red Cell Distribution Width 17.7 % (11.5-17.5); White Blood Count 5.8 K/mm3 (4.8-10.8)
[2024-05-01 12:03] LABS: Chloride 94 mmol/L (98-107); Sodium 132 mmol/L (136-145)
[2024-05-01 12:04] LABS: Potassium 3.8 mmoL/L (3.5-5.1)
[2024-05-01 12:06] LABS: Alanine Aminotransferase 37 U/L (12-78); Albumin Level 2.8 g/dl (3.5-5.0); Albumin/Globulin Ratio 0.8 (1.1-1.8); Alkaline Phosphatase 134 U/L (38-126); Anion Gap 11.8 mEq/L (5-15); Aspartate Amino Transferase 48 U/L (14-36); Bilirubin,Total 0.6 mg/dl (0.2-1.3); Blood Urea Nitrogen 32 mg/dl (7-17); Carbon Dioxide 30 mmol/L (22.0-30.0); Creatinine Clearance Estimated 34 mL/min (50-200); Estimated Glomerular Filt Rate 48 ml/min (>60); GFR (African American) 58 ML/MIN (>60); Globulin 3.5 g/dL (1.3-3.2); Total Protein,Serum 6.3 g/dl (6.3-8.2)
[2024-05-01 12:07] LABS: Calcium 8.6 mg/dl (8.4-10.2); Glucose 136 mg/dl (74-100)
[2024-05-02 16:56] LABS: Albumin 2.4 g/dL (2.9-4.4); Alpha-1-Globulin 0.3 g/dL (0.0-0.4); Alpha-2-Globulin 0.8 g/dL (0.4-1.0); Gamma Globulin 1.9 g/dL (0.4-1.8); Immunoglobulin A, Qn 6 mg/dL (64-422); Immunoglobulin G, Qn 2368 mg/dL (586-1602); Immunoglobulin M, Qn <5 mg/dL (26-217)
[2024-05-27 15:30] LABS: PDF SCANNED IMAGE
== END 2024-05-01 11:20 | disposition home or self-care (01) ==
LOC: INF 11:04
PROVIDERS: PCP Family Medicine; Visit Provider Internal Medicine Medical Oncology
DX: C90.00 Multiple myeloma not having achieved remission (principal); Z85.118 Personal history of other malignant neoplasm of bronchus and lung; Z87.891 Personal history of nicotine dependence
CPT/HCPCS: 36415; 80053; 82784; 84155; 84165; 85025; 86334